=== PATIENT | female | born 1975 | race Caucasian/White ===

== ENCOUNTER 2024-05-31 13:37 | Outpatient (AMB) | payer MEDICAID, SELFPAY ==
--- NOTE | 2024-05-31 13:40 | A.OFFVIS_ITS ---
Vital Signs 3 05/31/24 13:42 Height 4 ft 10 in Weight 291 lb 0.163 oz BMI 60.8 BP 128/70 Blood Pressure Location Rt brachial Position Sitting Pulse 80 Pulse Source Pulse Oximeter Intake Visit Reasons: Adrenal nodule Intake Note: New patient present today for Adrenal nodule. 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 Here to day with mother Stephany CT scan done for evaluation of liver enzyme elevation in January 2024 showed a right-sided enhancing lesion in the adrenal gland measuring 1.4 cm. No other description given. I do not have these images. She thinks she had a dedicated adrenal CT May 19 as well. Symptoms: Reports weight loss on the Victoza , lost close to 20 lbs since September 2023, used to be 300 lbs No , hirsutism,severe acne ,headaches denies any hx of proximal muscle weakness, easy bruisability ,no abdominal striae,no headache,diaphoresis -HTN diagnosed in her 40s -Denies any polyuria or polydipsia,has type 2 DM uncontrolled managed by PCP a1c 10.1 % from notes from PCP from 2023 , they are titrating up Victoza, no abdominal pain ,skin infection or hyperpigmentation. 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 No hx of depression or mood changes - no episodic palpitaions, pallor, abdominal pain, diaphoresis . PMHx HTN Hypothyroidism Obesity Type 2 DM JOHANN on CPAP PShx No surgeries Physical exam General: sitting comfortably in no acute distress HEENT: normocephalic/atraumatic, , facial plethora noted, has rosacea Neck: supple, symmetrical, no thyromegaly , does have dorsocervical and supraclavicular fat pads Cardiac: normal heart sounds Pulm: normal breath sounds B/L, no added breath sounds Abd: not distended, no tenderness, no purple wide striae Extremities: no edema, no signs of myxedema ? PFSH Medical History (Updated 05/31/24 @ 13:47 by Olga Dolan MD) Adrenal incidentaloma Surgical History (Updated 05/31/24 @ 13:45 by ARIELLA Mosley) No pertinent past surgical history Family History (Updated 05/31/24 @ 13:46 by ARIELLA Mosley) Father No problems noted. Mother Thyroid disease Maternal Aunt Thyroid disease Social History (Updated 05/31/24 @ 13:45 by ARIELLA Mosley) Alcohol intake: current Alcohol intake frequency: holidays/special occasions only Patient Tobacco Use Status: Never used Tobacco Physical Exam Vital Signs: BMI result Body Mass Index 60.8 Assessment & Plan Assessment & Plan (1) Adrenal incidentaloma: Code(s): E27.8 - Other specified disorders of adrenal gland Category: Medical Plan: 49-year-old female coming in today for initial evaluation of right 1.4 cm adrenal gland nodule. Our first concern is to be sure that this is not an adrenal cortical carcinoma. ?Fortunately adrenal cortical carcinomas are exceedingly rare. ?However they do carry with them a very poor prognosis.?Given his clinical history with no deterioration in overall health; I have low suspicion for adrenocortical carcinoma to start with. According?Our next to patient she had another CT scan or MRI focusing on the adrenal glands, I do not have the report of this, we will request records. ?? Another concern of adrenal masses is that they might be metastatic disease from another primary malignancy. ?This seems unlikely in his case. ?She is a lifelong non-smoker. ?A renal cancer which can metastasize to the adrenal glands probably would have been identified on his initial imaging study. ?Usually metastatic disease to the adrenal glands goes to both adrenal glands. ?Finally there is no evidence of breast cancer which?may?metastasize to the adrenal glands?as well. ? Most adrenal masses are noncancerous or benign adrenal adenomas. ?However they can occasionally be functional and the hormones that are produced can cause clinical problems.??He has not been screened for any hormonal excess; although low clinical suspicion for pheochromocytoma; given the adrenal adenoma in question is greater than 1 cm and we currently do not have Hounsfield units reading on it; I will err on the side of caution and screen with plasma free metanephrines with his blood work today. ? She does have hypertension we will check for aldosterone and plasma renin activity with BMP. ? We will check a 1 mg overnight dexamethasone suppression test which she will prescribed. She does have facial plethora, dorsocervical and supraclavicular fat pads, worsened control of her diabetes though she has been losing weight recently on the Victoza up, history of hypertension though well-controlled. No recent fractures. ? Plan: -obtain records of the 2nd CT scan/MRI of the adrenal glands -ordered baseline ACTH, cortisol, DHEA-S, aldosterone, renin, BMP, plasma metanephrine and normetanephrine levels -ordered dexamethasone suppression test -follow up in 4 weeks to discuss results Notably patient also has uncontrolled diabetes mellitus with an A1c of 10.1%, I did offer to also manage diabetes mellitus in the near future once we have the adrenal gland nodule sorted out. Today we did not have enough time to address plus the referral was made for the adrenal incidentaloma. Patient and patient's mother did express interest in us taking care of this in the future as well. Plan I spent 45 minutes in reviewing the record, seeing the patient and documenting in the medical record. Orders: Orders 2 Aldosterone 06/04/24 E27.8 - Other specified disorders of adrenal gland Cortisol Random 06/04/24 E27.8 - Other specified disorders of adrenal gland Adrenocorticotropic Hormone 06/08/24 E27.8 - Other specified disorders of adrenal gland DHEA Sulfate 06/08/24 E27.8 - Other specified disorders of adrenal gland Adrenocorticotropic Hormone 06/04/24 E27.8 - Other specified disorders of adrenal gland Renin 06/04/24 E27.8 - Other specified disorders of adrenal gland DHEA Sulfate 06/04/24 E27.8 - Other specified disorders of adrenal gland Metanephrines, Plasma 06/04/24 E27.8 - Other specified disorders of adrenal gland Basic Metabolic Panel 06/04/24 E27.8 - Other specified disorders of adrenal gland Dexamethasone 06/08/24 E27.8 - Other specified disorders of adrenal gland Cortisol Random 06/08/24 E27.8 - Other specified disorders of adrenal gland Medications: New 2 dexamethasone Take at 11 pm at night and do blood work at 8 AM next day 1 mg PO DAILY 1 tab 0RF Patient Instructions: Do a set of baseline blood work at 8 AM on 06/04/24 Do dexamethasone suppression test separately next week Dexamethasone suppression test I would like you to do a dexamethasone suppression test to rule out Cushings syndrome. You will take a 1 mg pill of dexamethasone at 11 PM and then have a blood draw for cortisol at 8AM the next morning. It is important to make sure you take the dexamethasone at 11 PM and have the blood test as close to 8AM as possible. Please make sure when you go to the lab to bring their attention to the dates on the blood work Coding Level of Care Code New Pt Level 4 (03253) Diagnoses Adrenal incidentaloma E27.8 Time Spent (min) 45
[2024-05-31 13:42] VITALS: BP 128/70; PULSE 80; BMI 60.8
== END 2024-05-31 14:19 | disposition home or self-care (01) ==
PROVIDERS: PCP Internal Medicine; Visit Provider Student in an Organized Health Care Education/Training Program
DX: E27.8 Other specified disorders of adrenal gland (principal)
CPT/HCPCS: 99204

== ENCOUNTER → 2024-05-31 13:37 | Outpatient (BNVA) | payer MEDICAID, SELFPAY | PROVIDERS: PCP Internal Medicine; Visit Provider Student in an Organized Health Care Education/Training Program | DX: E27.8 Other specified disorders of adrenal gland (principal) | CPT/HCPCS: 99202 ==

== ENCOUNTER 2024-06-04 07:49 | Outpatient (REF) | payer MEDICAID, SELFPAY ==
[2024-06-04 08:46] LABS: Anion Gap 12 (12-20); Blood Urea Nitrogen 17 mg/dL (9-16); Calcium 9.6 mg/dL (8.4-10.2); Carbon Dioxide 30 mmol/L (22-29); Chloride 101 mmol/L (96-108); Estimated Glomerular Filt Rate 60; Glucose Random 232 mg/dL (60-115); Potassium 4.3 mmol/L (3.3-5.1); Sodium 139 mmol/L (135-145)
[2024-06-04 09:10] LABS: Cortisol Random 11.8 ug/dL
[2024-06-06 04:23] LABS: DHEA Sulfate 49 mcg/dL (5-167)
[2024-06-07 15:13] LABS: Metanephrine, Free <25 pg/mL (<=57); Normetanephrines, Free 56 pg/mL (<=148); Total Metanephrine, Free 56 pg/mL (<=205)
[2024-06-08 21:03] LABS: Adrenocorticotropic Hormone 60 pg/mL (6-50)
[2024-06-10 17:28] LABS: Renin 2.19 ng/mL/h (0.25-5.82)
[2024-06-15 11:49] LABS: Dexamethasone <20 ng/dL
== END 2024-06-04 07:50 | disposition home or self-care (01) ==
LOC: HO.LAB 07:49
PROVIDERS: PCP Internal Medicine; Visit Provider Student in an Organized Health Care Education/Training Program
DX: E27.8 Other specified disorders of adrenal gland (principal)
CPT/HCPCS: 36415; 80048; 80299; 82024; 82088; 82533; 82627; 83835; 84244

== ENCOUNTER 2024-06-08 07:32 | Outpatient (REF) | payer MEDICAID, SELFPAY ==
[2024-06-08 09:36] LABS: Cortisol Random < 1.0 ug/dL
[2024-06-09 06:53] LABS: DHEA Sulfate 43 mcg/dL (5-167)
[2024-06-11 21:03] LABS: Adrenocorticotropic Hormone 11 pg/mL (6-50)
[2024-06-16 14:23] LABS: Dexamethasone 412 ng/dL
== END 2024-06-08 07:33 | disposition home or self-care (01) ==
LOC: HO.LAB 07:32
PROVIDERS: PCP Internal Medicine; Visit Provider Student in an Organized Health Care Education/Training Program
DX: E27.8 Other specified disorders of adrenal gland (principal)
CPT/HCPCS: 36415; 80299; 82024; 82533; 82627

== ENCOUNTER 2024-07-06 10:49 | Outpatient (AMB) | payer MEDICAID, SELFPAY ==
[2024-07-06 10:51] VITALS: BP 186/99; PULSE 63; BMI 59.4
--- NOTE | 2024-07-06 10:51 | A.OFFVIS_ITS ---
Vital Signs 3 07/06/24 10:51 Height 4 ft 10 in Weight 284 lb 6.341 oz BMI 59.4 BP 186/99 H Blood Pressure Location Rt brachial Position Sitting Pulse 63 Pulse Source Pulse Oximeter Intake Visit Reasons: DM, Adrenal nodule Intake Note: Patient presents today for a follow-up on Type 2 Diabetes Mellitus & Adrenal Nodule: Last Diabetic eye exam was on: 05/09/2024, pt has cataracts surgery next month Last Podiatry exam was on: Patient does not see a Textile Cutting Machine Operator Most recent HbA1c: 11.0%, 07/06/2024 Random Glucose- 336 mg/dL, Today Cutter Operator Brick Required: No Accompanied by: Mother Allergies No Known Allergies Allergy (Verified 07/06/24 10:58) Medication List - Last Reconciled 07/06/24 by Olga Dolan MD hydrochlorothiazide 12.5 mg PO DAILY levothyroxine 125 mcg PO QAM meloxicam 7.5 mg PO DAILY pen needle, diabetic (BD Lianna 2nd Gen Pen Needle) As directed HPI Comments Details: 49-year-old female here today for follow up of right adrenal incidentaloma. She is also establishing care for type 2 diabetes mellitus with us today. Here to day with mother Stephany Right adrenal gland nodule CT scan done for evaluation of liver enzyme elevation in January 2024 showed a right-sided enhancing lesion in the adrenal gland measuring 1.4 cm. No other description given. I do not have these images. She thinks she had a dedicated adrenal MRI May 19 as well. Symptoms: Reports weight loss on the Victoza , lost close to 20 lbs since September 2023, used to be 300 lbs No , hirsutism,severe acne ,headaches denies any hx of proximal muscle weakness, easy bruisability ,no abdominal striae,no headache,diaphoresis -HTN diagnosed in her 40s -Denies any polyuria or polydipsia,has type 2 DM uncontrolled managed by PCP a1c 10.1 % from notes from PCP from 2023 , they are titrating up Victoza, no abdominal pain ,skin infection or hyperpigmentation. 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 No hx of depression or mood changes - no episodic palpitaions, pallor, abdominal pain, diaphoresis . Interval history MRI adrenal glands May 19 2024 obtained from [facility] showed right sided 1 cm adrenal nodule without signal drop in out of phase Labs 06/04/24 showed normal manhaz, renin, MN and NMN Dex suppression done 06/08/24 also normal Type 2 DM Diagnosed summer 2023, was prediabetic for several years , was on metformin for a couple of month and then couldnt tolerate it because of diarrhea and then wasnt on anything for a couple of years Past Medications Metformin Prior medications Victoza started summer 2023, then increased it up to 1.8 mg daily, says she has been out of it since May 2024 since 6 weeks Cataract surgery Jul 28 SMBGs hasnt checked in a while A1c 06/16 at 11 % up from 10.1 % based on PCP notes from May 2024 POC today 336 mg/dl , denies any nausea, vomiting, abd pain Weight 284 lbs thinks they lost close to 20 lbs in victoza BMI 59.4 kg /m2 Exercise: no exercise, no fixed program but stays active at home Diet: 3 meals a day Breakfast : between 8 or 9 usually eggs with banana or yogurt Lunch 1 pm : ham and cheese sandwich, Dinner between 5 and 6 30 pm: pasta with chicken or steak, spaghetti and meatballs No snacks Seldom has desserts: sugar free 1 gm snack bar Soda only once a week Hasnt seen a tire layer Last Diabetic eye exam was on: 05/09/2024, pt has cataracts surgery next month Last Podiatry exam was on: Patient does not see a Textile Cutting Machine Operator No history of neuropathy, retinopathy or kidney disease No history of OR or stroke Family history Grand uncle type 2 DM no lipids in system, not on statin on HCTZ for HTN , BP elevated today, monitors at home, 140s to 150s , lower number 80s No urine microalbumi levels PMHx HTN Hypothyroidism Obesity Type 2 DM JOHANN on CPAP PShx No surgeries Physical exam General: sitting comfortably in no acute distress HEENT: normocephalic/atraumatic, , facial plethora noted, has rosacea Neck: supple, symmetrical, no thyromegaly , does have dorsocervical and supraclavicular fat pads Cardiac: normal heart sounds Pulm: normal breath sounds B/L, no added breath sounds Abd: not distended, has a burn that looks inflamed in her right lower quadrant region, no pus noted however it is erythematous and hot, no purple wide striae Extremities: no edema, no signs of myxedema Laboratory Tests 06/04/24 06/08/24 07/06/24 08:09 08:21 11:03 Sodium 139 Potassium 4.3 Creatinine 0.98 Estimated GFR 60 Glucose (Clinic) 336 H Random Glucose 232 H Renin 2.19 Aldosterone 3 DHEA Sulfate 49 43 Random Cortisol 11.8 < 1.0 ACTH 60 H 11 Plasma Free Metaneph <25 Plasma Free Normeta 56 Plas Total Metaneph 56 ? PFSH Medical History (Updated 07/06/24 @ 12:27 by Olga Dolan MD) HTN (hypertension) Obesity Adrenal nodule Diabetes mellitus Hx of hepatic disease History of obstructive sleep apnea Hx of essential hypertension History of hyperthyroidism Hx of hyperlipidemia Hx of aortic valve disorder Hx of type 2 diabetes mellitus Adrenal incidentaloma Surgical History (Updated 05/31/24 @ 13:45 by ARIELLA Mosley) No pertinent past surgical history Family History (Updated 05/31/24 @ 13:46 by ARIELLA Mosley) Father No problems noted. Mother Thyroid disease Maternal Aunt Thyroid disease Social History (Updated 05/31/24 @ 13:45 by ARIELLA Mosley) Alcohol intake: current Alcohol intake frequency: holidays/special occasions only Patient Tobacco Use Status: Never used Tobacco Physical Exam Vital Signs: Last Vital Signs Pulse 63 07/06/24 10:51 BP 186/99 H 07/06/24 10:51 BMI result Body Mass Index 59.4 Results AMB Hemoglobin A1c 2 AMB Hemoglobin A1c 11.0 % Last Edit by ARIELLA Mosley on 07/06/24 11:1 4 Results Reviewed Results Reviewed: Laboratory Last Values Glucose (Clinic) 336 mg/dL (60-115) H 07/06/24 11:03 Hgb A1c (Clinic) 11.0 % (4.0-6.0) H 07/06/24 11:07 Assessment & Plan Assessment & Plan (1) Adrenal incidentaloma: Code(s): E27.8 - Other specified disorders of adrenal gland Category: Medical Plan: 49-year-old female coming in today for follow up of right 1.4 cm adrenal gland nodule. CT scan done for evaluation of liver enzyme elevation in January 2024 showed a right-sided enhancing lesion in the adrenal gland measuring 1.4 cm. No other description given. I do not have these images. MRI adrenal glands May 19 2024 obtained from [facility] showed right sided 1 cm adrenal nodule without signal drop in out of phase Labs 06/04/24 showed normal mahnaz, renin, MN and NMN Dex suppression done 06/08/24 also normal Given it isn't enhancing nodule without a clear signal dropout on MRI on out phase imaging, we will have her do follow up CT with the adrenal protocol in January 2025 which would be 1 year from her last CT scan. ? Plan: -ordered CT scan with the adrenal protocol to be done in January of 2025 (2) Diabetes mellitus: Code(s): E11.9 - Type 2 diabetes mellitus without complications Category: Medical Qualifiers: Diabetes mellitus type: type 2 Diabetes mellitus snf insulin use: with terminologist use Diabetes mellitus complication status: with hyperglycemia Q ualified Code(s): E11.65 - Type 2 diabetes mellitus with hyperglycemia; Z79.4 - rat exterminator (current) use of insulin Plan: 49-year-old female who also established care with us today for her type 2 diabetes mellitus which was diagnosed in summer after which was started on Victoza which was slowly uptitrated to 1.6 mg daily injection, however she has been out of her medication for the past 6 weeks. A1c today at 11%, point of care blood sugar elevated at 336 mg/dL however patient denies any symptoms of nausea, vomiting, abdominal pain, mental status changes to suggest ketoacidosis. She only complains of feeling tired. At this point given uncontrolled hyperglycemia with A1c greater than 11%, we will start her on some basal insulin. I will start her with 12 units daily however plan is for her to slowly titrate it up by 2 units depending on her fasting blood sugars with a maximum dose of 16 units for now. We will also switch her to Mounjaro. She has been on Victoza for the past year son her weight had plateaued over the last few months, most recent weight loss is likely due to a state of catabolism due to uncontrolled hyperglycemia. Plan: -Do fasting blood work and urine test Check blood sugars twice a day Fasting target 90 to 120 mg /dl , at least <140 mg/dl 2 hours post meal target < 140 mg /dl Sometimes also check premeals target <140 mg /dl -Start insulin lantus 12 units daily , if blood sugars remain greater than 140 mg/dl after 4 days consecutively , increase by 2 units up until max 16 units -Start Mounjaro 2.5 mg weekly injection, call pharmacy to ensure you get it, if not figure out what they need -STOP victoza -See educator , referral placed -See tire layer , referral pain -Cancel cataract surgery for now She follows regularly with the eye doctor, she was scheduled to have cataract surgery on July 28, I have asked them to postpone this for now given uncontrolled hyperglycemia with blood sugars in the 300s. She should have an A1c of at least 8% before she can have any kind of surgical procedure to minimize risk of infection. No history of retinopathy. Could not get to foot exam today, we will address next visit, no history of neuropathy -freestyle Juancarlos 3+ prescription sent -hypoglycemia education done Check CMP, lipid panel, platelet, urine microalbumin, labs ordered We also educated her today about importance of getting blood sugars under control, risk of complications of microvascular as well as macrovascular complications including OR or stroke. Follow up in 2 weeks (3) Obesity: Code(s): E66.9 - Obesity, unspecified Category: Medical Qualifiers: Obesity type: due to excess calories Obesity classification: adult class 3 (BMI >= 40) Serious obesity comorbidity presence: with serious comorbidity Body mass index: BMI 50.0-59.9 Qualified Code(s): E66.813 - Obesity, class 3; E66.01 - Morbid (severe) obesity due to excess calories; Z68.43 - Body mass index [BMI] 50.0-59.9, adult Plan: BMI 59.4 kg per m2 with current weight at 284 lb. She lost about 20 lb with Victoza initially but weight had plateaued over the last few months per patient. We will switch her to Mounjaro starting with 2.5 mg weekly since she has been off any GLP 1 agonist medications for the past 6 weeks. Counseled about GI intolerance. No history of pancreatitis. No alcohol use. Plan: -referral for tire layer placed -start Mounjaro 2.5 mg weekly (4) HTN (hypertension): Code(s): I10 - Essential (primary) hypertension Category: Medical Qualifiers: Hypertension type: primary hypertension Qualified Code(s): I10 - Essential (primary) hypertension Plan: Blood pressure elevated today with systolic in the 180s, they have a blood pressure monitor at home I have asked her to monitor. They say blood pressure has been elevated in the 140s to 150 systolic. We will plan to add additional blood pressure medications in the upcoming visit in 2 weeks. For now continue hydrochlorothiazide. Plan I spent 60 minutes in reviewing the record, seeing the patient and documenting in the medical record. Orders: Orders 2 AMB Hemoglobin A1c Today Z86.39 - Personal history of other endocrine, nutritional and metabolic disease Lipid Panel Today E11.9 - Type 2 diabetes mellitus without complications Microalbumin, Random (w Creat) Today E11.9 - Type 2 diabetes mellitus without complications Platelet Count Today E11.9 - Type 2 diabetes mellitus without complications Comprehensive Met. Panel Today E11.9 - Type 2 diabetes mellitus without complications TSH reflex Free T4 Today E11.9 - Type 2 [address] adrenal wo/w IV con 01/31/25 E27.9 - Disorder of adrenal gland, unspecified Referrals 2 Diabetes Education Referral E11.9 - Type 2 diabetes mellitus without complications Nutrition/Dietitian Referral E11.9 - Type 2 diabetes mellitus without complications Medications: New 2 blood-glucose sensor (FreeStyle Juancarlos 3 Plus Sensor device) As directed every 14 days 6 ea 3RF glucagon 3 mg/actuation for emergency use 3 mg intranasal ONCE 2 ea 0RF insulin glargine (Lantus Solostar U-100 Insulin) 15 units (0.15 mL) subcut QAM 15 mL 3RF pen needle, diabetic (Comfort EZ Pen Baring) As directed for injecting insulin once daily 100 ea 4RF tirzepatide (Mounjaro) for 4 weeks 2.5 mg (0.5 mL) subcut QWEEK 2 mL 0RF Patient Instructions: Do fasting blood work and urine test Check blood sugars twice a day Fasting target 90 to 120 mg /dl , at least <140 mg/dl 2 hours post meal target < 140 mg /dl Sometimes also check premeals target <140 mg /dl Start insulin lantus 12 units daily , if blood sugars remain greater than 140 mg/dl after 4 days consecutively , increase by 2 units up until max 16 units Start Mounjaro 2.5 mg weekly injection, call pharmacy to ensure you get it, if not figure out what they need STOP kevin See educator See tire layer Cancel cataract surgery for now Rule of 15 Treatment for Hypoglycemia (Low blood sugar) If your blood glucose is low (70 and below)*, follow the steps below to treat: Eat or drink something from the list below equal to 15 grams of carbohydrate (carb). Rest for 15 minutes Re-check your blood glucose. If it is still low, (below 70), repeat step 1 above. ? If your next meal is more than an hour away, you will need to eat one carbohydrate choice as a snack to keep your blood glucose from going low again. ?If you can't figure out why you have low blood glucose, call your healthcare provider, as your medicine may need to be adjusted. ?Always carry something with you to treat an insulin reaction. Use food from the list below. ? Foods equal to One Carbohydrate Choice (15 grams of carbohydrate): 3 Glucose ?tablets or 4 Dextrose tablets 4 ounces of fruit juice 5-6 ounces (about 1/2 can) of regular soda such as Coke or Pepsi ? 7-8 gummy or regular Life Savers ? 1 Tbsp. of sugar or jelly NOTE: If your blood sugar is less than 50, double the portion above for a total of 30 gm. ?Carbohydrate. ? Follow meal plan of 45-60 g of consistent carbohydrates at 3 meals each day and 15 g of carbohydrate at 1-2 snacks each day. Coding Level of Care Code Est Pt Level 5 (74379) Complex EM visit Add On G2211 Diagnoses Adrenal incidentaloma E27.8 Type 2 diabetes mellitus with hyperglycemia, with long-term current use of insulin E11.65; Z79.4 Diabetes mellitus type: type 2 Diabetes mellitus terminologist insulin use: with snf use Diabetes mellitus complication status: with hyperglycemia Class 3 severe obesity due to excess calories with serious comorbidity and body mass index (BMI) of 50.0 to 59.9 in adult E66.813; E66.01; Z68.43 Obesity type: due to excess calories Obesity classification: adult class 3 (BMI >= 40) Serious obesity comorbidity presence: with serious comorbidity Body mass index: BMI 50.0-59.9 Primary hypertension I10 Hypertension type: primary hypertension Time Spent (min) 60
[2024-07-06 11:09] LABS: Glucose, Whole Blood 336 mg/dL (60-115)
--- OUTSIDE RECORDS SUMMARY | 2024-07-06 11:59 | XMS_ITS | Clinical Summary ---
Author Organization [facility] Address [address] [facility] [address] [place] [address] Care Team Providers Care Family Service Worker Name Role Phone Tristin Garcia DO Primary Care Provider [phone] Allergies No known active allergies Social History Tobacco Use Types Packs/Day Years Used Date Smoking Tobacco: Never Assessed Comments Unknown Sex and Gender Information Value Date Recorded Sex Assigned at Not on file Legal Sex Female 4:35 PM EST Gender Identity Not on file Sexual Orientation Not on file Plan of Treatment Health Maintenance Due Date Last Done Comments Colorectal Cancer: COLONOSCO PY Screening every 10 yrs (or Modifier) 1973 Depression: Screening Annual ly using PHQ-2/9 in Adults 18 yrs or above (or HM Modifier)([facility]) 1991 Hepatitis C Virus Infection in Adolescents and Adults: Screening (or Modifier) ([facility]) 1991 SDOH Screening Reminder: Makenzie hartman for all adults ([facility]) 1991 Tobacco Smoking Cessation: i n Adults excluding Women: Behavioral and Pharmacotherapy Interventions ([facility]) 1991 DTaP/Tdap/Td Vaccines ([facility]) (1 - Tdap) 1992 Cervical Cancer Screenin 1-65 yrs of age (or Modifier) 1994 Cervical Cancer Screening: P ap every 3 yrs pts age 21-65 1994 Cervical Cancer: Pap Screeni ng with Modifier timing ([facility]) 1994 Cervical Cancer: hrHPV alone or with cotesting Pap for Pts 30-65yrs screening every 5yrs ([facility]) 1994 Colorectal Cancer Screening 45 -75 Yrs (or HM Modifier) 2018 Colorectal Cancer: FLEXIBLE SIGMOIDOSCOPY Screening every 5 yrs 2018 Colorectal Cancer: Fecal Immunochemical Test (FIT) Annually [facility] 2018 Colorectal Cancer: High-sens itivity gFOBT Screening Annually [facility] 2018 Colorectal Cancer: Stool Col oguard Screening every 3 yrs 2018 Colorectal Cancer:CT Colonog annabella Screening every 5 yrs 2018 Lipid Screening: Every 5 yrs for Women aged 45+ (or HM Modifier) ([facility]) 2019 Breast Cancer: Screening Makenzie ually age 50-74 yrs (or HM Modifier)([facility]) 2023 Zoster/Shingles Vaccine Seri es Screening: Adults aged 18+ yrs (or HM Modifiers)([facility]) (1 of 2) 2023 Flu Vaccination: Yearly for ages 18mos through 64 years (or Modifier)([facility]) 01/08/2024 COVID-19 Vaccine Screening: Initial Series and Booster Status ([facility]) ( - 2023- season) 2024 Pneumococcal Vaccination Scr eening: Pts 0-19 & 19-64 yrs of age ([facility]) Aged Out No longer eligible based on patient's age to complete this topic Medical Devices Not on file Care Teams Family Service Worker Relationship Specialty Start Date End Date Tristin Garcia DO PCP - Claim Investigator 06/23/15
--- OUTSIDE RECORDS SUMMARY | 2024-07-06 11:59 | XMS_ITS ---
[facility] Address [address] [place] [address] Care Team Providers Care Technology Trainer Name Role Phone Jose HUMPHRIES, Tristin Primary Care Provider Mat Oliveira [phone] REASON FOR VISIT NS 02/27/23 appt Encounters Encounter Location Date Provider Diagnosis [facility] [address] [address] 02/27/2023 Mat Orozco Plan Of Treatment Next Appt Details Provider Name:Mat Orozco , 04/18/2025 01:00:00 PM, [address] [place] [address], , [phone], Progress Notes * Rick ANDERSENedaDOB: 3 (47 yo F)Acc No.[id number]:02/27/2023 Patient:?Gillian Andersen :1975???Age:47 Y???Sex:Female Address:[address] [place] [address] [place], [address] * true * Date:? Generated for Brenti myah/Miguel/eTransmitting on:?07/06/2024 11:59 AM EST
--- OUTSIDE RECORDS SUMMARY | 2024-07-06 11:59 | XMS_ITS | Patient Health Record ---
[facility] Address [address] [place] [address] Care Team Providers Care Marriage Therapist Name Role Phone Jose HUMPHRIES, Tristin Primary Care Provider Mat Oliveira Unavailable [phone] Allergies No Known Allergies Results Component Value Reference Range Notes HEMOGLOBIN A1C (GLYCOHEMOGLO BIN) Reviewed date:04/19/2024 01:05:08 PM Interpretation: Performing Lab: Notes/Report: TOTAL HEMOGLOBIN (HGBA1C) 7.1 Reason For Referral No Information Medications Medication SIG (Take, Route, Frequency, Duration) Notes Start Date End Date Status metFORMIN HCl ER 500 MG TAKE 1 TABLET BY MOUTH EVERY DAY Oral for 30 Not-Taking Extra Depth Orthopedic Shoes (1 Pair) with Customized Heat Molded Multidensity Innersoles (3 Pair) as directed Dx: NIDDM (E11.9), Hammertoe Foot Deformity (M20.41,M20.42), Preulcerative Skin Lesion(s) (L85.1) Active Flovent HFA 110 mcg Active hydroCHLOROthiazide 25 mg Active Levothyroxine Sodium 75 mg Active ProAir HFA 90 mcg Ac tive Victoza 18 MG/3ML INJECT 1.2 MG UNDER THE SKIN ONCE DAILY Subcutaneous for 30 Days Active FreeStyle Lancets - TEST SUGAR DAILY DIRECTED for 30 Not-Taking Lisinopril 5 MG TAKE 1 TABLET BY MOUTH EVERY DAY Oral for 30 Not-Taking Norethindrone 0.35 MG TAKE 1 TABLET BY MOUTH EVERY DAY Oral for 28 Not-Taking Immunizations Vaccine Route Administration Date Status Comme nts Influenza Unknown 04/02/2017 Administered Influenza Unknown 04/02/2018 Administered Social History Tobacco use other than smoking: Question Answer Notes Are you an other tobacco user? Yes Problems Problem Type SNOMED Code ICD Code Onset Dates Problem Status W/U Status Risk Notes Problem Type 2 diabetes mellitus without complication (580090507) Type 2 diabetes mellitus without complication (E11.9) Active confirmed Vital Signs Blood pressure diastolic 60 mm Hg 04/19/2024 Height 3id76mg in 04/19/2024 Blood pressure systolic 138 mm Hg 04/19/2024 Weight 283 lbs 04/19/2024 BMI 59.14 kg/m2 04/19/2024 Procedures Procedure Date Ordered Date Performed Result Body Sit e 13621-ZJZIQUM NAIL, 6 OR MORE 04/19/2024 N/A Encounters Encounter Location Date Provider Diagnosis [facility] [address] [address] 04/19/2024 Matpranay LimPam Type 2 diabetes mellitus without complication E11.9 ; Pain in right toe(s) M79.674 ; Tinea unguium B35.1 and Pain in left toe(s) M79.675 Assessments Encounter Date Diagnosis (ICD Code) Assessment Notes Treatment Notes Treatment Clinical Notes Section Notes 04/19/2024 Type 2 diabetes mellitus without complication (ICD-10 - E11.9) 04/19/2024 Pain in right toe(s) (ICD-10 - M79.674) 04/19/2024 Tinea unguium (ICD-10 - B35.1) 04/19/2024 Pain in left toe(s) (ICD-10 - M79.675) 04/19/2024 Other Plan Of Treatment Pending Test Test Name Order Date Hemoglobin A1c 06/24/2017 53762-[id number] NAIL, 6 OR MORE 10/30/2016 99991-TDGUFRM NAIL, 6 OR MORE 11/04/2018 80223-RTDCSCS NAIL, 6 OR MORE 12/02/2019 25859-VEQBDQG NAIL, 6 OR MORE 12/04/2020 61678-LGXITTA NAIL, 6 OR MORE 02/27/2022 64260-PZVRPFH NAIL, 6 OR MORE 04/21/2023 64155-ODFOYHD NAIL, 6 OR MORE 04/19/2024 68864-DBCVMRX NAIL, 1-5 04/18/2016 67266-THRQ SKIN LESIONS, OVER 4 09/03/19 12 76594-NWFG NAIL(S) 09/03/2011 Next Appt Details Provider Name:Mat Orozco , 04/18/2025 01:00:00 PM, [address] [facility], [address], [place], [address], Medical (General) History Medical History History ICD Code asthma chicken pox Diabetes Hypertension Thyroid disorder Surgical History Surgery Date(Month/Year) cyst removal 1976
--- OUTSIDE RECORDS SUMMARY | 2024-07-06 11:59 | XMS_ITS ---
Author Organization [facility] Address [address] [place] [address] Care Team Providers Care Correctional Therapy Teacher Name Role Phone Jose HUMPHRIES, Tristin Primary Care Provider Mat Oliveira Unavailable [phone] Allergies No Known Allergies REASON FOR VISIT At Risk Footcare, Painful Nail(s) aggrevated by shoes and causing difficulty standing/walking. Medications Medication SIG (Take, Route, Frequency, Duration) Notes Start Date End Date Status metFORMIN HCl ER 500 MG TAKE 1 TABLET BY MOUTH EVERY DAY Oral for 30 Not-Taking Extra Depth Orthopedic Shoes (1 Pair) with Customized Heat Molded Multidensity Innersoles (3 Pair) as directed Dx: NIDDM (E11.9), Hammertoe Foot Deformity (M20.41,M20.42), Preulcerative Skin Lesion(s) (L85.1) Active FreeStyle Lancets - TEST SUGAR DAILY DIRECTED for 30 Not-Taking Lisinopril 5 MG TAKE 1 TABLET BY MOUTH EVERY DAY Oral for 30 Not-Taking Norethindrone 0.35 MG TAKE 1 TABLET BY MOUTH EVERY DAY Oral for 28 Not-Taking Flovent HFA 110 mcg Active hydroCHLOROthiazide 25 mg Active Levothyroxine Sodium 75 mg Active ProAir HFA 90 mcg Ac tive Victoza 18 MG/3ML INJECT 1.2 MG UNDER THE SKIN ONCE DAILY Subcutaneous for 30 Days Active Social History Tobacco use other than smoking: Question Answer Notes Are you an other tobacco user? Yes Vital Signs Height 5xt21br in 04/19/2024 Weight 283 lbs 04/19/2024 BMI 59.14 kg/m2 04/19/2024 Blood pressure systolic 138 mm Hg 04/19/20 24 Blood pressure diastolic 60 mm Hg 024 Procedures Procedure Date Ordered Date Performed Result Body Sit e 56976-ENMWBJR NAIL, 6 OR MORE 04/19/2024 N/A Encounters Encounter Location Date Provider Diagnosis [facility] [address] [address] 04/19/2024 Mat Orozco Type 2 diabetes mellitus without complication E11.9 [...] Treatment Pending Test Test Name Order Date [id number] NAIL, 6 OR MORE 04/19/2024 Next Appt Details Follow Up: 1 Year, Reason: Provider Name:Mat Orozco , 04/18/2025 01:00:00 PM, [address] [facility], [address] [facility], [place], [address], Procedure Notes * Category Sub-Category Detail Notes Debride Nail 6-10 Nail debridement Performance o f this nail treatment by a nonprofessional would put this patients foot and overall health at risk. Therefore, debridement to affected nail(s), as described in exam, was performed extensively to reduce/remove overall nail length, girth, thickness, subungual debris, and necrotic tissue, by manual and/or electrical means through the use of a nail nipper and/or dremel-type thread grinder tool, to a more viable healthy nail plate or bed tissue 6-10. Silver nitrate used for any petechial bleeding as necessary. Definitive antifungal treatment options have been reviewed and discussed with the patient. The patient chooses, no pharmaceutical tx - 66631 - Pt is self-pay ($65) Progress Notes * Vik ANDERSENaDOB: 3 (49 yo F)Acc No.[id number]:04/19/2024 Progress Note Patient:Gillian LIRA Provider:?Mat Orozco DPM :1975???Age:49 Y???Sex:Female D ate:04/19/2024 Address:[address] [place], [place] [phone] Pcp:Tristin Garcia MD Subjective: * Chief Complaints: * ???At Risk FootcarePainful N ail(s) aggrevated by shoes and causing difficulty standing/walking. * HPI: ???At Risk footcare:?Pt States Last PCP Visit:?Date?04/19/2024 * ROS:?General/Constitutional:?Nausea?denies.?Vomiting?denies.?Hunger Thirst?denies.?Loss appetite?denies.?Chills?denies.?Fatigue?denies.?Fever?denies.?Night Sweats?denies.?Unexplained weight loss?denies.?Ophthalmologic:?Blurred vision?denies.?Red eye?denies.?HEENTM:?Dentures?denies.?Dizziness?denies.?Glasses/contacts?admits.?Retinopathy?de nies.?Blurred/double vision?denies.?TMJ?denies.?Discharge/drainage?denies.?Implants?denies.?Hard of hearing denies.?Difficulty chewing/swallowing/speaking?denies.?Nose bleeds?denies.?Sore mouth?denies.?Swollen glands?denies.?Respiratory:?On Oxygen?denies.?Pneumonia/pleurisy?denies.?Bronchitis?denies.?Emphysema?denies.?C oughing?denies.?Cough blood?denies.?Shortness of breath?denies.?Wheezing?denies.?Cardiovascular:?Pacemaker?denies.?MVP?denies.?WPW?denies.?CHF?denies.?Heart attack?denies.?Septal defect?denies.?Rapid beat?denies.?Chest pain ?denies.?Atrial Fib.?denies.?Murmur/Palpitations?denies.?Gastrointestinal:?Hemorrhoids?denies.?Stomach/Abdominal pain?denies.?Dark blood stool?denies.?Irritable bowel ?denies.?Constipation?denies.?Diarrhea?denies.?Vomiting?denies.?Hematology:?Swelling?admits.?Bruising?denies.?Bleeding problem?denies.?Genitourinary:?Blood urine?denies.?Frequent/Painfu/urination/bladder control?denies.?Kidney stones?denies.?Infection (UTI)?denies.?Nephropathy?denies.?Musculoskeletal:?Hammertoes?admits.?Bunions?denies.?Scoliosis/kyphosis?denies.?Muscle cramps / walking?denies.?Generalized aches and pains?denies.?Weakness?denies.?Integ.:?Muller?denies.?Scars?denies.?Corns/calluses?admits.?Ingrown nails?admits.?Painful nails?admits.?Rashes?denies.?Neurologic:?Difficulty sleeping?denies.?Bipolar?denies.?Brain disorder?denies.?Balance trouble?denies.?Confusion?denies.?Fainting/blackouts?denies.?Headache?denies.?Tr emors?denies.? * Medical History:? * Surgical History:?cyst remov al 1976 * Hospitalization/Major Diagno stic Procedure:?Denies Past Hospitalization * Family History:?Mother: connor summers?Father: alive.?Paternal aunt: diagnosed with Diabetic - NIDDM.?Paternal uncle: diagnosed with Diabetic - NIDDM.? * Social History:?Tobacco Use:?Tobacco Use/Smoking?Are you a:: nonsmoker , Additional Findings: Tobacco Non-User: Current non-smoker.?Tobacco use other than smoking?Are you an other tobacco user??Yes * Medications:?TakingExtra Dep th Orthopedic Shoes (1 Pair) with Customized Heat Molded Multidensity Innersoles (3 Pair) as directed Dx: NIDDM (E11.9), Hammertoe Foot Deformity (M20.41,M20.42), Preulcerative Skin Lesion(s) (L85.1) Flovent HFA 110 mcg hydroCHLOROthiazide 25 mg Levothyroxine Sodium 75 mg ProAir HFA 90 mcg Victoza 18 MG/3ML Solution Pen-injector INJECT 1.2 MG UNDER THE SKIN ONCE DAILY Subcutaneous Taking Extra Depth Orthopedic Shoes (1 Pair) with Customized Heat Molded Multidensity Innersoles (3 Pair) as directed Dx: NIDDM (E11.9), Hammertoe Foot Deformity (M20.41,M20.42), Preulcerative Skin Lesion(s) (L85.1) Taking Flovent HFA 110 mcg Taking hydroCHLOROthiazide 25 mg Taking Levothyroxine Sodium 75 mg Taking ProAir HFA 90 mcg Taking Victoza 18 MG/3ML Solution Pen-injector INJECT 1.2 MG UNDER THE SKIN ONCE DAILY Subcutaneous Not-Taking/PRNFreeStyle Lancets - Miscellaneous TEST SUGAR DAILY DIRECTED Lisinopril 5 MG Tablet TAKE 1 TABLET BY MOUTH EVERY DAY Oral Norethindrone 0.35 MG Tablet TAKE 1 TABLET BY MOUTH EVERY DAY Oral metFORMIN HCl ER 500 MG Tablet Extended Release 24 Hour TAKE 1 TABLET BY MOUTH EVERY DAY Oral Medication List reviewed and reconciled with the patientNot-Taking/PRN FreeStyle Lancets - Miscellaneous TEST SUGAR DAILY DIRECTED Not-Taking/PRN Lisinopril 5 MG Tablet TAKE 1 TABLET BY MOUTH EVERY DAY Oral Not-Taking/PRN Norethindrone 0.35 MG Tablet TAKE 1 TABLET BY MOUTH EVERY DAY Oral Not-Taking/PRN metFORMIN HCl ER 500 MG Tablet Extended Release 24 Hour TAKE 1 TABLET BY MOUTH EVERY DAY Oral Medication List reviewed and reconciled with the patient * Allergies:?N.K.D.A.yes[Suzanne wolfe Verified] Objective: * Vitals:?Ht: 2rs52cf, Wt:283, BMI:59.14, Shoe size: 5, BP:138/60mm Hg, BS: not taken, Ht-cm: 147.32 cm, Wt-k.37 kg. * ???Past Orders: ???Lab:HEMOGLOBIN A1C (GLYCO HEMOGLOBIN) (Order Date - 01/08/2024) (Collection Date & Time - 01/08/2024 01:04 PM) ? Value Reference Range ?TOTAL HEMOGLOBIN (HGBA1C) 7.1 * Examination: ???Nails: ?NAILS are:?Elongated, overgrown, dystrophic, lytic, greater than 3mm thick, discolored and friable with crumbly malodorous subungual debris, with pain on palpation, TA, T1, T4, T5, T6, T9, remaining nails are elongated, overgrown, and dystrophic.?Dermatologic: ?SKIN FINDINGS:?Skin exam reveals Keratotic lesion(s) located at, Medial, IPJ, TA, Medial, IPJ, T5, SUB MTH (s), 1, B/L .?Orthopedic: ?MUSCLE STRENGTH:?5/5 all groups in a symmetrical fashion , B/L.?FOOT MORPHOLOGY:?Pes Planus structure, No Charcot collapse/destruction noted at MTJ.?DIGITAL DEFORMITIES:?Digital contracture, PIPJ, 2-5 B/L, incompl-reducable to push-up test, no over, nor underlapping.?Vascular: ?DP PULSES(B):?3/4, B/L.?PT PULSES(B):?3/4, B/L.?CAPILLARY FILL TIME:?immediate, all digits, B/L.?TROPHIC CONDITION-TEXTURE/ELASTICITY/TURGOR/HAIR GROWTH(B):?normal, B/L.?TEMPERTURE GRADIENT(C):?normal, warm to cool, proximal to distal, B/L, B/L.?PIGMENTATION:?normal, B/L.?EDEMA(C):?2/4, non-pitting, without aching pain, B/L, Leg(s), Ankle(s), Feet.?Neurological: ?SENSORY:?Neurological exam reveals intact sensorium, pain sensation normal, vibration sensation intact, pinprick sensation is normal in the lower extremities, 5.07 monofilament test performed at plantar aspects of 5 varied sites per foot shows sensation, normal, B/L, Pt denies, anesthesia, burning, paresthesia, tingling, B/L.?General Examination: ?GENERAL APPEARANCE:?Reveals a pleasant, alert, well nourished, well- developed, well hydrated individual, who demonstrates proper attention to hygiene/body habitus, and is in no acute distress, Pt serves as own historian for office visit today.?ORIENTED:?person, place, and time.?FOOT EXAM:?Footwear Evaluation? Assessment: * Assessment: 1.?Type 2 diabetes mellitus without complication - E11.9???2.?Pain in right toe(s) - M79.674???3.?Tinea unguium - B35.1 (Primary)???4.?Pain in left toe(s) - M79.675??? Plan: * Treatment: * Procedures:?Debride Nail 6-10:?Nail debridement?Performance of this nail treatment by a nonprofessional would put this patients foot and overall health at risk. Therefore, debridement to affected nail(s), as described in exam, was performed extensively to reduce/remove overall nail length, girth, thickness, subungual debris, and necrotic tissue, by manual and/or electrical means through the use of a nail nipper and/or dremel-type thread grinder tool, to a more viable healthy nail plate or bed tissue 6-10. Silver nitrate used for any petechial bleeding as necessary. Definitive antifungal treatment options have been reviewed and discussed with the patient. The patient chooses, no pharmaceutical tx - 69254 - Pt is self-pay ($65).? * Procedure Codes:?13619 DEBRI DE NAIL, 6 OR MORE $65, Modifiers: GY * Follow Up:?1 Year * * Sign off status: Completed true * Provider:?Mat Orozco DPM Date:?2023 Generated for Shereen glasgow/Miguel/Stephen on:?07/06/2024 11:58 AM EST History and Physical Notes * HPI (History of Present Illness) Category Sub-Category Detail Notes Category Not es At Risk footcare Pt States Last PCP Visit: Date: 4 Examination Category Sub-Category Detail Notes Category Not es Neurological SENSORY: Neurological exa m reveals intact sensorium, pain sensation normal, vibration sensation intact, pinprick sensation is normal in the lower extremities, 5.07 monofilament test performed at plantar aspects of 5 varied sites per foot shows sensation, normal, B/L, Pt denies, anesthesia, burning, paresthesia, tingling, B/L Dermatologic SKIN FINDINGS: Skin exam reveal s Keratotic lesion(s) located at, Medial, IPJ, TA, Medial, IPJ, T5, SUB MTH (s), 1, B/L Orthopedic FOOT MORPHOLOGY: Pes Planus stru cture, No Charcot collapse/destruction noted at MTJ DIGITAL DEFORMITIES: Digital contracture , PIPJ, 2-5 B/L, incompl-reducable to push-up test, no over, nor underlapping MUSCLE STRENGTH: 5/5 all groups in a symmetrical fashion , B/L General Examination GENERAL APPEARANCE: Reveals a pleasant, alert, well nourished, well-developed, well hydrated individual, who demonstrates proper attention to hygiene/body habitus, and is in no acute distress, Pt serves as own historian for office visit today FOOT EXAM: Lower Extremity Neurological Exa m performed:: Yes ORIENTED: person, place, and t tiff Footwear Evaluation Footwear Evaluation performe d:: Yes Vascular DP PULSES (B): 3/4, B/L PT PULSES (B): 3/4, B/L CAPILLARY FILL TIME: immediate, all digi ts, B/L TEMPERTURE GRADIENT (C): normal, warm to cool, proximal to distal, B/L, B/L TROPHIC CONDITION-TEXTURE/ELASTICITY/TURGOR/HAIR GROWTH (B): normal, B/L EDEMA (C): 2/4, non-pitting, wi thout aching pain, B/L, Leg(s), Ankle(s), Feet PIGMENTATION: normal, B/L Nails NAILS are: Elongated, overg rown, dystrophic, lytic, greater than 3mm thick, discolored and friable with crumbly malodorous subungual debris, with pain on palpation, TA, T1, T4, T5, T6, T9, remaining nails are elongated, overgrown, and dystrophic
--- OUTSIDE RECORDS SUMMARY | 2024-07-06 11:59 | XMS_ITS ---
[facility] Address [address] [place] [address] Care Team Providers Care Cloth Shearer Name Role Phone Jose HUMPHRIES, Tristin Primary Care Provider Mat Oliveira Unavailable [phone] Allergies No Known Allergies REASON FOR VISIT At Risk Footcare, Painful Nail(s) aggrevated by shoes and causing difficulty standing/walking. Medications Medication SIG (Take, Route, Frequency, Duration) Notes Start Date End Date Status Flovent HFA 110 mcg Active hydroCHLOROthiazide 25 mg Active metFORMIN HCl ER 500 MG TAKE 1 TABLET BY MOUTH EVERY DAY Oral for 30 Not-Taking Extra Depth Orthopedic Shoes (1 Pair) with Customized Heat Molded Multidensity Innersoles (3 Pair) as directed Dx: NIDDM (E11.9), Hammertoe Foot Deformity (M20.41,M20.42), Preulcerative Skin Lesion(s) (L85.1) Active Levothyroxine Sodium 75 mg Active Norethindrone 0.35 MG TAKE 1 TABLET BY MOUTH EVERY DAY Oral for 28 Not-Taking Lisinopril 5 MG TAKE 1 TABLET BY MOUTH EVERY DAY Oral for 30 Not-Taking FreeStyle Lancets - TEST SUGAR DAILY DIRECTED for 30 Not-Taking ProAir HFA 90 mcg Ac tive Social History Tobacco use other than smoking: Question Answer Notes Are you an other tobacco user? Yes Vital Signs Height 4ft 10in in 04/21/2023 Weight 205 lbs 04/21/2023 BMI 42.84 kg/m2 04/21/2023 Procedures Procedure Date Ordered Date Performed Result Body Sit e 50814-BZAOCNG NAIL, 6 OR MORE 04/21/2023 N/A Encounters Encounter Location Date Provider Diagnosis [facility] [place] [address] [place] [id number] 04/21/2023 Mat Orozco Type 2 diabetes mellitus without complication E11.9 ; Pain in right toe(s) M79.674 ; Tinea unguium B35.1 and Pain in left toe(s) M79.675 Assessments Encounter Date Diagnosis (ICD Code) Assessment Notes Treatment Notes Treatment Clinical Notes Section Notes 04/21/2023 Type 2 diabetes mellitus without complication (ICD-10 - E11.9) 04/21/2023 Pain in right toe(s) (ICD-10 - M79.674) 04/21/2023 Tinea unguium (ICD-10 - B35.1) 04/21/2023 Pain in left toe(s) (ICD-10 - M79.675) 04/21/2023 Other Patient Educated with: DIABETIC FOOT CARE INSTRUCTIONS.p df (DIABETIC FOOT CARE INSTRUCTIONS.p df) Plan Of Treatment Medication Medication Name Sig Start Date Stop Date Notes Extra Depth Orthopedic Shoes (1 Pair) with Customized Heat Molded Multidensity Innersoles (3 Pair) as directed Dx: NIDDM (E11.9), Hammertoe Foot Deformity (M20.41,M20.42), Preulcerative Skin Lesion(s) (L85.1) Treatment Notes Assessment Notes Other Patient Educated wit h: DIABETIC FOOT CARE INSTRUCTIONS.pdf (DIABETIC FOOT CARE INSTRUCTIONS.pdf) Pending Test Test Name Order Date [id number] NAIL, 6 OR MORE 04/21/2023 Next Appt Details Follow Up: 1 Year, Reason: Provider Name:Mat Orozco , 04/18/2025 01:00:00 PM, [address] [facility], [place] [address], [place], [phone], Procedure Notes * Category Sub-Category Detail Notes Debride Nail 6-10 Nail debridement Nail debridem ent performed extensively to reduce/remove overall nail length and girth, subungual debris, and necrotic tissue, by manual and electrical means with use of a nail nipper and/or dremel, to more viable healthy nail plate or bed tissue 6-10. Silver nitrate used for any petechial bleeding as necessary. Patient chooses, no pharmaceutical tx (97682) Progress Notes * Vik ANDERSENaDOB: 3 (48 yo F)Acc No.[id number]:04/21/2023 Progress Note Patient:Gillian Osman Provider:?Mat Orozco DPM :1975???Age:48 Y???Sex:Female D ate:04/21/2023 Address:[address] [place] [address], [id number] Pcp:Tristin Garcia MD Subjective: * Chief Complaints: * ???At Risk FootcarePainful N ail(s) aggrevated by shoes and causing difficulty standing/walking. * HPI: ???At Risk footcare:?Pt States Last PCP Visit:?Date?04/18/2023 * ROS:?General/Constitutional:?Nausea?denies.?Vomiting?denies.?Hunger Thirst?denies.?Loss appetite?denies.?Chills?denies.?Fatigue?denies.?Fever?denies.?Night Sweats?denies.?Unexplained weight loss?denies.?Ophthalmologic:?Blurred vision?denies.?Red eye?denies.?HEENTM:?Dentures?denies.?Dizziness?denies.?Glasses/contacts?admits.?Retinopathy?de nies.?Blurred/double vision?denies.?TMJ?denies.?Discharge/drainage?denies.?Implants?denies.?Hard of hearing denies.?Difficulty chewing/swallowing/speaking?denies.?Nose bleeds?denies.?Sore mouth?denies.?Swollen glands?denies.?Respiratory:?On Oxygen?denies.?Pneumonia/pleurisy?denies.?Bronchitis?denies.?Emphysema?denies.?C oughing?denies.?Cough blood?denies.?Shortness of breath?denies.?Wheezing?denies.?Cardiovascular:?Pacemaker?denies.?MVP?denies.?WPW?denies.?CHF?denies.?Heart attack?denies.?Septal defect?denies.?Rapid beat?denies.?Chest pain ?denies.?Atrial Fib.?denies.?Murmur/Palpitations?denies.?Gastrointestinal:?Hemorrhoids?denies.?Stomach/Abdominal pain?denies.?Dark blood stool?denies.?Irritable bowel ?denies.?Constipation?denies.?Diarrhea?denies.?Vomiting?denies.?Hematology:?Swelling?admits.?Bruising?denies.?Bleeding problem?denies.?Genitourinary:?Blood urine?denies.?Frequent/Painfu/urination/bladder control?denies.?Kidney stones?denies.?Infection (UTI)?denies.?Nephropathy?denies.?Musculoskeletal:?Hammertoes?admits.?Bunions?denies.?Scoliosis/kyphosis?denies.?Muscle cramps / walking?denies.?Generalized aches and pains?denies.?Weakness?denies.?Integ.:?Muller?denies.?Scars?denies.?Corns/calluses?admits.?Ingrown nails?admits.?Painful nails?admits.?Rashes?denies.?Neurologic:?Difficulty sleeping?denies.?Bipolar?denies.?Brain disorder?denies.?Balance trouble?denies.?Confusion?denies.?Fainting/blackouts?denies.?Headache?denies.?Tr emors?denies.? * Medical History:? * Surgical History:?tania marvin al 1976 * Hospitalization/Major Diagno stic Procedure:?No Hospitalization History. * Family History:?Mother: connor summers?Father: alive.?Paternal aunt: diagnosed with Diabetic - NIDDM.?Paternal uncle: diagnosed with Diabetic - NIDDM.? * Social History:?Tobacco Use:?Tobacco Use/Smoking?Are you a:: nonsmoker , Additional Findings: Tobacco Non-User: Current non-smoker.?Tobacco use other than smoking?Are you an other tobacco user??Yes ???Drugs/Alcohol:?Drugs?Have you used drugs other than those for medical reasons in the past 12 months??No ?Alcohol Screen?Did you have a drink containing alcohol in the past year?: Yes, Points: 0, Interpretation: Negative.?Miscellaneous:?Caffeine: yes, 1 cups per day. ?no Children, none. ?Exercise: yes, walking. ?Marital status: single. ?Occupation: Kitchen. * Medications:?TakingFlovent H FA 110 mcg hydroCHLOROthiazide 25 mg Levothyroxine Sodium 75 mg ProAir HFA 90 mcg Taking Flovent HFA 110 mcg Taking hydroCHLOROthiazide 25 mg Taking Levothyroxine Sodium 75 mg Taking ProAir HFA 90 mcg Not- Taking/PRNFreeStyle Lancets - Miscellaneous TEST SUGAR DAILY DIRECTED [...] reviewed and reconciled with the patient * Allergies:?N.K.D.A.yes[Aller gies Verified] Objective: * Vitals:?Ht: 4ft 10in, Wt:205 , BMI:42.84, Shoe size: 5, BS: does not test, Ht-cm: 147.32 cm, Wt-k.99 kg. * ???Past Orders: ???Lab:HEMOGLOBIN A1C (GLYCO HEMOGLOBIN) (Order Date - 04/21/2023) (Collection Date - 04/21/2023) ? Value Reference Range ?HEMOGLOBIN A1C % (HH) 6.5 * Examination: ???Nails: ?NAILS are:?Elongated, overgrown, dystrophic, [...] push-up test, no over, nor underlapping.?Vascular: ?DP PULSES:?3/4, B/L.?PT PULSES:?3/4, B/L.?CAPILLARY FILL TIME:?immediate, all digits, B/L.?SKIN TEMPERTURE GRADIENT OF THE LOWER EXTERMITIES:?normal, warm to cool, proximal to distal, B/L, B/L.?HAIR GROWTH/TEXTURE/ELASTICITY/TURGOR:?normal, B/L.?PIGMENTATION:?normal, B/L.?EDEMA:?2/4, non-pitting, without aching pain, B/L, Leg(s), Ankle(s), [...] 1.?Type 2 diabetes mellitus without complication - E11.9?2.?Pain in right toe(s) - M79.674?3.?Tinea unguium - B35.1 (Primary)?4.?Pain in left toe(s) - M79.675? Plan: * Treatment: 2.?Others? Refill Extra Depth Orthopedic Shoes (1 Pair) with Customized Heat Molded Multidensity Innersoles (3 Pair), as directed, Dx: NIDDM (E11.9), Hammertoe Foot Deformity (M20.41,M20.42), Preulcerative Skin Lesion(s) (L85.1), 1, Refills 0.?? Notes: Patient Educated with: DIABETIC FOOT CARE INSTRUCTIONS.pdf (DIABETIC FOOT CARE INSTRUCTIONS.pdf)?? * Procedures:?Debride Nail 6-10:?Nail debridement?Nail debridement performed extensively to reduce/remove overall nail length and girth, subungual debris, and necrotic tissue, by manual and electrical means with use of a nail nipper and/or dremel, to more viable healthy nail plate or bed tissue 6-10. Silver nitrate used for any petechial bleeding as necessary. Patient chooses, no pharmaceutical tx (40420).? * Procedure Codes:?24020 DEBRI DE NAIL, 6 OR MORE $65, Modifiers: GY * Follow Up:?1 Year * Images: * Sign off status: Completed true * Provider:?Mat Orozco DPM Date:?2022 Generated for Shereen glasgow/Miguel/Stephen on:?07/06/2024 11:59 AM EST History and Physical Notes * HPI (History of Present Illness) Category Sub-Category Detail Notes Category Not es At Risk footcare Pt States Last PCP Visit: Date: 3 Examination Category Sub-Category Detail Notes Category Not [...]
--- OUTSIDE RECORDS SUMMARY | 2024-07-06 11:59 | XMS_ITS | Clinical Summary ---
Author Organization [address] Address [address] [place] [phone] Phone Care Team Providers Care Glass Novelty Maker Name Role Phone Tristin Garcia DO Primary Care Provider [phone] Allergies No known active allergies Medications Medication Sig Dispensed Refills Start Date End Date Status albuterol HFA (PROAIR HFA ; PROVENTIL HFA ; VENTOLIN HFA) 90 mcg/actuation inhaler Inhale 2 Puffs into the lungs every 4 hours as needed for Cough or Wheezing. 05/08/2017 Active UNABLE TO FIND Inhale into the lungs. APRIA Active hydroCHLOROthiazide 12.5 mg tablet Take 12.5 mg by mouth daily. Active levothyroxine (SYNTHROID, LEVOTHROID) 100 mcg tablet 1 tablet = 100 mcg, By Mouth, Daily, 0 Refills, Maintenance, 03/27/17 11:03:11 03/27/2017 Active lisinopriL (PRINIVIL,ZESTRIL) 10 mg tablet Take 10 mg by mouth daily. Active liraglutide (VICTOZA) 0.6 mg/0.1 mL (18 mg/3 mL) injection Inject 1.2 mg under the skin 1 (one) time each day. Active Active Problems Problem Noted Date Diagnosed Date Asthma 02/04/2017 Obstructive sleep apnea syndrome 02/04/2017 Hypertension 11/28/2016 Hypothyroidism 11/28/2016 Encounters Date Type Department Care Team Description 05/04/2024 8:40 AM EST Consult Gastroenterology - [place] [address] [place] [address] Kiko Campa PA Fatty liver (Primary Dx); Elevated liver enzymes; Elevated cholesterol with elevated triglycerides; Diabetes 1.5, managed as type 2 (CMS/HCC) 04/26/2024 Telephone Gastroenterology - [place] [address] [place] [address] Edil Hernández MD Appointment from Last 3 Months Immunizations Name Administration Dates Next Due Influenza Quadravalent, MDCK , 0.5ml, preservative free (Flucelvax) 6mo and older 02/21/2023,03/22/2022 Influenza Quadravalent, MDCK , 0.5ml, with preservative (Flucelvax) 6mo and older 05/08/2017 Influenza Quadrivalent, 0.5m l, preservative free (Fluarix; FluLaval; Fluzone) ages 6mo and older (Afluria) 3yo and older 03/28/2018,06/23/2015 Influenza trivalent, MDCK, 0 .5mL, preservative free (Flucelvax) 6mo and older 04/16/2024 Influenza trivalent, with pr eservative (Fluzone; Afluria) 6mo and older 03/17/2021 Social History Tobacco Use Types Packs/Day Years Used Date Smoking Tobacco: Never Smokeless Tobacco: Never Alcohol Use Standard Drinks/Week Comments Yes 0 (1 standard drink = 0.6 oz pur e alcohol) Sex and Gender Information Value Date Recorded Sex Assigned at Not on file Gender Identity Not on file Sexual Orientation Not on file Job Start Date Occupation Industry Not on file Not on file Not on file Obstetrics History Last Filed Vital Signs Vital Sign Reading Time Taken Comments Blood Pressure 136/82 05/04/2024 8:43 AM EST Pulse 68 05/04/2024 8:43 AM EST Temperature - - Respiratory Rate - - Oxygen Saturation - - Inhaled Oxygen Concentration - - Weight 130 kg (287 lb) 05/04/2024 8:43 AM EST Height 147.3 cm (4' 10 ) 05/04/2024 8:43 AM EST Body Mass Index 59.98 05/04/2024 8:43 AM EST Plan of Treatment Upcoming Encounters Date Type Department Care Team ([facility] st Contact Info) Description 09/16/2024 11:30 AM EDT Office Visit Pulmonolgy - [place] 175 [facility] [address] [place] [phone] Geronimo Hamilton MD 175 [facility] 200 [place] [address] Health Maintenance Due Date Last Done Comments Breast Cancer Screening 1973 Pneumococcal Vaccine: Pediatrics (0 to 5 Years) and At-Risk Patients (6 to 64 Years) (1 of 2 - PCV) 1979 Diabetes: Annual Foot Exam 1983 Diabetes: Annual Retina Eye Exam 1983 DTaP,Tdap,and Td Vaccines (1 - Tdap) 1992 Hepatitis B Vaccines (1 of 3 - 19+ 3-dose series) 1992 Cervical Cancer Screening: Pap Smear 1994 Colorectal Cancer Screening: Colonoscopy 05/07/2022 Depression Screening 05/07/2022 HIV Screening 05/07/2022 Social Influencers of Health Screening 05/07/2022 Zoster Vaccines (1 of 2) 2023 Diabetes: Annual Urine Albumin-Creatinine Ratio (uACR) 04/19/2024 Diabetes: Blood Sugar Control Test (HGBA1C) 10/17/2024 04/19/2024 Diabetes: Annual GFR (Glomerular Filtration Rate) 04/27/2025 04/27/2024, 04/19/2024 Hypertension/CHF/CAD Annual BMP Blood Test 04/27/2025 04/27/2024, 04/19/2024 Cholesterol Screening (Lipid Panel) 04/19/2029 04/19/2024 COVID-19 Vaccine Completed 04/16/2024, , 04/07/2021 Influenza Vaccine Completed 04/16/2024, , 03/22/2022, Additional history exists Hepatitis C Screening Completed 04/19/2024 HIB Vaccines Aged Out No longer eligi ble based on patient's age to complete this topic HPV Vaccines Aged Out No longer eligi ble based on patient's age to complete this topic Hepatitis A Vaccines Aged Out No long er eligible based on patient's age to complete this topic IPV Vaccines Aged Out No longer eligi ble based on patient's age to complete this topic MMR Vaccines Aged Out No longer eligi ble based on patient's age to complete this topic Meningococcal ACWY Vaccine Aged Out N o longer eligible based on patient's age to complete this topic RSV Immunization Patients Under 20 months Aged Out No longer eligible based on patient's age to complete this topic Varicella Vaccines Aged Out No longer eligible based on patient's age to complete this topic Procedures Procedure Name Priority Date/Time Associated Diagnosis Comments CORTISOL Routine 04/27/2024 8:53 AM EST Hyponatremia Adrenal nodule (CMS/HCC) BASIC METABOLIC PANEL Routine 04/27/2024 8:53 AM EST Hyponatremia Adrenal nodule (CMS/HCC) HEPATIC FUNCTION PANEL Routine 11:08 AM EST Hypothyroid HTN (hypertension) DM (diabetes mellitus) (CMS/HCC) Elevated LFTs [id number] Routine 04/19/2024 1 1:08 AM EST Hypothyroid HTN (hypertension) DM (diabetes mellitus) (CMS/HCC) Elevated LFTs ANTIMITOCHONDRIAL ANTIBODY Routine 04/19/2024 11:08 AM EST Hypothyroid HTN (hypertension) DM (diabetes mellitus) (CMS/HCC) Elevated LFTs RK IFA WITH TITER AND PATTERN Routine 04/19/2024 11:08 AM EST Hypothyroid HTN (hypertension) DM (diabetes mellitus) (CMS/HCC) Elevated LFTs CORTISOL Routine 04/19/2024 11:08 AM EST Hypothyroid HTN (hypertension) DM (diabetes mellitus) (CMS/HCC) Elevated LFTs SMOOTH MUSCLE ANTIBODY IGG Routine 04/19/2024 11:08 AM EST Hypothyroid HTN (hypertension) DM (diabetes mellitus) (CMS/HCC) Elevated LFTs CERULOPLASMIN Routine 04/19/2024 11:08 AM EST Hypothyroid HTN (hypertension) DM (diabetes mellitus) (CMS/HCC) Elevated LFTs ALPHA FETOPROTEIN TUMOR MARKER Routine 04/19/2024 11:08 AM EST Hypothyroid HTN (hypertension) DM (diabetes mellitus) (CMS/HCC) Elevated LFTs IRON AND TIBC Routine 04/19/2024 11:08 AM EST Hypothyroid HTN (hypertension) DM (diabetes mellitus) (CMS/HCC) Elevated LFTs FERRITIN Routine 04/19/2024 11:08 AM EST Hypothyroid HTN (hypertension) DM (diabetes mellitus) (CMS/HCC) Elevated LFTs GAMMA GLUTAMYL TRANSFERASE Routine 04/19/2024 11:08 AM EST Hypothyroid HTN (hypertension) DM (diabetes mellitus) (CMS/HCC) Elevated LFTs HEPATITIS B E ANTIBODY Routine 11:08 AM EST Hypothyroid HTN (hypertension) DM (diabetes mellitus) (CMS/HCC) Elevated LFTs HEPATITIS C ANTIBODY Routine 04/19/2024 11:08 AM EST Hypothyroid HTN (hypertension) DM (diabetes mellitus) (CMS/HCC) Elevated LFTs HEPATITIS A ANTIBODY IGM Routine 024 11:08 AM EST Hypothyroid HTN (hypertension) DM (diabetes mellitus) (CMS/HCC) Elevated LFTs HEMOGLOBIN A1C Routine 04/19/2024 11:08 AM EST Hypothyroid HTN (hypertension) DM (diabetes mellitus) (CMS/HCC) Elevated LFTs THYROID STIMULATING HORMONE Routine 04/19/2024 11:08 AM EST Hypothyroid HTN (hypertension) DM (diabetes mellitus) (CMS/HCC) Elevated LFTs BASIC METABOLIC PANEL Routine 04/19/2024 11:08 AM EST Hypothyroid HTN (hypertension) DM (diabetes mellitus) (CMS/HCC) Elevated LFTs LIPID PANEL WITH REFLEX TO DIRECT LDL Routine 04/19/2024 11:08 AM EST Hypothyroid HTN (hypertension) DM (diabetes mellitus) (CMS/HCC) Elevated LFTs EXTERNAL CLINICAL LAB 04/19/2024 EXTERNAL CLINICAL LAB 04/19/2024 EXTERNAL CLINICAL LAB 04/19/2024 from Last 3 Months Results * Cortisol (04/27/2024 8:53 AM EST) Only the most recent of2 resultswithin the time period is included. Pathologist [facility] Cortisol 20.2 mcg/dL LAB CHEMISTRY METHOD 04/27/2024 11:50 AM EST [facility] Blood Venous blood specimen / Unknown Venipuncture / Unknown 04/27/2024 8:53 AM EST 04/27/2024 8:53 AM EST Narrative [facility] - 04/27/2024 11:50 AM EST CORTISOL REFERENCE RANGE ?? 8 AM SPEC: ??5.0-23.0 mcg/dL ?? 4 PM SPEC: ??3.0-16.0 mcg/dL ?? 8 PM SPEC: ??<5.0 mcg/dL [facility] LAB BLOOD ORDERABLES [facility] [address] [place] [address], * (ABNORMAL) Basic metabolic panel (04/27/2024 8:53 AM EST) Only the most recent of2 resultswithin the time period is included. [facility] Sodium 137 133 - 145 mmol/L LAB CHEMISTRY METHOD 04/27/2024 11:43 AM EST [facility] Potassium 4.3 3.5 - 5.5 mmol/L LAB CHEMISTRY METHOD 04/27/2024 11:[address] [facility] Chloride 102 96 - 110 mmol/L LAB CHEMISTRY METHOD 04/27/2024 11:43 AM EST [facility] CO2 27 21 - 32 mmol/L LAB CHEMISTRY METHOD 04/27/2024 11:[address] [facility] Anion Gap 8 3 - 11 LAB CHEMISTRY METHOD 04/27/2024 11:[address] [facility] Glucose 226(H) 70 - 100 mg/dL LAB CHEMISTRY METHOD 04/27/2024 11:[address] [facility] BUN 16 5 - 25 mg/dL LAB CHEMISTRY METHOD 04/27/2024 11:[address] [facility] Creatinine 0.97 0.50 - 1.10 mg/dL LAB CHEMISTRY METHOD 04/27/2024 11:[address] [facility] eGFR 71 >=60 mL/min/1. 73m2 LAB CHEMISTRY METHOD 04/27/2024 11:[address] [facility] Comment:Calculation based on the??Chronic Kidney Disease Epidemiology Collaboration (CKD-EPI) equation refit??without adjustment for race. BUN/Creatinine Ratio 16.5 LAB CHEMISTRY METHOD 04/27/2024 11:[address] [facility] Calcium 9.7 8.5 - 10.5 mg/dL LAB CHEMISTRY METHOD 04/27/2024 11:[address] [facility] Blood Venous blood specimen / Unknown Venipuncture / Unknown 04/27/2024 8:53 AM EST 04/27/2024 8:53 AM EST [facility] BLOOD ORDERABLES [facility] [address] [place] [address], * Hepatitis C antibody (04/19/2024 11:08 AM EST) Hepatitis C Antibody Negative Negative LAB CHEMISTRY METHOD 04/19/2024 5:08 PM EST [facility] Blood Venous blood specimen / Unknown Venipuncture / Unknown 04/19/2024 11:08 AM EST 04/19/2024 11:08 AM EST [facility] LAB BLOOD ORDERABLES [facility] [address] [place] [address], * (ABNORMAL) Lipid panel with reflex to direct LDL (04/19/2024 11:08 AM EST) Cholesterol 185 0 - 200 mg/dL LAB CHEMISTRY METHOD 04/19/2024 4:19 PM EST [facility] Triglycerides 317(H) 0 - 150 mg/dL LAB CHEMISTRY METHOD 04/19/2024 4:19 PM EST [facility] HDL 53 >=40 mg/dL LAB CHEMISTRY METHOD 04/19/2024 4:[address] [facility] LDL Calculated 69 0 - 100 mg/dL LAB CHEMISTRY METHOD 04/19/2024 4:[address] [facility] VLDL Cholesterol Patrick 63.4 mg/dL LAB CHEMISTRY METHOD 04/19/2024 4:[address] [facility] Non HDL Chol. (LDL+VLDL) 132 <145 mg/dL LAB CHEMISTRY METHOD 04/19/2024 4:[address] [facility] Chol/HDL Ratio 3.5 0.0 - 4.4 LAB CHEMISTRY METHOD 04/19/2024 4:[address] [facility] Blood Venous blood specimen / Unknown Venipuncture / Unknown 04/19/2024 11:08 AM EST 04/19/2024 11:08 AM EST [facility] LAB BLOOD ORDERABLES [facility] [address] [place] [address], [place] [phone] * (ABNORMAL) RK IFA with titer and pattern (04/19/2024 11:08 AM EST) RK Positive(A) Negative 04/21/2024 3:24 PM EST [facility] RK Pattern Atyptical Speckled(A) (none) 04/21/2024 3:24 PM EST [facility] Comment:May be associated wi th chronic active hepatitis, primary biliary cirrhosis. Follow up testing not required. Titer 1:1280(A) <1:160 04/21/2024 3:24 PM EST [facility] Blood Venous blood specimen / Unknown Venipuncture / Unknown 04/19/2024 11:08 AM EST 04/19/2024 11:[address] [facility] BLOOD ORDERABLES Performing Organization Address [facility] Co de Phone Number [facility] [address] [place] [address], * Iron and TIBC (04/19/2024 11:08 AM EST) Pathologist [facility] Iron 55 40 - 150 mcg/dL LAB CHEMISTRY METHOD 04/19/2024 4:19 PM EST [facility] TIBC 360 250 - 450 mcg/dL LAB CHEMISTRY METHOD 04/19/2024 4:[address] [facility] Iron Saturation 15 15 - 50 % LAB CHEMISTRY METHOD 04/19/2024 4:19 PM EST [facility] Blood Venous blood specimen / Unknown Venipuncture / Unknown 04/19/2024 11:08 AM EST 04/19/2024 11:[address] [facility] BLOOD ORDERABLES Performing Organization Address [facility]/ZIP Co de Phone Number [facility] [address] [place] [address], * (ABNORMAL) Smooth muscle antibody IgG (04/19/2024 11:08 AM EST) Smooth Muscle (F-Actin) IgG Ab 21(H) <20 UNITS 04/22/2024 10:36 AM EST [facility] Comment: Interpretation: Weak Positive Test performed at [facility], [address] , [place], [place] ??[address] ? [phone] Lauren Saab MD, PhD - [employer] Blood Venous blood specimen / Unknown Venipuncture / Unknown 04/19/2024 11:08 AM EST 04/19/2024 11:08 AM EST [facility] BLOOD ORDERABLES [facility] [address] [place] [address] * [id number] (04/19/2024 11:08 AM EST) A-1 Antitrypsin 114 90 - 200 mg/dL LAB CHEMISTRY METHOD 04/19/2024 4:36 PM EST [facility] Blood Venous blood specimen / Unknown Venipuncture / Unknown 04/19/2024 11:08 AM EST 04/19/2024 11:[address] [facility] BLOOD ORDERABLES Performing Organization Address [facility] Co de Phone Number [facility] [address] [place] [address], * Hepatitis A antibody IgM (04/19/2024 11:08 AM EST) Hepatitis A Antibody IgM Negative Negative LAB CHEMISTRY METHOD 04/19/2024 9:49 PM EST [facility] Blood Venous blood specimen / Unknown Venipuncture / Unknown 04/19/2024 11:08 AM EST 04/19/2024 11:08 AM EST Narrative [facility] - 04/19/2024 9:49 PM EST Over the counter supplements containing high doses of biotin may interfere with this assay. ??If interference is suspected, patients shoud be retested after refraining from biotin supplements for 72 hours. [facility] LAB BLOOD ORDERABLES [facility] [address] [place] [address], * Hepatitis B e antibody (04/19/2024 11:08 AM EST) Pathologist [facility] Hepatitis Be Antibody Nonreactive Nonreactive 04/22/2024 5:28 AM EST [facility] Comment: Test performed at [facility], [address] [place], [place] ??[address] ? [phone] Lauren Saab MD, PhD - [employer] Blood Venous blood specimen / Unknown Venipuncture / Unknown 04/19/2024 11:08 AM EST 04/19/2024 11:08 [address] [facility] BLOOD [facility]LES [facility] [address] [place] [address] * Ceruloplasmin (04/19/2024 11:08 AM EST) [facility] Ceruloplasmin 33 20 - 60 mg/dL 04/22/2024 5:40 AM EST [facility] Comment: Test performed at [facility], [address] [place], [place] ??[address] ? [phone] Lauren Saab MD, PhD - [employer] Blood Venous blood specimen / Unknown Venipuncture / Unknown 04/19/2024 11:08 AM EST 04/19/2024 11:08 AM [address] [facility] BLOOD ORDERABLES [facility] [address] [place], [place] [id number] * Alpha fetoprotein tumor marker (04/19/2024 11:08 AM EST) [facility] AFP <2.5 0.0 - 8.0 ng/mL LAB CHEMISTRY METHOD 04/19/2024 4:29 PM EST [facility] Blood Venous blood specimen / Unknown Venipuncture / Unknown 04/19/2024 11:08 AM EST 04/19/2024 11:08 AM EST Narrative [facility] - 04/19/2024 4:29 PM EST The Siemens Advia Centaur Chemiluminescent Immunoassay is used. Results obtained with different assay methods or kits cannot be used interchangeably. Results cannot be interpreted as absolute evidence of the presence or absence of malignant disease. [facility] BLOOD ORDERABLES Performing Organization Address City/[facility]/ZIP Co de Phone Number [facility] [address] [place] [address], * Antimitochondrial antibody (04/19/2024 11:08 AM EST) Mitochondrial Antibody Quantitative 1.9 <=20.0 units LAB CHEMISTRY METHOD 04/21/2024 12:11 PM EST [facility] Mitochondrial Antibody Qualitative Negative Negative LAB CHEMISTRY METHOD 04/21/2024 12:11 PM EST [facility] Blood Venous blood specimen / Unknown Venipuncture / Unknown 04/19/2024 11:08 AM EST 04/19/2024 11:08 AM EST [facility] BLOOD ORDERABLES Performing Organization Address City/[facility]/ZIP Co de Phone Number [facility] [address] [place] [address], [place] [phone] * Thyroid stimulating hormone (04/19/2024 11:08 AM EST) TSH 3.30 0.40 - 4.00 mcIU/mL LAB CHEMISTRY METHOD 04/19/2024 4:29 PM EST [facility] Blood Venous blood specimen / Unknown Venipuncture / Unknown 04/19/2024 11:08 AM EST 04/19/2024 11:08 AM EST [facility] BLOOD ORDERABLES Performing Organization Address [facility]/ZIP Co de Phone Number [facility] [address] [place] [address], [place] [phone] * (ABNORMAL) Hemoglobin A1c (04/19/2024 11:08 AM EST) Hemoglobin A1C 10.1(H) <6.5 % LAB CHEMISTRY METHOD 04/19/2024 8:47 PM EST [facility] Mean Bld Glu Estim. 243 mg/dL LAB CHEMISTRY METHOD 04/19/2024 8:47 PM EST [facility] Blood Venous blood specimen / Unknown Venipuncture / Unknown 04/19/2024 11:08 AM EST 04/19/2024 11:08 AM EST [facility] LAB BLOOD ORDERABLES Performing Organization Address City/[facility]/ZIP Co de Phone Number [facility] [address] [place] [address], [place] [phone] * (ABNORMAL) GGT (04/19/2024 11:08 AM EST) Pathologist [facility] GGT 868(H) 7 - 64 unit/L LAB CHEMISTRY METHOD 04/19/2024 4:20 PM EST [facility] Blood Venous blood specimen / Unknown Venipuncture / Unknown 04/19/2024 11:08 AM EST 04/19/2024 11:08 AM EST [facility] BLOOD ORDERABLES Performing Organization Address City/[facility]/ZIP Co de Phone Number [facility] [address] [place] [address], [place] [phone] * Ferritin (04/19/2024 11:08 AM EST) Ferritin 193 8 - 252 ng/mL LAB CHEMISTRY METHOD 04/19/2024 4:36 PM EST [facility] Blood Venous blood specimen / Unknown Venipuncture / Unknown 04/19/2024 11:08 AM EST 04/19/2024 11:08 AM EST [facility] BLOOD ORDERABLES [facility] [address] [place] [address], * (ABNORMAL) Hepatic function panel (04/19/2024 11:08 AM EST) Total Protein 7.3 6.0 - 8.0 g/dL LAB CHEMISTRY METHOD 04/19/2024 4:[address] [facility] Albumin 3.6 3.2 - 5.0 g/dL LAB CHEMISTRY METHOD 04/19/2024 4:[address] [facility] Total Bilirubin 0.4 0.0 - 1.4 mg/dL LAB CHEMISTRY METHOD 04/19/2024 4:[address] [facility] Bilirubin, Direct 0.2 0.0 - 0.3 mg/dL LAB CHEMISTRY METHOD 04/19/2024 4:[address] [facility] Bilirubin, Indirect 0.2 0.0 - 1.1 mg/dL LAB CHEMISTRY METHOD 04/19/2024 4:[address] [facility] ALT (SGPT) 103(H) 10 - 60 unit/L LAB CHEMISTRY METHOD 04/19/2024 4:[address] [facility] AST (SGOT) 69(H) 10 - 42 unit/L LAB CHEMISTRY METHOD 04/19/2024 4:[address] [facility] Alkaline Phosphatase 143(H) 42 - 121 unit/L LAB CHEMISTRY METHOD 04/19/2024 4:[address] [facility] Blood Venous blood specimen / Unknown Venipuncture / Unknown 04/19/2024 11:08 AM EST 04/19/2024 11:08 AM EST [facility] BLOOD ORDERABLES [facility] [address] [place] [address], * External clinical lab (04/19/2024) Only the most recent of3 resultswithin the time period is included. Provider [facility] BLOOD ORDERA BLES from Last 3 Months Care Teams Glass Novelty Maker Relationship Specialty Start Date End Date Tristin Garcia DO [address] [place] [phone] PCP - General Internal Medicine 05/08/17
== END 2024-07-06 11:58 | disposition home or self-care (01) ==
PROVIDERS: PCP Internal Medicine; Visit Provider Student in an Organized Health Care Education/Training Program
DX: E27.8 Other specified disorders of adrenal gland (principal); E11.65 Type 2 diabetes mellitus with hyperglycemia; Z79.4 Long term (current) use of insulin; E66.813 Obesity, class 3; Z68.43 Body mass index [BMI] 50.0-59.9, adult; I10 Essential (primary) hypertension; Z86.39 Personal history of other endocrine, nutritional and metabolic disease
CPT/HCPCS: 99215

== ENCOUNTER → 2024-07-06 10:49 | Outpatient (BNVA) | payer MEDICAID, SELFPAY | PROVIDERS: PCP Internal Medicine; Visit Provider Student in an Organized Health Care Education/Training Program | DX: E27.8 Other specified disorders of adrenal gland (principal); E11.65 Type 2 diabetes mellitus with hyperglycemia; E66.813 Obesity, class 3; I10 Essential (primary) hypertension; Z79.4 Long term (current) use of insulin; Z68.43 Body mass index [BMI] 50.0-59.9, adult | CPT/HCPCS: 82947; 83036; 99212 ==

== ENCOUNTER 2024-07-08 08:56 | Outpatient (REF) | payer MEDICAID, SELFPAY ==
[2024-07-08 09:49] LABS: Platelet Count 266 X10*3/uL (160-400)
[2024-07-08 10:54] LABS: Alanine Aminotransferase 45 U/L (0-31); Alkaline Phosphatase 94 U/L (39-117); Anion Gap 15 (12-20); Aspartate Amino Transferase 49 U/L (5-31); Bilirubin Total 0.6 mg/dL (0.0-1.0); Blood Urea Nitrogen 16 mg/dL (9-16); Calcium 9.3 mg/dL (8.4-10.2); Carbon Dioxide 25 mmol/L (22-29); Chloride 101 mmol/L (96-108); Cholesterol 161 mg/dL (<200); Estimated Glomerular Filt Rate > 60; Glucose Random 273 mg/dL (60-115); HDL Cholesterol 35 mg/dL (>40); LDL Cholesterol Calculated 84 mg/dL (<100); Potassium 4.6 mmol/L (3.3-5.1); Sodium 136 mmol/L (135-145); Total Protein 8.1 g/dL (6.5-8.0); Triglycerides 211 mg/dL (<150)
[2024-07-08 11:13] LABS: TSH reflex Free T4 1.38 uIU/mL (0.32-4.0)
== END 2024-07-08 08:57 | disposition home or self-care (01) ==
LOC: HO.LAB 08:56
PROVIDERS: PCP Internal Medicine; Visit Provider Student in an Organized Health Care Education/Training Program
DX: E11.9 Type 2 diabetes mellitus without complications (principal)
CPT/HCPCS: 36415; 80053; 80061; 84443; 85049

== ENCOUNTER 2024-07-20 10:28 | Outpatient (AMB) | payer MEDICAID, SELFPAY ==
--- NOTE | 2024-07-20 10:41 | MHC.AMNUTRGE ---
VS Expanded 07/20/24 10:42 07/20/24 10:47 Height 4 ft 10 in 4 ft 10 in Weight 280 lb 6.848 oz 280 lb BMI 58.6 58.5 Intake Visit Reasons: Type 2 diabetes mellitus without complications Allergies No Known Allergies Allergy (Verified 07/06/24 10:58) Nutrition Presentation Details: Pt presents for MNT for T2DM Pt reports doing well, presents with her mother during this appt food frequency fruits: 0-1/d vex/wk starches >25 /d dairy: 3xd protein 7oz/d fluids:w ater, coffee, juice low sugar physical activity: sedentary (have equipment at home) etoh/smoking - denies BS Monitoring Most Recent Diabetes Results: Cholesterol 161 mg/dL (<200) 07/08/24 HDL Cholesterol 35 mg/dL (>40) L 07/08/24 Triglycerides 211 mg/dL (<150) H 07/08/24 Creatinine 0.77 mg/dL (0.5-1.4) 07/08/24 Blood Urea Nitrogen 16 mg/dL (9-16) 07/08/24 Sodium 136 mmol/L (135-145) 07/08/24 Potassium 4.6 mmol/L (3.3-5.1) 07/08/24 Chloride 101 mmol/L (96-108) 07/08/24 Carbon Dioxide 25 mmol/L (22-29) 07/08/24 Calcium 9.3 mg/dL (8.4-10.2) 07/08/24 AST 49 U/L (5-31) H 07/08/24 ALT 45 U/L (0-31) H 07/08/24 Total Protein 8.1 g/dL (6.5-8.0) H 07/08/24 Albumin 4.0 g/dL (3.5-5.0) 07/08/24 GFN-Vmaplsy-Jx.Jeor Equation Height: 4 ft 10 in Weight: 280 lb Resting Metabolic Rate: 1777.62 Calculated Activity Level: Sedentary Calories Needed to Maintain Weight: 2133.14 Diagnosis Nutrition problem #1: food nutri know defi As related to (etiology) #1: diagnosis As evidenced by (sign/symptom) #1: food recall Monitoring/Goals Nutrition problem monitoring: level of knowledge/skill and total CHO intake Nutrition goal/outcome: list 3 CHO foods Outcome progress: verbalized understanding [facility] Medical History (Updated 07/06/24 @ 12:27 by Olga Dolan MD) HTN (hypertension) Obesity Adrenal nodule Diabetes mellitus Hx of hepatic disease History of obstructive sleep apnea Hx of essential hypertension History of hyperthyroidism Hx of hyperlipidemia Hx of aortic valve disorder Hx of type 2 diabetes mellitus Adrenal incidentaloma Surgical History (Updated 05/31/24 @ 13:45 by ARIELLA Mosley) No pertinent past surgical history Family History (Updated 05/31/24 @ 13:46 by ARIELLA Mosley) Father No problems noted. Mother Thyroid disease Maternal Aunt Thyroid disease Social History (Updated 05/31/24 @ 13:45 by ARIELLA Mosley) Alcohol intake: current Alcohol intake frequency: holidays/special occasions only Patient Tobacco Use Status: Never used Tobacco Assessment & Plan Assessment & Plan (1) Diabetes mellitus: Code(s): E11.9 - Type 2 diabetes mellitus without complications Category: Medical Qualifiers: Diabetes mellitus type: type 2 Diabetes mellitus fci insulin use: with roasterman use Diabetes mellitus complication status: with hyperglycemia Qualified Code(s): E11.65 - Type 2 diabetes mellitus with hyperglycemia; Z79.4 - care home (current) use of insulin Plan: Wt: 127 Kg ( 08/03 ) Est kcal needs as per MSJ: 2100 (40% carb, 30% protein/fat) Est fluid needs as per 25-30 ml/d: 3800 Est prot per day as per 1 g/kg bw: 127 Recommend fiber intake : 8-10 g per day and gradually increase to 25-28 g per day for women and 35-38 g for men or as tolerated Recommend sodium intake per day : less than 2300 mg Educated patient on: ( R = reviewed V = verbalizes understanding N/R = needs review N/A = not applicable Food sources of carbohydrate, adequate serving sizes and its role in various health conditions: R Differences between complex carbohydrates a simple carbohydrates, role of fiber in diet: R V N/R Lean protein sources of foods: R Differences between types of fats and role in diet (mono on saturated fat fatty acids, saturated fatty acids, trans fats): R V N/R Food sources of sodium in salt and healthy modifications for heart health in kidney health: R V R/V Vitamins and minerals: R V N/R Healthy plate method concept: R V N/R Physical activity: Benefits a precaution: R V N/R Hypoglycemia protocol (rule of 15): R V N/R Dietary prevention of Hyperglycemia: R Patient Instructions: Reduce sugars/carbs to less than 60 g at meal and 0-15 g as snack read food labels, measure food portion sizes see meal ideas discussed and printed Coding Level of Care Code Nutr Indiv Intake (39724) Diagnoses Type 2 diabetes mellitus with hyperglycemia, with long-term current use of insulin E11.65; Z79.4 Diabetes mellitus type: type 2 Diabetes mellitus roasterman insulin use: with roasterman use Diabetes mellitus complication status: with hyperglycemia Time Spent (min) 30
[2024-07-20 10:42] VITALS: BMI 58.6
[2024-07-20 10:47] VITALS: BMI 58.5
== END 2024-07-20 11:14 | disposition home or self-care (01) ==
PROVIDERS: PCP Internal Medicine; Visit Provider Dietitian, Registered
DX: E11.65 Type 2 diabetes mellitus with hyperglycemia (principal); Z79.4 Long term (current) use of insulin

== ENCOUNTER → 2024-07-20 10:28 | Outpatient (BNVA) | payer MEDICAID, SELFPAY | PROVIDERS: PCP Internal Medicine; Visit Provider Dietitian, Registered | DX: E11.65 Type 2 diabetes mellitus with hyperglycemia (principal); Z71.3 Dietary counseling and surveillance; Z79.4 Long term (current) use of insulin | CPT/HCPCS: 97802 ==

== ENCOUNTER 2024-07-23 10:17 | Outpatient (AMB) | payer MEDICAID, SELFPAY ==
[2024-07-23 10:26] VITALS: BP 140/84; PULSE 60; O2SAT 94; BMI 58.7
--- NOTE | 2024-07-23 10:26 | A.OFFVIS_ITS ---
Vital Signs 3 07/23/24 10:26 Height 4 ft 10 in Weight 280 lb 13.903 oz BMI 58.7 BP 140/84 H Blood Pressure Location Lt brachial Position Sitting Pulse 60 Pulse Source Pulse Oximeter Pulse Oximetry (%) 94 Oxygen Delivery Method Room Air Intake Visit Reasons: DM, Adrenal nodule Intake Note: Patient present today for Type 2 Diabetes Mellitus and Adrenal nodule. Last Diabetic eye exam: 05/2024 Last Podiatry Visit: 04/2024 Random Glucose: 264 mg/dl HgA1C: 11.0% 07/06/24 Software Tools Developer Required: No Accompanied by: Mother Allergies No Known Allergies Allergy (Verified 07/23/24 10:31) Medication List - Last Reconciled 07/23/24 by Olga Dolan MD blood-glucose sensor (FreeStyle Juancarlos 3 Plus Sensor device) As directed every 14 days glucagon 3 mg/actuation 3 mg intranasal ONCE hydrochlorothiazide 12.5 mg PO DAILY insulin glargine (Lantus Solostar U-100 Insulin) 15 units (0.15 mL) subcut QAM levothyroxine 125 mcg PO QAM losartan 50 mg PO DAILY meloxicam 7.5 mg PO DAILY pen needle, diabetic (BD Lianna 2nd Gen Pen Needle) As directed pen needle, diabetic (Comfort EZ Pen [employer]) As directed for injecting insulin once daily semaglutide (Ozempic) 0.5 mg (0.374 mL) subcut QWEEK HPI Comments Details: 49-year-old female here today for follow up of type 2 diabetes mellitus. She also has a right adrenal incidentaloma. Here to day with mother Stephany Type 2 DM Diagnosed summer 2023, was prediabetic for several years , was on metformin for a couple of month and then couldnt tolerate it because of diarrhea and then wasnt on anything for a couple of years Past Medications Metformin Prior medications Victoza started summer 2023, then increased it up to 1.8 mg daily, says she has been out of it since May 2024 We stopped this to switch her to OZempic / Mounjaro, waiting for those to be approved as she failed Victoza since when she was on it for the past 5-6 monhts her weight had plateued and A1c > 10 % Current meds Lantus 14 units in AM Interval history Jul 2023: Insurance has denied Mounjaro despite that this patient has BMI of 58.7 kg/m2 with uncontrolled hyperglycemia hyperlipidemia, hypertension, PA for OZempic submitted Got 2 cortisone shots one each knee last week , gets these every 3-4 months SMBGs Fasting : 179, 174, 274 2 hours post meal: 270s A1c 06/16 at 11 % up from 10.1 % based on PCP notes from May 2024 Random Glucose: 264 mg/dl , 2 eggs yogurt and a banana 4 hours ago Fasting 179 mg/dl Weight 284 lbs thinks they lost close to 20 lbs in [facility] BMI 59.4 kg /m2 Exercise: no exercise, no fixed program but stays active at home Diet: 3 meals a day Breakfast : between 8 or 9 usually eggs with banana or yogurt Lunch 1 pm : ham and cheese sandwich, Dinner between 5 and 6 30 pm: pasta with chicken or steak, spaghetti and meatballs No snacks Seldom has desserts: sugar free 1 gm snack bar Soda only once a week 07/20/2024: Saw peanut shaker, has follow up in August as well 07/28/2024: Has a upcoming appointment with CDE Last Diabetic eye exam was on: 05/09/2024, pt has cataracts , surgery postpone due to uncontrolled hyperglycemia Last Podiatry exam was on: 05/02 No history of neuropathy, retinopathy or kidney disease No history of TX or stroke Family history Grand uncle type 2 DM LDL 86 mg/dl 08/03, less than goal LDL 90 mg/dl on HCTZ and losartan for HTN , losartan increased to 50 mg May 2024 No urine microalbumin levels PMHx HTN Hypothyroidism Obesity Type 2 DM JOHANN on CPAP PShx No surgeries Right adrenal gland nodule: Not addressed today CT scan done for evaluation of liver enzyme elevation in January 2024 showed a right-sided enhancing lesion in the adrenal gland measuring 1.4 cm. No other description given. I do not have these images. She thinks she had a dedicated adrenal MRI May 19 as well. Symptoms: Reports weight loss on the [facility] , lost close to 20 lbs since September 2023, used to be 300 lbs No , hirsutism,severe acne ,headaches denies any hx of proximal muscle weakness, easy bruisability ,no abdominal striae,no headache,diaphoresis -HTN diagnosed in her 40s -Denies any polyuria or polydipsia,has type 2 DM uncontrolled managed by PCP a1c 10.1 % from notes from PCP from 2023 , they are titrating up Victoza, no abdominal pain ,skin infection or hyperpigmentation. 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 No hx of depression or mood changes - no episodic palpitaions, pallor, abdominal pain, diaphoresis . MRI adrenal glands May 19 2024 obtained from [facility] showed right sided 1 cm adrenal nodule without signal drop in out of phase Labs 06/04/24 showed normal mahnaz, renin, MN and NMN Dex suppression done 06/08/24 also normal Physical exam General: sitting comfortably in no acute distress HEENT: normocephalic/atraumatic, , facial plethora noted, has rosacea Neck: supple, symmetrical, no thyromegaly , does have dorsocervical and supraclavicular fat pads Cardiac: normal heart sounds Pulm: normal breath sounds B/L, no added breath sounds Abd: not distended, has a burn that looks inflamed in her right lower quadrant region, no pus noted however it is erythematous and hot, no purple wide striae Extremities: no edema, no signs of myxedema Foot exam: Intact sensation to monofilament, intact pulses, well-perfused, intact vibration, does have very dry skin Laboratory Tests 06/04/24 06/08/24 07/06/24 08:09 08:21 11:03 Sodium 139 Potassium 4.3 Creatinine 0.98 Estimated GFR 60 Glucose (Clinic) 336 H Random Glucose 232 H Renin 2.19 Aldosterone 3 DHEA Sulfate 49 43 Random Cortisol 11.8 < 1.0 ACTH 60 H 11 Plasma Free Metaneph <25 Plasma Free Normeta 56 Plas Total Metaneph 56 Laboratory Tests 07/06/24 07/08/24 11:07 09:16 Plt Count 266 Sodium 136 Potassium 4.6 Creatinine 0.77 Estimated GFR > 60 Random Glucose 273 H Hgb A1c (Clinic) 11.0 H AST 49 H ALT 45 H Albumin 4.0 Triglycerides 211 H Cholesterol 161 LDL Cholesterol, Calc 84 HDL Cholesterol 35 L TSH 1.38 ? [facility] Medical History (Updated 07/23/24 @ 11:20 by Olga Dolan MD) HLD (hyperlipidemia) Metabolic dysfunction-associated fatty liver disease (MAFLD) HTN (hypertension) Obesity Adrenal nodule Diabetes mellitus Hx of hepatic disease History of obstructive sleep apnea Hx of essential hypertension History of hyperthyroidism Hx of hyperlipidemia Hx of aortic valve disorder Hx of type 2 diabetes mellitus Adrenal incidentaloma Surgical History (Updated 05/31/24 @ 13:45 by ARIELLA Mosley) No pertinent past surgical history Family History Father No problems noted. Mother Thyroid disease Maternal Aunt Thyroid disease Social History (Updated 05/31/24 @ 13:45 by ARIELLA Mosley) Alcohol intake: current Alcohol intake frequency: holidays/special occasions only Patient Tobacco Use Status: Never used Tobacco Physical Exam Vital Signs: Last Vital Signs Pulse 60 07/23/24 10:26 BP 140/84 H 07/23/24 10:26 Pulse Ox 94 07/23/24 10:26 Oxygen Delivery Method Room Air 07/23/24 10:26 BMI result Body Mass Index 58.7 Assessment & Plan Assessment & Plan (1) Diabetes mellitus: Code(s): E11.9 - Type 2 diabetes mellitus without complications Category: Medical Qualifiers: Diabetes mellitus complication status: with hyperglycemia Diabetes mellitus superintendent marine oil terminal insulin use: with superintendent marine oil terminal use Diabetes mellitus type: type 2 Qualified Code(s): E11.65 - Type 2 diabetes mellitus with hyperglycemia; Z79.4 - [facility] (current) use of insulin Plan: 49-year-old female who is here for follow up of her type 2 diabetes mellitus which was diagnosed in summer now with basal insulin use, without complications. A1c in June 2024 11%, her fasting blood sugars are anywhere from 170s to early 200s, post meal blood sugars in the 270s. They have come down from 3 0s since we started the insulin. She was previously on Victoza 1.6 mg daily, however her weight had plateaued on it over the last couple of months when she was on the medication before she ran out of it, and she has failed Victoza. Plus given her BMI 58.7 kg per m2, she needs a weight reduction of at least 15-20%, which are not levels achieved good Victoza. I tried prescribing her Mounjaro, but [employer] denied her approval. She would have been an excellent candidate for that medication especially given severely morbid obesity, uncontrolled hyperglycemia, hyperlipidemia and hypertension plus metabolic dysfunction associated liver disease. I have put in a prior authorization for Ozempic. Waiting for approval. Plan: -Do urine test -Check blood sugars twice a day Fasting target 90 to 120 mg /dl , at least <140 mg/dl 2 hours post meal target < 140 mg /dl Sometimes also check premeals target <140 mg /dl -increase Lantus to 16 units from 14 units and then titrate up by 2 units for a maximum of 20 units daily if blood sugars remain greater than 140 mg/dL for fasting blood sugar readings over 4 days on the same dose -waiting for Ozempic 0.5 mg weekly injection to be approved -start Jardiance 10 mg daily, discuss side effects of ketoacidosis and importance of stopping the medication when acutely sick, has a infection, vomiting, gastroenteritis and to maintain good hydration -See educator , has appointment 07/28/2024, asked patient to bring freestyle Juancarlos 3+ to that appointment. -follow up with the peanut shaker - She follows regularly with the eye doctor, she was scheduled to have cataract surgery on July 28, I postponed this for now given uncontrolled hyperglycemia with blood sugars in the 300s. She should have an A1c of at least 8% before she can have any kind of surgical procedure to minimize risk of infection. No history of retinopathy. Could not get to foot exam today, we will address next visit, no history of neuropathy -freestyle Juancarlos 3+ prescription sent -hypoglycemia education done -pending urine microalbumin levels to be tested We also educated her today about importance of getting blood sugars under control, risk of complications of microvascular as well as macrovascular complications including TX or stroke. Follow up in 6 weeks (2) Obesity: Code(s): E66.9 - Obesity, unspecified Category: Medical Qualifiers: Body mass index: BMI 50.0-59.9 Obesity classification: adult class 3 (BMI >= 40) Obesity type: due to excess calories Serious obesity comorbidity presence: with serious comorbidity Qualified Code(s): E66.813 - Obesity, class 3; E66.01 - Morbid (severe) obesity due to excess calories; Z68.43 - Body mass index [BMI] 50.0-59.9, adult Plan: BMI 58.7 kg per m2 with current weight at 280 lb. She lost about 20 lb with Victoza initially when it was started but weight had plateaued over the fall 2023. We had put in a prescription for Mounjaro for her, however her insurance rejected that despite her BMI with complications of uncontrolled hyperglycemia, hypertension, hyperlipidemia, fatty liver disease. We will try to get Ozempic approved. Counseled about GI intolerance. No history of pancreatitis. No alcohol use. Plan: -follow up with peanut shaker -start Ozempic 0.5 mg weekly injection (3) HTN (hypertension): Code(s): I10 - Essential (primary) hypertension Category: Medical Qualifiers: Hypertension type: primary hypertension Qualified Code(s): I10 - Essential (primary) hypertension Plan: Losartan was increased from 25 mg daily to 50 mg daily in May 2024. She is also on hydrochlorothiazide 25 mg daily. Blood pressure in the 140 systolic today in clinic, however they have been monitoring at home and they say less than 120 systolic. Plan: -continue current regimen (4) Adrenal incidentaloma: Code(s): E27.8 - Other specified disorders of adrenal gland Category: Medical Plan: Not addressed today. 49-year-old female coming in today for follow up of right 1.4 cm adrenal gland nodule. CT scan done for evaluation of liver enzyme elevation in January 2024 showed a right-sided enhancing lesion in the adrenal gland measuring 1.4 cm. No other description given. I do not have these images. MRI adrenal glands May 19 2024 obtained from [facility] showed right sided 1 cm adrenal nodule without signal drop in out of phase Labs 06/04/24 showed normal mahnaz, renin, MN and NMN Dex suppression done 06/08/24 also normal Given it isn't enhancing nodule without a clear signal dropout on MRI on out phase imaging, we will have her do follow up CT with the adrenal protocol in January 2025 which would be 1 year from her last CT scan. ? Plan: -has order for CT scan with the adrenal protocol to be done in January of 2025 (5) HLD (hyperlipidemia): Code(s): E78.5 - Hyperlipidemia, unspecified Category: Medical Qualifiers: Hyperlipidemia type: mixed hyperlipidemia Qualified Code(s): E78.2 - Mixed hyperlipidemia Plan: LDL at 84 mg/dL from June 2024, which is at goal at less than 90 mg/dL. Triglycerides elevated. Discussed with her importance of avoiding fatty foods, and hopefully with improvement of her glycemic control we will see an improvement in triglycerides. (6) Metabolic dysfunction-associated fatty liver disease (MAFLD): Code(s): K76.0 - Fatty (change of) liver, not elsewhere classified Category: Medical Plan: Fibrosis 4 index score at 1.4, NAFLD fibrosis score of 1.02, needs further evaluation for consideration of advanced fibrosis/cirrhosis. Patient already has a pharmaceutical process engineer at [facility], patient's mother said that they will be contacting them follow up for further evaluation of fatty liver disease. Start Ozempic 0.5 mg weekly injection Plan I spent 30 minutes in reviewing the record, seeing the patient and documenting in the medical record. Medications: New 2 empagliflozin (Jardiance) 10 mg PO DAILY 30 tabs 5RF Patient Instructions: Increase lantus to 16 units and then titrate up by 2 units every 4 days till fasting blood sugar <140 mg/dl for a maximum of 20 units Start jardiance 10 mg daily Please check on the status of Ozempic in 2-3 weeks , if not approved we will consider restarting Victoza till we appeal your insurance Follow up with nurtritionist See educator , please bring juancarlos and phone with data to appointment for this to be set Please bring meter otherwise also to all your appointment If you have vomiting or infection or any acute sickness please hold jardiance Hygiene instructions discussed Continue to monitor BP at home Walk 30 mins 5 days a week Follow up with gasteroenterologist regarding fatty liver Coding Level of Care Code Est Pt Level 4 (95270) Complex EM visit Add On G2211 Diagnoses Type 2 diabetes mellitus with hyperglycemia, with long-term current use of insulin E11.65; Z79.4 Diabetes mellitus complication status: with hyperglycemia Diabetes mellitus superintendent marine oil terminal insulin use: with detention use Diabetes mellitus type: type 2 Class 3 severe obesity due to excess calories with serious comorbidity and body mass index (BMI) of 50.0 to 59.9 in adult E66.813; E66.01; Z68.43 Body mass index: BMI 50.0-59.9 Obesity classification: adult class 3 (BMI >= 40) Obesity type: due to excess calories Serious obesity comorbidity presence: with serious comorbidity Primary hypertension I10 Hypertension type: primary hypertension Adrenal incidentaloma E27.8 Mixed hyperlipidemia E78.2 Hyperlipidemia type: mixed hyperlipidemia Metabolic dysfunction-associated fatty liver disease (MAFLD) K76.0 Time Spent (min) 30
[2024-07-23 10:36] LABS: Glucose, Whole Blood 264 mg/dL (60-115)
--- OUTSIDE RECORDS SUMMARY | 2024-07-23 11:07 | XMS_ITS | Clinical Summary ---
Author Organization [address] Address [address] [place] [phone] Phone Care Team Providers Care Contact Lens Polisher Name Role Phone DonnieJennifer williamkari VACA Primary Care Provider [phone] Allergies No known active allergies Medications albuterol HFA (PROAIR HFA ; PROVENTIL HFA ; VENTOLIN HFA) 90 mcg/actuation inhaler Inhale 2 Puffs into the lungs every 4 hours as needed for Cough or Wheezing. 05/08/2017 Active UNABLE TO FIND Inhale into the lungs. APRIA Active hydroCHLOROthiaz alessia 12.5 mg tablet Take 12.5 mg by mouth daily. Active levothyroxine (SYNTHROID, LEVOTHROID) 100 mcg tablet 1 tablet = 100 mcg, By Mouth, Daily, 0 Refills, Maintenance , 03/27/17 11:03:11 03/27/2017 Active lisinopriL (PRINIVIL,ZESTRI L) 10 mg tablet Take 10 mg by mouth daily. Active liraglutide (VICTOZA) 0.6 mg/0.1 mL (18 mg/3 mL) injection Inject 1.2 mg under the skin 1 (one) time each day. Active Active Problems Problem Noted Date Diagnosed Date Asthma 02/04/2017 Obstructive sleep apnea syndrome 02/04/2017 Hypertension 11/28/2016 Hypothyroidism 11/28/2016 Encounters Date Type Department Care Team Description 05/04/2024 8:40 AM EST Consult Gastroenterology - [place] [address] [place] [address] Kiko Campa PA Fatty liver (Primary Dx); Elevated liver enzymes; Elevated cholesterol with elevated triglycerides; Diabetes 1.5, managed as type 2 (CMS/HCC) 04/26/2024 Telephone Gastroenterology - [place] 175 [facility] 175 [facility] [address] [place] [address] Edil Hernández MD Appointment from [...] drink = 0.6 oz pur e alcohol) Comments Unknown Sex and Gender Information Value Date Recorded Sex Assigned at Not on file Legal Sex Female 11:53 AM EST Gender Identity Not on file Sexual Orientation Not on file Obstetrics History Last Filed [...] Upcoming Encounters Date Type Department Care Team ([facility] st Contact Info) Description 09/16/2024 11:30 AM EDT Office Visit Pulmonolgy - [place] 175 [facility] 200 [place] [phone] Geronimo Hamilton MD 175 [facility] 200 [place] [address] Health Maintenance Due Date Last Done Comments Breast Cancer Screening 1973 Diabetes: Annual Foot Exam 1983 Diabetes: Annual Retina Eye Exam 1983 DTaP,Tdap,and Td Vaccines (1 - Tdap) 1992 Hepatitis B Vaccines (1 of 3 - 19+ 3-dose series) 1992 Pneumococcal Vaccine: 50+ Years (1 of 2 - PCV) 1992 Pneumococcal Vaccine: Pediatrics (0 to 5 Years) and At-Risk Patients (6 to 64 Years) (1 of 2 - PCV) 1992 Cervical Cancer Screening: Pap Smear 1994 [...] patient's age to complete this topic Meningococcal B Vacine Aged Out No lo nger eligible based on patient's age to complete [...] 8:53 AM EST Hyponatremia Adrenal nodule (CMS/HCC) HEPATITIS C ANTIBODY Routine 04/19/2024 11:08 AM EST Hypothyroid HTN (hypertension) DM (diabetes mellitus) (CMS/HCC) Elevated LFTs HEMOGLOBIN A1C Routine 04/19/2024 11:08 AM EST Hypothyroid HTN (hypertension) DM (diabetes mellitus) (CMS/HCC) Elevated LFTs LIPID PANEL WITH REFLEX TO DIRECT LDL Routine 04/19/2024 11:08 AM EST Hypothyroid HTN (hypertension) DM (diabetes mellitus) (CMS/HCC) Elevated LFTs from Last 3 Months or Most Recently Relevant to Health Maintenance Results * Cortisol (04/27/2024 8:53 AM EST) Cortisol 20.2 mcg/dL LAB CHEMISTRY METHOD 04/27/2024 11:50 AM EST [facility] Blood Venous blood specimen / Unknown Venipuncture / Unknown 04/27/2024 8:53 AM EST 04/27/2024 8:53 AM EST [facility] - 04/27/2024 11:50 AM EST CORTISOL REFERENCE RANGE ?? 8 AM SPEC: ??5.0-23.0 mcg/dL ?? 4 PM SPEC: ??3.0-16.0 mcg/dL ?? 8 PM SPEC: ??<5.0 mcg/dL Abdias Donalmichaelomer LAB BLOOD ORDERABLES Final Resul t [facility] [address] [place] [address], [place] [phone] * (ABNORMAL) Basic metabolic panel (04/27/2024 8:53 AM EST) Sodium 137 133 - 145 mmol/L LAB CHEMISTRY METHOD 04/27/2024 11:43 AM [facility] Potassium 4.3 3.5 - 5.5 mmol/L LAB CHEMISTRY METHOD 04/27/2024 11:43 AM [facility] Chloride 102 96 - 110 mmol/L LAB CHEMISTRY METHOD 04/27/2024 11:43 AM [facility] CO2 27 21 - 32 mmol/L LAB CHEMISTRY METHOD 04/27/2024 11:43 AM [facility] Anion Gap 8 3 - 11 LAB CHEMISTRY METHOD 04/27/2024 11:43 AM [facility] Glucose 226(H) 70 - 100 mg/dL LAB CHEMISTRY METHOD 04/27/2024 11:43 AM [facility] BUN 16 5 - 25 mg/dL LAB CHEMISTRY METHOD 04/27/2024 11:43 AM [facility] Creatinine 0.97 0.50 - 1.10 mg/dL LAB CHEMISTRY METHOD 04/27/2024 11:43 AM [facility] eGFR 71 >=60 mL/min/1. 73m2 LAB CHEMISTRY METHOD 04/27/2024 11:43 AM [facility] Comment:Calculation based on the??Chronic Kidney Disease Epidemiology Collaboration (CKD-EPI) equation refit??without adjustment for race. BUN/Creatinine Ratio 16.5 LAB CHEMISTRY METHOD 04/27/2024 11:43 AM [facility] Calcium 9.7 8.5 - 10.5 mg/dL LAB CHEMISTRY METHOD 04/27/2024 11:43 AM EST [facility] Blood Venous blood specimen / Unknown Venipuncture / Unknown 04/27/2024 8:53 AM EST 04/27/2024 8:53 AM EST Abdias [facility] LAB BLOOD ORDERABLES Final Resul t Performing Organization Address City/[facility]/ZIP Co de Phone Number [facility] [address] [place] [address], [place] [phone] * Hepatitis C antibody (04/19/2024 11:08 AM EST) [facility] Hepatitis C Antibody Negative Negative LAB CHEMISTRY METHOD 04/19/2024 5:08 PM [facility] Blood Venous blood specimen / Unknown Venipuncture / Unknown 04/19/2024 11:08 AM EST 04/19/2024 11:08 AM EST Abdias [facility] LAB BLOOD ORDERABLES Final Resul t Performing Organization Address [facility] de Phone Number [facility] [address] [place] [address], [place] [phone] * (ABNORMAL) Lipid panel with reflex to direct LDL (04/19/2024 11:08 AM EST) [facility] Cholesterol 185 0 - 200 mg/dL LAB CHEMISTRY METHOD 04/19/2024 4:19 PM [facility] Triglycerides 317(H) 0 - 150 mg/dL LAB CHEMISTRY METHOD 04/19/2024 4:19 PM [facility] HDL 53 >=40 mg/dL LAB CHEMISTRY METHOD 04/19/2024 4:19 PM [facility] LDL Calculated 69 0 - 100 mg/dL LAB CHEMISTRY METHOD 04/19/2024 4:19 PM [facility] VLDL Cholesterol Patrick 63.4 mg/dL LAB CHEMISTRY METHOD 04/19/2024 4:19 PM EST [facility] Non HDL Chol. (LDL+VLDL) 132 <145 mg/dL LAB CHEMISTRY METHOD 04/19/2024 4:19 PM EST [facility] Chol/HDL Ratio 3.5 0.0 - 4.4 LAB CHEMISTRY METHOD 04/19/2024 4:19 PM EST [facility] Blood Venous blood specimen / Unknown Venipuncture / Unknown 04/19/2024 11:08 AM EST 04/19/2024 11:08 AM EST [facility] LAB BLOOD ORDERABLES Final Resul t Performing Organization Address City/[facility]/ZIP Co de Phone Number [facility] [address] [place] [address], [place] [phone] * (ABNORMAL) Hemoglobin A1c (04/19/2024 11:08 AM EST) Hemoglobin A1C 10.1(H) <6.5 % LAB CHEMISTRY METHOD 04/19/2024 8:47 PM EST [facility] Mean Bld Glu Estim. 243 mg/dL LAB CHEMISTRY METHOD 04/19/2024 8:47 PM EST [facility] Blood Venous blood specimen / Unknown Venipuncture / Unknown 04/19/2024 11:08 AM EST 04/19/2024 11:08 AM EST [facility] LAB BLOOD ORDERABLES Final Resul t [facility] [address] [place] [address], [place] [phone] from Last 3 Months or Most Recently Relevant to Health Maintenance Insurance MEDICAID - [place] Care Teams Contact Lens Polisher Relationship Specialty Start Date End Date Tristin Garcia DO [address] [place] [phone] PCP - General Internal Medicine 05/08/17
--- OUTSIDE RECORDS SUMMARY | 2024-07-23 11:07 | XMS_ITS | Patient Health Record ---
Author Organization [facility] Address [address] [place] [address] Care Team Providers Care Educational Advisor Name Role Phone Jose HUMPHRIES, Tristin Primary Care Provider Mat Oliveira Unavailable [phone] Allergies No Known Allergies Results Component Value [...] Problem Type 2 diabetes mellitus without complication (300556089) Type 2 diabetes mellitus without complication (E11.9) Active confirmed Vital Signs Blood pressure diastolic 60 mm Hg 04/19/2024 Height [id number] in 04/19/2024 Blood pressure systolic 138 mm Hg 04/19/2024 Weight 283 lbs 04/19/2024 BMI 59.14 kg/m2 04/19/2024 Procedures Procedure Date Ordered Date Performed Result Body Sit e 12272-AIELXSZ NAIL, 6 OR MORE 04/19/2024 N/A Encounters Encounter Location Date Provider Diagnosis [facility] [address] [address] 04/19/2024 Matpranay LimPam Type 2 diabetes mellitus [...] Test Name Order Date Hemoglobin A1c 06/24/2017 76308-QMMBVCK NAIL, 6 OR MORE 10/30/2016 60023-BLIBSDJ NAIL, 6 OR MORE 11/04/2018 60657-BMZUQPP NAIL, 6 OR MORE 12/02/2019 69433-DAWFTPO NAIL, 6 OR MORE 12/04/2020 19314-[id number] NAIL, 6 OR MORE 02/27/2022 62468-ZGCZSMH NAIL, 6 OR MORE 04/21/2023 36877-PFEBFWK NAIL, 6 OR MORE 04/19/2024 51375-NCSYECV NAIL, 1-5 04/18/2016 79661-RPLU SKIN LESIONS, OVER 4 09/03/19 12 81212-SCBD NAIL(S) 09/03/2011 Next Appt Details Provider Name:Mat Orozco , 04/18/2025 01:00:00 PM, [address] [facility], [address], [place], [address], Medical (General) History Medical History History ICD Code asthma chicken pox Diabetes Hypertension Thyroid disorder Surgical History Surgery Date(Month/Year) cyst removal 1976
--- OUTSIDE RECORDS SUMMARY | 2024-07-23 11:07 | XMS_ITS | Clinical Summary ---
Author Organization [facility] [email or web address] [facility] [employer] Address [address] [facility] [employer] [place] [address] Care Team Providers Care Athletic Training Internship Name Role Phone MeraridianajesusTristin william Primary Care Provider [phone] Allergies No known active allergies Social History [...] Adults 18 yrs or above (or HM Modifier)([facility]) 1991 Hepatitis C Virus Infection in Adolescents and Adults: Screening (or Modifier) ([facility]) 1991 SDMT Screening Reminder: Makenzie hartman for all adults ([facility]) 1991 Tobacco Smoking Cessation: i n Adults excluding Women: Behavioral and Pharmacotherapy Interventions ([facility]) 1991 DTaP/Tdap/Td Vaccines ([facility]) (1 - Tdap) 1992 Cervical Cancer Screenin 1-65 yrs of age (or Modifier) 1994 Cervical Cancer Screening: P ap every 3 yrs pts age 21-65 1994 Cervical Cancer: Pap Screeni ng with Modifier timing ([facility]) 1994 Cervical Cancer: hrHPV alone or with cotesting Pap for Pts 30-65yrs screening every 5yrs ([facility]) 1994 Colorectal Cancer Screening 45 -75 Yrs (or HM Modifier) 2018 Colorectal Cancer: FLEXIBLE SIGMOIDOSCOPY Screening every 5 yrs 2018 Colorectal Cancer: Fecal Immunochemical Test (FIT) Annually [facility] 2018 Colorectal Cancer: High-sens itivity gFOBT Screening Annually [facility] 2018 Colorectal Cancer: Stool Col oguard Screening every 3 yrs 2018 Colorectal Cancer:CT Colonog annabella Screening every 5 yrs 2018 Lipid Screening: Every 5 yrs for Women aged 45+ (or HM Modifier) ([facility]) 2019 Breast Cancer: Screening Makenzie ually age 50-74 yrs (or HM Modifier)([facility]) 2023 Zoster/Shingles Vaccine Seri es Screening: Adults aged 18+ yrs (or HM Modifiers)([facility]) (1 of 2) 2023 Flu Vaccination: Yearly for ages 18mos through 64 years (or Modifier)([facility]) 01/08/2024 COVID-19 Vaccine Screening: Initial Series and Booster Status ([facility]) (2023- season) 2024 Pneumococcal Vaccination Scr eening: Pts 0-19 & 19-64 yrs of age ([facility]) Aged Out No longer eligible based on patient's age to complete this topic Medical Devices Not on file Care Teams Athletic Training Internship Relationship Specialty Start Date End Date Tristin Garcia DO PCP - Gaming Surveillance Observer 06/23/15
--- OUTSIDE RECORDS SUMMARY | 2024-07-23 11:08 | XMS_ITS ---
Author Organization [facility] Address [address] [place] [address] Care Team Providers Care Manager Labor Relations Name Role Phone Jose HUMPHRIES, Tristin Primary Care Provider Mat Oliveira [phone] REASON FOR VISIT NS 02/27/23 appt Encounters Encounter Location Date Provider Diagnosis [facility] [address] [address] 02/27/2023 Mat Orozco Plan Of Treatment Next Appt Details Provider Name:Mat Orozco , 04/18/2025 01:00:00 PM, [address] [place] [address], [place], [address], Progress Notes * Rick ANDERSENedaDOB: 3 (47 yo F)Acc No.[id number]:02/27/2023 Patient:?Gillian Andersen :1975???Age:47 Y???Sex:Female Address:[address] [place] [address] [place], [address] * true * Date:? Generated for Shereen glasgow/Miguel/eTransmitting on:?07/23/2024 11:07 AM EST
--- OUTSIDE RECORDS SUMMARY | 2024-07-23 11:08 | XMS_ITS ---
Author Organization [facility] Address [address] [place] [address] Care Team Providers Care Word Processor Operator Name Role Phone Jose HUMPHRIES, Tristin Primary Care Provider Mat Oliveira Unavailable [phone] Allergies No Known Allergies REASON FOR VISIT [...] Ordered Date Performed Result Body Sit e 39484-BSTNSAC NAIL, 6 OR MORE 04/21/2023 N/A Encounters Encounter Location Date Provider Diagnosis [facility] [place] [address] [place] [address] 04/21/2023 Mat Orozco Type 2 diabetes mellitus [...] INSTRUCTIONS.pdf) Pending Test Test Name Order Date [id number] NAIL, 6 OR MORE 04/21/2023 Next Appt Details Follow Up: 1 Year, Reason: Provider Name:Mat Orozco , 04/18/2025 01:00:00 PM, [address] [facility], [place] [address], [place], [address], Procedure Notes * Category Sub-Category Detail Notes [...] as necessary. Patient chooses, no pharmaceutical tx (57178) Progress Notes * Vik ANDERSENaDOB: 3 (48 yo F)Acc No.[id number]:04/21/2023 Progress Note Patient:Gillian Osman Provider:?Mat Orozco DPM :1975???Age:48 Y???Sex:Female D ate:04/21/2023 Address:[address] [place] [address], [facility] Pcp:Tristin Garcia MD Subjective: * Chief Complaints: [...] as necessary. Patient chooses, no pharmaceutical tx (79900).? * Procedure Codes:?37008 DEBRI DE NAIL, 6 OR MORE $65, Modifiers: GY * Follow Up:?1 Year * Images: * Sign off status: Completed true * Provider:?Mat Orozco DPM Date:?2022 Generated for Shereen glasgow/Miguel/Stephen on:?07/23/2024 11:07 AM EST History and Physical Notes * [...]
--- OUTSIDE RECORDS SUMMARY | 2024-07-23 11:08 | XMS_ITS ---
Author Organization [facility] Address [address] [place] [address] Care Team Providers Care Multimedia Engineer Name Role Phone Jose HUMPHRIES, Tristin Primary Care Provider Mat Oliveira Unavailable [phone] Allergies No Known Allergies REASON FOR VISIT [...] other tobacco user? Yes Vital Signs Height 9dv46wc in 04/19/2024 Weight 283 lbs 04/19/2024 BMI 59.14 kg/m2 04/19/2024 Blood pressure systolic 138 mm Hg 04/19/20 24 Blood pressure diastolic 60 mm Hg 024 Procedures Procedure Date Ordered Date Performed Result Body Sit e 29936-YTVENNS NAIL, 6 OR MORE 04/19/2024 N/A Encounters Encounter Location Date Provider Diagnosis [facility] [place] [address] [address] 04/19/2024 Mat Orozco Type 2 diabetes mellitus [...] Treatment Pending Test Test Name Order Date [id number] NAIL, 6 OR MORE 04/19/2024 Next Appt Details Follow Up: 1 Year, Reason: Provider Name:Mat Orozco , 04/18/2025 01:00:00 PM, [address] [facility], [address] [facility], [place], [address], Procedure Notes * Category Sub-Category Detail Notes [...] use of a nail nipper and/or dremel-type microgrinder operator, to a more viable healthy nail plate or bed tissue 6-10. Silver nitrate used for any petechial bleeding as necessary. Definitive antifungal treatment options have been reviewed and discussed with the patient. The patient chooses, no pharmaceutical tx - [address] - Pt is self-pay ($65) Progress Notes * Vik ANDERSENaDOB: 3 (49 yo F)Acc No.[id number]:04/19/2024 Progress Note Patient:Gillian LIRA Provider:?Mat Orozco DPM :1975???Age:49 Y???Sex:Female D ate:04/19/2024 Address:[address] [place], [place] [phone] Pcp:Tristin Garcia MD Subjective: * Chief Complaints: [...] * Allergies:?N.K.D.A.yes[Suzanne wolfe Verified] Objective: * Vitals:?Ht: 4ns20yo, Wt:283, BMI:59.14, Shoe size: 5, BP:138/60mm Hg, [...] use of a nail nipper and/or dremel-type microgrinder operator, to a more viable healthy nail plate or bed tissue 6-10. Silver nitrate used for any petechial bleeding as necessary. Definitive antifungal treatment options have been reviewed and discussed with the patient. The patient chooses, no pharmaceutical tx - 50508 - Pt is self-pay ($65).? * Procedure Codes:?53988 DEBRI DE NAIL, 6 OR MORE $65, Modifiers: GY * Follow Up:?1 Year * * Sign off status: Completed true * Provider:?Mat Orozco DPM Date:?2023 Generated for Shereen glasgow/Miguel/Stephen on:?07/23/2024 11:07 AM [...]
== END 2024-07-23 11:10 | disposition home or self-care (01) ==
PROVIDERS: PCP Internal Medicine; Visit Provider Student in an Organized Health Care Education/Training Program
DX: E11.65 Type 2 diabetes mellitus with hyperglycemia (principal); Z79.4 Long term (current) use of insulin; E66.813 Obesity, class 3; E66.01 Morbid (severe) obesity due to excess calories; Z68.43 Body mass index [BMI] 50.0-59.9, adult; I10 Essential (primary) hypertension; E27.8 Other specified disorders of adrenal gland; E78.2 Mixed hyperlipidemia; K76.0 Fatty (change of) liver, not elsewhere classified
CPT/HCPCS: 99214

== ENCOUNTER 2024-07-23 11:23 | Outpatient (REF) | payer MEDICAID, SELFPAY ==
--- OUTSIDE RECORDS SUMMARY | 2024-07-23 12:14 | XMS_ITS | Clinical Summary ---
Author Organization [address] Address [address] [place] [address] Phone Care Team Providers Care Oil Drilling Engineer Name Role Phone DonnieJennifer williamkari VACA Primary Care Provider [phone] Allergies No known active allergies Medications albuterol [...] 05/04/2024 8:40 AM EST Consult Gastroenterology - [place] [address] [place] [address] Kiko Campa PA Fatty liver (Primary Dx); Elevated liver enzymes; Elevated cholesterol with elevated triglycerides; Diabetes 1.5, managed as type 2 (CMS/HCC) 04/26/2024 Telephone Gastroenterology - [place] 175 [facility] [address] [facility] [address] [place] [address] Edil Hernández MD Appointment from [...] Upcoming Encounters Date Type Department Care Team ([facility] st Contact Info) Description 09/16/2024 11:30 AM EDT Office Visit Pulmonolgy - [place] 175 [facility] 200 [place] [phone] Geronimo Hamilton MD 175 [facility] 200 [place] [address] Health Maintenance Due Date Last Done Comments [...] LAB CHEMISTRY METHOD 04/27/2024 11:50 AM EST [facility] Blood Venous blood specimen / Unknown Venipuncture / Unknown 04/27/2024 8:53 AM EST 04/27/2024 8:[address] [facility] - 04/27/2024 11:50 AM EST CORTISOL REFERENCE RANGE ?? 8 AM SPEC: ??5.0-23.0 mcg/dL ?? 4 PM SPEC: ??3.0-16.0 mcg/dL ?? 8 PM SPEC: ??<5.0 mcg/dL Abdias Donalm[facility]omer LAB BLOOD ORDERABLES Final Resul t [facility] [address] [place] [address], [place] [phone] * (ABNORMAL) Basic metabolic panel (04/27/2024 8:53 AM EST) Sodium 137 133 - 145 mmol/L LAB CHEMISTRY METHOD 04/27/2024 11:43 AM [facility] Potassium 4.3 3.5 - 5.5 mmol/L LAB CHEMISTRY METHOD 04/27/2024 11:43 AM [facility] Chloride 102 96 - 110 mmol/L LAB CHEMISTRY METHOD 04/27/2024 11:43 AM [facility] CO2 27 21 - 32 mmol/L LAB CHEMISTRY METHOD 04/27/2024 11:43 AM [facility] Anion Gap 8 3 - 11 LAB CHEMISTRY METHOD 04/27/2024 11:43 AM [facility] Glucose 226(H) 70 - 100 mg/dL LAB CHEMISTRY METHOD 04/27/2024 11:43 AM [facility] BUN 16 5 - 25 mg/dL LAB CHEMISTRY METHOD 04/27/2024 11:43 AM [facility] Creatinine 0.97 0.50 - 1.10 mg/dL LAB CHEMISTRY METHOD 04/27/2024 11:43 AM [facility] eGFR 71 >=60 mL/min/1. 73m2 LAB CHEMISTRY METHOD 04/27/2024 11:43 AM [facility] Comment:Calculation based on the??Chronic Kidney Disease Epidemiology Collaboration (CKD-EPI) equation refit??without adjustment for race. BUN/Creatinine Ratio 16.5 LAB CHEMISTRY METHOD 04/27/2024 11:43 AM [facility] Calcium 9.7 8.5 - 10.5 mg/dL LAB CHEMISTRY METHOD 04/27/2024 11:43 AM EST [facility] Blood Venous blood specimen / Unknown Venipuncture / Unknown 04/27/2024 8:53 AM EST 04/27/2024 8:53 AM EST [facility]di[facility] LAB BLOOD ORDERABLES Final Resul t Performing Organization Address City/[facility]/ZIP Co de Phone Number [facility] [address] [place] [address], [place] [phone] * Hepatitis C antibody (04/19/2024 11:08 AM EST) [facility] Hepatitis C Antibody Negative Negative LAB CHEMISTRY METHOD 04/19/2024 5:08 PM [facility] Blood Venous blood specimen / Unknown Venipuncture / Unknown 04/19/2024 11:08 AM EST 04/19/2024 11:08 AM EST Ab[facility] LAB BLOOD ORDERABLES Final Resul t Performing Organization Address [facility] de Phone Number [facility] [address] [place] [address], [place] [phone] * (ABNORMAL) Lipid panel with reflex to direct LDL (04/19/2024 11:08 AM EST) [facility] Cholesterol 185 0 - 200 mg/dL LAB CHEMISTRY METHOD 04/19/2024 4:19 PM [facility] Triglycerides 317(H) 0 - 150 mg/dL LAB CHEMISTRY METHOD 04/19/2024 4:19 PM [facility] HDL 53 >=40 mg/dL LAB CHEMISTRY METHOD 04/19/2024 4:19 PM [facility] LDL Calculated 69 0 - 100 mg/dL LAB CHEMISTRY METHOD 04/19/2024 4:19 PM [facility] VLDL Cholesterol Patrick 63.4 mg/dL LAB CHEMISTRY METHOD 04/19/2024 4:19 PM EST [facility] Non HDL Chol. (LDL+VLDL) 132 <145 mg/dL LAB CHEMISTRY METHOD 04/19/2024 4:19 PM EST [facility] Chol/HDL Ratio 3.5 0.0 - 4.4 LAB CHEMISTRY METHOD 04/19/2024 4:19 PM EST [facility] Blood Venous blood specimen / Unknown Venipuncture / Unknown 04/19/2024 11:08 AM EST 04/19/2024 11:08 AM EST [facility] LAB BLOOD ORDERABLES Final Resul t Performing Organization Address City/[facility]/ZIP Co de Phone Number [facility] [address] [place] [address], [place] [phone] * (ABNORMAL) Hemoglobin A1c (04/19/2024 11:08 AM EST) Hemoglobin A1C 10.1(H) <6.5 % LAB CHEMISTRY METHOD 04/19/2024 8:47 PM EST [facility] Mean Bld Glu Estim. 243 mg/dL LAB CHEMISTRY METHOD 04/19/2024 8:47 PM EST [facility] Blood Venous blood specimen / Unknown Venipuncture / Unknown 04/19/2024 11:08 AM EST 04/19/2024 11:08 AM EST [facility] LAB BLOOD ORDERABLES Final Resul t [facility] [address] [place] [address], [place] [phone] from Last 3 Months or Most Recently Relevant to Health Maintenance Insurance MEDICAID - [place] Care Teams Oil Drilling Engineer Relationship Specialty Start Date End Date Tristin Garcia DO [address] [place] [phone] PCP - General Internal Medicine 05/08/17
[2024-07-23 12:34] LABS: Creatinine Urine 31.91 mg/dL; Microalbum/Creatinine Ratio Ur 714.5 ug/mg cr (<30)
== END 2024-07-23 11:24 | disposition home or self-care (01) ==
LOC: HO.LAB 11:23
PROVIDERS: PCP Internal Medicine; Visit Provider Student in an Organized Health Care Education/Training Program
DX: E11.9 Type 2 diabetes mellitus without complications (principal)
CPT/HCPCS: 82043; 82570

== ENCOUNTER 2024-08-12 14:21 | Outpatient (AMB) | payer MEDICAID, SELFPAY ==
--- NOTE | 2024-08-12 14:57 | A.OFFVIS_ITS ---
Intake Intake Visit Reasons: DM Allergies No Known Allergies Allergy (Verified 07/23/24 10:31) HPI Comprehensive Diabetes Asmnt Most Recent Diabetes Results: Microalb/Creat Ratio 714.5 ug/mg cr (<30) H 07/23/24 Cholesterol 161 mg/dL (<200) 07/08/24 HDL Cholesterol 35 mg/dL (>40) L 07/08/24 Triglycerides 211 mg/dL (<150) H 07/08/24 Creatinine 0.77 mg/dL (0.5-1.4) 07/08/24 Blood Urea Nitrogen 16 mg/dL (9-16) 07/08/24 Sodium 136 mmol/L (135-145) 07/08/24 Potassium 4.6 mmol/L (3.3-5.1) 07/08/24 Chloride 101 mmol/L (96-108) 07/08/24 Carbon Dioxide 25 mmol/L (22-29) 07/08/24 Calcium 9.3 mg/dL (8.4-10.2) 07/08/24 AST 49 U/L (5-31) H 07/08/24 ALT 45 U/L (0-31) H 07/08/24 Total Protein 8.1 g/dL (6.5-8.0) H 07/08/24 Albumin 4.0 g/dL (3.5-5.0) 07/08/24 [facility] Medical History (Updated 07/23/24 @ 11:20 by Olga Dolan MD) HLD (hyperlipidemia) Metabolic dysfunction-associated fatty liver disease (MAFLD) HTN (hypertension) Obesity Adrenal nodule Diabetes mellitus Hx of hepatic disease History of obstructive sleep apnea Hx of essential hypertension History of hyperthyroidism Hx of hyperlipidemia Hx of aortic valve disorder Hx of type 2 diabetes mellitus Adrenal incidentaloma Surgical History No pertinent past surgical history Family History Father No problems noted. Mother Thyroid disease Maternal Aunt Thyroid disease Social History Alcohol intake: current Alcohol intake frequency: holidays/special occasions only Patient Tobacco Use Status: Never used Tobacco Assessment & Plan Assessment & Plan (1) Diabetes mellitus: Code(s): E11.9 - Type 2 diabetes mellitus without complications Qualifiers: Diabetes mellitus type: type 2 Diabetes mellitus [facility] insulin use: with journeyman painter use Diabetes mellitus complication status: with hyperglycemia Qualified Code(s): E11.65 - Type 2 diabetes mellitus with hyperglycemia; Z79.4 - chip crusher operator (current) use of insulin Plan: Diabetes self-management education and support participation record Assessment/scale: 1= needs instructed? 2= needs review? 3= comprehend keep point? 4= demonstrates understanding/ competent? NC= Not Covered Topics Learning Objective: Initial visit Initial or post srvc Initial or post srvc Initial or post srvc Initial or post srvc Initial or post srvc Post srvc Comments Pre Edu-assessment/plan Outcome or reassess Outcome or reassess Outcome or reassess Outcome or reassess Outcome or reassess Outcome or reassess Diabetes pathophysiology 1 Healthy eating 2 Being active 1 Taking medication 1 Monitoring glucose 1 B Acute complication Chronic complicated Lifestyle and healthy coping Diabetes distress in support ?Diabetes pathophysiology: ?Defined diabetes med identify own type of diabetes; list 3 options for treating diabetes Healthy eating: ?Described effect of type, amount and ?timing of food on blood glucose; list 3 methods for planning meal Being active: ?State effect of exercise on blood glucose level Taking medication: ?State effect of diabetes medications on diabetes; name diabetes medications taking, action and side effects Monitoring glucose: ?Identify recommended blood glucose targets and personal target Acute complication: ?List symptoms and treatment of hyper and hypoglycemia, DKA, sick day guidelines and guidelines for severe weather or situations of crisis and diabetes supply manage Chronic complication: ?To find the relationship of blood glucose levels to long- term complications of diabetes in screening and preventative measures Lifestyle and healthy coping: ?Described lifestyle and healthy coping strategies to rule out diabetes self-management Diabetes to stress and support: ?Recognize Diabetes to stress and be able to identified support options Learning objectives: The patient was provided with verbal and written education on the following topics as outlined below. The patient met all learning objectives and was able to verbalize understanding and provide teach back of education topics discussed . The patient was provided with the opportunity to ask questions and all questions were answered. Patient Assessment Assess patient education level/literacy/barriers, patient diagnosed in the summer type 2 diabetes had been prediabetic for many years originally was put on metformin but could not tolerate due to GI upset. Patient's last A1c 11% in 06/2024 Patient at visit with her mother, stated that in recent we she has been reducing the amount of carbohydrates at meals. Had appointment with registered dietitian proximally a month ago. Believes her glucoses have improved since that appointment What is Diabetes? Pathophysiology How the body produces and uses insulin Identify type of DM Risk factors Signs of Diabetes Brief overview of Diabetes Management Monitoring blood sugar Following a meal plan Regular exercise Maintaining a healthy weight Taking medication as needed Members of the care team (PCP, RN, MA, RD, CDE, glue maker bone) Blood glucose monitoring When/how often to test Target blood sugar ranges At today's visit set up an inserted Juancarlos 3 sensor with smartphone ni datapine account login is Pt's email Password: Diabetesc1 Instructed patient sensors water proof you can shower, or swim do not submerge sensor in water for over 30 minutes Is sensor falls off cannot put back in you need to replace sensor, customer service number given to patient for sensor replacement Sensor placed on the back of right arm Patient left visit with sensor in warmup Reviewed how to interpret trend arrows Reminded patient that to check finger sticks if symptoms do not match sensor reading. Discussed lag time between finger stick and sensor data.? Instructed patient she should always keep blood glucometer for backup testing if needed Reviewed delay of CGM from fingersticks Reminded pt that if symptoms do not match sensor still needs to check fingersticks. Introduction to Nutrition Importance of healthy diet in managing DM Diet is personalized to individual preference Review patient?s regular diet/food preferences Who prepares meals/does food shopping/ Dining out?/ Barriers? How diet effects glucose Eating 3 balanced meals a day with small, healthy snacks between meals Review food groups Carbohydrates: What is a carbohydrate/Which food/food groups are considered carbohydrates Effect of carbohydrates on blood glucose Portion sizes Reading food labels Basic carb counting (if applicable per nursing assessment) Plate method Meal planning Recommendations: Follow plate method, consistent carbs and read nutritional labels. Smart Goal: Patient reports she will keep meals to 60 g of carbohydrate Educational Materials: The patient was provided with the following written educational materials: Planning Healthy Meals Handout Patient Response to instructions: Comprehension of Instructions: Fair Readiness to make changes: Contemplation How confident they feel about making changes: Positive Portions of this note were created using voice recognition software, please excuse any words or phrases that may have been misinterpreted. Patient Instructions: Patient instruction: CGM provides information on blood glucose control throughout the day, including hyperglycemia and hypoglycemia. ? Continue to monitor blood glucose as instructed. Follow nutrition guidelines provided. Report any discomfort promptly to health care provider. ?Stay well-hydrated. You can bathe ,shower, swim and exercise while wearing the glucose sensor. Do not submerge glucose sensor in water for more than 30 minutes. Include regular daily activity. ADA recommends 30 minutes of exercise 5 days a week. Weight loss talk to PCP or Regulatory Product Manager before starting new plan. Test blood sugar as directed; Fasting and 2hpp largest meal. Watch trends in results. Utilize results and to assess how food, physical activity and medications affect blood sugar results. Bring glucometer or CGM to next visit. Be knowledgeable about diabetes medication, its action, side effects, efficacy, toxicity, prescribed dosage, appropriate timing and frequency of administration, effect of missed and delayed doses and instructions for storage, travel and safety. Problem solving techniques to monitor hypo/hyperglycemia episodes and treatments. Reduce risk reduction behaviors, smoking cessation, regular eye, foot and dental examinations. Follow-up with Diabetes Education nurse in 2 weeks Coding Level of Care Code Est Pt Level 1 (79812) Diagnoses Type 2 diabetes mellitus with hyperglycemia, with long-term current use of insulin E11.65; Z79.4 Diabetes mellitus type: type 2 Diabetes mellitus journeyman painter insulin use: with journeyman painter use Diabetes mellitus complication status: with hyperglycemia
--- OUTSIDE RECORDS SUMMARY | 2024-08-12 17:37 | XMS_ITS | Clinical Summary ---
Author Organization [facility] [employer] [facility] Address [address] [facility] [place] [address] Care Team Providers Care Die Set Up Worker Name Role Phone MeraridianajesusTristin william Primary Care Provider Allergies No known active allergies Social History [...] Adults 18 yrs or above (or HM Modifier)([facility]) 1991 Hepatitis C Virus Infection in Adolescents and Adults: Screening (or Modifier) ([facility]) 1991 SDCT Screening Reminder: Makenzie hartman for all adults ([facility]) 1991 Tobacco Smoking Cessation: i n Adults excluding Women: Behavioral and Pharmacotherapy Interventions ([facility]) 1991 DTaP/Tdap/Td Vaccines ([facility]) (1 - Tdap) 1992 Cervical Cancer Screenin 1-65 yrs of age (or Modifier) 1994 Cervical Cancer Screening: P ap every 3 yrs pts age 21-65 1994 Cervical Cancer: Pap Screeni ng with Modifier timing ([facility]) 1994 Cervical Cancer: hrHPV alone or with cotesting Pap for Pts 30-65yrs screening every 5yrs ([facility]) 1994 Colorectal Cancer Screening 45 -75 Yrs (or HM Modifier) 2018 Colorectal Cancer: FLEXIBLE SIGMOIDOSCOPY Screening every 5 yrs 2018 Colorectal Cancer: Fecal Immunochemical Test (FIT) Annually [facility] 2018 Colorectal Cancer: High-sens itivity gFOBT Screening Annually [facility] 2018 Colorectal Cancer: Stool Col oguard Screening every 3 yrs 2018 Colorectal Cancer:CT Colonog annabella Screening every 5 yrs 2018 Lipid Screening: Every 5 yrs for Women aged 45+ (or HM Modifier) ([facility]) 2019 Breast Cancer: Screening Makenzie ually age 50-74 yrs (or HM Modifier)([facility]) 2023 Zoster/Shingles Vaccine Seri es Screening: Adults aged 18+ yrs (or HM Modifiers)([facility]) (1 of 2) 2023 Flu Vaccination: Yearly for ages 18mos through 64 years (or Modifier)([facility]) 01/08/2024 COVID-19 Vaccine Screening: Initial Series and Booster Status ([facility]) (2023- season) 2024 Pneumococcal Vaccination Scr eening: Pts 0-19 & 19-64 yrs of age ([facility]) Aged Out No longer eligible based on patient's age to complete this topic Medical Devices Not on file Care Teams Die Set Up Worker Relationship Specialty Start Date End Date Tristin Garcia DO PCP - Technology Recruiter 06/23/15
--- OUTSIDE RECORDS SUMMARY | 2024-08-12 17:37 | XMS_ITS ---
Author Organization [facility] Address [address] [place] [address] Care Team Providers Care Engineer Remote Control Diesel Name Role Phone Jose HUMPHRIES, Tristin Primary Care Provider Mat Oliveira [phone] REASON FOR VISIT NS 02/27/23 appt Encounters Encounter Location Date Provider Diagnosis [facility] [address] [address] 02/27/2023 Mat Orozco Plan Of Treatment Next Appt Details Provider Name:Mat Orozco , 04/18/2025 01:00:00 PM, [address] [place] [address], [place], [address], Progress Notes * Rick ANDERSENedaDOB: 3 (47 yo F)Acc No.[id number]:02/27/2023 Patient:?Gillian Andersen :1975???Age:47 Y???Sex:Female Address:[address] [place] [address] [place], [address] * true * Date:? Generated for Shereen glasgow/Miguel/eTransmitting on:?08/12/2024 05:37 PM EST
--- OUTSIDE RECORDS SUMMARY | 2024-08-12 17:37 | XMS_ITS ---
Author Organization [facility] Address [address] [place] [address] Care Team Providers Care Foreign Exchange Position Clerk Name Role Phone Jose HUMPHRIES, Tristin Primary Care Provider Mat Oliveira Unavailable [phone] Allergies No Known Allergies REASON FOR VISIT [...] Ordered Date Performed Result Body Sit e 70507-MAPWHGC NAIL, 6 OR MORE 04/21/2023 N/A Encounters Encounter Location Date Provider Diagnosis [facility] [place] [address] [place] [phone] 04/21/2023 Mat Orozco Type 2 diabetes mellitus [...] INSTRUCTIONS.pdf) Pending Test Test Name Order Date [id number] NAIL, 6 OR MORE 04/21/2023 Next Appt Details Follow Up: 1 Year, Reason: Provider Name:Mat Orozco , 04/18/2025 01:00:00 PM, [address] [facility], [place] [address], [place], [address], Procedure Notes * Category Sub-Category Detail Notes [...] as necessary. Patient chooses, no pharmaceutical tx (31903) Progress Notes * Vik ANDERSENaDOB: 3 (48 yo F)Acc No.[id number]:04/21/2023 Progress Note Patient:Gillian Osman Provider:?Mat Orozco DPM :1975???Age:48 Y???Sex:Female D ate:04/21/2023 Address:[address] [place] [address], [phone] Pcp:Tristin Garcia MD Subjective: * Chief Complaints: [...] for office visit today.?ORIENTED:?person, place, and time.?FOOT EXAM:?Lower Extremity Neurological Exam performed:?Yes ?Footwear Evaluation?Footwear Evaluation performed:?Yes??? Assessment: * Assessment: 1.?Type 2 diabetes mellitus [...] as necessary. Patient chooses, no pharmaceutical tx (49076).? * Procedure Codes:?38338 DEBRI DE NAIL, 6 OR MORE $65, Modifiers: GY * Follow Up:?1 Year * Images: * Sign off status: Completed true * Provider:?Mat Orozco DPM Date:?2022 Generated for Shereen glasgow/Miguel/Stephen on:?08/12/2024 05:37 PM EST History and Physical Notes * HPI [...]
--- OUTSIDE RECORDS SUMMARY | 2024-08-12 17:37 | XMS_ITS | Clinical Summary ---
Author Organization [address] Address [address] [place] [phone] Phone Care Team Providers Care Associate Theatre Professor Name Role Phone DonnieJennifer williamkari VACA Primary Care Provider [phone] Allergies No known active allergies Medications albuterol [...] apnea syndrome 02/04/2017 Hypertension 11/28/2016 Hypothyroidism 11/28/2016 Immunizations Name Administration Dates Next Due Influenza [...] Upcoming Encounters Date Type Department Care Team (Late st Contact Info) Description 09/16/2024 11:30 AM EDT Office Visit Pulmonolgy - [place] [facility] [address] [place] [phone] Geronimo Hamilton MD [facility] [address] [place] [address] Health Maintenance Due Date Last Done Comments [...] Procedure Name Priority Date/Time Associated Diagnosis Comments BASIC METABOLIC PANEL Routine 04/27/2024 8:53 AM [...] Recently Relevant to Health Maintenance Results * (ABNORMAL) Basic metabolic panel (04/27/2024 8:53 AM EST) Sodium 137 133 - 145 mmol/L LAB CHEMISTRY METHOD 04/27/2024 11:43 AM [facility] Potassium 4.3 3.5 - 5.5 mmol/L LAB CHEMISTRY METHOD 04/27/2024 11:43 AM [facility] Chloride 102 96 - 110 mmol/L LAB CHEMISTRY METHOD 04/27/2024 11:43 AM [facility] CO2 27 21 - 32 mmol/L LAB CHEMISTRY METHOD 04/27/2024 11:43 AM [facility] Anion Gap 8 3 - 11 LAB CHEMISTRY METHOD 04/27/2024 11:43 AM [facility] Glucose 226(H) 70 - 100 mg/dL LAB CHEMISTRY METHOD 04/27/2024 11:43 AM [facility] BUN 16 5 - 25 mg/dL LAB CHEMISTRY METHOD 04/27/2024 11:43 AM [facility] Creatinine 0.97 0.50 - 1.10 mg/dL LAB CHEMISTRY METHOD 04/27/2024 11:43 AM [facility] eGFR 71 >=60 mL/min/1. 73m2 LAB CHEMISTRY METHOD 04/27/2024 11:43 AM [facility] Comment:Calculation based on the??Chronic Kidney Disease Epidemiology Collaboration (CKD-EPI) equation refit??without adjustment for race. BUN/Creatinine Ratio 16.5 LAB CHEMISTRY METHOD 04/27/2024 11:43 AM [facility] Calcium 9.7 8.5 - 10.5 mg/dL LAB CHEMISTRY METHOD 04/27/2024 11:43 AM [facility] Blood Venous blood specimen / Unknown Venipuncture / Unknown 04/27/2024 8:53 AM EST 04/27/2024 8:53 AM EST [facility] BLOOD ORDERABLES Final Resul t Performing Organization Address City/[facility]/ZIP Co de Phone Number [facility] [address] [place] [address], [place] [phone] * Hepatitis C antibody (04/19/2024 11:08 AM EST) Pathologist [facility] Hepatitis C Antibody Negative Negative LAB CHEMISTRY METHOD 04/19/2024 5:08 PM [facility] Blood Venous blood specimen / Unknown Venipuncture / Unknown 04/19/2024 11:08 AM EST 04/19/2024 11:08 AM EST [facility] LAB BLOOD ORDERABLES Final Resul t [facility] [address] [place] [address], [place] [phone] * (ABNORMAL) Lipid panel with reflex to direct LDL (04/19/2024 11:08 AM EST) Cholesterol 185 0 - 200 mg/dL LAB CHEMISTRY METHOD 04/19/2024 4:19 PM [facility] Triglycerides 317(H) 0 - 150 mg/dL LAB CHEMISTRY METHOD 04/19/2024 4:19 PM [facility] HDL 53 >=40 mg/dL LAB CHEMISTRY METHOD 04/19/2024 4:19 PM EST [facility] LDL Calculated 69 0 - 100 mg/dL LAB CHEMISTRY METHOD 04/19/2024 4:19 PM [facility] VLDL Cholesterol Patrick 63.4 mg/dL LAB CHEMISTRY METHOD 04/19/2024 4:19 PM [facility] Non HDL Chol. (LDL+VLDL) 132 <145 mg/dL LAB CHEMISTRY METHOD 04/19/2024 4:19 PM [facility] Chol/HDL Ratio 3.5 0.0 - 4.4 LAB CHEMISTRY METHOD 04/19/2024 4:19 PM [facility] Blood Venous blood specimen / Unknown Venipuncture / Unknown 04/19/2024 11:08 AM EST 04/19/2024 11:08 AM EST [employer] [facility] LAB BLOOD ORDERABLES Final Resul t [facility] [address] [place] [address], * (ABNORMAL) Hemoglobin A1c (04/19/2024 11:08 AM EST) Hemoglobin A1C 10.1(H) <6.5 % LAB CHEMISTRY METHOD 04/19/2024 8:47 PM EST [facility] Mean Bld Glu Estim. 243 mg/dL LAB CHEMISTRY METHOD 04/19/2024 8:47 PM [facility] Blood Venous blood specimen / Unknown Venipuncture / Unknown 04/19/2024 11:08 AM EST 04/19/2024 11:08 AM EST [facility] [facility] [facility] LAB BLOOD ORDERABLES Final Resul t [facility] [address] [place] [address], from Last 3 Months or Most Recently Relevant to Health Maintenance Insurance [place] Care Teams Associate Theatre Professor Relationship Specialty Start Date End Date Tristin Garcia DO [address] [place] [phone] PCP - General Internal Medicine 05/08/17
--- OUTSIDE RECORDS SUMMARY | 2024-08-12 17:37 | XMS_ITS ---
Author Organization [facility] Address [address] [place] [address] Care Team Providers Care Broommaker Name Role Phone Jose HUMPHRIES, Tristin Primary Care Provider Mat Oliveira Unavailable [phone] Allergies No Known Allergies REASON FOR VISIT [...] other tobacco user? Yes Vital Signs Height 0sq94rg in 04/19/2024 Weight 283 lbs 04/19/2024 BMI 59.14 kg/m2 04/19/2024 Blood pressure systolic 138 mm Hg 04/19/20 24 Blood pressure diastolic 60 mm Hg 024 Procedures Procedure Date Ordered Date Performed Result Body Sit e 93427-WZDZYOB NAIL, 6 OR MORE 04/19/2024 N/A Encounters Encounter Location Date Provider Diagnosis [facility] [place] [address] [address] 04/19/2024 Mat Orozco Type 2 diabetes mellitus [...] Treatment Pending Test Test Name Order Date [id number] NAIL, 6 OR MORE 04/19/2024 Next Appt Details Follow Up: 1 Year, Reason: Provider Name:Mat Orozco , 04/18/2025 01:00:00 PM, [address] [facility], [address] [facility], [place], [address], Procedure Notes * Category Sub-Category Detail Notes [...] use of a nail nipper and/or dremel-type miter grinder operator, to a more viable healthy nail plate or bed tissue 6-10. Silver nitrate used for any petechial bleeding as necessary. Definitive antifungal treatment options have been reviewed and discussed with the patient. The patient chooses, no pharmaceutical tx - [address]294 - Pt is self-pay ($65) Progress Notes * Vik ANDERSENaDOB: 3 (49 yo F)Acc No.[id number]:04/19/2024 Progress Note Patient:Gillian LIRA Provider:?Mat Orozco DPM :1975???Age:49 Y???Sex:Female D ate:04/19/2024 Address:[address] [place], [place] [phone] Pcp:Tristin Garcia MD Subjective: * Chief Complaints: [...] * Allergies:?N.K.D.A.yes[Suzanne wolfe Verified] Objective: * Vitals:?Ht: 6mt63pb, Wt:283, BMI:59.14, Shoe size: 5, BP:138/60mm Hg, [...] use of a nail nipper and/or dremel-type miter grinder operator, to a more viable healthy nail plate or bed tissue 6-10. Silver nitrate used for any petechial bleeding as necessary. Definitive antifungal treatment options have been reviewed and discussed with the patient. The patient chooses, no pharmaceutical tx - 96512 - Pt is self-pay ($65).? * Procedure Codes:?52448 DEBRI DE NAIL, 6 OR MORE $65, Modifiers: GY * Follow Up:?1 Year * * Sign off status: Completed true * Provider:?Mat Orozco DPM Date:?2023 Generated for Shereen glasgow/Miguel/Stephen on:?08/12/2024 05:37 PM [...]
--- OUTSIDE RECORDS SUMMARY | 2024-08-12 17:37 | XMS_ITS | Patient Health Record ---
Author Organization [facility] Address [address] [place] [address] Care Team Providers Care Metal Furniture Repairer Name Role Phone Jose HUMPHRIES, Tristin Primary Care Provider Mat Oliveira Unavailable [phone] Allergies No Known Allergies Results Component Value [...] Problem Type 2 diabetes mellitus without complication (516703003) Type 2 diabetes mellitus without complication (E11.9) Active confirmed Vital Signs Blood pressure diastolic 60 mm Hg 04/19/2024 Height 9yx02ia in 04/19/2024 Blood pressure systolic 138 mm Hg 04/19/2024 Weight 283 lbs 04/19/2024 BMI 59.14 kg/m2 04/19/2024 Procedures Procedure Date Ordered Date Performed Result Body Sit e 29749-GCRFNNF NAIL, 6 OR MORE 04/19/2024 N/A Encounters Encounter Location Date Provider Diagnosis [facility] [address] [address] 04/19/2024 Matpranay LimPam Type 2 diabetes mellitus [...] Test Name Order Date Hemoglobin A1c 06/24/2017 [id number] NAIL, 6 OR MORE 10/30/2016 64745-[id number] NAIL, 6 OR MORE 11/04/2018 48002-[id number] NAIL, 6 OR MORE 12/02/2019 [id number] NAIL, 6 OR MORE 12/04/2020 [id number] NAIL, 6 OR MORE 02/27/2022 [id number] NAIL, 6 OR MORE 04/21/2023 [id number] NAIL, 6 OR MORE 04/19/2024 64890-[id number] NAIL, 1-5 04/18/2016 59021-[id number] SKIN LESIONS, OVER 4 09/03/19 12 75149-FABH NAIL(S) 09/03/2011 Next Appt Details Provider Name:Mat Orozco , 04/18/2025 01:00:00 PM, [address] [facility], [address], [place], [address], Medical (General) History Medical History History ICD Code asthma chicken pox Diabetes Hypertension Thyroid disorder Surgical History Surgery Date(Month/Year) cyst removal 1976
== END 2024-08-12 15:07 | disposition home or self-care (01) ==
PROVIDERS: PCP Internal Medicine; Visit Provider Registered Nurse Diabetes Educator
DX: E11.65 Type 2 diabetes mellitus with hyperglycemia (principal); Z79.4 Long term (current) use of insulin

== ENCOUNTER → 2024-08-12 14:21 | Outpatient (BNVA) | payer MEDICAID, SELFPAY | PROVIDERS: PCP Internal Medicine; Visit Provider Registered Nurse Diabetes Educator | DX: E11.65 Type 2 diabetes mellitus with hyperglycemia (principal); Z79.4 Long term (current) use of insulin | CPT/HCPCS: 99211 ==

== ENCOUNTER 2024-08-26 15:20 | Outpatient (AMB) | payer MEDICAID, SELFPAY ==
--- NOTE | 2024-08-26 15:52 | A.OFFVIS_ITS ---
Intake Intake Visit Reasons: 60 min Substance Abuse Technician Required: No Accompanied by: Self / Same As Patient Allergies No Known Allergies Allergy (Verified 07/23/24 10:31) HPI Comprehensive Diabetes Asmnt Most Recent Diabetes Results: Microalb/Creat Ratio 714.5 ug/mg cr (<30) H 07/23/24 Cholesterol 161 mg/dL (<200) 07/08/24 HDL Cholesterol 35 mg/dL (>40) L 07/08/24 Triglycerides 211 mg/dL (<150) H 07/08/24 Creatinine 0.77 mg/dL (0.5-1.4) 07/08/24 Blood Urea Nitrogen 16 mg/dL (9-16) 07/08/24 Sodium 136 mmol/L (135-145) 07/08/24 Potassium 4.6 mmol/L (3.3-5.1) 07/08/24 Chloride 101 mmol/L (96-108) 07/08/24 Carbon Dioxide 25 mmol/L (22-29) 07/08/24 Calcium 9.3 mg/dL (8.4-10.2) 07/08/24 AST 49 U/L (5-31) H 07/08/24 ALT 45 U/L (0-31) H 07/08/24 Total Protein 8.1 g/dL (6.5-8.0) H 07/08/24 Albumin 4.0 g/dL (3.5-5.0) 07/08/24 [facility] Medical History (Updated 07/23/24 @ 11:20 by Olga Dolan MD) HLD (hyperlipidemia) Metabolic dysfunction-associated fatty liver disease (MAFLD) HTN (hypertension) Obesity Adrenal nodule Diabetes mellitus Hx of hepatic disease History of obstructive sleep apnea Hx of essential hypertension History of hyperthyroidism Hx of hyperlipidemia Hx of aortic valve disorder Hx of type 2 diabetes mellitus Adrenal incidentaloma Surgical History No pertinent past surgical history Family History Father No problems noted. Mother Thyroid disease Maternal Aunt Thyroid disease Social History Alcohol intake: current Alcohol intake frequency: holidays/special occasions only Patient Tobacco Use Status: Never used Tobacco Assessment & Plan Assessment & Plan (1) Diabetes mellitus: Code(s): E11.9 - Type 2 diabetes mellitus without complications Qualifiers: Diabetes mellitus type: type 2 Diabetes mellitus longwall headgate operator insulin use: with chcf use Diabetes mellitus complication status: with hyperglycemia Qualified Code(s): E11.65 - Type 2 diabetes mellitus with hyperglycemia; Z79.4 - long term care phlebotomist (current) use of insulin Plan: Diabetes self-management education and support participation record Assessment/scale: 1= needs instructed? 2= needs review? 3= comprehend keep point? 4= demonstrates understanding/ competent? NC= Not Covered Topics Learning Objective: Initial visit Initial or post srvc Initial or post srvc Initial or post srvc Initial or post srvc Initial or post srvc Post srvc Comments Pre Edu-assessment/plan Outcome or reassess Outcome or reassess Outcome or reassess Outcome or reassess Outcome or reassess Outcome or reassess Diabetes pathophysiology 1 2 Healthy eating 2 3 Being active 1 3 Taking medication 1 3 Monitoring glucose 1 3 Acute complication 1 Chronic complicated 1 Lifestyle and healthy coping 1 Diabetes distress in support 2 ?Diabetes pathophysiology: ?Defined diabetes med identify own type of diabetes; list 3 options for treating diabetes Healthy eating: ?Described effect of type, amount and ?timing of food on blood glucose; list 3 methods for planning meal Being active: ?State effect of exercise on blood glucose level Taking medication: ?State effect of diabetes medications on diabetes; name diabetes medications taking, action and side effects Monitoring glucose: ?Identify recommended blood glucose targets and personal target Acute complication: ?List symptoms and treatment of hyper and hypoglycemia, DKA, sick day guidelines and guidelines for severe weather or situations of crisis and diabetes supply manage Chronic complication: ?To find the relationship of blood glucose levels to long- term complications of diabetes in screening and preventative measures Lifestyle and healthy coping: ?Described lifestyle and healthy coping strategies to rule out diabetes self-management Diabetes to stress and support: ?Recognize Diabetes to stress and be able to identified support options Learning objectives: The patient was provided with verbal and written education on the following topics as outlined below. Assess patient education level/literacy/barriers, patient at visit with her mother to demonstrate how to change Juancarlos 3 sensor With the past 2 weeks patient's average glucose has been 178 mg/dL 40% above target 60% at target 0% below target Patient questions/concerns, patient had questions about settings of alerts. Out of range setting is greater than 20 ft from psychopaedic nurse or cell phone High glucose setting at 250 mg/dL Will glucose setting at 70 mg/dL At today's visit patient was able to demonstrate how to insert sensor, start sensor with smart phone The patient met all learning objectives and was able to verbalize understanding and provide teach back of education topics discussed . The patient was provided with the opportunity to ask questions and all questions were answered. Topics covered in today?s session included: Medications (If applicable) * Name of medication? * Dosing/administration instructions? * Mechanism of action? * Potential side effects? * Potential adverse reaction and appropriate treatment? * Review onset, peak, duration Assess for concerns re: insurance coverage, cost, barriers to compliance Insulin/Injectables (If applicable) * Storage/care of insulin?? * Injection sites? * Site rotation? * Onset, peak, duration * Drawing up insulin? * Injecting insulin/other injectables? * Sharps disposal Continuous blood glucose monitoring (if applicable) Hypoglycemia and Hyperglycemia * Signs and symptoms? * Causes?? * Treatment? * Preventing hypoglycemia? * When to seek medical attention Target Goals: * Blood glucose targets and how you feel when your blood glucose is in and out of your target ranges. * Monitoring and knowing your A1C. * What can make blood glucose go up and down and preventing high and low blood glucose. * Review of blood sugar targets in expected goal range and outside of expected goal range. * Problem solving and preventing hyper/hypoglycemia. * Sick day management of diabetes. * Using blood sugar results in decision making process in managing diabetes. ?Patient was receptive to information provided and participated in the discussion. Asked?appropriate questions and demonstrated good understanding of the topics discussed.? ? Educational Materials: The patient was provided with the following written educational materials: Target Goal handout Smart Goal Assessment:? Patient reports she will keep meals to 60 g of carbohydrate Pt met goal 75% New Smart Goal:Pt will treat low glucose with rule of 15s Patient Response to instructions: Comprehension of Instructions: Good Readiness to make changes:? Action How confident they feel about making changes: Positive Patient Response to instructions: Comprehension of Instructions: Fair Readiness to make changes: Contemplation How confident they feel about making changes: Positive Portions of this note were created using voice recognition software, please excuse any words or phrases that may have been misinterpreted. Patient Instructions: Follow-up with senior health educator in 2 months Coding Level of Care Code Est Pt Level 1 (85501) Diagnoses Type 2 diabetes mellitus with hyperglycemia, with long-term current use of insulin E11.65; Z79.4 Diabetes mellitus type: type 2 Diabetes mellitus longwall headgate operator insulin use: with longwall headgate operator use Diabetes mellitus complication status: with hyperglycemia
--- OUTSIDE RECORDS SUMMARY | 2024-08-26 17:45 | XMS_ITS ---
[facility] Organization [facility] Address [address] [place] [address] Care Team Providers Care Fill Technician Name Role Phone Jose HUMPHRIES, Tristin Primary Care Provider Mat Oliveira Unavailable [phone] Allergies No Known Allergies REASON FOR VISIT [...] Ordered Date Performed Result Body Sit e [id number] NAIL, 6 OR MORE 04/21/2023 N/A Encounters Encounter Location Date Provider Diagnosis [facility] [address] [place] [id number] 04/21/2023 Mat Orozco Type 2 diabetes mellitus [...] INSTRUCTIONS.pdf) Pending Test Test Name Order Date [id number] NAIL, 6 OR MORE 04/21/2023 Next Appt Details Follow Up: 1 Year, Reason: Provider Name:Mat Orozco , 04/18/2025 01:00:00 PM, [address] [facility], [place] [address], [place], [address], Procedure Notes * Category Sub-Category Detail Notes [...] as necessary. Patient chooses, no pharmaceutical tx ([id number]) Progress Notes * Vik ANDERSENaDOB: 3 (48 yo F)Acc No.[id number]:04/21/2023 Progress Note Patient:Gillian Osman Provider:?Mat Orozco DPM :1975???Age:48 Y???Sex:Female D ate:04/21/2023 Address:[address] [place] [address], [id number] Pcp:Tristin Garcia MD Subjective: * Chief Complaints: [...] as necessary. Patient chooses, no pharmaceutical tx (48339).? * Procedure Codes:?20434 DEBRI DE NAIL, 6 OR MORE $65, Modifiers: GY * Follow Up:?1 Year * Images: * Sign off status: Completed true * Provider:?Mat Orozco DPM Date:?2022 Generated for Shereen glasgow/Miguel/Stephen on:?08/26/2024 05:45 PM EDT History and Physical Notes * HPI (History [...]
--- OUTSIDE RECORDS SUMMARY | 2024-08-26 17:45 | XMS_ITS | Clinical Summary ---
Author Organization [address] [facility] Address [address] [place] [address] Phone Care Team Providers Care Rocket [employer]ellant Plant Supervisor Name Role Phone MerariTristin connolly Primary Care Provider [phone] Allergies No known active allergies Medications albuterol [...] 11:30 AM EDT Office Visit Pulmonolgy - [place] [address] [facility] [address] [place] [id number] Geronimo Hamilton MD [address] [facility] [address] [place] [address] Health Maintenance Due Date Last Done Comments [...] Zoster Vaccines (1 of 2) 2023 Diabetes: Blood Sugar Control Test (HGBA1C) 02/25/2025 08/25/2024, 04/19/2024 Diabetes: Annual Urine Albumin-Creatinine Ratio (uACR) 08/25/2025 08/25/2024 Diabetes: Annual GFR (Glomerular Filtration Rate) 08/25/2025 08/25/2024, 04/27/2024, 04/19/2024 Hypertension/CHF/CAD Annual BMP Blood Test 08/25/2025 08/25/2024, 04/27/2024, 04/19/2024 Cholesterol Screening (Lipid Panel) 08/25/2029 08/25/2024, 04/19/2024 COVID-19 Vaccine Completed 04/16/2024, , 04/07/2021, Additional history exists Influenza Vaccine Completed 04/16/2024, , 03/22/2022, Additional [...] Procedure Name Priority Date/Time Associated Diagnosis Comments CBC WITH AUTO DIFFERENTIAL Routine 08/25/2024 11:31 AM EDT Laboratory tests ordered as part of a complete physical exam (CPE) DM (diabetes mellitus) ([facility]) BMI 45.0-49.9, adult ([facility]) HTN (hypertension) HLD (hyperlipidemia) JOHANN (obstructive sleep apnea) HEMOGLOBIN A1C Routine 08/25/2024 11:31 AM EDT Laboratory tests ordered as part of a complete physical exam (CPE) DM (diabetes mellitus) ([facility]) BMI 45.0-49.9, adult ([facility]) HTN (hypertension) HLD (hyperlipidemia) JOHANN (obstructive sleep apnea) MICROALBUMIN CREATININE URINE RATIO Routine 08/25/2024 11:31 AM EDT Laboratory tests ordered as part of a complete physical exam (CPE) DM (diabetes mellitus) ([facility]) BMI 45.0-49.9, adult ([facility]) HTN (hypertension) HLD (hyperlipidemia) JOHANN (obstructive sleep apnea) COMPREHENSIVE METABOLIC PANEL Routine 08/25/2024 11:31 AM EDT Laboratory tests ordered as part of a complete physical exam (CPE) DM (diabetes mellitus) ([facility]) BMI 45.0-49.9, adult ([facility]) HTN (hypertension) HLD (hyperlipidemia) JOHANN (obstructive sleep apnea) CBC AND DIFFERENTIAL Routine 08/25/2024 11:31 AM EDT Laboratory tests ordered as part of a complete physical exam (CPE) DM (diabetes mellitus) ([facility]) BMI 45.0-49.9, adult ([facility]) HTN (hypertension) HLD (hyperlipidemia) JOHANN (obstructive sleep apnea) THYROID STIMULATING HORMONE Routine 08/25/2024 11:31 AM EDT Laboratory tests ordered as part of a complete physical exam (CPE) DM (diabetes mellitus) ([facility]) BMI 45.0-49.9, adult ([facility]) HTN (hypertension) HLD (hyperlipidemia) JOHANN (obstructive sleep apnea) LIPID PANEL WITH REFLEX TO DIRECT LDL Routine 08/25/2024 11:31 AM EDT Laboratory tests ordered as part of a complete physical exam (CPE) DM (diabetes mellitus) ([facility]) BMI 45.0-49.9, adult ([facility]) HTN (hypertension) HLD (hyperlipidemia) JOHANN (obstructive sleep apnea) HEPATITIS C ANTIBODY Routine 04/19/2024 11:08 AM EST Hypothyroid HTN (hypertension) DM (diabetes mellitus) ([facility]) Elevated LFTs from Last 3 Months or Most Recently Relevant to Health Maintenance Results * (ABNORMAL) Lipid panel with reflex to direct LDL (08/25/2024 11:31 AM EDT) Cholesterol 181 0 - 200 mg/dL LAB CHEMISTRY METHOD 08/25/2024 3:10 PM EDT [facility] Triglycerides 187(H) 0 - 150 mg/dL LAB CHEMISTRY METHOD 08/25/2024 3:10 PM EDT [facility] HDL 44 >=40 mg/dL LAB CHEMISTRY METHOD 08/25/2024 3:10 PM EDT [facility] LDL Calculated 100 0 - 100 mg/dL LAB CHEMISTRY METHOD 08/25/2024 3:10 PM [facility] VLDL Cholesterol Patrick 37.4 mg/dL LAB CHEMISTRY METHOD 08/25/2024 3:10 PM T [facility] Non HDL Chol. (LDL+VLDL) 137 <145 mg/dL LAB CHEMISTRY METHOD 08/25/2024 3:10 PM T [facility] Chol/HDL Ratio 4.1 0.0 - 4.4 LAB CHEMISTRY METHOD 08/25/2024 3:10 PM [facility] Blood Venous blood specimen / Unknown Venipuncture / Unknown 08/25/2024 11:31 AM EDT 08/25/2024 11:31 AM EDT Abdias Avelar LAB BLOOD ORDERABLES Final Resul t [facility] [address] [place] [address], * (ABNORMAL) CBC auto differential (08/25/2024 11:31 AM EDT) WBC 10.2 4.8 - 10.8 K/mcL LAB HEMETOLOGY METHOD 08/25/2024 2:57 PM EDT [facility] RBC 4.60 3.80 - 4.80 M/mcL LAB HEMETOLOGY METHOD 08/25/2024 2:57 PM EDT [facility] Hemoglobin 14.2 11.5 - 16.0 g/dL LAB HEMETOLOGY METHOD 08/25/2024 2:57 PM EDT [facility] Hematocrit 44.4 35.0 - 47.0 % LAB HEMETOLOGY METHOD 08/25/2024 2:57 PM EDT [facility] MCV 96.1 79.0 - 98.0 FL LAB HEMETOLOGY METHOD 08/25/2024 2:57 PM EDT [facility] MCH 30.7 27.0 - 32.0 pcg LAB HEMETOLOGY METHOD 08/25/2024 2:57 PM EDT [facility] MCHC 32.0 32.0 - 37.0 g/dL LAB HEMETOLOGY METHOD 08/25/2024 2:57 PM EDT [facility] RDW 13.4 11.0 - 15.0 % LAB HEMETOLOGY METHOD 08/25/2024 2:57 PM EDT [facility] Platelets 268 130 - 400 K/mcL LAB HEMETOLOGY METHOD 08/25/2024 2:57 PM EDT [facility] MPV 10.8 7.0 - 11.0 FL LAB HEMETOLOGY METHOD 08/25/2024 2:57 PM [facility] NRBC 0.0 <1.0 % LAB HEMETOLOGY METHOD 08/25/2024 2:57 PM [facility] NRBC Absolute 0.00 <0.10 K/mcL LAB HEMETOLOGY METHOD 08/25/2024 2:57 PM [facility] Neutrophils Relative 74.9 % LAB HEMETOLOGY METHOD 08/25/2024 2:57 PM [facility] Lymphocytes Relative 16.8 % LAB HEMETOLOGY METHOD 08/25/2024 2:57 PM [facility] Monocytes Relative 7.3 % LAB HEMETOLOGY METHOD 08/25/2024 2:57 PM [facility] Eosinophils Relative 0.1 % LAB HEMETOLOGY METHOD 08/25/2024 2:57 PM [facility] Basophils Relative 0.5 % LAB HEMETOLOGY METHOD 08/25/2024 2:57 PM [facility] Immature Granulocytes Relative 0.4 % LAB HEMETOLOGY METHOD 08/25/2024 2:57 PM [facility] Neutrophils Absolute 7.63(H) 1.50 - 7.00 K/mcL LAB HEMETOLOGY METHOD 08/25/2024 2:57 PM [facility] Lymphocytes Absolute 1.71 1.00 - 5.00 K/mcL LAB HEMETOLOGY METHOD 08/25/2024 2:57 PM [facility] Monocytes Absolute 0.74 0.20 - 1.00 K/mcL LAB HEMETOLOGY METHOD 08/25/2024 2:57 PM [facility] Eosinophils Absolute 0.01 0.00 - 0.50 K/mcL LAB HEMETOLOGY METHOD 08/25/2024 2:57 PM [facility] Basophils Absolute 0.05 0.00 - 0.20 K/mcL LAB HEMETOLOGY METHOD 08/25/2024 2:57 PM EDT [facility] Immature Granulocytes Absolute 0.04(H) 0.00 - 0.03 K/mcL LAB HEMETOLOGY METHOD 08/25/2024 2:57 PM EDT [facility] Blood Venous blood specimen / Unknown Venipuncture / Unknown 08/25/2024 11:31 AM EDT 08/25/2024 11:31 AM EDT Abdias Donal LAB BLOOD ORDERABLES Final Resul t Performing Organization Address City/[facility]/ZIP Co de Phone Number [facility] [address] [place] [address], [place] [phone] * (ABNORMAL) Microalbumin creatinine urine ratio (08/25/2024 11:31 AM EDT) Creatinine, Urine 85.0 mg/dL LAB CHEMISTRY METHOD 08/25/2024 7:23 PM EDT [facility] Microalb, Ur 37.0(H) 0.0 - 29.0 mg/L LAB CHEMISTRY METHOD 08/25/2024 7:23 PM EDT [facility] Microalb/Crea t Ratio 44(H) <30 mg/g creat LAB CHEMISTRY METHOD 08/25/2024 7:23 PM EDT [facility] Urine Urine specimen obtained by clean catch procedure / Unknown Non-blood Collection / Unknown 08/25/2024 11:31 AM EDT 08/25/2024 11:31 AM EDT Abdias PicAppmichael LAB URINE ORDERABLES Final Resul t Performing Organization Address City/[facility]/ZIP Co de Phone Number [facility] [address] [place] [address], [place] [phone] * Thyroid stimulating hormone (08/25/2024 11:31 AM EDT) TSH 1.03 0.40 - 4.00 mcIU/mL LAB CHEMISTRY METHOD 08/25/2024 3:14 PM EDT [facility] Blood Venous blood specimen / Unknown Venipuncture / Unknown 08/25/2024 11:31 AM EDT 08/25/2024 11:31 AM EDT [facility] LAB BLOOD ORDERABLES Final Resul t Performing Organization Address [facility] de Phone Number [facility] [address] [place] [address], [place] [phone] * (ABNORMAL) Hemoglobin A1c (08/25/2024 11:31 AM EDT) [facility] Hemoglobin A1C 10.2(H) <6.5 % LAB CHEMISTRY METHOD 08/25/2024 9:51 PM EDT [facility] Mean Bld Glu Estim. 246 mg/dL LAB CHEMISTRY METHOD 08/25/2024 9:51 PM EDT [facility] Blood Venous blood specimen / Unknown Venipuncture / Unknown 08/25/2024 11:31 AM EDT 08/25/2024 11:31 AM EDT [facility] LAB BLOOD ORDERABLES Final Resul t Performing Organization Address [facility] de Phone Number [facility] [address] [place] [address], [place] [phone] * (ABNORMAL) Comprehensive metabolic panel (08/25/2024 11:31 AM EDT) [facility] Sodium 138 133 - 145 mmol/L LAB CHEMISTRY METHOD 08/25/2024 4:04 PM EDT [facility] Potassium 5.0 3.5 - 5.5 mmol/L LAB CHEMISTRY METHOD 08/25/2024 4:04 PM EDT [facility] Chloride 104 96 - 110 mmol/L LAB CHEMISTRY METHOD 08/25/2024 4:04 PM [facility] CO2 27 21 - 32 mmol/L LAB CHEMISTRY METHOD 08/25/2024 4:04 PM [facility] Anion Gap 7 3 - 11 LAB CHEMISTRY METHOD 08/25/2024 4:04 PM [facility] Glucose 176(H) 70 - 100 mg/dL LAB CHEMISTRY METHOD 08/25/2024 4:04 PM [facility] BUN 43(H) 5 - 25 mg/dL LAB CHEMISTRY METHOD 08/25/2024 4:04 PM [facility] Comment:Results verified by repeat testing Creatinine 1.51(H) 0.50 - 1.10 mg/dL LAB CHEMISTRY METHOD 08/25/2024 4:04 PM [facility] eGFR 42(L) >=60 mL/min/1. 73m2 LAB CHEMISTRY METHOD 08/25/2024 4:04 PM [facility] Comment:Calculation based on the??Chronic Kidney Disease Epidemiology Collaboration (CKD-EPI) equation refit??without adjustment for race. BUN/Creatinine Ratio 28.5 LAB CHEMISTRY METHOD 08/25/2024 4:04 PM [facility] Calcium 9.4 8.5 - 10.5 mg/dL LAB CHEMISTRY METHOD 08/25/2024 4:04 PM [facility] AST (SGOT) 22 10 - 42 unit/L LAB CHEMISTRY METHOD 08/25/2024 4:04 PM [facility] ALT (SGPT) 35 10 - 60 unit/L LAB CHEMISTRY METHOD 08/25/2024 4:04 PM [facility] Alkaline Phosphatase 96 42 - 121 unit/L LAB CHEMISTRY METHOD 08/25/2024 4:04 PM [facility] Total Protein 7.1 6.0 - 8.0 g/dL LAB CHEMISTRY METHOD 08/25/2024 4:04 PM EDT [facility] Albumin 3.6 3.2 - 5.0 g/dL LAB CHEMISTRY METHOD 08/25/2024 4:04 PM EDT [facility] Total Bilirubin 0.4 0.0 - 1.4 mg/dL LAB CHEMISTRY METHOD 08/25/2024 4:04 PM EDT [facility] Blood Venous blood specimen / Unknown Venipuncture / Unknown 08/25/2024 11:31 AM EDT 08/25/2024 11:31 AM EDT [facility] LAB BLOOD ORDERABLES Final Resul t [facility] [address] [place] [address], [place] [phone] * Hepatitis C antibody (04/19/2024 11:08 AM EST) Hepatitis C Antibody Negative Negative LAB CHEMISTRY METHOD 04/19/2024 5:08 PM EST [facility] Blood Venous blood specimen / Unknown Venipuncture / Unknown 04/19/2024 11:08 AM EST 04/19/2024 11:08 AM EST [facility] LAB BLOOD ORDERABLES Final Resul t [facility] [address] [place] [address], [place] [phone] from Last 3 Months or Most Recently Relevant to Health Maintenance Insurance MEDICAID - [place] Care Teams [employer] Supervisor Relationship Specialty Start Date End Date Tristin Garcia DO [address] [place] [phone] PCP - General Internal Medicine 05/08/17
--- OUTSIDE RECORDS SUMMARY | 2024-08-26 17:45 | XMS_ITS ---
Author Organization [facility] Address [address] [place] [address] Care Team Providers Care Apron Man Name Role Phone Jose HUMPHRIES, Tristin Primary Care Provider Mat Oliveira [phone] REASON FOR VISIT NS 02/27/23 appt Encounters Encounter Location Date Provider Diagnosis [facility] [address] [address] 02/27/2023 Mat Orozco Plan Of Treatment Next Appt Details Provider Name:Mat Orozco , 04/18/2025 01:00:00 PM, [address] [place] [address], [place] [address], [place], [phone], Progress Notes * Rick ANDERSENedaDOB: 3 (47 yo F)Acc No.[id number]:02/27/2023 Patient:?Gillian Andersen :1975???Age:47 Y???Sex:Female Address:[address] [place] [address] [place], [address] * true * Date:? Generated for Brenti myah/Miguel/eTransmitting on:?08/26/2024 05:45 PM EDT
--- OUTSIDE RECORDS SUMMARY | 2024-08-26 17:45 | XMS_ITS | Patient Health Record ---
[facility] Organization [facility] Address [address] [place] [address] Care Team Providers Care Vp Project Name Role Phone Jose HUMPHRIES, Tristin Primary Care Provider Mat Oliveira Unavailable [phone] Allergies No Known Allergies Results Component Value [...] Problem Type 2 diabetes mellitus without complication (064848455) Type 2 diabetes mellitus without complication (E11.9) Active confirmed Vital Signs Blood pressure diastolic 60 mm Hg 04/19/2024 Height 6yv21ic in 04/19/2024 Blood pressure systolic 138 mm Hg 04/19/2024 Weight 283 lbs 04/19/2024 BMI 59.14 kg/m2 04/19/2024 Procedures Procedure Date Ordered Date Performed Result Body Sit e [id number]-[id number] NAIL, 6 OR MORE 04/19/2024 N/A Encounters Encounter Location Date Provider Diagnosis [facility] [address] [address] 04/19/2024 Matpranay LimPam Type 2 diabetes mellitus [...] Test Name Order Date Hemoglobin A1c 06/24/2017 [id number] NAIL, 6 OR MORE 10/30/2016 [id number] NAIL, 6 OR MORE 11/04/2018 [id number] NAIL, 6 OR MORE 12/02/2019 [id number] NAIL, 6 OR MORE 12/04/2020 [id number] NAIL, 6 OR MORE 02/27/2022 [id number] NAIL, 6 OR MORE 04/21/2023 [id number] NAIL, 6 OR MORE 04/19/2024 [id number] NAIL, 1-5 04/18/2016 [id number] SKIN LESIONS, OVER 4 09/03/19 12 [id number] NAIL(S) 09/03/2011 Next Appt Details Provider Name:Mat Orozco , 04/18/2025 01:00:00 PM, [address] [facility] [place], [address], [place], [address], Medical (General) History Medical History History ICD Code asthma chicken pox Diabetes Hypertension Thyroid disorder Surgical History Surgery Date(Month/Year) cyst removal 1976
--- OUTSIDE RECORDS SUMMARY | 2024-08-26 17:45 | XMS_ITS ---
Author Organization [facility] Address [address] [place] [address] Care Team Providers Care Physical Therapist Center Manager Name Role Phone Joes HUMPHRIES, Tristin Primary Care Provider Mat Oliveira Unavailable [phone] Allergies No Known Allergies REASON FOR VISIT [...] other tobacco user? Yes Vital Signs Height 4kt20vy in 04/19/2024 Weight 283 lbs 04/19/2024 BMI 59.14 kg/m2 04/19/2024 Blood pressure systolic 138 mm Hg 04/19/20 24 Blood pressure diastolic 60 mm Hg 024 Procedures Procedure Date Ordered Date Performed Result Body Sit e [id number] NAIL, 6 OR MORE 04/19/2024 N/A Encounters Encounter Location Date Provider Diagnosis [facility] [place] [address] [address] 04/19/2024 Mat Orozco Type 2 diabetes mellitus [...] Treatment Pending Test Test Name Order Date [id number] NAIL, 6 OR MORE 04/19/2024 Next Appt Details Follow Up: 1 Year, Reason: Provider Name:Mat Orozco , 04/18/2025 01:00:00 PM, [address] [facility], [address] [facility], [place], [address], Procedure Notes * Category Sub-Category Detail Notes [...] use of a nail nipper and/or dremel-type floor grinder, to a more viable healthy nail plate or bed tissue 6-10. Silver nitrate used for any petechial bleeding as necessary. Definitive antifungal treatment options have been reviewed and discussed with the patient. The patient chooses, no pharmaceutical tx - 50078 - Pt is self-pay ($65) Progress Notes * Vik ANDERSENaDOB: 3 (49 yo F)Acc No.[id number]:04/19/2024 Progress Note Patient:Gillian LIRA Provider:?Mat Orozco DPM :1975???Age:49 Y???Sex:Female D ate:04/19/2024 Address:[address] [place], [place] [id number] Pcp:Tristin Garcia MD Subjective: * Chief Complaints: [...] * Allergies:?N.K.D.A.yes[Suzanne wolfe Verified] Objective: * Vitals:?Ht: 1hr08av, Wt:283, BMI:59.14, Shoe size: 5, BP:138/60mm Hg, [...] use of a nail nipper and/or dremel-type floor grinder, to a more viable healthy nail plate or bed tissue 6-10. Silver nitrate used for any petechial bleeding as necessary. Definitive antifungal treatment options have been reviewed and discussed with the patient. The patient chooses, no pharmaceutical tx - 30641 - Pt is self-pay ($65).? * Procedure Codes:?95408 DEBRI DE NAIL, 6 OR MORE $65, Modifiers: GY * Follow Up:?1 Year * * Sign off status: Completed true * Provider:?Mat Orozco DPM Date:?2023 Generated for Shereen glasgow/Miguel/Stephen on:?08/26/2024 05:45 PM [...]
--- OUTSIDE RECORDS SUMMARY | 2024-08-26 17:45 | XMS_ITS | Clinical Summary ---
Author Organization [facility] Address [address] [facility] get[place]! [place] [address] Care Team Providers Care Mortgage Lender Name Role Phone MeraridianajesusTristin william Primary Care Provider [phone] Allergies No known active allergies Social History [...] or above (or HM Modifier)([facility]) 1991 Hepatitis C Virus Infection in Adolescents and Adults: Screening (or Modifier) ([facility]) 1991 SDPR Screening Reminder: Makenzie hartman for all adults ([facility]) 1991 Tobacco Smoking Cessation: i n Adults excluding Women: Behavioral and Pharmacotherapy Interventions ([facility]) 1991 DTaP/Tdap/Td Vaccines ([facility]) (1 - Tdap) 1992 Cervical Cancer Screenin 1-65 yrs of age (or Modifier) 1994 Cervical Cancer Screening: P ap every 3 yrs pts age 21-65 1994 Cervical Cancer: Pap Screeni ng with Modifier timing ([facility]) 1994 Cervical Cancer: hrHPV alone or with cotesting Pap for Pts 30-65yrs screening every 5yrs ([facility]) 1994 Colorectal Cancer Screening 45 -75 Yrs (or HM Modifier) 2018 Colorectal Cancer: FLEXIBLE SIGMOIDOSCOPY Screening every 5 yrs 2018 Colorectal Cancer: Fecal Immunochemical Test (FIT) Annually [facility] 2018 Colorectal Cancer: High-sens itivity gFOBT Screening Annually [facility] 2018 Colorectal Cancer: Stool Col oguard Screening every 3 yrs 2018 Colorectal Cancer:CT Colonog annabella Screening every 5 yrs 2018 Lipid Screening: Every 5 yrs for Women aged 45+ (or HM Modifier) ([facility]) 2019 Breast Cancer: Screening Makenzie ually age 50-74 yrs (or HM Modifier)([facility]) 2023 Zoster/Shingles Vaccine Seri es Screening: Adults aged 18+ yrs (or HM Modifiers)([facility]) (1 of 2) 2023 Flu Vaccination: Yearly for ages 18mos through 64 years (or Modifier)([facility]) 01/08/2024 COVID-19 Vaccine Screening: Initial Series and Booster Status ([facility]) (2023- season) 2024 Pneumococcal Vaccination Scr eening: Pts 0-19 & 19-64 yrs of age ([facility]) Aged Out No longer eligible based on patient's age to complete this topic Medical Devices Not on file Care Teams Mortgage Lender Relationship Specialty Start Date End Date Tristin Garcia DO PCP - Casting Operator 06/23/15
== END 2024-08-26 15:56 | disposition home or self-care (01) ==
LOC: HO.ENCR 15:21
PROVIDERS: PCP Internal Medicine; Visit Provider Registered Nurse Diabetes Educator
DX: E11.65 Type 2 diabetes mellitus with hyperglycemia (principal); Z79.4 Long term (current) use of insulin

== ENCOUNTER → 2024-08-26 15:20 | Outpatient (BNVA) | payer MEDICAID, SELFPAY | PROVIDERS: PCP Internal Medicine; Visit Provider Registered Nurse Diabetes Educator | DX: E11.65 Type 2 diabetes mellitus with hyperglycemia (principal); Z79.4 Long term (current) use of insulin | CPT/HCPCS: 99211 ==

== ENCOUNTER 2024-08-31 11:18 | Outpatient (AMB) | payer MEDICAID, SELFPAY ==
[2024-08-31 11:39] VITALS: BMI 58.1
--- NOTE | 2024-08-31 11:39 | MHC.AMNUTRGE ---
VS Expanded 08/31/24 11:39 Height 4 ft 10 in Weight 278 lb 0.046 oz BMI 58.1 Intake Visit Reasons: T2DM Allergies No Known Allergies Allergy (Verified 09/03/24 11:03) Nutrition Presentation Details: Pt presents for MNT f/ u for T2DM Pt reports working on reducing total carb to less than 60 and snack 0-15 g and choosing lean protein foods, REports some days better than others but managing well. BS Monitoring Most Recent Diabetes Results: Microalb/Creat Ratio 714.5 ug/mg cr (<30) H 07/23/24 PFSH Medical History (Updated 07/23/24 @ 11:20 by Olga Dolan MD) HLD (hyperlipidemia) Metabolic dysfunction-associated fatty liver disease (MAFLD) HTN (hypertension) Obesity Adrenal nodule Diabetes mellitus Hx of hepatic disease History of obstructive sleep apnea Hx of essential hypertension History of hyperthyroidism Hx of hyperlipidemia Hx of aortic valve disorder Hx of type 2 diabetes mellitus Adrenal incidentaloma Surgical History No pertinent past surgical history Family History Father No problems noted. Mother Thyroid disease Maternal Aunt Thyroid disease Social History Alcohol intake: current Alcohol intake frequency: holidays/special occasions only Patient Tobacco Use Status: Never used Tobacco Assessment & Plan Assessment & Plan (1) Diabetes mellitus: Code(s): E11.9 - Type 2 diabetes mellitus without complications Category: Medical Qualifiers: Diabetes mellitus type: type 2 Diabetes mellitus prison insulin use: with prison use Diabetes mellitus complication status: with hyperglycemia Qualified Code(s): E11.65 - Type 2 diabetes mellitus with hyperglycemia; Z79.4 - intermodal owner operator truck driver (current) use of insulin Plan: Wt: 127 Kg ( 08/03 ), 126 kg(08/31) Est kcal needs as per MSJ: 2100 (40% carb, 30% protein/fat) Est fluid needs as per 25-30 ml/d: 3800 Est prot per day as per 1 g/kg bw: 127 Recommend fiber intake : 8-10 g per day and gradually increase to 25-28 g per day for women and 35-38 g for men or as tolerated Recommend sodium intake per day : less than 2300 mg Educated patient on: ( R = reviewed V = verbalizes understanding N/R = needs review N/A = not applicable Food sources of carbohydrate, adequate serving sizes and its role in various health conditions: R Differences between complex carbohydrates a simple carbohydrates, role of fiber in diet: R V N/R Lean protein sources of foods: R Differences between types of fats and role in diet (mono on saturated fat fatty acids, saturated fatty acids, trans fats): R V N/R Food sources of sodium in salt and healthy modifications for heart health in kidney health: R V R/V Vitamins and minerals: R V N/R Healthy plate method concept: R V N/R Physical activity: Benefits a precaution: R V N/R Hypoglycemia protocol (rule of 15): R V N/R Dietary prevention of Hyperglycemia: R Patient Instructions: Continue working on reducing on total carb to 60 g following healthy plate method Increase water by 24 oz Continue working on reducing on sweets , choose a fruit instead (working n reducing total carbs and choosing healthier foods) Coding Level of Care Code Nutr Indiv Subseq (56676) Diagnoses Type 2 diabetes mellitus with hyperglycemia, with long-term current use of insulin E11.65; Z79.4 Diabetes mellitus type: type 2 Diabetes mellitus prison insulin use: with prison use Diabetes mellitus complication status: with hyperglycemia Time Spent (min) 30
== END 2024-08-31 12:07 | disposition home or self-care (01) ==
LOC: HO.ENCR 11:19
PROVIDERS: PCP Internal Medicine; Visit Provider Dietitian, Registered
DX: E11.65 Type 2 diabetes mellitus with hyperglycemia (principal); Z79.4 Long term (current) use of insulin

== ENCOUNTER → 2024-08-31 11:18 | Outpatient (BNVA) | payer MEDICAID, SELFPAY | PROVIDERS: PCP Internal Medicine; Visit Provider Dietitian, Registered | DX: E11.65 Type 2 diabetes mellitus with hyperglycemia (principal); Z71.3 Dietary counseling and surveillance; Z79.4 Long term (current) use of insulin | CPT/HCPCS: 97803 ==

== ENCOUNTER 2024-09-03 10:54 | Outpatient (AMB) | payer MEDICAID, SELFPAY ==
--- NOTE | 2024-09-03 10:57 | MHC.OFFVIS ---
Vital Signs 09/03/24 11:01 Height 4 ft 10 in Weight 277 lb 12.519 oz BMI 58.1 BP 130/68 Blood Pressure Location Lt brachial Position Sitting Pulse 61 Pulse Source Pulse Oximeter Pulse Oximetry (%) 100 Oxygen Delivery Method Room Air Intake Visit Reasons: DM, Adrenal nod Intake Note: Patient present today for Type 2 Diabetes Mellitus and Adrenal nodule. Last Diabetic eye exam:05/23/2024 Last Podiatry Visit: 04/2024 Random Glucose: 156 mg/dl HgA1C: 11.0% 07/06/24 Allergies No Known Allergies Allergy (Verified 09/03/24 11:03) HPI Comments Details: 49-year-old female here today for follow up of type 2 diabetes mellitus. She also has a right adrenal incidentaloma. Here to day with mother Stephany Type 2 DM Diagnosed summer 2023, was prediabetic for several years , was on metformin for a couple of month and then couldnt tolerate it because of diarrhea and then wasnt on anything for a couple of years Past Medications Metformin Prior medications Victoza started summer 2023, then increased it up to 1.8 mg daily, says she has been out of it since May 2024 We stopped this to switch her to OZempic / Mounjaro, as she failed Victoza since when she was on it for the past 5-6 monhts her weight had plateued and A1c > 10 % , however insurance denied this and then we put her on Trulicity 0.75 mg weekly in July 2024 Current meds Lantus 20 units in AM Jardiance 10 mg daily Trulicity 0.75 mg weekly Friday Interval history Started Jardiance and Trulcity (6 injections so far ) Got 2 cortisone shots one each knee last week , gets these every 3-4 months , next one would be November 2024 [employer] Juancarlos 3 data downloaded from August 21, 2024 to August 26, 2024 Time CGM active 96% Average glucose 175 mg/dL G NE 7.5% Glucose variability 18.3% Within target range 63% High 35% Very high 2% Low 0% Interpretation: Overall blood sugars much improved than previous, she is still continues to have postprandial spikes mostly after her late lunch around 14:00 and dinner when blood sugars go into the 200s. Fastings also slightly high in the 160s. A1c 1/8 /25 at 11 % up from 10.1 % based on PCP notes from May 2024 Random Glucose: 156 mg/dl , had eggs this morning Weight 277 lbs , lost 3 lb after 6 injections of Trulicity 0.75 mg weekly BMI 59.4 kg /m2 Exercise: no exercise, no fixed program but stays active at home Diet: 3 meals a day Breakfast : between 8 or 9 usually eggs with banana or yogurt Lunch 1 pm : ham and cheese sandwich, Dinner between 5 and 6 30 pm: pasta with chicken or steak, spaghetti and meatballs No snacks Seldom has desserts: sugar free 1 gm snack bar Soda only once a week Saw irish moss operator and CDE in August 2024 Last Diabetic eye exam was on: 05/09/2024, pt has cataracts , surgery postpone due to uncontrolled hyperglycemia, once we see her back in 3 months and blood sugars are stable, can reschedule Last Podiatry exam was on: 05/02 No history of neuropathy, retinopathy or kidney disease No history of NE or stroke Family history Grand uncle type 2 DM LDL 86 mg/dl 08/03, less than goal LDL 90 mg/dl on HCTZ and losartan for HTN , losartan increased to 50 mg May 2024 No urine microalbumin levels PMHx HTN Hypothyroidism Obesity Type 2 DM JOHANN on CPAP PShx No surgeries Right adrenal gland nodule: Not addressed today CT scan done for evaluation of liver enzyme elevation in January 2024 showed a right-sided enhancing lesion in the adrenal gland measuring 1.4 cm. No other description given. I do not have these images. She thinks she had a dedicated adrenal MRI May 19 as well. Symptoms: Reports weight loss on the Victoza , lost close to 20 lbs since September 2023, used to be 300 lbs No , hirsutism,severe acne ,headaches denies any hx of proximal muscle weakness, easy bruisability ,no abdominal striae,no headache,diaphoresis -HTN diagnosed in her 40s -Denies any polyuria or polydipsia,has type 2 DM uncontrolled managed by PCP a1c 10.1 % from notes from PCP from 2023 , they are titrating up Victoza, no abdominal pain ,skin infection or hyperpigmentation. 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 No hx of depression or mood changes - no episodic palpitaions, pallor, abdominal pain, diaphoresis . MRI adrenal glands May 19 2024 obtained from [facility] showed right sided 1 cm adrenal nodule without signal drop in out of phase Labs 06/04/24 showed normal mahnaz, renin, MN and NMN Dex suppression done 06/08/24 also normal Physical exam General: sitting comfortably in no acute distress HEENT: normocephalic/atraumatic, , facial plethora noted, has rosacea Neck: supple, symmetrical, no thyromegaly , does have dorsocervical and supraclavicular fat pads Cardiac: normal heart sounds Pulm: normal breath sounds B/L, no added breath sounds Abd: not distended, has a burn that looks inflamed in her right lower quadrant region, no pus noted however it is erythematous and hot, no purple wide striae Extremities: no edema, no signs of myxedema Foot exam: Intact sensation to monofilament, intact pulses, well-perfused, intact vibration, does have very dry skin Laboratory Tests 06/04/24 06/08/24 07/06/24 08:09 08:21 11:03 Sodium 139 Potassium 4.3 Creatinine 0.98 Estimated GFR 60 Glucose (Clinic) 336 H Random Glucose 232 H Renin 2.19 Aldosterone 3 DHEA Sulfate 49 43 Random Cortisol 11.8 < 1.0 ACTH 60 H 11 Plasma Free Metaneph <25 Plasma Free Normeta 56 Plas Total Metaneph 56 Laboratory Tests 07/06/24 07/08/24 11:07 09:16 Plt Count 266 Sodium 136 Potassium 4.6 Creatinine 0.77 Estimated GFR > 60 Random Glucose 273 H Hgb A1c (Clinic) 11.0 H AST 49 H ALT 45 H Albumin 4.0 Triglycerides 211 H Cholesterol 161 LDL Cholesterol, Calc 84 HDL Cholesterol 35 L TSH 1.38 ? [facility] Medical History (Updated 07/23/24 @ 11:20 by Olga Dolan MD) HLD (hyperlipidemia) Metabolic dysfunction-associated fatty liver disease (MAFLD) HTN (hypertension) Obesity Adrenal nodule Diabetes mellitus Hx of hepatic disease History of obstructive sleep apnea Hx of essential hypertension History of hyperthyroidism Hx of hyperlipidemia Hx of aortic valve disorder Hx of type 2 diabetes mellitus Adrenal incidentaloma Surgical History No pertinent past surgical history Family History Father No problems noted. Mother Thyroid disease Maternal Aunt Thyroid disease Social History Alcohol intake: current Alcohol intake frequency: holidays/special occasions only Patient Tobacco Use Status: Never used Tobacco Physical Exam Vital Signs: Last Vital Signs Pulse 61 09/03/24 11:01 BP 130/68 09/03/24 11:01 Pulse Ox 100 09/03/24 11:01 Oxygen Delivery Method Room Air 09/03/24 11:01 BMI result Body Mass Index 58.1 Office Procedures Glucose Monitoring Details Details: see [facility] [address] - Glucose monitoring, continuous-physician I&R Procedure code (CPT) selection complete Results Reviewed Results Reviewed: Laboratory Last Values Glucose (Clinic) 156 mg/dL (60-115) H 09/03/24 11:07 Glucose (Clinic) 156 mg/dL (60-115) H 09/03/24 11:07 Assessment & Plan Assessment & Plan (1) Diabetes mellitus: Code(s): E11.9 - Type 2 diabetes mellitus without complications Category: Medical Qualifiers: Diabetes mellitus type: type 2 Diabetes mellitus supervisor reinforced steel placing insulin use: with snf use Diabetes mellitus complication status: with hyperglycemia Qualified Code(s): E11.65 - Type 2 diabetes mellitus with hyperglycemia; Z79.4 - penitentiary (current) use of insulin Plan: 49-year-old female who is here for follow up of her type 2 diabetes mellitus which was diagnosed in summer now with basal insulin use, without complications. A1c in June 2024 11%, CGM data downloaded today, blood sugars August improved after starting basal insulin. Now also on Trulicity and Jardiance. Plan: -continue CGM monitoring -continue Lantus 20 units daily -continue Jardiance 10 mg daily -increase Trulicity to 1.5 mg weekly -follow up with irish moss operator and educator She follows regularly with the eye doctor, she was scheduled to have cataract surgery on July 28, I postponed this for now given uncontrolled hyperglycemia with blood sugars in the 300s. She should have an A1c of at least 8% before she can have any kind of surgical procedure to minimize risk of infection. No history of retinopathy. When we see her back in 3 months, we will re-evaluate. Could not get to foot exam today, we will address next visit, no history of neuropathy -hypoglycemia education done -urine microalbumin noted to be elevated, she is already on Jardiance 10 mg daily as well as losartan. We also educated her today about importance of getting blood sugars under control, risk of complications of microvascular as well as macrovascular complications including NE or stroke. Follow up in 12 weeks (2) Obesity: Code(s): E66.9 - Obesity, unspecified Category: Medical Qualifiers: Obesity type: due to excess calories Obesity classification: adult class 3 (BMI >= 40) Serious obesity comorbidity presence: with serious comorbidity Body mass index: BMI 50.0-59.9 Qualified Code(s): E66.813 - Obesity, class 3; E66.01 - Morbid (severe) obesity due to excess calories; Z68.43 - Body mass index [BMI] 50.0-59.9, adult Plan: BMI 58.7 kg per m2 with current weight at 280 lb. She lost about 20 lb with Victoza initially when it was started but weight had plateaued over the fall 2023. We had put in a prescription for Mounjaro for her, however her insurance rejected that despite her BMI with complications of uncontrolled hyperglycemia, hypertension, hyperlipidemia, fatty liver disease. John was also denied Counseled about GI intolerance. No history of pancreatitis. No alcohol use. Now on Trulicity 0.75 mg weekly, has taken 6 injection and has lost 3 lb since July 2024. Plan: -follow up with irish moss operator -increase Trulicity to 1.5 mg weekly (3) HTN (hypertension): Code(s): I10 - Essential (primary) hypertension Category: Medical Qualifiers: Hypertension type: primary hypertension Qualified Code(s): I10 - Essential (primary) hypertension Plan: Losartan was increased from 25 mg daily to 50 mg daily in May 2024. She is also on hydrochlorothiazide 25 mg daily. Blood pressure better controlled today. Plan: -continue current regimen (4) Adrenal incidentaloma: Code(s): E27.8 - Other specified disorders of adrenal gland Category: Medical Plan: Not addressed today. 49-year-old female coming in today for follow up of right 1.4 cm adrenal gland nodule. CT scan done for evaluation of liver enzyme elevation in January 2024 showed a right-sided enhancing lesion in the adrenal gland measuring 1.4 cm. No other description given. I do not have these images. MRI adrenal glands May 19 2024 obtained from [facility] showed right sided 1 cm adrenal nodule without signal drop in out of phase Labs 06/04/24 showed normal mahnaz, renin, MN and NMN Dex suppression done 06/08/24 also normal Given it isn't enhancing nodule without a clear signal dropout on MRI on out phase imaging, we will have her do follow up CT with the adrenal protocol in January 2025 which would be 1 year from her last CT scan. ? Plan: -has order for CT scan with the adrenal protocol to be done in January of 2025 (5) HLD (hyperlipidemia): Code(s): E78.5 - Hyperlipidemia, unspecified Category: Medical Qualifiers: Hyperlipidemia type: mixed hyperlipidemia Qualified Code(s): E78.2 - Mixed hyperlipidemia Plan: LDL at 84 mg/dL from June 2024, which is at goal at less than 90 mg/dL. Triglycerides elevated. Discussed with her importance of avoiding fatty foods, and hopefully with improvement of her glycemic control we will see an improvement in triglycerides. Repeat lipid panel prior to next appointment in 3 months (6) Metabolic dysfunction-associated fatty liver disease (MAFLD): Code(s): K76.0 - Fatty (change of) liver, not elsewhere classified Category: Medical Plan: Fibrosis 4 index score at 1.4, NAFLD fibrosis score of 1.02, needs further evaluation for consideration of advanced fibrosis/cirrhosis. Patient already has a web applications programmer at [facility], patient's mother said that they will be contacting them follow up for further evaluation of fatty liver disease. Increase Trulicity to 1.5 mg weekly injection Plan I spent 30 minutes in reviewing the record, seeing the patient and documenting in the medical record. Orders: Orders Microalbumin, Random (w Creat) 3 Months E11.65 - Type 2 diabetes mellitus with hyperglycemia, E78.2 - Mixed hyperlipidemia, I10 - Essential (primary) hypertension, K76.0 - Fatty (change of) liver, not elsewhere classified, Z79.4 - lease operator (current) use of insulin Hemoglobin A1c 3 Months E11.65 - Type 2 diabetes mellitus with hyperglycemia, E78.2 - Mixed hyperlipidemia, I10 - Essential (primary) hypertension, K76.0 - Fatty (change of) liver, not elsewhere classified, Z79.4 - penitentiary (current) use of insulin AMB Glucose Monitoring Today E11.65 - Type 2 diabetes mellitus with hyperglycemia, Z79.4 - penitentiary (current) use of insulin Lipid Panel 3 Months E11.65 - Type 2 diabetes mellitus with hyperglycemia, E78.2 - Mixed hyperlipidemia, I10 - Essential (primary) hypertension, K76.0 - Fatty (change of) liver, not elsewhere classified, Z79.4 - penitentiary (current) use of insulin Comprehensive Met. Panel 3 Months E11.65 - Type 2 diabetes mellitus with hyperglycemia, E78.2 - Mixed hyperlipidemia, I10 - Essential (primary) hypertension, K76.0 - Fatty (change of) liver, not elsewhere classified, Z79.4 - penitentiary (current) use of insulin Medications: New dulaglutide (Trulicity) 1.5 mg (0.5 mL) subcut QWEEK 2 mL 7RF Discontinued dulaglutide (Trulicity) Discontinued Reason: Duplicate 0.75 mg (0.5 mL) subcut QWEEK 2 mL 5RF Patient Instructions: Continue Lantus 20 units daily Increase Trulicity to 1.5 mg weekly Continue Jardiance 10 mg daily Do fasting blood work and a urine test a week prior to appointment Follow up in 3 months Coding Level of Care Code Est Pt Level 4 (75147) Diagnoses Type 2 diabetes mellitus with hyperglycemia, with long-term current use of insulin E11.65; Z79.4 Diabetes mellitus type: type 2 Diabetes mellitus supervisor reinforced steel placing insulin use: with supervisor reinforced steel placing use Diabetes mellitus complication status: with hyperglycemia Class 3 severe obesity due to excess calories with serious comorbidity and body mass index (BMI) of 50.0 to 59.9 in adult E66.813; E66.01; Z68.43 Obesity type: due to excess calories Obesity classification: adult class 3 (BMI >= 40) Serious obesity comorbidity presence: with serious comorbidity Body mass index: BMI 50.0-59.9 Primary hypertension I10 Hypertension type: primary hypertension Adrenal incidentaloma E27.8 Mixed hyperlipidemia E78.2 Hyperlipidemia type: mixed hyperlipidemia Metabolic dysfunction-associated fatty liver disease (MAFLD) K76.0 CPT Codes Details - CPT: 09371 - Glucose monitoring, continuous-physician I&R ([id number]) Time Spent (min) 30
[2024-09-03 11:01] VITALS: BP 130/68; PULSE 61; O2SAT 100; BMI 58.1
[2024-09-03 11:26] LABS: Glucose, Whole Blood 156 mg/dL (60-115)
== END 2024-09-03 11:41 | disposition home or self-care (01) ==
LOC: HO.ENCR 10:54
PROVIDERS: PCP Internal Medicine; Visit Provider Student in an Organized Health Care Education/Training Program
DX: E11.65 Type 2 diabetes mellitus with hyperglycemia (principal); Z79.4 Long term (current) use of insulin; E66.813 Obesity, class 3; E66.01 Morbid (severe) obesity due to excess calories; Z68.43 Body mass index [BMI] 50.0-59.9, adult; I10 Essential (primary) hypertension; E27.8 Other specified disorders of adrenal gland; E78.2 Mixed hyperlipidemia; K76.0 Fatty (change of) liver, not elsewhere classified
CPT/HCPCS: 95251; 99214

== ENCOUNTER → 2024-09-03 10:54 | Outpatient (BNVA) | payer MEDICAID, SELFPAY | PROVIDERS: PCP Internal Medicine; Visit Provider Student in an Organized Health Care Education/Training Program | DX: E11.65 Type 2 diabetes mellitus with hyperglycemia (principal); E66.813 Obesity, class 3; E66.01 Morbid (severe) obesity due to excess calories; I10 Essential (primary) hypertension; E27.8 Other specified disorders of adrenal gland; E78.2 Mixed hyperlipidemia; K76.0 Fatty (change of) liver, not elsewhere classified; Z68.43 Body mass index [BMI] 50.0-59.9, adult; Z79.4 Long term (current) use of insulin; Z79.85 Long-term (current) use of injectable non-insulin antidiabetic drugs; Z79.84 Long term (current) use of oral hypoglycemic drugs | CPT/HCPCS: 82947; 99212 ==

== ENCOUNTER 2024-10-12 11:23 | Outpatient (AMB) | payer MEDICAID, SELFPAY ==
[2024-10-12 11:34] VITALS: BMI 58.6
--- NOTE | 2024-10-12 11:34 | MHC.AMNUTRGE ---
VS Expanded 10/12/24 11:34 Height 4 ft 10 in Weight 280 lb 10.375 oz BMI 58.6 Intake Visit Reasons: T2DM Allergies No Known Allergies Allergy (Verified 09/03/24 11:03) Nutrition Presentation Details: Pt presents for MNT f/u for T2DM Pt reports taking MVI and calcium Reports working on reducing total carbs to 45-60 g at meal Typical meal B:8-9 am hard boiled egg and banana yogurt L:ham/bologna lunch or meat grinder ,water D: meat grinder ham/cheese /lettuce/tomatoes Choosing low sugar beverages physical activity: ADL etoh/smoking denies BS Monitoring Most Recent Diabetes Results: Microalb/Creat Ratio 714.5 ug/mg cr (<30) H 07/23/24 PFSH Medical History (Updated 07/23/24 @ 11:20 by Olga Dolan MD) HLD (hyperlipidemia) Metabolic dysfunction-associated fatty liver disease (MAFLD) HTN (hypertension) Obesity Adrenal nodule Diabetes mellitus Hx of hepatic disease History of obstructive sleep apnea Hx of essential hypertension History of hyperthyroidism Hx of hyperlipidemia Hx of aortic valve disorder Hx of type 2 diabetes mellitus Adrenal incidentaloma Surgical History No pertinent past surgical history Family History Father No problems noted. Mother Thyroid disease Maternal Aunt Thyroid disease Social History Alcohol intake: current Alcohol intake frequency: holidays/special occasions only Patient Tobacco Use Status: Never used Tobacco Assessment & Plan Assessment & Plan (1) Diabetes mellitus: Code(s): E11.9 - Type 2 diabetes mellitus without complications Category: Medical Qualifiers: Diabetes mellitus type: type 2 Diabetes mellitus internal grinder set up operator insulin use: with half-way use Diabetes mellitus complication status: with hyperglycemia Qualified Code(s): E11.65 - Type 2 diabetes mellitus with hyperglycemia; Z79.4 - [facility] (current) use of insulin Plan: Wt: 127 Kg ( 08/03 ), 126 kg(08/31), 127 kg (10/31) Est kcal needs as per MSJ: 2100 (40% carb, 30% protein/fat) Est fluid needs as per 25-30 ml/d: 3800 Est prot per day as per 1 g/kg bw: 127 Recommend fiber intake : 8-10 g per day and gradually increase to 25-28 g per day for women and 35-38 g for men or as tolerated Recommend sodium intake per day : less than 2300 mg Educated patient on: ( R = reviewed V = verbalizes understanding N/R = needs review N/A = not applicable Food sources of carbohydrate, adequate serving sizes and its role in various health conditions: R Differences between complex carbohydrates a simple carbohydrates, role of fiber in diet: R Lean protein sources of foods: R Differences between types of fats and role in diet (mono on saturated fat fatty acids, saturated fatty acids, trans fats): R V N/R Food sources of sodium in salt and healthy modifications for heart health in kidney health: R V R/V Vitamins and minerals: R V N/R Healthy plate method concept: R V N/R Physical activity: Benefits a precaution: R Hypoglycemia protocol (rule of 15): R V N/R Dietary prevention of Hyperglycemia: R Patient Instructions: Reduce on fats (removing skins, choosing poultry instead of bologna /salami Have a fruit instead of pastries , 1 fruit daily Coding Level of Care Code Nutr Indiv Subseq (78591) Diagnoses Type 2 diabetes mellitus with hyperglycemia, with long-term current use of insulin E11.65; Z79.4 Diabetes mellitus type: type 2 Diabetes mellitus half-way insulin use: with internal grinder set up operator use Diabetes mellitus complication status: with hyperglycemia Time Spent (min) 20
--- OUTSIDE RECORDS SUMMARY | 2024-10-12 13:11 | XMS_ITS | Patient Health Record ---
Author [facility] Address [address] [place] [address] Care Team Providers Care Manager System Name Role Phone Jose HUMPHRIES, Tristin Primary Care Provider Mat Oliveira Unavailable [phone] Allergies No Known Allergies Results Component Value [...] Problem Type 2 diabetes mellitus without complication ([id number]) Type 2 diabetes mellitus without complication (E11.9) Active confirmed Vital Signs Blood pressure diastolic 60 mm Hg 04/19/2024 Height 1za03rg in 04/19/2024 Blood pressure systolic 138 mm Hg 04/19/2024 Weight 283 lbs 04/19/2024 BMI 59.14 kg/m2 04/19/2024 Procedures Procedure Date Ordered Date Performed Result Body Sit e [id number] NAIL, 6 OR MORE 04/19/2024 N/A Encounters Encounter Location Date Provider Diagnosis [facility] [address] [address] 04/19/2024 Matpranay LimPam Type 2 diabetes mellitus [...] Test Name Order Date Hemoglobin A1c 06/24/2017 [id number] NAIL, 6 OR MORE 10/30/2016 [id number] NAIL, 6 OR MORE 11/04/2018 [id number] NAIL, 6 OR MORE 12/02/2019 [id number] NAIL, 6 OR MORE 12/04/2020 [id number] NAIL, 6 OR MORE 02/27/2022 [id number] NAIL, 6 OR MORE 04/21/2023 [id number] NAIL, 6 OR MORE 04/19/2024 [id number] NAIL, 1-5 04/18/2016 [id number] SKIN LESIONS, OVER 4 09/03/19 12 [id number] NAIL(S) 09/03/2011 Next Appt Details Provider Name:Mat Orozco , 04/18/2025 01:00:00 PM, [address] [facility], [address], [place], [address], Medical (General) History Medical History History ICD Code asthma chicken pox Diabetes Hypertension Thyroid disorder Surgical History Surgery Date(Month/Year) cyst removal 1976
--- OUTSIDE RECORDS SUMMARY | 2024-10-12 13:11 | XMS_ITS ---
Author Organization [facility] Address [address] [place] [address] Care Team Providers Care It Instructor Name Role Phone Jose HUMPHRIES, Tristin Primary Care Provider Mat Oliveira Unavailable [phone] Allergies No Known Allergies REASON FOR VISIT [...] other tobacco user? Yes Vital Signs Height 5pk47zx in 04/19/2024 Weight 283 lbs 04/19/2024 BMI 59.14 kg/m2 04/19/2024 Blood pressure systolic 138 mm Hg 04/19/20 24 Blood pressure diastolic 60 mm Hg 024 Procedures Procedure Date Ordered Date Performed Result Body Sit e [id number] NAIL, 6 OR MORE 04/19/2024 N/A Encounters Encounter Location Date Provider Diagnosis [facility] [place] [address] [address] 04/19/2024 Mat Orozco Type 2 diabetes mellitus [...] Treatment Pending Test Test Name Order Date [id number] NAIL, 6 OR MORE 04/19/2024 Next Appt Details Follow Up: 1 Year, Reason: Provider Name:Mat Orozco , 04/18/2025 01:00:00 PM, [address] [facility], [address] [facility], [place], [address], Procedure Notes * Category Sub-Category Detail Notes [...] use of a nail nipper and/or dremel-type grinder set up operator thread, to a more viable healthy nail plate or bed tissue 6-10. Silver nitrate used for any petechial bleeding as necessary. Definitive antifungal treatment options have been reviewed and discussed with the patient. The patient chooses, no pharmaceutical tx - 04525 - Pt is self-pay ($65) Progress Notes * Vik ADNERSENaDOB: 3 (49 yo F)Acc No.[id number]:04/19/2024 Progress Note Patient:Gillian LIRA Provider:?Mat Orozco DPM :[id number]???Age:49 Y???Sex:Female D ate:04/19/2024 Address:[address] [place], [place] [id number] Pcp:Tristin Garcia MD Subjective: * Chief Complaints: [...] * Allergies:?N.K.D.A.yes[Suzanne wolfe Verified] Objective: * Vitals:?Ht: 1gr84ix, Wt:283, BMI:59.14, Shoe size: 5, BP:138/60mm Hg, [...] use of a nail nipper and/or dremel-type grinder set up operator thread, to a more viable healthy nail plate or bed tissue 6-10. Silver nitrate used for any petechial bleeding as necessary. Definitive antifungal treatment options have been reviewed and discussed with the patient. The patient chooses, no pharmaceutical tx - 92510 - Pt is self-pay ($65).? * Procedure Codes:?49143 DEBRI DE NAIL, 6 OR MORE $65, Modifiers: GY * Follow Up:?1 Year * * Sign off status: Completed true * Provider:?Mat Orozco DPM Date:?2023 Generated for Shereen glasgow/Miguel/Stephen on:?10/12/2024 01:11 PM EDT History and Physical Notes * [...]
--- OUTSIDE RECORDS SUMMARY | 2024-10-12 13:11 | XMS_ITS | Clinical Summary ---
Author Organization [address] Address [address] [place] [phone] Phone Care Team Providers Care Publication Manager Name Role Phone Tristin Garcia Primary Care Provider Allergies No known active allergies Medications albuterol [...] Encounters Date Type Department Care Team Description 09/28/2024 Telephone Pulmonol - [address] [place] [address] Geronimo Hamilton MD dme request 09/16/2024 11:30 AM EDT Office Visit Pulmonolgy - [place] 175 [facility] [address] [place] [address] Geronimo Hamilton MD Moderate persistent asthma, unspecified whether complicated (Primary Dx); Obstructive sleep apnea syndrome from Last 3 Months Immunizations Name Administration [...] Sign Reading Time Taken Comments Blood Pressure 130/84 09/16/2024 11:33 AM EDT Pulse 56 09/16/2024 11:33 AM EDT Temperature 36.1 ??C (97 ??F) 09/16/2024 11:33 AM EDT Respiratory Rate 16 09/16/2024 11:33 AM EDT Oxygen Saturation 100% 09/16/2024 11:33 AM EDT Inhaled Oxygen Concentration - - Weight 128 kg (283 lb) 09/16/2024 11:33 AM EDT Height 147.3 cm (4' 10 ) 09/16/2024 11:33 AM EDT Body Mass Index 59.15 09/16/2024 11:33 AM EDT Plan of Treatment Upcoming Encounters Date Type Department Care Team (Late st Contact Info) Description 11/03/2024 10:40 AM EDT Office Visit Gastroenterology - [place] [address] [place] [phone] Kerri Willson NP [address] [address] 09/16/2025 9:30 AM EDT Office Visit Pulmonolgy - [place] 175 [facility] 200 [place] [phone] Geronimo Hamilton MD [address] [address] Health Maintenance Due Date Last Done Comments [...] age to complete this topic Meningococcal B Vaccine Aged Out No l onger eligible based on patient's age to complete [...] complete physical exam (CPE) DM (diabetes mellitus) ([facility] V24, [facility] V28) BMI 45.0-49.9, adult ([facility] V24, [facility] V28) HTN (hypertension) HLD (hyperlipidemia) JOHANN (obstructive sleep apnea) HEMOGLOBIN A1C Routine 08/25/2024 11:31 AM EDT Laboratory tests ordered as part of a complete physical exam (CPE) DM (diabetes mellitus) ([facility] V24, [facility] V28) BMI 45.0-49.9, adult ([facility] V24, [facility] V28) HTN (hypertension) HLD (hyperlipidemia) JOHANN (obstructive sleep apnea) MICROALBUMIN CREATININE URINE RATIO Routine 08/25/2024 11:31 AM EDT Laboratory tests ordered as part of a complete physical exam (CPE) DM (diabetes mellitus) ([facility] V24, [facility] V28) BMI 45.0-49.9, adult ([facility] V24, [facility] V28) HTN (hypertension) HLD (hyperlipidemia) JOHANN (obstructive sleep apnea) COMPREHENSIVE METABOLIC PANEL Routine 08/25/2024 11:31 AM EDT Laboratory tests ordered as part of a complete physical exam (CPE) DM (diabetes mellitus) ([facility] V24, [facility] V28) BMI 45.0-49.9, adult ([facility] V24, [facility] V28) HTN (hypertension) HLD (hyperlipidemia) JOHANN (obstructive sleep apnea) CBC AND DIFFERENTIAL Routine 08/25/2024 11:31 AM EDT Laboratory tests ordered as part of a complete physical exam (CPE) DM (diabetes mellitus) ([facility] V24, [facility] V28) BMI 45.0-49.9, adult ([facility] V24, [facility] V28) HTN (hypertension) HLD (hyperlipidemia) JOHANN (obstructive sleep apnea) THYROID STIMULATING HORMONE Routine 08/25/2024 11:31 AM EDT Laboratory tests ordered as part of a complete physical exam (CPE) DM (diabetes mellitus) ([facility] V24, [facility] V28) BMI 45.0-49.9, adult ([facility] V24, [facility] V28) HTN (hypertension) HLD (hyperlipidemia) JOHANN (obstructive sleep apnea) LIPID PANEL WITH REFLEX TO DIRECT LDL Routine 08/25/2024 11:31 AM EDT Laboratory tests ordered as part of a complete physical exam (CPE) DM (diabetes mellitus) ([facility] V24, [facility] V28) BMI 45.0-49.9, adult ([facility] V24, [facility] V28) HTN (hypertension) HLD (hyperlipidemia) JOHANN (obstructive sleep apnea) HEPATITIS C ANTIBODY Routine 04/19/2024 11:08 AM EST Hypothyroid HTN (hypertension) DM (diabetes mellitus) ([facility] V24, [facility] V28) Elevated LFTs from Last 3 Months or Most Recently Relevant to Health Maintenance Results * (ABNORMAL) Lipid panel with reflex to direct LDL (08/25/2024 11:31 AM EDT) [facility] Cholesterol 181 0 - 200 mg/dL LAB CHEMISTRY METHOD 08/25/2024 3:10 PM EDT [facility] Triglycerides 187(H) 0 - 150 mg/dL LAB CHEMISTRY METHOD 08/25/2024 3:10 PM EDT [facility] HDL 44 >=40 mg/dL LAB CHEMISTRY METHOD 08/25/2024 3:10 PM EDT [facility] LDL Calculated 100 0 - 100 mg/dL LAB CHEMISTRY METHOD 08/25/2024 3:10 PM EDT [facility] VLDL Cholesterol Patrick 37.4 mg/dL LAB CHEMISTRY METHOD 08/25/2024 3:10 PM EDT [facility] Non HDL Chol. (LDL+VLDL) 137 <145 mg/dL LAB CHEMISTRY METHOD 08/25/2024 3:10 PM EDT [facility] Chol/HDL Ratio 4.1 0.0 - 4.4 LAB CHEMISTRY METHOD 08/25/2024 3:10 PM EDT [facility] Blood Venous blood specimen / Unknown Venipuncture / Unknown 08/25/2024 11:31 AM EDT 08/25/2024 11:31 AM EDT us Abdias [employer] LAB BLOOD ORDERABLES Final Resul t [facility] [address] [place] [address], * (ABNORMAL) CBC auto differential (08/25/2024 11:31 AM EDT) [facility] WBC 10.2 4.8 - 10.8 K/mcL LAB HEMETOLOGY METHOD 08/25/2024 2:57 PM EDT [facility] RBC 4.60 3.80 - 4.80 M/mcL LAB HEMETOLOGY METHOD 08/25/2024 2:57 PM EDT [facility] Hemoglobin 14.2 11.5 - 16.0 g/dL LAB HEMETOLOGY METHOD 08/25/2024 2:57 PM EDT [facility] Hematocrit 44.4 35.0 - 47.0 % LAB HEMETOLOGY METHOD 08/25/2024 2:57 PM EDT [facility] MCV 96.1 79.0 - 98.0 FL LAB HEMETOLOGY METHOD 08/25/2024 2:57 PM EDT [facility] MCH 30.7 27.0 - 32.0 pcg LAB HEMETOLOGY METHOD 08/25/2024 2:57 PM EDT [facility] MCHC 32.0 32.0 - 37.0 g/dL LAB HEMETOLOGY METHOD 08/25/2024 2:57 PM EDT [facility] RDW 13.4 11.0 - 15.0 % LAB HEMETOLOGY METHOD 08/25/2024 2:57 PM EDT [facility] Platelets 268 130 - 400 K/mcL LAB HEMETOLOGY METHOD 08/25/2024 2:57 PM EDT [facility] MPV 10.8 7.0 - 11.0 FL LAB HEMETOLOGY METHOD 08/25/2024 2:57 PM EDT [facility] NRBC 0.0 <1.0 % LAB HEMETOLOGY METHOD 08/25/2024 2:57 PM EDT [facility] NRBC Absolute 0.00 <0.10 K/mcL LAB HEMETOLOGY METHOD 08/25/2024 2:57 PM EDT [facility] Neutrophils Relative 74.9 % LAB HEMETOLOGY METHOD 08/25/2024 2:57 PM EDT [facility] Lymphocytes Relative 16.8 % LAB HEMETOLOGY METHOD 08/25/2024 2:57 PM EDT [facility] Monocytes Relative 7.3 % LAB HEMETOLOGY METHOD 08/25/2024 2:57 PM EDT [facility] Eosinophils Relative 0.1 % LAB HEMETOLOGY METHOD 08/25/2024 2:57 PM EDT [facility] Basophils Relative 0.5 % LAB HEMETOLOGY METHOD 08/25/2024 2:57 PM EDT [facility] Immature Granulocytes Relative 0.4 % LAB HEMETOLOGY METHOD 08/25/2024 2:57 PM EDT [facility] Neutrophils Absolute 7.63(H) 1.50 - 7.00 K/mcL LAB HEMETOLOGY METHOD 08/25/2024 2:57 PM EDT [facility] Lymphocytes Absolute 1.71 1.00 - 5.00 K/mcL LAB HEMETOLOGY METHOD 08/25/2024 2:57 PM EDT [facility] Monocytes Absolute 0.74 0.20 - 1.00 K/mcL LAB HEMETOLOGY METHOD 08/25/2024 2:57 PM EDT [facility] Eosinophils Absolute 0.01 0.00 - 0.50 K/mcL LAB HEMETOLOGY METHOD 08/25/2024 2:57 PM EDT [facility] Basophils Absolute 0.05 0.00 - 0.20 K/mcL LAB HEMETOLOGY METHOD 08/25/2024 2:57 PM EDT [facility] Immature Granulocytes Absolute 0.04(H) 0.00 - 0.03 K/mcL LAB HEMETOLOGY METHOD 08/25/2024 2:57 PM [facility] Blood Venous blood specimen / Unknown Venipuncture / Unknown 08/25/2024 11:31 AM EDT 08/25/2024 11:31 AM EDT [employer]dias [employer] LAB BLOOD ORDERABLES Final Resul t Performing Organization Address [facility]/ZIP Co de Phone Number [facility] [address] [place] [address], [place] [phone] * (ABNORMAL) Microalbumin creatinine urine ratio (08/25/2024 11:31 AM EDT) Creatinine, Urine 85.0 mg/dL LAB CHEMISTRY METHOD 08/25/2024 7:23 PM EDT [facility] Microalb, Ur 37.0(H) 0.0 - 29.0 mg/L LAB CHEMISTRY METHOD 08/25/2024 7:23 PM EDT [facility] Microalb/Crea t Ratio 44(H) <30 mg/g creat LAB CHEMISTRY METHOD 08/25/2024 7:23 PM EDT [facility] Urine Urine specimen obtained by clean catch procedure / Unknown Non-blood Collection / Unknown 08/25/2024 11:31 AM EDT 08/25/2024 11:31 AM EDT Abdias [employer] LAB URINE ORDERABLES Final Resul t Performing Organization Address [facility] Co de Phone Number [facility] [address] [place] [address], [place] [phone] * Thyroid stimulating hormone (08/25/2024 11:31 AM EDT) TSH 1.03 0.40 - 4.00 mcIU/mL LAB CHEMISTRY METHOD 08/25/2024 3:14 PM EDT [facility] Blood Venous blood specimen / Unknown Venipuncture / Unknown 08/25/2024 11:31 AM EDT 08/25/2024 11:31 AM EDT [employer] LAB BLOOD ORDERABLES Final Resul t Performing Organization Address City/[facility]/ZIP Co de Phone Number [facility] [address] [place] [address], [place] [phone] * (ABNORMAL) Hemoglobin A1c (08/25/2024 11:31 AM EDT) [facility] Hemoglobin A1C 10.2(H) <6.5 % LAB CHEMISTRY METHOD 08/25/2024 9:51 PM EDT [facility] Mean Bld Glu Estim. 246 mg/dL LAB CHEMISTRY METHOD 08/25/2024 9:51 PM EDT [facility] Blood Venous blood specimen / Unknown Venipuncture / Unknown 08/25/2024 11:31 AM EDT 08/25/2024 11:31 AM EDT Abdias [employer] LAB BLOOD ORDERABLES Final Resul t [facility] [address] [place] [address], [place] [phone] * (ABNORMAL) Comprehensive metabolic panel (08/25/2024 11:31 AM EDT) [facility] Sodium 138 133 - 145 mmol/L LAB CHEMISTRY METHOD 08/25/2024 4:04 PM EDT [facility] Potassium 5.0 3.5 - 5.5 mmol/L LAB CHEMISTRY METHOD 08/25/2024 4:04 PM EDT [facility] Chloride 104 96 - 110 mmol/L LAB CHEMISTRY METHOD 08/25/2024 4:04 PM EDT [facility] CO2 27 21 - 32 mmol/L LAB CHEMISTRY METHOD 08/25/2024 4:04 PM EDT [facility] Anion Gap 7 3 - 11 LAB CHEMISTRY METHOD 08/25/2024 4:04 PM EDT [facility] Glucose 176(H) 70 - 100 mg/dL LAB CHEMISTRY METHOD 08/25/2024 4:[facility] BUN 43(H) 5 - 25 mg/dL LAB CHEMISTRY METHOD 08/25/2024 4:04 PM [facility] Comment:Results verified by repeat testing Creatinine 1.51(H) 0.50 - 1.10 mg/dL LAB CHEMISTRY METHOD 08/25/2024 4:04 PM [facility] eGFR 42(L) >=60 mL/min/1. 73m2 LAB CHEMISTRY METHOD 08/25/2024 4:04 PM [facility] Comment:Calculation based on the??Chronic Kidney Disease Epidemiology Collaboration (CKD-EPI) equation refit??without adjustment for race. BUN/Creatinine Ratio 28.5 LAB CHEMISTRY METHOD 08/25/2024 4:04 PM [facility] Calcium 9.4 8.5 - 10.5 mg/dL LAB CHEMISTRY METHOD 08/25/2024 4:04 PM [facility] AST (SGOT) 22 10 - 42 unit/L LAB CHEMISTRY METHOD 08/25/2024 4:04 PM [facility] ALT (SGPT) 35 10 - 60 unit/L LAB CHEMISTRY METHOD 08/25/2024 4:04 PM [facility] Alkaline Phosphatase 96 42 - 121 unit/L LAB CHEMISTRY METHOD 08/25/2024 4:04 PM [facility] Total Protein 7.1 6.0 - 8.0 g/dL LAB CHEMISTRY METHOD 08/25/2024 4:04 PM [facility] Albumin 3.6 3.2 - 5.0 g/dL LAB CHEMISTRY METHOD 08/25/2024 4:04 PM [facility] Total Bilirubin 0.4 0.0 - 1.4 mg/dL LAB CHEMISTRY METHOD 08/25/2024 4:04 PM [facility] Blood Venous blood specimen / Unknown Venipuncture / Unknown 08/25/2024 11:31 AM EDT 08/25/2024 11:31 AM EDT Abdias [facility] LAB BLOOD ORDERABLES Final Resul t [facility] [address] [place] [address], [place] [phone] * Hepatitis C antibody (04/19/2024 11:08 AM EST) Hepatitis C Antibody Negative Negative LAB CHEMISTRY METHOD 04/19/2024 5:08 PM EST [facility] Blood Venous blood specimen / Unknown Venipuncture / Unknown 04/19/2024 11:08 AM EST 04/19/2024 11:08 AM EST Abdias [facility] LAB BLOOD ORDERABLES Final Resul t Performing Organization Address City/[facility]/ZIP Co de Phone Number [facility] [address] [place] [address], [place] [phone] from Last 3 Months or Most Recently Relevant to Health Maintenance Insurance MEDICAID - [place] Care Teams Publication Manager Relationship Specialty Start Date End Date Tristin Garcia DO [address] [place] [phone] PCP - General Internal Medicine 05/08/17
--- OUTSIDE RECORDS SUMMARY | 2024-10-12 13:11 | XMS_ITS ---
Author Organization [facility] Address [address] [place] [address] Care Team Providers Care Behavioral Health Therapist Name Role Phone Jose HUMPHRIES, Tristni Primary Care Provider Mat Oliveira Unavailable [phone] Allergies No Known Allergies REASON FOR VISIT [...] Ordered Date Performed Result Body Sit e [id number] NAIL, 6 OR MORE 04/21/2023 N/A Encounters Encounter Location Date Provider Diagnosis [facility] [address] [place] [phone] 04/21/2023 Mat Orozco Type 2 diabetes mellitus [...] INSTRUCTIONS.pdf) Pending Test Test Name Order Date [id number] NAIL, 6 OR MORE 04/21/2023 Next Appt Details Follow Up: 1 Year, Reason: Provider Name:Mat Orozco , 04/18/2025 01:00:00 PM, [address] [facility], [place] [address], [place], [address], Procedure Notes * Category Sub-Category Detail Notes [...] as necessary. Patient chooses, no pharmaceutical tx ([id number]) Progress Notes * Vik ANDERSENaDOB: 3 (48 yo F)Acc No.[id number]:04/21/2023 Progress Note Patient:Gillian Osman Provider:?Mat Orozco DPM :1975???Age:48 Y???Sex:Female D ate:04/21/2023 Address:[address] [place] [address], [id number] Pcp:Tristin Garcia MD Subjective: * Chief Complaints: [...] as necessary. Patient chooses, no pharmaceutical tx ([id number]).? * Procedure Codes:?87274 DEBRI DE NAIL, 6 OR MORE $65, Modifiers: GY * Follow Up:?1 Year * Images: * Sign off status: Completed true * Provider:?Mat Orozco DPM Date:?2022 Generated for Shereen glasgow/Miguel/Stephen on:?10/12/2024 01:11 PM [...]
--- OUTSIDE RECORDS SUMMARY | 2024-10-12 13:11 | XMS_ITS | Clinical Summary ---
Author Organization [facility] Address [address] [facility] [place] [place] [address] Care Team Providers Care Infrastructure Consultant Name Role Phone MeraridianajesusTristin william Primary Care Provider [phone] Allergies No known active allergies Social History [...] Adults 18 yrs or above (or HM Modifier)([facility]) 1973 Hepatitis C Virus Infection in Adolescents and Adults: Screening (or Modifier) ([facility]) 1991 [facility] Screening Reminder: Makenzie hartman for all adults ([facility]) 1991 Tobacco Smoking Cessation: i n Adults excluding Women: Behavioral and Pharmacotherapy Interventions ([facility]) 1991 DTaP/Tdap/Td Vaccines ([facility]) (1 - Tdap) 1992 Cervical Cancer Screenin 1-65 yrs of age (or Modifier) 1994 Cervical Cancer Screening: P ap every 3 yrs pts age 21-65 1994 Cervical Cancer: Pap Screeni ng with Modifier timing ([facility]) 1994 Cervical Cancer: hrHPV alone or with cotesting Pap for Pts 30-65yrs screening every 5yrs ([facility]) 1994 Colorectal Cancer Screening 45 -75 Yrs (or HM Modifier ) 2018 Colorectal Cancer: FLEXIBLE SIGMOIDOSCOPY Screening every 5 yrs 2018 Colorectal Cancer: Fecal Imm unochemical Test (FIT) Annually [facility] 2018 Colorectal Cancer: High-sens itivity gFOBT Screening Annually [facility] 2018 Colorectal Cancer: Stool Col oguard Screening every 3 yrs 2018 Colorectal Cancer:CT Colonography Screening every 5 yr s 2018 Lipid Screening: Every 5 yrs for Women aged 45+ (or HM Modifier) ([facility]) 2019 Breast Cancer: Screening Makenzie ually age 50-74 yrs (or HM Modifier)([facility]) 2023 Pneumococcal Vaccination Scr eening: Patients 50+ yrs of age ([facility]) (1 of 1 - PCV) 2023 Zoster/Shingles Vaccine Seri es Screening: Adults aged 18+ yrs (or HM Modifiers)([facility]) (1 of 2) 2023 COVID-19 Vaccine Screening: Initial Series and Booster Status ([facility]) (2023- season) 2024 Flu Vaccination: Yearly for ages 18mos through 64 years (or Modifier)([facility]) 01/07/2025 Medical Devices Not on file Care Teams Infrastructure Consultant Relationship Specialty Start Date End Date Tristin Garcia DO PCP - Ground Instructor Basic 06/23/15
== END 2024-10-12 12:01 | disposition home or self-care (01) ==
LOC: HO.ENCR 11:23
PROVIDERS: PCP Internal Medicine; Visit Provider Dietitian, Registered
DX: E11.65 Type 2 diabetes mellitus with hyperglycemia (principal); Z79.4 Long term (current) use of insulin

== ENCOUNTER → 2024-10-12 11:23 | Outpatient (BNVA) | payer MEDICAID, SELFPAY | PROVIDERS: PCP Internal Medicine; Visit Provider Dietitian, Registered | DX: E11.65 Type 2 diabetes mellitus with hyperglycemia (principal); Z79.4 Long term (current) use of insulin | CPT/HCPCS: 97803 ==

== ENCOUNTER 2024-10-26 13:51 | Outpatient (AMB) | payer MEDICAID, SELFPAY ==
--- NOTE | 2024-10-26 14:12 | MHC.AMDMED ---
Intake Intake Visit Reasons: 60 min Bottom Cager Required: No Accompanied by: Self / Same As Patient Allergies No Known Allergies Allergy (Verified 09/03/24 11:03) HPI Comprehensive Diabetes Asmnt Most Recent Diabetes Results: Microalb/Creat Ratio 714.5 ug/mg cr (<30) H 07/23/24 Cholesterol 161 mg/dL (<200) 07/08/24 HDL Cholesterol 35 mg/dL (>40) L 07/08/24 Triglycerides 211 mg/dL (<150) H 07/08/24 Creatinine 0.77 mg/dL (0.5-1.4) 07/08/24 Blood Urea Nitrogen 16 mg/dL (9-16) 07/08/24 Sodium 136 mmol/L (135-145) 07/08/24 Potassium 4.6 mmol/L (3.3-5.1) 07/08/24 Chloride 101 mmol/L (96-108) 07/08/24 Carbon Dioxide 25 mmol/L (22-29) 07/08/24 Calcium 9.3 mg/dL (8.4-10.2) 07/08/24 AST 49 U/L (5-31) H 07/08/24 ALT 45 U/L (0-31) H 07/08/24 Total Protein 8.1 g/dL (6.5-8.0) H 07/08/24 Albumin 4.0 g/dL (3.5-5.0) 07/08/24 [facility], [facility] Medical History (Updated 07/23/24 @ 11:20 by Olga Dolan MD) HLD (hyperlipidemia) Metabolic dysfunction-associated fatty liver disease (MAFLD) HTN (hypertension) Obesity Adrenal nodule Diabetes mellitus Hx of hepatic disease History of obstructive sleep apnea Hx of essential hypertension History of hyperthyroidism Hx of hyperlipidemia Hx of aortic valve disorder Hx of type 2 diabetes mellitus Adrenal incidentaloma Surgical History No pertinent past surgical history Family History Father No problems noted. Mother Thyroid disease Maternal Aunt Thyroid disease Social History Alcohol intake: current Alcohol intake frequency: holidays/special occasions only Patient Tobacco Use Status: Never used Tobacco Assessment & Plan Assessment & Plan (1) Diabetes mellitus: Code(s): E11.9 - Type 2 diabetes mellitus without complications Qualifiers: Diabetes mellitus type: type 2 Diabetes mellitus termite control representative insulin use: with detention use Diabetes mellitus complication status: with hyperglycemia Qualified Code(s): E11.65 - Type 2 diabetes mellitus with hyperglycemia; Z79.4 - terminal clerk (current) use of insulin Plan: Diabetes self-management education and support participation record Assessment/scale: 1= needs instructed? 2= needs review? 3= comprehend keep point? 4= demonstrates understanding/ competent? NC= Not Covered Topics Learning Objective: Initial visit Initial or post srvc Initial or post srvc Initial or post srvc Initial or post srvc Initial or post srvc Post srvc Comments Pre Edu-assessment/plan Outcome or reassess Outcome or reassess Outcome or reassess Outcome or reassess Outcome or reassess Outcome or reassess Diabetes pathophysiology 1 2 Healthy eating 2 3 Being active 1 3 Taking medication 1 3 Monitoring glucose 1 3 Acute complication 1 3 Chronic complicated 1 3 Lifestyle and healthy coping 1 3 Diabetes distress in support 2 3 ?Diabetes pathophysiology: ?Defined diabetes med identify own type of diabetes; list 3 options for treating diabetes Healthy eating: ?Described effect of type, amount and ?timing of food on blood glucose; list 3 methods for planning meal Being active: ?State effect of exercise on blood glucose level Taking medication: ?State effect of diabetes medications on diabetes; name diabetes medications taking, action and side effects Monitoring glucose: ?Identify recommended blood glucose targets and personal target Acute complication: ?List symptoms and treatment of hyper and hypoglycemia, DKA, sick day guidelines and guidelines for severe weather or situations of crisis and diabetes supply manage Chronic complication: ?To find the relationship of blood glucose levels to long-term complications of diabetes in screening and preventative measures Lifestyle and healthy coping: ?Described lifestyle and healthy coping strategies to rule out diabetes self-management Diabetes to stress and support: ?Recognize Diabetes to stress and be able to identified support options Learning objectives: Learning objectives: The patient was provided with verbal and written education on the following topics as outlined below. The patient met all learning objectives and was able to verbalize understanding and provide teach back of education topics discussed . The patient was provided with the opportunity to ask questions and all questions were answered. Patient Assessment Assess patient education level/literacy/barriers, patient reports her mother main support person for diabetes stressors. Patient questions/concerns: Patient reports she has cortisone injections every 3-4 months which cause her glucose to increase for up to 7 days. Suggested to patient that she discuss with provider at next visit medication plan that she can use during times of elevated glucose Diabetes Complications: ?Nephropathy :Kidney Disease ?diabetes can damage the kidneys, which is not only can cause them to fail but can make them lose their ability to filter waste from the blood? ?Retinopathy: Eye complications ?Retinopathy? is the commonest long-term complication of diabetes. It is leading cause of blindness Besides, Retinopathy-People with diabetes? are also prone to cataract and Glaucoma. ?Neuropathy: Nerve damage -It involves temporary or permanent damage to nerve tissue. Nerve tissue gets injured mainly due to decreased blood flow and rise in blood glucose levels. This damage can lead to pain , or loss of sensation it can also include sexual dysfunction in both men and women ? Infections poor healing: People with diabetes? have increased susceptibility to various infections, such as? pneumonias, pyelonephritis, carbuncles and diabetic ulcers. This may be due to poor blood supply, reduced cellular immunity or hyperglycemia. ?Heart Disease And Stroke: People with diabetes are four times more prone to develop Heart disease than those who do not have diabetes ?Depression: Feeling down once in awhile is normal, but some people feel sadness that just won't go away. Life for them seems hopeless. Feeling this way most of the day for two weeks or more is a sign of serious depression ?Gum Disease: People get gum disease when plaque destroys the gums and bone around the teeth. People with diabetes can get gum disease from having high blood glucose levels for a long time Lifestyle Work Travel Stress management Problem solving Know your goals A1C Blood sugar targets Blood pressure Cholesterol/LDL Urine microalbumin Smart Goal Assessment: Patient will use rule of 15s to treat hypoglycemia Pt met goal 100% Patient is carrying glucose tabs with her in her purse Educational Materials: The patient was provided with the following written educational materials: ADCES 7 Healthy Behaviors Reducing Risks handout Patient Response to instructions: Comprehension of Instructions: good Readiness to make changes: action How confident they feel about making changes: positive Letter of completion of diabetes Education program will be sent to referring provider Portions of this note were created using voice recognition software, please excuse any words or phrases that may have been misinterpreted. Patient Instructions: Include regular daily activity. ADA recommends 30 minutes of exercise 5 days a week. Weight loss talk to PCP or Gradall Operator before starting new plan. Test blood sugar as directed; Fasting and 2hpp largest meal. Watch trends in results. Utilize results and to assess how food, physical activity and medications affect blood sugar results. Bring glucometer or CGM to next visit. Be knowledgeable about diabetes medication, its action, side effects, efficacy, toxicity, prescribed dosage, appropriate timing and frequency of administration, effect of missed and delayed doses and instructions for storage, travel and safety. Problem solving techniques to monitor hypo/hyperglycemia episodes and treatments. Reduce risk reduction behaviors, smoking cessation, regular eye, foot and dental examinations. Coding Level of Care Code Est Pt Level 1 (56266) Diagnoses Type 2 diabetes mellitus with hyperglycemia, with long-term current use of insulin E11.65; Z79.4 Diabetes mellitus type: type 2 Diabetes mellitus detention insulin use: with termite control representative use Diabetes mellitus complication status: with hyperglycemia
--- OUTSIDE RECORDS SUMMARY | 2024-10-26 15:11 | XMS_ITS | Patient Health Record ---
Author [facility] Address [address] [place] [address] Care Team Providers Care Die Operator Name Role Phone Jose HUMPHRIES, Tristin Primary Care Provider Mat Oliveira Unavailable [phone] Allergies No Known Allergies Results Component Value [...] Problem Type 2 diabetes mellitus without complication (747704477) Type 2 diabetes mellitus without complication (E11.9) Active confirmed Vital Signs Blood pressure diastolic 60 mm Hg 04/19/2024 Height 6mo21be in 04/19/2024 Blood pressure systolic 138 mm Hg 04/19/2024 Weight 283 lbs 04/19/2024 BMI 59.14 kg/m2 04/19/2024 Procedures Procedure Date Ordered Date Performed Result Body Sit e 94320-DCZFFAT NAIL, 6 OR MORE 04/19/2024 N/A Encounters Encounter Location Date Provider Diagnosis [facility] [address] [address] 04/19/2024 Matpranay LimPam Type 2 diabetes mellitus [...] Test Name Order Date Hemoglobin A1c 06/24/2017 [id number]-[id number] NAIL, 6 OR MORE 10/30/2016 [id number] NAIL, 6 OR MORE 11/04/2018 [id number] NAIL, 6 OR MORE 12/02/2019 [id number] NAIL, 6 OR MORE 12/04/2020 [id number] NAIL, 6 OR MORE 02/27/2022 [id number] NAIL, 6 OR MORE 04/21/2023 [id number] NAIL, 6 OR MORE 04/19/2024 [id number] NAIL, 1-5 04/18/2016 41518-RNTC SKIN LESIONS, OVER 4 09/03/19 12 [id number] NAIL(S) 09/03/2011 Next Appt Details Provider Name:Mat Orozco , 04/18/2025 01:00:00 PM, [address] [facility], [address], [place], [address], Medical (General) History Medical History History ICD Code asthma chicken pox Diabetes Hypertension Thyroid disorder Surgical History Surgery Date(Month/Year) cyst removal 1976
--- OUTSIDE RECORDS SUMMARY | 2024-10-26 15:11 | XMS_ITS ---
Author Organization [facility] Address [address] [place] [address] Care Team Providers Care Telegraph Equipment Maintainer Name Role Phone Jose HUMPHRIES, Tristin Primary Care Provider Mat Oliveira Unavailable [phone] Allergies No Known Allergies REASON FOR VISIT [...] other tobacco user? Yes Vital Signs Height 5kv86wy in 04/19/2024 Weight 283 lbs 04/19/2024 BMI 59.14 kg/m2 04/19/2024 Blood pressure systolic 138 mm Hg 04/19/20 24 Blood pressure diastolic 60 mm Hg 024 Procedures Procedure Date Ordered Date Performed Result Body Sit e 05781-DPSOOIY NAIL, 6 OR MORE 04/19/2024 N/A Encounters Encounter Location Date Provider Diagnosis [facility] [place] [address] [address] 04/19/2024 Mat Orozco Type 2 diabetes mellitus [...] Treatment Pending Test Test Name Order Date [id number] NAIL, 6 OR MORE 04/19/2024 Next Appt Details Follow Up: 1 Year, Reason: Provider Name:Mat Orozco , 04/18/2025 01:00:00 PM, [address] [facility], [address] [facility], [place], [address], Procedure Notes * Category Sub-Category Detail Notes [...] use of a nail nipper and/or dremel-type card grinder, to a more viable healthy nail plate or bed tissue 6-10. Silver nitrate used for any petechial bleeding as necessary. Definitive antifungal treatment options have been reviewed and discussed with the patient. The patient chooses, no pharmaceutical tx - 01270 - Pt is self-pay ($65) Progress Notes * Vik ANDERSENaDOB: 3 (49 yo F)Acc No.[id number]:04/19/2024 Progress Note Patient:Gillian LIRA Provider:?Mat Orozco DPM :1975???Age:49 Y???Sex:Female D ate:04/19/2024 Address:[address] [place], [place] [id number] Pcp:Tristin Garcia MD Subjective: * Chief Complaints: [...] * Allergies:?N.K.D.A.yes[Suzanne wolfe Verified] Objective: * Vitals:?Ht: 7uw83oj, Wt:283, BMI:59.14, Shoe size: 5, BP:138/60mm Hg, [...] use of a nail nipper and/or dremel-type card grinder, to a more viable healthy nail plate or bed tissue 6-10. Silver nitrate used for any petechial bleeding as necessary. Definitive antifungal treatment options have been reviewed and discussed with the patient. The patient chooses, no pharmaceutical tx - 15865 - Pt is self-pay ($65).? * Procedure Codes:?10389 DEBRI DE NAIL, 6 OR MORE $65, Modifiers: GY * Follow Up:?1 Year * * Sign off status: Completed true * Provider:?Mat Orozco DPM Date:?2023 Generated for Shereen glasgow/Miguel/Stephen on:?10/26/2024 03:11 PM EDT History and Physical Notes * [...]
--- OUTSIDE RECORDS SUMMARY | 2024-10-26 15:11 | XMS_ITS | Clinical Summary ---
Author Organization [facility] Address [address] [facility] [place] [address] Care Team Providers Care Director Digital Name Role Phone MeraridianajesusTristin william Primary Care Provider [phone] Allergies No known active allergies Social History [...] Adults 18 yrs or above (or HM Modifier)([facility]) 1991 Hepatitis C Virus Infection in Adolescents and Adults: Screening (or Modifier) ([facility]) 1991 SDTX Screening Reminder: Makenzie hartman for all adults ([facility]) 1991 Tobacco Smoking Cessation: i n Adults excluding Women: Behavioral and Pharmacotherapy Interventions ([facility]) 1991 DTaP/Tdap/Td Vaccines ([facility]) (1 - Tdap) 1992 Cervical Cancer Screenin 1-65 yrs of age (or Modifier) 1994 Cervical Cancer Screening: P ap every 3 yrs pts age 21-65 1994 Cervical Cancer: Pap Screeni ng with Modifier timing ([facility]) 1994 Cervical Cancer: hrHPV alone or with cotesting Pap for Pts 30-65yrs screening every 5yrs ([facility]) 1994 Colorectal Cancer Screening 45 -75 Yrs (or HM Modifier ) 2018 Colorectal Cancer: FLEXIBLE SIGMOIDOSCOPY Screening every 5 yrs 2018 Colorectal Cancer: Fecal Imm unochemical Test (FIT) Annually [facility] 2018 Colorectal Cancer: High-sens itivity gFOBT Screening Annually [facility] 2018 Colorectal Cancer: Stool Col oguard Screening every 3 yrs 2018 Colorectal Cancer:CT Colonography Screening every 5 yr s 2018 Lipid Screening: Every 5 yrs for Women aged 45+ (or HM Modifier) ([facility]) 2019 Breast Cancer: Screening Makenzie ually age 50-74 yrs (or HM Modifier)([facility]) 2023 Pneumococcal Vaccination Scr eening: Patients 50+ yrs of age ([facility]) (1 of 1 - PCV) 2023 Zoster/Shingles Vaccine Seri es Screening: Adults aged 18+ yrs (or HM Modifiers)([facility]) (1 of 2) 2023 COVID-19 Vaccine Screening: Initial Series and Booster Status ([facility]) (2023- season) 2024 Flu Vaccination: Yearly for ages 18mos through 64 years (or Modifier)([facility]) 01/07/2025 Medical Devices Not on file Care Teams Director Digital Relationship Specialty Start Date End Date Tristin Garcia DO PCP - Culled Fruit Packer 06/23/15
--- OUTSIDE RECORDS SUMMARY | 2024-10-26 15:11 | XMS_ITS | Clinical Summary ---
Author Organization [address] l[address] Address [address] [place] [phone] Phone Care Team Providers Care Shake Out Worker Name Role Phone Tristin Garcia Primary Care Provider [phone] Allergies No known active allergies Medications albuterol [...] Care Team Description 09/28/2024 Telephone Pulmonol - [address] [place] [address] Geronimo Hamilton MD dme request 09/16/2024 11:30 AM EDT Office Visit Pul[place]olgy - [place] 175 [facility] [address] [place] [address] Geronimo Hamilton MD Moderate persistent [...] 10:40 AM EDT Office Visit Gastroenterology - [place] [address] [place] [phone] Kerri Willson NP [address] [address] 09/16/2025 9:30 AM EDT Office Visit Pulmonolgy - [place] 175 [facility] 200 [place] [phone] Geronimo Hamilton MD [address] [address] Health Maintenance Due Date Last Done Comments [...] complete physical exam (CPE) DM (diabetes mellitus) ([facility] V24, [facility] V28) BMI 45.0-49.9, adult ([facility] V24, [facility] V28) HTN (hypertension) HLD (hyperlipidemia) JOHANN (obstructive sleep apnea) HEMOGLOBIN A1C Routine 08/25/2024 11:31 AM EDT Laboratory tests ordered as part of a complete physical exam (CPE) DM (diabetes mellitus) ([facility] V24, [facility] V28) BMI 45.0-49.9, adult ([facility] V24, [facility] V28) HTN (hypertension) HLD (hyperlipidemia) JOHANN (obstructive sleep apnea) MICROALBUMIN CREATININE URINE RATIO Routine 08/25/2024 11:31 AM EDT Laboratory tests ordered as part of a complete physical exam (CPE) DM (diabetes mellitus) ([facility] V24, [facility] V28) BMI 45.0-49.9, adult ([facility] V24, [facility] V28) HTN (hypertension) HLD (hyperlipidemia) JOHANN (obstructive sleep apnea) COMPREHENSIVE METABOLIC PANEL Routine 08/25/2024 11:31 AM EDT Laboratory tests ordered as part of a complete physical exam (CPE) DM (diabetes mellitus) ([facility] V24, [facility] V28) BMI 45.0-49.9, adult ([facility] V24, [facility] V28) HTN (hypertension) HLD (hyperlipidemia) JOHANN (obstructive sleep apnea) CBC AND DIFFERENTIAL Routine 08/25/2024 11:31 AM EDT Laboratory tests ordered as part of a complete physical exam (CPE) DM (diabetes mellitus) ([facility] V24, [facility] V28) BMI 45.0-49.9, adult ([facility] V24, [facility] V28) HTN (hypertension) HLD (hyperlipidemia) JOHANN (obstructive sleep apnea) THYROID STIMULATING HORMONE Routine 08/25/2024 11:31 AM EDT Laboratory tests ordered as part of a complete physical exam (CPE) DM (diabetes mellitus) ([facility] V24, [facility] V28) BMI 45.0-49.9, adult ([facility] V24, [facility] V28) HTN (hypertension) HLD (hyperlipidemia) JOHANN (obstructive sleep apnea) LIPID PANEL WITH REFLEX TO DIRECT LDL Routine 08/25/2024 11:31 AM EDT Laboratory tests ordered as part of a complete physical exam (CPE) DM (diabetes mellitus) ([facility] V24, [facility] V28) BMI 45.0-49.9, adult ([facility] V24, [facility] V28) HTN (hypertension) HLD (hyperlipidemia) JOHANN (obstructive sleep apnea) HEPATITIS C ANTIBODY Routine 04/19/2024 11:08 AM EST Hypothyroid HTN (hypertension) DM (diabetes mellitus) ([facility] V24, [facility] V28) Elevated LFTs from Last 3 Months or Most Recently Relevant to Health Maintenance Results * (ABNORMAL) Lipid panel with reflex to direct LDL (08/25/2024 11:31 AM EDT) [facility] Cholesterol 181 0 - 200 mg/dL LAB CHEMISTRY METHOD 08/25/2024 3:10 PM EDT [facility] Triglycerides 187(H) 0 - 150 mg/dL LAB CHEMISTRY METHOD 08/25/2024 3:10 PM EDT [facility] HDL 44 >=40 mg/dL LAB CHEMISTRY METHOD 08/25/2024 3:10 PM EDT [facility] LDL Calculated 100 0 - 100 mg/dL LAB CHEMISTRY METHOD 08/25/2024 3:10 PM EDT [facility] VLDL Cholesterol Patrick 37.4 mg/dL LAB CHEMISTRY METHOD 08/25/2024 3:10 PM EDT [facility] Non HDL Chol. (LDL+VLDL) 137 <145 mg/dL LAB CHEMISTRY METHOD 08/25/2024 3:10 PM EDT [facility] Chol/HDL Ratio 4.1 0.0 - 4.4 LAB CHEMISTRY METHOD 08/25/2024 3:10 PM EDT [facility] Blood Venous blood specimen / Unknown Venipuncture / Unknown 08/25/2024 11:31 AM EDT 08/25/2024 11:31 AM EDT us [facility] LAB BLOOD ORDERABLES Final Resul t [facility] [address] [place] [address], * (ABNORMAL) CBC auto differential (08/25/2024 11:31 AM EDT) [facility] WBC 10.2 4.8 - 10.8 K/mcL LAB HEMETOLOGY METHOD 08/25/2024 2:57 PM EDT [facility] RBC 4.60 3.80 - 4.80 M/mcL LAB HEMETOLOGY METHOD 08/25/2024 2:57 PM EDT [facility] Hemoglobin 14.2 11.5 - 16.0 g/dL LAB HEMETOLOGY METHOD 08/25/2024 2:57 PM EDT [facility] Hematocrit 44.4 35.0 - 47.0 % LAB HEMETOLOGY METHOD 08/25/2024 2:57 PM EDT [facility] MCV 96.1 79.0 - 98.0 FL LAB HEMETOLOGY METHOD 08/25/2024 2:57 PM EDT [facility] MCH 30.7 27.0 - 32.0 pcg LAB HEMETOLOGY METHOD 08/25/2024 2:57 PM EDT [facility] MCHC 32.0 32.0 - 37.0 g/dL LAB HEMETOLOGY METHOD 08/25/2024 2:57 PM EDT [facility] RDW 13.4 11.0 - 15.0 % LAB HEMETOLOGY METHOD 08/25/2024 2:57 PM EDT [facility] Platelets 268 130 - 400 K/mcL LAB HEMETOLOGY METHOD 08/25/2024 2:57 PM EDT [facility] MPV 10.8 7.0 - 11.0 FL LAB HEMETOLOGY METHOD 08/25/2024 2:57 PM EDT [facility] NRBC 0.0 <1.0 % LAB HEMETOLOGY METHOD 08/25/2024 2:57 PM EDT [facility] NRBC Absolute 0.00 <0.10 K/mcL LAB HEMETOLOGY METHOD 08/25/2024 2:57 PM EDT [facility] Neutrophils Relative 74.9 % LAB HEMETOLOGY METHOD 08/25/2024 2:57 PM EDT [facility] Lymphocytes Relative 16.8 % LAB HEMETOLOGY METHOD 08/25/2024 2:57 PM EDT [facility] Monocytes Relative 7.3 % LAB HEMETOLOGY METHOD 08/25/2024 2:57 PM EDT [facility] Eosinophils Relative 0.1 % LAB HEMETOLOGY METHOD 08/25/2024 2:57 PM EDT [facility] Basophils Relative 0.5 % LAB HEMETOLOGY METHOD 08/25/2024 2:57 PM EDT [facility] Immature Granulocytes Relative 0.4 % LAB HEMETOLOGY METHOD 08/25/2024 2:57 PM EDT [facility] Neutrophils Absolute 7.63(H) 1.50 - 7.00 K/mcL LAB HEMETOLOGY METHOD 08/25/2024 2:57 PM EDT [facility] Lymphocytes Absolute 1.71 1.00 - 5.00 K/mcL LAB HEMETOLOGY METHOD 08/25/2024 2:57 PM EDT [facility] Monocytes Absolute 0.74 0.20 - 1.00 K/mcL LAB HEMETOLOGY METHOD 08/25/2024 2:57 PM EDT [facility] Eosinophils Absolute 0.01 0.00 - 0.50 K/mcL LAB HEMETOLOGY METHOD 08/25/2024 2:57 PM EDT [facility] Basophils Absolute 0.05 0.00 - 0.20 K/mcL LAB HEMETOLOGY METHOD 08/25/2024 2:57 PM EDT [facility] Immature Granulocytes Absolute 0.04(H) 0.00 - 0.03 K/mcL LAB HEMETOLOGY METHOD 08/25/2024 2:57 PM [facility] Blood Venous blood specimen / Unknown Venipuncture / Unknown 08/25/2024 11:31 AM EDT 08/25/2024 11:31 AM EDT [employer] [employer] LAB BLOOD ORDERABLES Final Resul t Performing Organization Address [facility]/ZIP Co de Phone Number [facility] [address] [place] [address], [place] [phone] * (ABNORMAL) Microalbumin creatinine urine ratio (08/25/2024 11:31 AM EDT) Creatinine, Urine 85.0 mg/dL LAB CHEMISTRY METHOD 08/25/2024 7:23 PM EDT [facility] Microalb, Ur 37.0(H) 0.0 - 29.0 mg/L LAB CHEMISTRY METHOD 08/25/2024 7:23 PM EDT [facility] Microalb/Crea t Ratio 44(H) <30 mg/g creat LAB CHEMISTRY METHOD 08/25/2024 7:23 PM EDT [facility] Urine Urine specimen obtained by clean catch procedure / Unknown Non-blood Collection / Unknown 08/25/2024 11:31 AM EDT 08/25/2024 11:31 AM EDT [employer] LAB URINE ORDERABLES Final Resul t Performing Organization Address [facility] Co de Phone Number [facility] [address] [place] [address], [place] [phone] * Thyroid stimulating hormone (08/25/2024 11:31 AM EDT) TSH 1.03 0.40 - 4.00 mcIU/mL LAB CHEMISTRY METHOD 08/25/2024 3:14 PM EDT [facility] Blood Venous blood specimen / Unknown Venipuncture / Unknown 08/25/2024 11:31 AM EDT 08/25/2024 11:31 AM EDT [employer] LAB BLOOD ORDERABLES Final Resul t Performing Organization Address City/[facility]/ZIP Co de Phone Number [facility] [address] [place] [address], [place] [phone] * (ABNORMAL) Hemoglobin A1c (08/25/2024 11:31 AM EDT) [facility] Hemoglobin A1C 10.2(H) <6.5 % LAB CHEMISTRY METHOD 08/25/2024 9:51 PM EDT [facility] Mean Bld Glu Estim. 246 mg/dL LAB CHEMISTRY METHOD 08/25/2024 9:51 PM EDT [facility] Blood Venous blood specimen / Unknown Venipuncture / Unknown 08/25/2024 11:31 AM EDT 08/25/2024 11:31 AM EDT [facility]dias [employer] LAB BLOOD ORDERABLES Final Resul t [facility] [address] [place] [address], [place] [phone] * (ABNORMAL) Comprehensive metabolic panel (08/25/2024 11:31 AM EDT) [facility] Sodium 138 133 - 145 mmol/L LAB CHEMISTRY METHOD 08/25/2024 4:04 PM EDT [facility] Potassium 5.0 3.5 - 5.5 mmol/L LAB CHEMISTRY METHOD 08/25/2024 4:04 PM EDT [facility] Chloride 104 96 - 110 mmol/L LAB CHEMISTRY METHOD 08/25/2024 4:04 PM EDT [facility] CO2 27 21 - 32 mmol/L LAB CHEMISTRY METHOD 08/25/2024 4:04 PM EDT [facility] Anion Gap 7 3 - 11 LAB CHEMISTRY METHOD 08/25/2024 4:04 PM EDT [facility] Glucose 176(H) 70 - 100 mg/dL LAB CHEMISTRY METHOD [facility]24 [facility] BUN 43(H) 5 - 25 mg/dL LAB CHEMISTRY METHOD 08/25/2024 4:04 PM [facility] Comment:Results verified by repeat testing Creatinine 1.51(H) 0.50 - 1.10 mg/dL LAB CHEMISTRY METHOD 08/25/2024 4:04 PM [facility] eGFR 42(L) >=60 mL/min/1. 73m2 LAB CHEMISTRY METHOD 08/25/2024 4:04 PM [facility] Comment:Calculation based on the??Chronic Kidney Disease Epidemiology Collaboration (CKD-EPI) equation refit??without adjustment for race. BUN/Creatinine Ratio 28.5 LAB CHEMISTRY METHOD 08/25/2024 4:04 PM [facility] Calcium 9.4 8.5 - 10.5 mg/dL LAB CHEMISTRY METHOD 08/25/2024 4:04 PM [facility] AST (SGOT) 22 10 - 42 unit/L LAB CHEMISTRY METHOD 08/25/2024 4:04 PM [facility] ALT (SGPT) 35 10 - 60 unit/L LAB CHEMISTRY METHOD 08/25/2024 4:04 PM [facility] Alkaline Phosphatase 96 42 - 121 unit/L LAB CHEMISTRY METHOD 08/25/2024 4:04 PM [facility] Total Protein 7.1 6.0 - 8.0 g/dL LAB CHEMISTRY METHOD 08/25/2024 4:04 PM [facility] Albumin 3.6 3.2 - 5.0 g/dL LAB CHEMISTRY METHOD 08/25/2024 4:04 PM [facility] Total Bilirubin 0.4 0.0 - 1.4 mg/dL LAB CHEMISTRY METHOD 08/25/2024 4:04 PM [facility] Blood Venous blood specimen / Unknown Venipuncture / Unknown 08/25/2024 11:31 AM EDT 08/25/2024 11:31 AM EDT [facility] LAB BLOOD ORDERABLES Final Resul t [facility] [address] [place] [address], [place] [phone] * Hepatitis C antibody (04/19/2024 11:08 AM EST) Hepatitis C Antibody Negative Negative LAB CHEMISTRY METHOD 04/19/2024 5:08 PM EST [facility] Blood Venous blood specimen / Unknown Venipuncture / Unknown 04/19/2024 11:08 AM EST 04/19/2024 11:08 AM EST [facility] LAB BLOOD ORDERABLES Final Resul t Performing Organization Address City/[facility]/ZIP Co de Phone Number [facility] [address] [place] [address], [place] [phone] from Last 3 Months or Most Recently Relevant to Health Maintenance Insurance MEDICAID - [place] Care Teams Shake Out Worker Relationship Specialty Start Date End Date Tristin Garcia DO [address] [place] [phone] PCP - General Internal Medicine 05/08/17
--- OUTSIDE RECORDS SUMMARY | 2024-10-26 15:11 | XMS_ITS | Encounter Summary ---
Author Organization [facility] Address [address] [place] [address] Care Team Providers Care Hammer Heater Name Role Phone Tristin Garcia Primary Care Provider [phone] Reason for Visit * Reason Onset Date Comments dme request 09/28/2024 Encounter Details Date Type Department Care Team ([facility] st Contact Info) Description 09/28/2024 [facility] [place] [address] [facility] [address] [place] [phone] Geronimo Hamilton MD [address] [facility] [address] [place] [address] dme request Social History Tobacco Use Types Packs/Day Years Used Date Smoking Tobacco: Never Smokeless Tobacco: Never Alcohol Use Standard Drinks/Week Comments Yes 0 (1 standard drink = 0.6 oz pur e alcohol) Comments Unknown Sex and Gender Information Value Date Recorded Sex Assigned at Not on file Legal Sex Female 11:53 AM EST Gender Identity Not on file Sexual Orientation Not on file documented as of this encounter Progress Notes * Brandi Gonzalez MA - 10/22/2024 9:10 AM EDT Notes faxed * Stephie Gaxiola - 10/22/2024 8:52 AM EDT Avis from [facility] is calling because they have been waiting for office notes and letter of medical necessity . I did state tuyet faxed notes and order on 09/29 and she stated she never received. She is asking if office notes and order can be re faxed to [phone] with patient demographics because theylook up patient with the zip code . Please advice * Tre Zaidi MA - 09/29/2024 1:35 PM EDT Order and notes faxed to annamarie * Geronimo Hamilton MD - 09/28/2024 4:34 PM EDT I adden the note * Tre Zaidi MA - 09/28/2024 2:58 PM EDT On your desk. * Stephie Gaxiola - 09/28/2024 11:41 AM EDT [employer] fax received for physicians letter pad or letterhead rx . Sent to onbase Nov 09/16/25 documented in this encounter Plan of Treatment Upcoming Encounters Date Type Department Care Team (Late st Contact Info) Description 11/03/2024 10:40 AM EDT Office Visit Gastroenterology - [place] [address] [facility] [address] [phone] Kerri Willson NP [address] [address] 09/16/2025 9:30 AM EDT Office Visit Pulmonolgy - [place] [address] [phone] Geronimo Hamilton MD [address] [address] documented as of this encounter Visit Diagnoses Not on filedocumented in this encounter Care Teams Hammer Heater Relationship Specialty Start Date End Date Tristin Garcia DO [address] [place] [phone] PCP - General Internal Medicine 05/08/17 documented as of this encounter
== END 2024-10-26 14:26 | disposition home or self-care (01) ==
LOC: HO.ENCR 13:52
PROVIDERS: PCP Internal Medicine; Visit Provider Registered Nurse Diabetes Educator
DX: E11.65 Type 2 diabetes mellitus with hyperglycemia (principal); Z79.4 Long term (current) use of insulin

== ENCOUNTER → 2024-10-26 13:51 | Outpatient (BNVA) | payer MEDICAID, SELFPAY | PROVIDERS: PCP Internal Medicine; Visit Provider Registered Nurse Diabetes Educator | DX: E11.65 Type 2 diabetes mellitus with hyperglycemia (principal); Z79.4 Long term (current) use of insulin | CPT/HCPCS: 99211 ==

== ENCOUNTER 2024-11-23 10:51 | Outpatient (AMB) | payer MEDICAID, SELFPAY ==
[2024-11-23 11:13] VITALS: BMI 58.4
--- NOTE | 2024-11-23 11:13 | MHC.AMNUTRGE ---
VS Expanded 11/23/24 11:13 Height 4 ft 10 in Weight 279 lb 5.211 oz BMI 58.4 Intake Visit Reasons: T2DM Allergies No Known Allergies Allergy (Verified 09/03/24 11:03) Nutrition Presentation Details: Pt presents for MNT for T2DM Pt reports working on having fruits (banana, oranges and strawberries) in place of pastries B/L: 2 pancakes and sugar free syrup with 1 egg snack: cheese sticks and fruit dinner: largest meal: chicken mashed potato or rice and chicken vegetables, dessert fudsicles , physical activity: ADL eoth/smoking:denies GI:denies constipation/diarrhea BS Monitoring Most Recent Diabetes Results: Microalb/Creat Ratio, (<30) 42.4 ug/mg cr H 11/24/24 Cholesterol, (<200) 176 mg/dL 11/24/24 HDL Cholesterol, (>40) 43 mg/dL 11/24/24 Triglycerides, (<150) 243 mg/dL H 11/24/24 Creatinine, (0.5-1.4) 0.90 mg/dL 11/24/24 BUN, (9-16) 25 mg/dL H 11/24/24 Sodium, (135-145) 140 mmol/L 11/24/24 Potassium, (3.3-5.1) 3.9 mmol/L 11/24/24 Chloride, (96-108) 102 mmol/L 11/24/24 Carbon Dioxide, (22-29) 29 mmol/L 11/24/24 Calcium, (8.4-10.2) 9.8 mg/dL 11/24/24 AST, (5-31) 27 U/L 11/24/24 ALT, (0-31) 30 U/L 11/24/24 Total Protein, (6.5-8.0) 7.2 g/dL 11/24/24 Albumin, (3.5-5.0) 4.1 g/dL 11/24/24 [facility] Medical History (Updated 07/23/24 @ 11:20 by Olga Dolan MD) HLD (hyperlipidemia) Metabolic dysfunction-associated fatty liver disease (MAFLD) HTN (hypertension) Obesity Adrenal nodule Diabetes mellitus Hx of hepatic disease History of obstructive sleep apnea Hx of essential hypertension History of hyperthyroidism Hx of hyperlipidemia Hx of aortic valve disorder Hx of type 2 diabetes mellitus Adrenal incidentaloma Surgical History No pertinent past surgical history Family History Father No problems noted. Mother Thyroid disease Maternal Aunt Thyroid disease Social History Alcohol intake: current Alcohol intake frequency: holidays/special occasions only Patient Tobacco Use Status: Never used Tobacco Assessment & Plan Assessment & Plan (1) Diabetes mellitus: Code(s): E11.9 - Type 2 diabetes mellitus without complications Category: Medical Qualifiers: Diabetes mellitus complication status: with hyperglycemia Diabetes mellitus shelter insulin use: with shelter use Diabetes mellitus type: type 2 Qualified Code(s): E11.65 - Type 2 diabetes mellitus with hyperglycemia; Z79.4 - brownfield program coordinator (current) use of insulin Plan: Wt: 127 Kg ( 08/03 ), 126 kg(08/31), 127 kg (10/31), 126 kg (12/01) Est kcal needs as per MSJ: 2100 (40% carb, 30% protein/fat) Est fluid needs as per 25-30 ml/d: 3800 Est prot per day as per 1 g/kg bw: 127 Recommend fiber intake : 8-10 g per day and gradually increase to 25-28 g per day for women and 35-38 g for men or as tolerated Recommend sodium intake per day : less than 2300 mg Educated patient on: ( R = reviewed V = verbalizes understanding N/R = needs review N/A = not applicable Food sources of carbohydrate, adequate serving sizes and its role in various health conditions: R , V Differences between complex carbohydrates a simple carbohydrates, role of fiber in diet: R Lean protein sources of foods: R, V Differences between types of fats and role in diet (mono on saturated fat fatty acids, saturated fatty acids, trans fats): R Food sources of sodium in salt and healthy modifications for heart health in kidney health: R V R/V Vitamins and minerals: R V N/R Healthy plate method concept: R V Physical activity: Benefits a precaution: R Hypoglycemia protocol (rule of 15): R V N/R Dietary prevention of Hyperglycemia: R Patient Instructions: Incorporate fish/seafood (5 oz) at least twice a week at dinner time Drink water 6-8 oz before and after dinner Coding Level of Care Code Nutr Indiv Subseq ([id number]) Diagnoses Type 2 diabetes mellitus with hyperglycemia, with long-term current use of insulin E11.65; Z79.4 Diabetes mellitus complication status: with hyperglycemia Diabetes mellitus shelter insulin use: with boarding machine operator use Diabetes mellitus type: type 2 Time Spent (min) 30
== END 2024-11-23 11:30 | disposition home or self-care (01) ==
LOC: HO.ENCR 10:51
PROVIDERS: PCP Internal Medicine; Visit Provider Dietitian, Registered
DX: E11.65 Type 2 diabetes mellitus with hyperglycemia (principal); Z79.4 Long term (current) use of insulin

== ENCOUNTER → 2024-11-23 10:51 | Outpatient (BNVA) | payer MEDICAID, SELFPAY | PROVIDERS: PCP Internal Medicine; Visit Provider Dietitian, Registered | DX: E11.65 Type 2 diabetes mellitus with hyperglycemia (principal) | CPT/HCPCS: 97803 ==

== ENCOUNTER 2024-11-24 09:05 | Outpatient (REF) | payer MEDICAID, SELFPAY ==
[2024-11-24 09:56] LABS: Estimated Average Glucose 169 mg/dL; Hemoglobin A1c % 7.5 % (<6.0)
[2024-11-24 10:17] LABS: Alanine Aminotransferase 30 U/L (0-31); Albumin Level 4.1 g/dL (3.5-5.0); Alkaline Phosphatase 76 U/L (39-117); Anion Gap 13 (12-20); Aspartate Amino Transferase 27 U/L (5-31); Bilirubin Total 0.6 mg/dL (0.0-1.0); Blood Urea Nitrogen 25 mg/dL (9-16); Calcium 9.8 mg/dL (8.4-10.2); Carbon Dioxide 29 mmol/L (22-29); Chloride 102 mmol/L (96-108); Cholesterol 176 mg/dL (<200); Estimated Glomerular Filt Rate > 60; Glucose Random 134 mg/dL (60-115); HDL Cholesterol 43 mg/dL (>40); LDL Cholesterol Calculated 85 mg/dL (<100); Potassium 3.9 mmol/L (3.3-5.1); Sodium 140 mmol/L (135-145); Total Protein 7.2 g/dL (6.5-8.0); Triglycerides 243 mg/dL (<150)
[2024-11-24 10:28] LABS: Creatinine Urine 58.89 mg/dL; Microalbum/Creatinine Ratio Ur 42.4 ug/mg cr (<30)
== END 2024-11-24 09:06 | disposition home or self-care (01) ==
LOC: HO.LAB 09:05
PROVIDERS: PCP Internal Medicine; Visit Provider Student in an Organized Health Care Education/Training Program
DX: E11.65 Type 2 diabetes mellitus with hyperglycemia (principal); I10 Essential (primary) hypertension; K76.0 Fatty (change of) liver, not elsewhere classified; E78.2 Mixed hyperlipidemia; Z79.4 Long term (current) use of insulin
CPT/HCPCS: 36415; 80053; 80061; 82043; 82570; 83036

== ENCOUNTER 2024-12-09 11:19 | Outpatient (AMB) | payer MEDICAID, SELFPAY ==
[2024-12-09 11:21] VITALS: BP 110/82; PULSE 56; O2SAT 98; BMI 58.8
--- NOTE | 2024-12-09 11:21 | A.OFFVIS_ITS ---
Vital Signs 3 12/09/24 11:21 Height 4 ft 10 in Weight 281 lb 4.957 oz BMI 58.8 BP 110/82 Blood Pressure Location Lt brachial Position Sitting Pulse 56 Pulse Source Pulse Oximeter Pulse Oximetry (%) 98 Oxygen Delivery Method Room Air Intake Visit Reasons: DM, Adrenal nod Intake Note: Patient present today for Type 2 Diabetes Mellitus and Adrenal nodule. Last Diabetic eye exam: 05/2024 Last Podiatry Visit: 12/2023 Random Glucose: 139 mg/dl HgA1C: 7.5% 11/24/24 Photographic Equipment Mechanic Required: No Accompanied by: Mother Allergies No Known Allergies Allergy (Verified 12/09/24 11:26) Medication List - Last Reconciled 12/09/24 by Olga Dolan MD blood-glucose sensor (FreeStyle Juancarlos 3 Plus Sensor device) As directed every 14 days dulaglutide (Trulicity) 1.5 mg (0.5 mL) subcut QWEEK empagliflozin (Jardiance) 10 mg PO DAILY glucagon 3 mg/actuation 3 mg intranasal ONCE glucose (Dex4 Glucose) 16 grams (4 x 4 gram) PO Q15M PRN hydrochlorothiazide 12.5 mg PO DAILY insulin glargine (Lantus Solostar U-100 Insulin) 15 units (0.15 mL) subcut QAM levothyroxine 125 mcg PO QAM losartan 50 mg PO DAILY meloxicam 7.5 mg PO DAILY pen needle, diabetic (BD Lianna 2nd Gen Pen Needle) As directed pen needle, diabetic (Comfort EZ Pen [place]) As directed for injecting insulin once daily HPI Comments Details: 49-year-old female here today for follow up of type 2 diabetes mellitus. She also has a right adrenal incidentaloma. Here to day with mother Stephany Type 2 DM Diagnosed summer 2023, was prediabetic for several years , was on metformin for a couple of month and then couldnt tolerate it because of diarrhea and then wasnt on anything for a couple of years Past Medications Metformin Prior medications Victoza started summer 2023, then increased it up to 1.8 mg daily, says she has been out of it since May 2024 We stopped this to switch her to OZempic / Mounjaro, as she failed Victoza since when she was on it for the past 5-6 monhts her weight had plateued and A1c > 10 % , however insurance denied this and then we put her on Trulicity 0.75 mg weekly in July 2024 Current meds Lantus 20 units in AM Jardiance 10 mg daily Trulicity 1.5 mg weekly Friday Got cortisone shots gets these every 3-4 months , thinks they got it sometime November 2024 Freestyle Juancarlos 3 report downloaded from November 26 to 12/09/2024 Time CGM active 97% Average glucose 141 mg/dL G MD 6.7% Glucose variability 30.8% Within target range 79% High 17% Very high 1% Low 3% Interpretation: For the past 3 to 4 days patient has been having fasting low blood sugar readings in the 50s and 60s. A1c 06/16 at 11 % up from 10.1 % based on PCP notes from May 2024 HgA1C: 7.5% 11/24/24 Random Glucose: 139 mg/dl Weight 277 lbs , lost 3 lb after 6 injections of Trulicity 0.75 mg weekly BMI 59.4 kg /m2 Exercise: no exercise, no fixed program but stays active at home Diet: 3 meals a day Breakfast : between 8 or 9 usually eggs with banana or yogurt Lunch 1 pm : ham and cheese sandwich, Dinner between 5 and 6 30 pm: pasta with chicken or steak, spaghetti and meatballs No snacks Seldom has desserts: sugar free 1 gm snack bar Soda only once a week Saw senior ecologist August 2024 Last CDE 10/31 Last Diabetic eye exam was on: 05/09/2024, pt has cataracts , surgery postpone due to uncontrolled hyperglycemia, once we see her back in 3 months and blood sugars are stable, can reschedule Last Podiatry exam was on: 05/02 No history of neuropathy, retinopathy or kidney disease No history of MD or stroke Family history Grand uncle type 2 DM LDL 86 mg/dl 08/03, less than goal LDL 90 mg/dl , LDL again 84 10/31 on HCTZ and losartan for HTN , losartan increased to 50 mg May 2024 urine microalbumin/ cr 42 10/31 PMHx HTN Hypothyroidism Obesity Type 2 DM JOHANN on CPAP PShx No surgeries Right adrenal gland nodule CT scan done for evaluation of liver enzyme elevation in January 2024 showed a right-sided enhancing lesion in the adrenal gland measuring 1.4 cm. No other description given. I do not have these images. She thinks she had a dedicated adrenal MRI May 19 as well. Symptoms: Reports weight loss on the Victoza , lost close to 20 lbs since September 2023, used to be 300 lbs No , hirsutism,severe acne ,headaches denies any hx of proximal muscle weakness, easy bruisability ,no abdominal striae,no headache,diaphoresis -HTN diagnosed in her 40s -Denies any polyuria or polydipsia,has type 2 DM uncontrolled managed by PCP a1c 10.1 % from notes from PCP from 2023 , they are titrating up Victoza, no abdominal pain ,skin infection or hyperpigmentation. 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 No hx of depression or mood changes - no episodic palpitaions, pallor, abdominal pain, diaphoresis . MRI adrenal glands May 19 2024 obtained from [facility] showed right sided 1 cm adrenal nodule without signal drop in out of phase Labs 06/04/24 showed normal mahnaz, renin, MN and NMN Dex suppression done 06/08/24 also normal Physical exam General: sitting comfortably in no acute distress HEENT: normocephalic/atraumatic, , facial plethora noted, has rosacea Neck: supple, symmetrical, no thyromegaly , does have dorsocervical and supraclavicular fat pads Cardiac: normal heart sounds Pulm: normal breath sounds B/L, no added breath sounds Abd: not distended, no purple wide striae Foot exam: Intact sensation to monofilament, intact pulses, well-perfused, intact vibration, does have very dry skin, plus pedal edema Laboratory Tests 06/04/24 06/08/24 07/06/24 08:09 08:21 11:03 Sodium 139 Potassium 4.3 Creatinine 0.98 Estimated GFR 60 Glucose (Clinic) 336 H Random Glucose 232 H Renin 2.19 Aldosterone 3 DHEA Sulfate 49 43 Random Cortisol 11.8 < 1.0 ACTH 60 H 11 Plasma Free Metaneph <25 Plasma Free Normeta 56 Plas Total Metaneph 56 Laboratory Tests 07/06/24 07/08/24 11:07 09:16 Plt Count 266 Sodium 136 Potassium 4.6 Creatinine 0.77 Estimated GFR > 60 Random Glucose 273 H Hgb A1c (Clinic) 11.0 H AST 49 H ALT 45 H Albumin 4.0 Triglycerides 211 H Cholesterol 161 LDL Cholesterol, Calc 84 HDL Cholesterol 35 L TSH 1.38 ? [facility] Medical History (Updated 07/23/24 @ 11:20 by Olga Dolan MD) HLD (hyperlipidemia) Metabolic dysfunction-associated fatty liver disease (MAFLD) HTN (hypertension) Obesity Adrenal nodule Diabetes mellitus Hx of hepatic disease History of obstructive sleep apnea Hx of essential hypertension History of hyperthyroidism Hx of hyperlipidemia Hx of aortic valve disorder Hx of type 2 diabetes mellitus Adrenal incidentaloma Surgical History No pertinent past surgical history Family History Father No problems noted. Mother Thyroid disease Maternal Aunt Thyroid disease Social History Alcohol intake: current Alcohol intake frequency: holidays/special occasions only Patient Tobacco Use Status: Never used Tobacco Office Procedures Glucose Monitoring Details Details: See [facility] [address] - Glucose monitoring, continuous-physician I&R Procedure code (CPT) selection complete Assessment & Plan Assessment & Plan (1) Diabetes mellitus: Code(s): E11.9 - Type 2 diabetes mellitus without complications Category: Medical Qualifiers: Diabetes mellitus complication status: with hyperglycemia Diabetes mellitus correction insulin use: with correction use Diabetes mellitus type: type 2 Qualified Code(s): E11.65 - Type 2 diabetes mellitus with hyperglycemia; Z79.4 - [facility] (current) use of insulin Plan: 49-year-old female who is here for follow up of her type 2 diabetes mellitus which was diagnosed in summer now with basal insulin use, without complications. A1c down to 7.5% 11/24/2024 from in June 2024 11%, CGM data downloaded today, which shows she is in target range 76% of the time but she is having 3% lows recently. When I look at the individual days she has only been having lows for about the last 3-4 days. When verifying with a fingerstick, it shows blood sugars were in the 100s. I told them to call the company and have them send a replacement sensor since this 1 is mouse functioning. She denies any hypoglycemic symptoms during these episodes. She knows how to treat hypoglycemia. Her weight is still not bulging, I will go up on the Trulicity. And she is still is having some postprandial hyperglycemia so we will go up on the Trulicity. I will decrease her Lantus since we are going up on the Trulicity and her fasting blood sugars have been normal. To avoid hypoglycemia. Plan: -continue CGM monitoring -decrease Lantus to 18 units daily -continue Jardiance 10 mg daily -increase Trulicity to 3 mg weekly -follow up with senior ecologist and educator She follows regularly with the eye doctor, she was scheduled to have cataract surgery on July 28, I postponed this given uncontrolled hyperglycemia with blood sugars in the 300s at that time. Now with much better control, I told them she would be okay to have the cataract surgery. No history of retinopathy. Foot exam done 12/09/2024, asked her to follow with her human factors specialist -hypoglycemia education done -urine microalbumin noted to be elevated, she is already on Jardiance 10 mg daily as well as losartan. Follow up in 8-10 weeks (2) Obesity: Code(s): E66.9 - Obesity, unspecified Category: Medical Qualifiers: Body mass index: BMI 50.0-59.9 Obesity classification: adult class 3 (BMI >= 40) Obesity type: due to excess calories Serious obesity comorbidity presence: with serious comorbidity Qualified Code(s): E66.813 - Obesity, class 3; E66.01 - Morbid (severe) obesity due to excess calories; Z68.43 - Body mass index [BMI] 50.0-59.9, adult Plan: BMI 58.7 kg per m2 with current weight at 280 lb. She lost about 20 lb with Victoza initially when it was started but weight had plateaued over the fall 2023. We had put in a prescription for Mounjaro for her, however her insurance rejected that despite her BMI with complications of uncontrolled hyperglycemia, hypertension, hyperlipidemia, fatty liver disease. John was also denied Counseled about GI intolerance. No history of pancreatitis. No alcohol use. Now on Trulicity 1.5 mg weekly, she has not lost much weight. Plan: -follow up with senior ecologist -increase Trulicity to 3 mg weekly (3) HTN (hypertension): Code(s): I10 - Essential (primary) hypertension Category: Medical Qualifiers: Hypertension type: primary hypertension Qualified Code(s): I10 - Essential (primary) hypertension Plan: Losartan was increased from 25 mg daily to 50 mg daily in May 2024. She is also on hydrochlorothiazide 25 mg daily. Blood pressure better controlled today. Plan: -continue current regimen (4) Adrenal incidentaloma: Code(s): E27.8 - Other specified disorders of adrenal gland Category: Medical Plan: 49-year-old female coming in today for follow up of right 1.4 cm adrenal gland nodule. CT scan done for evaluation of liver enzyme elevation in January 2024 showed a right-sided enhancing lesion in the adrenal gland measuring 1.4 cm. No other description given. I do not have these images. MRI adrenal glands May 19 2024 obtained from [facility] showed right sided 1 cm adrenal nodule without signal drop in out of phase Labs 06/04/24 showed normal mahnaz, renin, MN and NMN Dex suppression done 06/08/24 also normal Given it isn't enhancing nodule without a clear signal dropout on MRI on out phase imaging, we will have her do follow up CT with the adrenal protocol in January 2025 which would be 1 year from her last CT scan. ? Plan: -has order for CT scan with the adrenal protocol to be done 12/21/24 (5) HLD (hyperlipidemia): Code(s): E78.5 - Hyperlipidemia, unspecified Category: Medical Qualifiers: Hyperlipidemia type: mixed hyperlipidemia Qualified Code(s): E78.2 - Mixed hyperlipidemia Plan: LDL at 86 mg/dL from November 2024, I would try to target her LDL to less than 70 mg/dL given age greater than 40 years, history of hypertension, Triglycerides also elevated. Discussed with her importance of avoiding fatty foods, Plan: -start atorvastatin 20 mg daily -plan to repeat lipid panel sometime in fall/winter 2024 -check liver panel in 3-4 weeks after starting atorvastatin -discuss side effects of muscle aches/pains, rare side effects of muscle breakdown/liver toxicity (6) Metabolic dysfunction-associated fatty liver disease (MAFLD): Code(s): K76.0 - Fatty (change of) liver, not elsewhere classified Category: Medical Plan: Fibrosis 4 index score at 1.4, NAFLD fibrosis score of 1.02, needs further evaluation for consideration of advanced fibrosis/cirrhosis. Patient already has a crabber at [facility], patient's mother said that they will be contacting them follow up for further evaluation of fatty liver disease. Increase Trulicity to 3 mg weekly injection Plan I spent 30 minutes in reviewing the record, seeing the patient and documenting in the medical record. Orders: Orders 2 Liver Panel 7 Weeks E11.65 - Type 2 diabetes mellitus with hyperglycemia, Z79.4 - [facility] (current) use of insulin AMB Glucose Monitoring Today E11.65 - Type 2 diabetes mellitus with hyperglycemia, Z79.4 - [facility] (current) use of insulin Medications: New 2 atorvastatin (Lipitor) 20 mg PO BEDTIME 30 tabs 5RF dulaglutide (Trulicity) 3 mg (0.5 mL) subcut QWEEK 2 mL 4RF Changed 2 From insulin glargine (Lantus Solostar U-100 Insulin) 15 units (0.15 mL) subcut QAM 15 mL 3RF To insulin glargine (Lantus Solostar U-100 Insulin) 18 units (0.18 mL) subcut QAM 15 mL 3RF Patient Instructions: Increase Trulicity to 3 mg weekly injection Decrease lantus to 18 units when Tulicity goes up Start atorvastatin 20 mg daily at bedtime Continue JArdiance Do blood work prior to your next follow up Rule of 15 Treatment for Hypoglycemia (Low blood sugar) If your blood glucose is low (70 and below)*, follow the steps below to treat: Eat or drink something from the list below equal to 15 grams of carbohydrate (carb). Rest for 15 minutes Re-check your blood glucose. If it is still low, (below 70), repeat step 1 above. ? If your next meal is more than an hour away, you will need to eat one carbohydrate choice as a snack to keep your blood glucose from going low again. ?If you can't figure out why you have low blood glucose, call your healthcare provider, as your medicine may need to be adjusted. ?Always carry something with you to treat an insulin reaction. Use food from the list below. ? Foods equal to One Carbohydrate Choice (15 grams of carbohydrate): 3 Glucose ?tablets or 4 Dextrose tablets 4 ounces of fruit juice 5-6 ounces (about 1/2 can) of regular soda such as Coke or Pepsi ? 7-8 gummy or regular Life Savers ? 1 Tbsp. of sugar or jelly NOTE: If your blood sugar is less than 50, double the portion above for a total of 30 gm. ?Carbohydrate. ? Follow meal plan of 45-60 g of consistent carbohydrates at 3 meals each day and 15 g of carbohydrate at 1-2 snacks each day. Coding Level of Care Code Est Pt Level 4 (47480) Diagnoses Type 2 diabetes mellitus with hyperglycemia, with long-term current use of insulin E11.65; Z79.4 Diabetes mellitus complication status: with hyperglycemia Diabetes mellitus correction insulin use: with intermediate frame tender use Diabetes mellitus type: type 2 Class 3 severe obesity due to excess calories with serious comorbidity and body mass index (BMI) of 50.0 to 59.9 in adult E66.813; E66.01; Z68.43 Body mass index: BMI 50.0-59.9 Obesity classification: adult class 3 (BMI >= 40) Obesity type: due to excess calories Serious obesity comorbidity presence: with serious comorbidity Primary hypertension I10 Hypertension type: primary hypertension Adrenal incidentaloma E27.8 Mixed hyperlipidemia E78.2 Hyperlipidemia type: mixed hyperlipidemia Metabolic dysfunction-associated fatty liver disease (MAFLD) K76.0 CPT Codes Details - CPT: 59433 - Glucose monitoring, continuous-physician I&R ([id number]) Time Spent (min) 30
[2024-12-09 11:31] LABS: Glucose, Whole Blood 139 mg/dL (60-115)
--- OUTSIDE RECORDS SUMMARY | 2024-12-09 12:08 | XMS_ITS | Patient Health Record ---
Author Organization [facility] Address [address] [place] [address] Care Team Providers Care City Comptroller Name Role Phone Jose HUMPHRIES, Tristin Primary Care Provider Mat Oliveira Unavailable [phone] Allergies No Known Allergies Results Component Value Reference Range Notes HEMOGLOBIN A1C (GLYCOHEMOGLO BIN) Reviewed date:04/19/2024 01:05:08 PM Interpretation: Performing Lab: Notes/Report: TOTAL HEMOGLOBIN (HGBA1C) 7.1 Reason For Referral No Information Medications Medication SIG (Take, Route, Frequency, Duration) Notes Start Date End Date Status metFORMIN HCl ER 500 MG TAKE 1 TABLET BY MOUTH EVERY DAY Oral; Duration: 30 Not-Taking Extra Depth Orthopedic Shoes (1 Pair) with Customized Heat Molded Multidensity Innersoles (3 Pair) as directed Dx: NIDDM (E11.9), Hammertoe Foot Deformity (M20.41,M20.42), Preulcerative Skin Lesion(s) (L85.1) Active Flovent HFA 110 mcg Active hydroCHLOROthiazide 25 mg Active Levothyroxine Sodium 75 mg Active ProAir HFA 90 mcg Ac tive Victoza 18 MG/3ML INJECT 1.2 MG UNDER THE SKIN ONCE DAILY Subcutaneous; Duration: 30 Days Active FreeStyle Lancets - TEST SUGAR DAILY DIRECTED; Duration: 30 Not-Taking Lisinopril 5 MG TAKE 1 TABLET BY MOUTH EVERY DAY Oral; Duration: 30 Not-Taking Norethindrone 0.35 MG TAKE 1 TABLET BY MOUTH EVERY DAY Oral; Duration: 28 Not-Taking Immunizations Vaccine Route Administration Date Status Comme nts Influenza Unknown 04/02/2017 Administered Influenza Unknown 04/02/2018 Administered Social History Tobacco use other than smoking: Question Answer Notes Are you an other tobacco user? Yes Problems Problem Type SNOMED Code ICD Code Onset Dates Problem Status W/U Status Risk Notes Problem Type 2 diabetes mellitus without complication (E11.9) Active confirmed Vital Signs Blood pressure diastolic 60 mm Hg 04/19/2024 Height 5pu77nm in 04/19/2024 Blood pressure systolic 138 mm Hg 04/19/2024 Weight 283 lbs 04/19/2024 BMI 59.14 kg/m2 04/19/2024 Procedures Procedure Date Ordered Date Performed Result Body Sit e 74216-[id number] NAIL, 6 OR MORE 04/19/2024 N/A Encounters Encounter Location Date Provider Diagnosis [facility] [address] [address] 04/19/2024 Mat Pam Type 2 diabetes mellitus without complication E11.9 [...] Test Name Order Date Hemoglobin A1c 06/24/2017 [id number] NAIL, 6 OR MORE 10/30/2016 [id number] NAIL, 6 OR MORE 11/04/2018 [id number] NAIL, 6 OR MORE 12/02/2019 [id number] NAIL, 6 OR MORE 12/04/2020 [id number] NAIL, 6 OR MORE 02/27/2022 [id number] NAIL, 6 OR MORE 04/21/2023 [id number] NAIL, 6 OR MORE 04/19/2024 [id number] NAIL, 1-5 04/18/2016 87992-JGAT SKIN LESIONS, OVER 4 09/03/19 12 [id number] NAIL(S) 09/03/2011 Next Appt Details Provider Name:Mat Cifuentes Pam , 04/18/2025 01:00:00 PM, [address], [address], [place], [address], Medical (General) History Medical History History ICD Code asthma chicken pox Diabetes Hypertension Thyroid disorder Surgical History Surgery Date(Month/Year) cyst removal 1976
--- OUTSIDE RECORDS SUMMARY | 2024-12-09 12:08 | XMS_ITS | Clinical Summary ---
Author Organization [facility] [employer] [facility] Address [address] [facility] [place] [address] Care Team Providers Care Fish Machine Feeder Name Role Phone MeraridianajesusTristin william Primary Care Provider [phone] Allergies No known active allergies Social History [...] Adults 18 yrs or above (or HM Modifier)([facility]) 1991 Hepatitis C Virus Infection in Adolescents and Adults: Screening (or Modifier) ([facility]) 1991 SDND Screening Reminder: Makenzie hartman for all adults ([facility]) 1991 Tobacco Smoking Cessation: i n Adults excluding Women: Behavioral and Pharmacotherapy Interventions ([facility]) 1991 DTaP/Tdap/Td Vaccines ([facility]) (1 - Tdap) 1992 Cervical Cancer Screenin 1-65 yrs of age (or Modifier) 1994 Cervical Cancer Screening: P ap every 3 yrs pts age 21-65 1994 Cervical Cancer: Pap Screeni ng with Modifier timing ([facility]) 1994 Cervical Cancer: hrHPV alone or with cotesting Pap for Pts 30-65yrs screening every 5yrs ([facility]) 1994 Colorectal Cancer Screening 45 -75 Yrs (or HM Modifier ) 2018 Colorectal Cancer: FLEXIBLE SIGMOIDOSCOPY Screening every 5 yrs 2018 Colorectal Cancer: Fecal Imm unochemical Test (FIT) Annually [facility] 2018 Colorectal Cancer: High-sens itivity gFOBT Screening Annually [facility] 2018 Colorectal Cancer: Stool Col oguard Screening every 3 yrs 2018 Colorectal Cancer:CT Colonography Screening every 5 yr s 2018 Breast Cancer: Screening Makenzie ualltarik age 50-74 yrs (or HM Modifier)([facility]) 2023 Pneumococcal Vaccination Scr eening: Patients 50+ yrs of age ([facility]) (1 of 1 - PCV) 2023 Zoster/Shingles Vaccine Seri es Screening: Adults aged 18+ yrs (or HM Modifiers)([facility]) (1 of 2) 2023 COVID-19 Vaccine Screening: Initial Series and Booster Status ([facility]) ( - 2023- season) 2024 Flu Vaccination: Yearly for ages 18mos through 64 years (or Modifier)([facility]) 01/07/2025 Medical Devices Not on file Care Teams Fish Machine Feeder Relationship Specialty Start Date End Date Tristin Garcia DO PCP - Dough Scaler And Mixer 06/23/15
== END 2024-12-09 11:47 | disposition home or self-care (01) ==
LOC: HO.ENCR 11:20
PROVIDERS: PCP Internal Medicine; Visit Provider Student in an Organized Health Care Education/Training Program
DX: E11.65 Type 2 diabetes mellitus with hyperglycemia (principal); Z79.4 Long term (current) use of insulin; E66.813 Obesity, class 3; E66.01 Morbid (severe) obesity due to excess calories; Z68.43 Body mass index [BMI] 50.0-59.9, adult; I10 Essential (primary) hypertension; E27.8 Other specified disorders of adrenal gland; E78.2 Mixed hyperlipidemia; K76.0 Fatty (change of) liver, not elsewhere classified
CPT/HCPCS: 95251; 99214

== ENCOUNTER → 2024-12-09 11:19 | Outpatient (BNVA) | payer MEDICAID, SELFPAY | PROVIDERS: PCP Internal Medicine; Visit Provider Student in an Organized Health Care Education/Training Program | DX: E11.65 Type 2 diabetes mellitus with hyperglycemia (principal); Z79.4 Long term (current) use of insulin; E66.01 Morbid (severe) obesity due to excess calories; E66.813 Obesity, class 3; Z68.43 Body mass index [BMI] 50.0-59.9, adult | CPT/HCPCS: 82947; 99212 ==

== ENCOUNTER 2024-12-21 15:16 | Outpatient (REF) | payer MEDICAID, SELFPAY ==
--- NOTE | ~2024-12-21 | CT_ITS ---
EXAM: CT abdomen without and with IV contrast TECHNIQUE: Axial imaging was performed from just above the dome of the liver to the inferior margin of the ischial tuberosities before and after IV contrast injection including 10 minute delayed imaging. Coronal and sagittal reformatted images were generated from the original axial data set. ALARA: The examination used one or more of the following radiation dose reduction techniques: Automated exposure control, iterative reconstruction, and/or adjustment of mA and/or KV. CONTRAST: 85 mL Omnipaque 350 INDICATION: Right adrenal nodule PRIOR: 01/23/2022 and 10/11/2021 FINDINGS: HEPATOBILIARY: Diffuse fatty changes are present in the liver. Gallbladder is unremarkable. PANCREAS: There is fatty infiltration of the head and neck. SPLEEN: The spleen is homogeneous and without enlargement. ADRENALS: Right adrenal gland nodule measures 1.5 cm diameter. It demonstrates heterogeneous enhancement. Unenhanced: 37 Hounsfield units. Early enhanced: 71 Hounsfield units. Delayed enhanced: 44 Hounsfield units. Absolute percentage washout = (71-44)/(71-37) x 100 = 79% Relative percent washout = (71-44)/71 x 100 = 38% Left adrenal gland is unremarkable. GENITOURINARY: There is no hydronephrosis. There is no nephrolithiasis. BOWEL: The GE junction is not displaced. The visualized GI tract is unremarkable. LYMPHOVASCULAR: There is no adenopathy. There is no aneurysm or atherosclerotic calcifications. ABDOMINAL CAVITY: No ascites, mesenteric engorgement or fat stranding, or free air. SOFT TISSUES: Umbilical hernia contains adipose tissue, likely greater omentum, measuring 3.5 x 5 cm. Skeletal structures: Moderate facet osteoarthritis is present in the lower lumbar spine. CT/CT adrenal wo/w IV con IMPRESSION: Absolute percentage washout of the right adrenal nodule is 79% and there is heterogeneous enhancement which favors a nonmalignant etiology. However, the relative percent washout of 38% is borderline. Pheochromocytoma cannot be ruled out. 3.5 x 5 cm umbilical hernia. Fatty liver Spondylosis. Electronically signed by: Yoav Weir MD 12/21/2024 06:08 PM EDT
--- OUTSIDE RECORDS SUMMARY | 2024-12-21 16:25 | XMS_ITS | Patient Health Record ---
Author Organization [facility] Address [address] [place] [address] Care Team Providers Care Breast Buffer Name Role Phone Jose HUMPHRIES, Tristin Primary Care Provider Mat Oliveira Unavailable [phone] Allergies No Known Allergies Results Component Value [...] pressure diastolic 60 mm Hg 04/19/2024 Height [id number] in 04/19/2024 Blood pressure systolic 138 mm Hg 04/19/2024 Weight 283 lbs 04/19/2024 BMI 59.14 kg/m2 04/19/2024 Procedures Procedure Date Ordered Date Performed Result Body Sit e 28310-[id number] NAIL, 6 OR MORE 04/19/2024 N/A Encounters Encounter Location Date Provider Diagnosis [facility] [address] [address] 04/19/2024 Mat Pam Type 2 diabetes mellitus [...] Test Name Order Date Hemoglobin A1c 06/24/2017 [id number] NAIL, 6 OR MORE 10/30/2016 [id number] NAIL, 6 OR MORE 11/04/2018 [id number] NAIL, 6 OR MORE 12/02/2019 [id number] NAIL, 6 OR MORE 12/04/2020 [id number] NAIL, 6 OR MORE 02/27/2022 [id number] NAIL, 6 OR MORE 04/21/2023 [id number] NAIL, 6 OR MORE 04/19/2024 [id number] NAIL, 1-5 04/18/2016 [id number] SKIN LESIONS, OVER 4 09/03/19 12 [id number] NAIL(S) 09/03/2011 Next Appt Details Provider Name:Mat Cifuentes Pam , 04/18/2025 01:00:00 PM, [address] [facility], [address], [place], [address], Medical (General) History Medical History History ICD Code asthma chicken pox Diabetes Hypertension Thyroid disorder Surgical History Surgery Date(Month/Year) cyst removal 1976
--- OUTSIDE RECORDS SUMMARY | 2024-12-21 16:25 | XMS_ITS | Clinical Summary ---
Author Organization [facility] [employer] [facility] lin[facility] Address [address] [facility] [place] [address] Care Team Providers Care Therapy Manager Name Role Phone MeraridianajesusTristin william Primary Care Provider [phone] Allergies No known active allergies Social History [...] 18 yrs or above (or HM Modifier)([facility]) 1991 Hepatitis C Virus Infection in Adolescents and Adults: Screening (or Modifier) ([facility]) 1991 SDIL Screening Reminder: Makenzie hartman for all adults ([facility]) 1991 Tobacco Smoking Cessation: i n Adults excluding Women: Behavioral and Pharmacotherapy Interventions ([facility]) 1991 DTaP/Tdap/Td Vaccines ([facility]) (1 - Tdap) 1992 Cervical Cancer Screenin 1-65 yrs of age (or Modifier) 1994 Cervical Cancer Screening: P ap every 3 yrs pts age 21-65 1994 Cervical Cancer: Pap Screeni ng with Modifier timing ([facility]) 1994 Cervical Cancer: hrHPV alone or with cotesting Pap for Pts 30-65yrs screening every 5yrs ([facility]) 1994 Colorectal Cancer Screening 45 -75 Yrs (or HM Modifier ) 2018 Colorectal Cancer: FLEXIBLE SIGMOIDOSCOPY Screening every 5 yrs 2018 Colorectal Cancer: Fecal Imm unochemical Test (FIT) Annually [facility] 2018 Colorectal Cancer: High-sens itivity gFOBT Screening Annually [facility] 2018 Colorectal Cancer: Stool Col oguard Screening every 3 yrs 2018 Colorectal Cancer:CT Colonography Screening every 5 yr s 2018 Breast Cancer: Screening Makenzie ualltarik age 50-74 yrs (or HM Modifier)([facility]) 2023 Pneumococcal Vaccination Scr eening: Patients 50+ yrs of age ([facility]) (1 of 1 - PCV) 2023 Zoster/Shingles Vaccine Seri es Screening: Adults aged 18+ yrs (or HM Modifiers)([facility]) (1 of 2) 2023 COVID-19 Vaccine Screening: Initial Series and Booster Status ([facility]) ( - 2023- season) 2024 Flu Vaccination: Yearly for ages 18mos through 64 years (or Modifier)([facility]) 01/07/2025 Medical Devices Not on file Care Teams Therapy Manager Relationship Specialty Start Date End Date Tristin Garcia DO PCP - Industrial Services Worker 06/23/15
--- OUTSIDE RECORDS SUMMARY | 2024-12-21 16:25 | XMS_ITS | Clinical Summary ---
Author Organization [address] Address [address] [phone] Phone Care Team Providers Care Code Official Name Role Phone Tristin Garcia Primary Care Provider [phone] Allergies No known active allergies Medications albuterol [...] Refills, Maintenance , 03/27/17 11:03:11 03/27/2017 Active liraglutide (VICTOZA) 0.6 mg/0.1 mL (18 mg/3 mL) injection Inject 1.2 mg under the skin 1 (one) time each day. Active Active Problems Problem Noted Date Diagnosed Date Asthma 02/04/2017 Obstructive sleep apnea syndrome 02/04/2017 Hypertension 11/28/2016 Hypothyroidism 11/28/2016 Encounters Date Type Department Care Team Description 12/20/2024 Telephone Pulmonolgy [facility] [address] [phone] Geronimo Hamilton MD dme request 12/[facility] [address] [phone] Geronimo Hamilton MD DME request ([facility]) 11/12/2024 1:15 PM EDT Clinical Support Pulmonolgy - [place] [address] [phone] Obstructive sleep apnea syndrome 11/08/2024 Telephone Pulmongy [facility] [address] [phone] Geronimo Hamilton MD dme request 11/03/2024 10:40 AM EDT Office Visit Gastroenterology - [place] [address] [phone] Kerri Willson, ANAHI Fatty liver (Primary Dx); Morbid obesity with BMI of 50.0-59.9, adult (CMS/HCC V24, CMS/HCC V28) 09/[facility] [address] [phone] Geronimo Hamilton MD dme request from Last 3 Months Immunizations Name Administration [...] Sign Reading Time Taken Comments Blood Pressure 115/76 11/03/2024 10:29 AM EDT Pulse 82 11/03/2024 10:29 AM EDT Temperature 36.1 C (97 F) 09/16/2024 11:33 AM EDT Respiratory Rate 16 09/16/2024 11:33 AM EDT Oxygen Saturation 98% 11/03/2024 10:29 AM EDT Inhaled Oxygen Concentration - - Weight 123 kg (272 lb) 11/03/2024 10:29 AM EDT Height 147.3 cm (4' 10 ) 11/03/2024 10:29 AM EDT Body Mass Index 56.85 11/03/2024 10:29 AM EDT Plan of Treatment Upcoming Encounters Date Type Department Care Team (Late st Contact Info) Description 04/25/2025 10:40 AM EST Office Visit Gastroenterology [address] [phone] Kerri Willson, NAAHI [address] [address] 09/16/2025 9:30 AM EDT Office Visit Pulmonolgy [facility] [address] [phone] Geronimo Hamilton MD [address] [phone] Health Maintenance Due Date Last Done Comments Breast Cancer Screening 1973 DTaP,Tdap,and Td Vaccines (1 - Tdap) 1992 Hepatitis B Vaccines (1 of 3 - 19+ 3-dose series) 1992 Pneumococcal Vaccine: 50+ Years (1 of 2 - PCV) 1992 Cervical Cancer Screening: Pap Smear 1994 Colorectal Cancer Screening: Colonoscopy 05/07/2022 Depression Screening 05/07/2022 HIV Screening 05/07/2022 Social Influencers of Health Screening 05/07/2022 Zoster Vaccines (1 of 2) 2023 Influenza Vaccine (#1) 2025 , 02/21/2023, 03/22/2022, Additional history exists Hypertension/CHF/CAD Annual BMP Blood Test 08/25/2025 08/25/2024, 04/27/2024, 04/19/2024 Cholesterol Screening (Lipid Panel) 08/25/2029 08/25/2024, 04/19/2024 COVID-19 Vaccine Completed 04/16/2024, , 04/07/2021, Additional history exists Hepatitis C Screening Completed [...] Procedure Name Priority Date/Time Associated Diagnosis Comments SIX MINUTE WALK TEST Routine 11/12/2024 2:18 PM EDT Obstructive sleep apnea syndrome COMPREHENSIVE METABOLIC PANEL Routine 08/25/2024 11:31 AM EDT Laboratory tests ordered as part of a complete physical exam (CPE) DM (diabetes mellitus) (CMS/HCC V24, CMS/HCC V28) BMI 45.0-49.9, adult (CMS/HCC V24, CMS/HCC V28) HTN (hypertension) HLD (hyperlipidemia) JOHANN (obstructive sleep apnea) LIPID PANEL WITH REFLEX TO DIRECT LDL Routine 08/25/2024 11:31 AM EDT Laboratory tests ordered as part of a complete physical exam (CPE) DM (diabetes mellitus) (CMS/HCC V24, CMS/HCC V28) BMI 45.0-49.9, adult ([facility] V24, [facility] V28) HTN (hypertension) HLD (hyperlipidemia) JOHANN (obstructive sleep apnea) HEPATITIS C ANTIBODY Routine 04/19/2024 11:08 AM EST Hypothyroid HTN (hypertension) DM (diabetes mellitus) ([facility] V24, [facility] V28) Elevated LFTs from Last 3 Months or Most Recently Relevant to Health Maintenance Results * 6 minute walk test (11/12/2024 2:18 PM EDT) Impressions Geronimo Hamilton MD - 11/12/2024 2:18 PM EDT Walked six minutes covering (152m/500ft) without Leg Fatigue, Mild SOB Lowest oxygen saturation was 76%. Returned to PFT lab for Rest & Recovery. After 1 min RaSpO2 = 95% HR = 80; After 2 min RaSpO2 = 96% HR = 76. Pt has indication for supplemental Oxygen for activity 2lpm. us Geronimo Hamilton MD IN CLINIC/BEDSIDE ORDERABLES Fin al Result * (ABNORMAL) Lipid panel with reflex to direct LDL (08/25/2024 11:31 AM EDT) Cholesterol 181 0 - 200 mg/dL LAB CHEMISTRY METHOD 08/25/2024 3:10 PM EDT [facility] Triglycerides 187(H) 0 - 150 mg/dL LAB CHEMISTRY METHOD 08/25/2024 3:10 PM EDT [facility] HDL 44 >=40 mg/dL LAB CHEMISTRY METHOD [facility] LDL Calculated 100 0 - 100 mg/dL LAB CHEMISTRY METHOD 08/25/2024 3:10 PM EDT [facility] VLDL Cholesterol Patrick 37.4 mg/dL LAB CHEMISTRY METHOD 08/25/2024 3:10 PM [facility] Non HDL Chol. (LDL+VLDL) 137 <145 mg/dL LAB CHEMISTRY METHOD 08/25/2024 3:10 PM EDT [facility] Chol/HDL Ratio 4.1 0.0 - 4.4 LAB CHEMISTRY METHOD 08/25/2024 3:10 PM [facility] Blood Venous blood specimen / Unknown Venipuncture / Unknown 08/25/2024 11:31 AM EDT 08/25/2024 11:31 AM EDT Abdias Avelar LAB BLOOD ORDERABLES Final Resul t [facility] [address] [place] [address], [place] [phone] * (ABNORMAL) Comprehensive metabolic panel (08/25/2024 11:31 AM EDT) Sodium 138 133 - 145 mmol/L LAB CHEMISTRY METHOD 08/25/2024 4:04 PM [facility] Potassium 5.0 3.5 - 5.5 mmol/L LAB CHEMISTRY METHOD 08/25/2024 4:04 PM [facility] Chloride 104 96 - 110 mmol/L LAB CHEMISTRY METHOD 08/25/2024 4:04 PM [facility] CO2 27 21 - 32 mmol/L LAB CHEMISTRY METHOD 08/25/2024 4:04 PM [facility] Anion Gap 7 3 - 11 LAB CHEMISTRY METHOD 08/25/2024 4:04 PM [facility] Glucose 176(H) 70 - 100 mg/dL LAB CHEMISTRY METHOD 08/25/2024 4:04 PM [facility] BUN 43(H) 5 - 25 mg/dL LAB CHEMISTRY METHOD 08/25/2024 4:04 PM [facility] Comment:Results verified by repeat testing Creatinine 1.51(H) 0.50 - 1.10 mg/dL LAB CHEMISTRY METHOD 08/25/2024 4:04 PM [facility] eGFR 42(L) >=60 mL/min/1. 73m2 LAB CHEMISTRY METHOD 08/25/2024 4:04 PM [facility] Comment:Calculation based on the Chronic Kidney Disease Epidemiology Collaboration (CKD-EPI) equation refit without adjustment for race. BUN/Creatinine Ratio 28.5 LAB CHEMISTRY METHOD 08/25/2024 4:04 PM [facility] Calcium 9.4 8.5 - 10.5 mg/dL LAB CHEMISTRY METHOD 08/25/2024 4:04 PM [facility] AST (SGOT) 22 10 - 42 unit/L LAB CHEMISTRY METHOD 08/25/2024 4:04 PM [facility] ALT (SGPT) 35 10 - 60 unit/L LAB CHEMISTRY METHOD 08/25/2024 4:04 PM [facility] Alkaline Phosphatase 96 42 - 121 unit/L LAB CHEMISTRY METHOD 08/25/2024 4:04 PM [facility] Total Protein 7.1 6.0 - 8.0 g/dL LAB CHEMISTRY METHOD 08/25/2024 4:04 PM [facility] Albumin 3.6 3.2 - 5.0 g/dL LAB CHEMISTRY METHOD 08/25/2024 4:04 PM [facility] Total Bilirubin 0.4 0.0 - 1.4 mg/dL LAB CHEMISTRY METHOD 08/25/2024 4:04 PM [facility] Blood Venous blood specimen / Unknown Venipuncture / Unknown 08/25/2024 11:31 AM EDT 08/25/2024 11:31 AM EDT us Abdias Avelar LAB BLOOD ORDERABLES Final Resul t [facility] [address] [place] [address], * Hepatitis C antibody (04/19/2024 11:08 AM EST) Hepatitis C Antibody Negative Negative LAB CHEMISTRY METHOD 04/19/2024 5:08 PM EST [facility] Blood Venous blood specimen / Unknown Venipuncture / Unknown 04/19/2024 11:08 AM EST 04/19/2024 11:08 AM EST us Abdias Avelar LAB BLOOD ORDERABLES Final Resul t [facility] [address] [place] [address], from Last 3 Months or Most Recently Relevant to Health Maintenance Insurance MEDICAID - [place] Care Teams Code Official Relationship Specialty Start Date End Date Tristin Garcia DO [address] [phone] PCP - General Internal Medicine 05/08/17
[2024-12-21] MEDS: iohexoL 350 MG/ML 100 ML INFUS..BTL IV (16:59)
== END 2024-12-21 15:17 | disposition home or self-care (01) ==
LOC: HO.CT 15:16
PROVIDERS: PCP Internal Medicine; Visit Provider Student in an Organized Health Care Education/Training Program
DX: E27.9 Disorder of adrenal gland, unspecified (principal)
CPT/HCPCS: 74170; Q9967

== ENCOUNTER → 2024-12-21 15:17 | Outpatient (BNV) | payer MEDICAID, SELFPAY | PROVIDERS: PCP Internal Medicine; Visit Provider Radiology Diagnostic Radiology | DX: E27.9 Disorder of adrenal gland, unspecified (principal) | CPT/HCPCS: 74170 ==

== ENCOUNTER 2025-01-25 13:46 | Outpatient (AMB) | payer MEDICAID, SELFPAY ==
--- NOTE | 2025-01-25 14:13 | MHC.AMDMED ---
Intake Intake Visit Reasons: 30 min Inflatable Buildings Laminator Required: No Accompanied by: Self / Same As Patient Allergies No Known Allergies Allergy (Verified 12/09/24 11:26) HPI Comprehensive Diabetes Asmnt Most Recent Diabetes Results: Microalb/Creat Ratio, (<30) 42.4 ug/mg cr H 11/24/24 Cholesterol, (<200) 176 mg/dL 11/24/24 HDL Cholesterol, (>40) 43 mg/dL 11/24/24 Triglycerides, (<150) 243 mg/dL H 11/24/24 Creatinine, (0.5-1.4) 0.90 mg/dL 11/24/24 BUN, (9-16) 25 mg/dL H 11/24/24 Sodium, (135-145) 140 mmol/L 11/24/24 Potassium, (3.3-5.1) 3.9 mmol/L 11/24/24 Chloride, (96-108) 102 mmol/L 11/24/24 Carbon Dioxide, (22-29) 29 mmol/L 11/24/24 Calcium, (8.4-10.2) 9.8 mg/dL 11/24/24 AST, (5-31) 27 U/L 11/24/24 ALT, (0-31) 30 U/L 11/24/24 Total Protein, (6.5-8.0) 7.2 g/dL 11/24/24 Albumin, (3.5-5.0) 4.1 g/dL 11/24/24 [facility] Medical History (Updated 07/23/24 @ 11:20 by Olga Dolan MD) HLD (hyperlipidemia) Metabolic dysfunction-associated fatty liver disease (MAFLD) HTN (hypertension) Obesity Adrenal nodule Diabetes mellitus Hx of hepatic disease History of obstructive sleep apnea Hx of essential hypertension History of hyperthyroidism Hx of hyperlipidemia Hx of aortic valve disorder Hx of type 2 diabetes mellitus Adrenal incidentaloma Surgical History No pertinent past surgical history Family History Father No problems noted. 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 At last visit with Dr. Magdaleno Stephensaglar was reduced from 20 units to 18 units due to hypoglycemia, Hypos have resolved, patient is having postprandial spike in glucose after breakfast. Reports eating yogurt a whole banana and hard boiled egg for breakfast. Suggested to Pt she eat half a banana to reduce carbs at breakfast. Pt agreed to the plan Patient able to insert sensor independently at home without issue.? Portions of this note were created using voice recognition software, please excuse any words or phrases that may have been misinterpreted. 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
--- OUTSIDE RECORDS SUMMARY | 2025-01-25 15:03 | XMS_ITS | Clinical Summary ---
Author Organization [address] Address [address] [place] [phone] Phone Care Team Providers Care Machine Tracer Name Role Phone Tristin Garcia Primary Care Provider [phone] Allergies No known active allergies Medications albuterol [...] Encounters Date Type Department Care Team Description 12/23/2024 Telephone Pulmonolgy [facility] [address] [phone] Geronimo Hamilton MD dme request 12/[facility] [address] [phone] Geronimo Hamilton MD dme request [facility] [address] [place] [phone] Geronimo Hamilton MD DME request ([facility]) 11/12/2024 1:15 PM EDT Clinical Support Pulmonolgy - [place] [address] [phone] Obstructive sleep apnea syndrome 11/08/2024 Telephone Pulmonolgy [facility] [address] [phone] Geronimo Hamilton MD dme request 11/03/2024 10:40 AM EDT Office Visit Gastroenterology - [place] [address] [phone] Kerri Willson, ANAHI Fatty liver (Primary Dx); Morbid obesity with BMI of 50.0-59.9, adult ([facility] V24, [facility] V28) from Last 3 Months Immunizations Name Administration [...] 04/25/2025 10:40 AM EST Office Visit Gastroenterology [address] [phone] Kerri Willson, ANAHI [address] [address] 09/16/2025 9:30 AM EDT Office Visit Pulmonolgy [facility] [address] [phone] Geronimo Hamilton MD [address] [address] Health Maintenance Due Date Last Done Comments Breast Cancer Screening 1973 DTaP,Tdap,and Td Vaccines (1 - Tdap) 1992 Hepatitis B Vaccines (1 of 3 - 19+ 3-dose series) 1992 Pneumococcal Vaccine: 50+ Years (1 of 2 - PCV) 1992 Cervical Cancer Screening: Pap Smear 1994 Colorectal Cancer Screening: Colonoscopy 05/07/2022 HIV Screening 05/07/2022 Social Influencers of Health Screening 05/07/2022 Zoster Vaccines (1 of 2) 2023 Depression Screening 06/09/2024 Influenza Vaccine (#1) 2025 , 02/21/2023, 03/22/2022, [...] (CMS/HCC V24, CMS/HCC V28) BMI 45.0-49.9, adult ([facility] [place]24, [facility] V28) HTN (hypertension) HLD (hyperlipidemia) JOHANN (obstructive sleep apnea) HEPATITIS C ANTIBODY Routine 04/19/2024 11:08 AM EST Hypothyroid HTN (hypertension) DM (diabetes mellitus) ([facility] V24, [facility] V28) Elevated LFTs from Last 3 Months [...] LAB CHEMISTRY METHOD 08/25/2024 3:10 PM EDT [facility] Triglycerides 187(H) 0 - 150 mg/dL LAB CHEMISTRY METHOD 08/25/2024 3:10 PM EDT [facility] HDL 44 >=40 mg/dL LAB CHEMISTRY METHOD [facility] LDL Calculated 100 0 - 100 mg/dL LAB CHEMISTRY METHOD 08/25/2024 3:10 PM EDT [facility] VLDL Cholesterol Patrick 37.4 mg/dL LAB CHEMISTRY METHOD 08/25/2024 3:10 PM [facility] Non HDL Chol. (LDL+VLDL) 137 <145 mg/dL LAB CHEMISTRY METHOD 08/25/2024 3:10 PM EDT [facility] Chol/HDL Ratio 4.1 0.0 - 4.4 LAB CHEMISTRY METHOD 08/25/2024 3:10 PM [facility] Blood Venous blood specimen / Unknown Venipuncture / Unknown 08/25/2024 11:31 AM EDT 08/25/2024 11:31 AM EDT Abdias Avelar LAB BLOOD ORDERABLES Final Resul t [facility] [address] [place] [address], [place] [phone] * (ABNORMAL) Comprehensive metabolic panel (08/25/2024 11:31 AM EDT) Sodium 138 133 - 145 mmol/L LAB CHEMISTRY METHOD 08/25/2024 4:04 PM [facility] Potassium 5.0 3.5 - 5.5 mmol/L LAB CHEMISTRY METHOD 08/25/2024 4:04 PM [facility] Chloride 104 96 - 110 mmol/L LAB CHEMISTRY METHOD 08/25/2024 4:04 PM [facility] CO2 27 21 - 32 mmol/L LAB CHEMISTRY METHOD 08/25/2024 4:04 PM [facility] Anion Gap 7 3 - 11 LAB CHEMISTRY METHOD 08/25/2024 4:04 PM [facility] Glucose 176(H) 70 - 100 mg/dL LAB CHEMISTRY METHOD 08/25/2024 4:04 PM [facility] BUN 43(H) 5 - 25 mg/dL LAB CHEMISTRY METHOD 08/25/2024 4:04 PM [facility] Comment:Results verified by repeat testing Creatinine 1.51(H) 0.50 - 1.10 mg/dL LAB CHEMISTRY METHOD 08/25/2024 4:04 PM [facility] eGFR 42(L) >=60 mL/min/1. 73m2 LAB CHEMISTRY METHOD 08/25/2024 4:04 PM [facility] Comment:Calculation based on the Chronic Kidney Disease Epidemiology Collaboration (CKD-EPI) equation refit without adjustment for race. BUN/Creatinine Ratio 28.5 LAB CHEMISTRY METHOD 08/25/2024 4:04 PM [facility] Calcium 9.4 8.5 - 10.5 mg/dL LAB CHEMISTRY METHOD 08/25/2024 4:04 PM [facility] AST (SGOT) 22 10 - 42 unit/L LAB CHEMISTRY METHOD 08/25/2024 4:04 PM [facility] ALT (SGPT) 35 10 - 60 unit/L LAB CHEMISTRY METHOD 08/25/2024 4:04 PM [facility] Alkaline Phosphatase 96 42 - 121 unit/L LAB CHEMISTRY METHOD 08/25/2024 4:04 PM [facility] Total Protein 7.1 6.0 - 8.0 g/dL LAB CHEMISTRY METHOD 08/25/2024 4:04 PM [facility] Albumin 3.6 3.2 - 5.0 g/dL LAB CHEMISTRY METHOD 08/25/2024 4:04 PM [facility] Total Bilirubin 0.4 0.0 - 1.4 mg/dL LAB CHEMISTRY METHOD 08/25/2024 4:04 PM [facility] Blood Venous blood specimen / Unknown Venipuncture / Unknown 08/25/2024 11:31 AM EDT 08/25/2024 11:31 AM EDT us Abdias Avelar LAB BLOOD ORDERABLES Final Resul t [facility] [address] [place] [address], * Hepatitis C antibody (04/19/2024 11:08 AM EST) Hepatitis C Antibody Negative Negative LAB CHEMISTRY METHOD 04/19/2024 5:08 PM EST [facility] Blood Venous blood specimen / Unknown Venipuncture / Unknown 04/19/2024 11:08 AM EST 04/19/2024 11:08 AM EST us Abdias Avelar LAB BLOOD ORDERABLES Final Resul t [facility] [address] [place] [address], from Last 3 Months or Most Recently Relevant to Health Maintenance Insurance MEDICAID - [place] Care Teams Machine Tracer Relationship Specialty Start Date End Date Tristin Garcia DO [address] [place] [phone] PCP - General Internal Medicine 05/08/17
--- OUTSIDE RECORDS SUMMARY | 2025-01-25 15:03 | XMS_ITS | Patient Health Record ---
Author Organization [facility] Address [address] [place] [address] Care Team Providers Care Facetor Name Role Phone Tristin Garcia MD Primary Care Provider Mat Oliveira Unavailable [phone] Allergies No Known Allergies Reason For Referral No Information Medications Medication [...] pressure diastolic 60 mm Hg 04/19/2024 Height [id number] in 04/19/2024 Blood pressure systolic 138 mm Hg 04/19/2024 Weight 283 lbs 04/19/2024 BMI 59.14 kg/m2 04/19/2024 Procedures Procedure Date Ordered Date Performed Result Body Sit e 01677-LEWGFJA NAIL, 6 OR MORE 04/19/2024 N/A Encounters Encounter Location Date Provider Diagnosis [facility] [address] [place] [phone] 04/19/2024 Mat Orozco Type 2 diabetes mellitus [...] Test Name Order Date Hemoglobin A1c 06/24/2017 [id number] NAIL, 6 OR MORE 10/30/2016 [id number] NAIL, 6 OR MORE 11/04/2018 [id number] NAIL, 6 OR MORE 12/02/2019 [id number] NAIL, 6 OR MORE 12/04/2020 [id number] NAIL, 6 OR MORE 02/27/2022 [id number] NAIL, 6 OR MORE 04/21/2023 [id number] NAIL, 6 OR MORE 04/19/2024 [id number] NAIL, 1-5 04/18/2016 47948-[id number] SKIN LESIONS, OVER 4 09/03/19 12 [id number] NAIL(S) 09/03/2011 Next Appt Details Provider Name:Mat Orozco , 04/18/2025 01:00:00 PM, [address], [address], [place], [address], Medical (General) History Medical History History ICD Code asthma chicken pox Diabetes Hypertension Thyroid disorder Surgical History Surgery Date(Month/Year) cyst removal 1976
--- OUTSIDE RECORDS SUMMARY | 2025-01-25 15:03 | XMS_ITS | Clinical Summary ---
Author Organization [facility] Address [address] [facility] [employer] [place] [address] Care Team Providers Care Regulatory Agency Director Name Role Phone MeraridianajesusTristin william Primary Care Provider [phone] Allergies No known active allergies Social History [...] Adults 18 yrs or above (or HM Modifier)([facility]) 1991 Hepatitis C Virus Infection in Adolescents and Adults: Screening (or Modifier) ([facility]) 1991 SDMA Screening Reminder: Makenzie hartman for all adults ([facility]) 1991 Tobacco Smoking Cessation: i n Adults excluding Women: Behavioral and Pharmacotherapy Interventions ([facility]) 1991 DTaP/Tdap/Td Vaccines ([facility]) (1 - Tdap) 1992 Cervical Cancer Screenin 1-65 yrs of age (or Modifier) 1994 Cervical Cancer Screening: P ap every 3 yrs pts age 21-65 1994 Cervical Cancer: Pap Screeni ng with Modifier timing ([facility]) 1994 Cervical Cancer: hrHPV alone or with cotesting Pap for Pts 30-65yrs screening every 5yrs ([facility]) 1994 Colorectal Cancer Screening 45 -75 Yrs (or HM Modifier ) 2018 Colorectal Cancer: FLEXIBLE SIGMOIDOSCOPY Screening every 5 yrs 2018 Colorectal Cancer: Fecal Imm unochemical Test (FIT) Annually [facility] 2018 Colorectal Cancer: High-sens itivity gFOBT Screening Annually [facility] 2018 Colorectal Cancer: Stool Col oguard Screening every 3 yrs 2018 Colorectal Cancer:CT Colonography Screening every 5 yr s 2018 Breast Cancer: Screening Makenzie ualltarik age 50-74 yrs (or HM Modifier)([facility]) 2023 Pneumococcal Vaccination Scr eening: Patients 50+ yrs of age ([facility]) (1 of 1 - PCV) 2023 Zoster/Shingles Vaccine Seri es Screening: Adults aged 18+ yrs (or HM Modifiers)([facility]) (1 of 2) 2023 COVID-19 Vaccine Screening: Initial Series and Booster Status ([facility]) ( - 2023- season) 2024 Flu Vaccination: Yearly for ages 18mos through 64 years (or Modifier)([facility]) 01/07/2025 Medical Devices Not on file Care Teams Regulatory Agency Director Relationship Specialty Start Date End Date Tristin Garcia DO PCP - Psychometric Examiner 06/23/15
== END 2025-01-25 14:15 | disposition home or self-care (01) ==
LOC: HO.ENCR 13:47
PROVIDERS: PCP Internal Medicine; Visit Provider Registered Nurse Diabetes Educator
DX: E11.65 Type 2 diabetes mellitus with hyperglycemia (principal); Z79.4 Long term (current) use of insulin

== ENCOUNTER → 2025-01-25 13:46 | Outpatient (BNVA) | payer MEDICAID, SELFPAY | PROVIDERS: PCP Internal Medicine; Visit Provider Registered Nurse Diabetes Educator | DX: E11.65 Type 2 diabetes mellitus with hyperglycemia (principal); Z79.4 Long term (current) use of insulin | CPT/HCPCS: 99211 ==

== ENCOUNTER 2025-02-01 09:33 | Outpatient (REF) | payer MEDICAID, SELFPAY ==
--- OUTSIDE RECORDS SUMMARY | 2025-02-01 10:10 | XMS_ITS | Patient Health Record ---
Author Organization [facility] Address [address] [place] [address] Care Team Providers Care Chemistry Intern Name Role Phone Tristin Garcia MD Primary Care Provider Mat Oliveira Unavailable [phone] Allergies No Known Allergies Reason For Referral [...] pressure diastolic 60 mm Hg 04/19/2024 Height [id number] in 04/19/2024 Blood pressure systolic 138 mm Hg 04/19/2024 Weight 283 lbs 04/19/2024 BMI 59.14 kg/m2 04/19/2024 Procedures Procedure Date Ordered Date Performed Result Body Sit e 07554-[id number] NAIL, 6 OR MORE 04/19/2024 N/A Encounters Encounter Location Date Provider Diagnosis [facility] [address] [place] [phone] 04/19/2024 Mat Orozco Type 2 diabetes mellitus [...] Test Name Order Date Hemoglobin A1c 06/24/2017 [id number] NAIL, 6 OR MORE 10/30/2016 [id number] NAIL, 6 OR MORE 11/04/2018 [id number] NAIL, 6 OR MORE 12/02/2019 [id number] NAIL, 6 OR MORE 12/04/2020 [id number] NAIL, 6 OR MORE 02/27/2022 [id number] NAIL, 6 OR MORE 04/21/2023 [id number] NAIL, 6 OR MORE 04/19/2024 [id number] NAIL, 1-5 04/18/2016 [id number] SKIN LESIONS, OVER 4 09/03/19 12 [id number] NAIL(S) 09/03/2011 Next Appt Details Provider Name:Mat Orozco , 04/18/2025 01:00:00 PM, [address] [facility], [address], [place], [address], Medical (General) History Medical History History ICD Code asthma chicken pox Diabetes Hypertension Thyroid disorder Surgical History Surgery Date(Month/Year) cyst removal 1976
--- OUTSIDE RECORDS SUMMARY | 2025-02-01 10:10 | XMS_ITS | Clinical Summary ---
Author Organization [facility] [employer] [facility] Address [address] [facility] [employer] [place] [address] Care Team Providers Care Electrodynamicist Name Role Phone MeraridianajesusrTistin william Primary Care Provider [phone] Allergies No known active allergies Social History [...] Adults 18 yrs or above (or HM Modifier)([facility]) 1991 Hepatitis C Virus Infection in Adolescents and Adults: Screening (or Modifier) ([facility]) 1991 SDMS Screening Reminder: Makenzie hartman for all adults ([facility]) 1991 Tobacco Smoking Cessation: i n Adults excluding Women: Behavioral and Pharmacotherapy Interventions ([facility]) 1991 DTaP/Tdap/Td Vaccines ([facility]) (1 - Tdap) 1992 Cervical Cancer Screenin 1-65 yrs of age (or Modifier) 1994 Cervical Cancer Screening: P ap every 3 yrs pts age 21-65 1994 Cervical Cancer: Pap Screeni ng with Modifier timing ([facility]) 1994 Cervical Cancer: hrHPV alone or with cotesting Pap for Pts 30-65yrs screening every 5yrs ([facility]) 1994 Colorectal Cancer Screening 45 -75 Yrs (or HM Modifier ) 2018 Colorectal Cancer: FLEXIBLE SIGMOIDOSCOPY Screening every 5 yrs 2018 Colorectal Cancer: Fecal Imm unochemical Test (FIT) Annually [facility] 2018 Colorectal Cancer: High-sens itivity gFOBT Screening Annually [facility] 2018 Colorectal Cancer: Stool Col oguard Screening every 3 yrs 2018 Colorectal Cancer:CT Colonography Screening every 5 yr s 2018 Breast Cancer: Screening Makenzie ualltarik age 50-74 yrs (or HM Modifier)([facility]) 2023 Pneumococcal Vaccination Scr eening: Patients 50+ yrs of age ([facility]) (1 of 1 - PCV) 2023 Zoster/Shingles Vaccine Seri es Screening: Adults aged 18+ yrs (or HM Modifiers)([facility]) (1 of 2) 2023 COVID-19 Vaccine Screening: Initial Series and Booster Status ([facility]) ( - 2023- season) 2024 Flu Vaccination: Yearly for ages 18mos through 64 years (or Modifier)([facility]) 01/07/2025 Medical Devices Not on file Care Teams Electrodynamicist Relationship Specialty Start Date End Date Tristin Garcia DO PCP - Community Resource Consultant 06/23/15
--- OUTSIDE RECORDS SUMMARY | 2025-02-01 10:10 | XMS_ITS | Clinical Summary ---
Author Organization [address] [facility] Address [address] [place] [phone] Phone Care Team Providers Care Shape Hand Name Role Phone Tristin Garcia Primary Care [...] Department Care Team Description 12/23/2024 Telephone [facility] [address] [phone] Geronimo Hamilton MD [facility] [address] [phone] Geronimo Hamilton MD 12/02/2024 [facility] [address] [phone] Geronimo Hamilton MD 11/12/2024 1:15 PM EDT Clinical Support [facility] [address] [phone] Obstructive sleep apnea syndrome 11/08[facility] [address] [phone] Geronimo Hamilton MD 11/03/2024 10:40 AM EDT Office Visit [facility] [place] [address] [phone] Kerri Willson, ANAHI Fatty liver (Primary Dx); Morbid obesity with BMI of 50.0-59.9, adult ([facility] V24, [facility] V28) from Last 3 Months Immunizations Name [...] 04/25/2025 10:40 AM EST Office Visit Gastroenterology - [place] 175 [facility] [address] [facility] [address] [place] [phone] Kerri Willson NP [address] [place] [address] 09/16/2025 9:30 AM EDT Office Visit Pulmonolgy - [place] [address] [facility] [address] [place] [phone] Geronimo Hamilton MD [address] [place] [address] Health Maintenance Due Date Last Done Comments [...] complete physical exam (CPE) DM (diabetes mellitus) ([facility]/HCC V24, [facility] V28) BMI 45.0-49.9, adult ([facility] V24, CMS/[facility] V28) HTN (hypertension) HLD (hyperlipidemia) JOHANN (obstructive sleep apnea) LIPID PANEL WITH REFLEX TO DIRECT LDL Routine 08/25/2024 11:31 AM EDT Laboratory tests ordered as part of a complete physical exam (CPE) DM (diabetes mellitus) ([facility]/HCC V24, [facility] V28) BMI 45.0-49.9, adult (CMS/HCC V24, CMS/[facility] V28) HTN (hypertension) HLD (hyperlipidemia) JOHANN (obstructive sleep apnea) HEPATITIS C ANTIBODY Routine 04/19/2024 11:08 AM EST Hypothyroid HTN (hypertension) DM (diabetes mellitus) (CMS/HCC V24, CMS/HCC V28) Elevated LFTs from Last 3 Months [...] 3:10 PM [facility] Triglycerides 187(H) 0 - 150 mg/dL LAB CHEMISTRY METHOD 08/25/2024 3:10 PM [facility] HDL 44 >=40 mg/dL LAB CHEMISTRY METHOD 08/25/2024 3:10 PM [facility] LDL Calculated 100 0 - 100 mg/dL LAB CHEMISTRY METHOD 08/25/2024 3:10 PM [facility] VLDL Cholesterol Patrick 37.4 mg/dL LAB CHEMISTRY METHOD 08/25/2024 3:10 PM [facility] Non HDL Chol. (LDL+VLDL) 137 <145 mg/dL LAB CHEMISTRY METHOD 08/25/2024 3:10 PM T [facility] Chol/HDL Ratio 4.1 0.0 - 4.4 LAB CHEMISTRY METHOD 08/25/2024 3:10 PM [facility] Blood Venous blood specimen / Unknown Venipuncture / Unknown 08/25/2024 11:31 AM EDT 08/25/2024 11:31 AM EDT us Abdias Ballesterosomer LAB BLOOD ORDERABLES Final Resul t [facility] [address] [place] [address], [place] [phone] * (ABNORMAL) Comprehensive metabolic panel (08/25/2024 11:31 AM EDT) Pathologist [facility] Sodium 138 133 - 145 mmol/L LAB CHEMISTRY METHOD 08/25/2024 4:04 PM [facility] Potassium 5.0 3.5 - 5.5 mmol/L LAB CHEMISTRY METHOD 08/25/2024 4:04 PM [facility] Chloride 104 96 - 110 [...] [facility] Comment:Calculation based on the Chronic Kidney Disease Epidemiology Collaboration (CKD-EPI) equation refit without adjustment for race. BUN/Creatinine Ratio 28.5 LAB CHEMISTRY METHOD 08/25/2024 4:04 PM EDT [facility] Calcium 9.4 8.5 - 10.5 mg/dL LAB CHEMISTRY METHOD 08/25/2024 4:04 PM EDT [facility] AST (SGOT) 22 10 - 42 unit/L LAB CHEMISTRY METHOD 08/25/2024 4:04 PM EDT [facility] ALT (SGPT) 35 10 - 60 unit/L LAB CHEMISTRY METHOD 08/25/2024 4:04 PM T [facility] Alkaline Phosphatase 96 42 - 121 unit/L LAB CHEMISTRY METHOD 08/25/2024 4:04 PM [facility] Total Protein 7.1 6.0 - 8.0 g/dL LAB CHEMISTRY METHOD 08/25/2024 4:04 PM [facility] Albumin 3.6 3.2 - 5.0 g/dL LAB CHEMISTRY METHOD 08/25/2024 4:04 PM EDT [facility] Total Bilirubin 0.4 0.0 - 1.4 mg/dL LAB CHEMISTRY METHOD 08/25/2024 4:04 PM [facility] Blood Venous blood specimen / Unknown Venipuncture / Unknown 08/25/2024 11:31 AM EDT 08/25/2024 11:31 AM EDT Abdias Avelar LAB BLOOD ORDERABLES Final Resul t [facility] [address] [place] [address], * Hepatitis C antibody (04/19/2024 11:08 AM EST) Hepatitis C Antibody Negative Negative LAB CHEMISTRY METHOD 04/19/2024 5:08 PM EST [facility] Blood Venous blood specimen / Unknown Venipuncture / Unknown 04/19/2024 11:08 AM EST 04/19/2024 11:08 AM EST us Abdias Valentino LAB BLOOD ORDERABLES Final Resul t [facility] [address] [place] [address], from Last 3 Months or Most Recently Relevant to Health Maintenance Insurance MEDICAID - [place] Care Teams Shape Hand Relationship Specialty Start Date End Date Tristin Garcia DO [address] [place] [phone] PCP - General Internal Medicine 05/08/17
[2025-02-01 11:32] LABS: Alanine Aminotransferase 31 U/L (0-31); Albumin Level 4.3 g/dL (3.5-5.0); Alkaline Phosphatase 77 U/L (39-117); Aspartate Amino Transferase 27 U/L (5-31); Total Protein 7.6 g/dL (6.5-8.0)
== END 2025-02-01 09:34 | disposition home or self-care (01) ==
LOC: HO.LAB 09:33
PROVIDERS: PCP Internal Medicine; Visit Provider Student in an Organized Health Care Education/Training Program
DX: E11.65 Type 2 diabetes mellitus with hyperglycemia (principal); Z79.4 Long term (current) use of insulin
CPT/HCPCS: 36415; 80076

== ENCOUNTER 2025-02-10 13:53 | Outpatient (AMB) | payer MEDICAID, SELFPAY ==
[2025-02-10 13:55] VITALS: BP 118/76; PULSE 64; O2SAT 98; BMI 56.3
--- NOTE | 2025-02-10 13:55 | MHC.OFFVIS ---
Vital Signs 02/10/25 13:55 Height 4 ft 10 in Weight 269 lb 10.005 oz BMI 56.3 BP 118/76 Blood Pressure Location Lt brachial Position Sitting Pulse 64 Pulse Source Pulse Oximeter Pulse Oximetry (%) 98 Oxygen Delivery Method Room Air Intake Visit Reasons: DM, Adrenal nod Intake Note: Patient present today for Type 2 Diabetes Mellitus and adrenal nodule office visit. Last Diabetic eye exam: 05/23/24 and will be having cataract surgery 03/02/25 Last Podiatry Visit: 04/2024 Random Glucose: 148 mg/dl HgA1C: 7.5% 11/24/24 Teletypewriter Installer Required: No Accompanied by: Mother Allergies No Known Allergies Allergy (Verified 02/10/25 14:00) Medication List - Last Reconciled 02/10/25 by Olga Dolan MD atorvastatin (Lipitor) 20 mg PO BEDTIME blood-glucose sensor (FreeStyle Juancarlos 3 Plus Sensor device) As directed every 14 days dulaglutide (Trulicity) 1.5 mg (0.5 mL) subcut QWEEK dulaglutide (Trulicity) 3 mg (0.5 mL) subcut QWEEK empagliflozin (Jardiance) 10 mg PO DAILY glucagon 3 mg/actuation 3 mg intranasal ONCE glucose (Dex4 Glucose) 16 grams (4 x 4 gram) PO Q15M PRN hydrochlorothiazide 12.5 mg PO DAILY insulin glargine (Basaglar KwikPen U-100 Insulin) 18 units (0.18 mL) subcut DAILY levothyroxine 125 mcg PO QAM losartan 50 mg PO DAILY meloxicam 7.5 mg PO DAILY pen needle, diabetic (BD Lianna 2nd Gen Pen Needle) As directed pen needle, diabetic (Comfort EZ [place]) As directed for injecting insulin once daily HPI Comments Details: 49-year-old female here today for follow up of type 2 diabetes mellitus. She also has a right adrenal incidentaloma. Here to day with mother Stephany Type 2 DM Diagnosed summer 2023, was prediabetic for several years , was on metformin for a couple of month and then couldnt tolerate it because of diarrhea and then wasnt on anything for a couple of years Past Medications Metformin Prior medications Victoza started summer 2023, then increased it up to 1.8 mg daily, says she has been out of it since May 2024 We stopped this to switch her to OZempic / Mounjaro, as she failed Victoza since when she was on it for the past 5-6 monhts her weight had plateued and A1c > 10 % , however insurance denied this and then we put her on Trulicity 0.75 mg weekly in July 2024 Current meds Lantus 18 units in AM Jardiance 10 mg daily Trulicity 3 mg weekly Friday Got cortisone shots gets these every 3-4 months , thinks they got it sometime January 2025 Freestyle Juancarlos 3 downloaded from January 28 to 02/10/2025 Time CGM active 96% G WI 7.9% Average glucose 191 mg/dL Variability 29% Target range 53% High 32% Very high 15% Low 0% Interpretation: Having a lot of postprandial hyperglycemia. A1c 06/16 at 11 % up from 10.1 % based on PCP notes from May 2024 HgA1C: 7.5% 11/24/24 Random Glucose: 148 mg/dl Weight 269 lbs down from 277 lbs December 2024, lost another 8 lbs after increased in trulicty to 3 mg BMI 59.4 kg /m2 Exercise: no exercise, no fixed program but stays active at home Diet: 3 meals a day Breakfast : between 8 or 9 usually eggs with banana or yogurt Lunch 1 pm : ham and cheese sandwich, Dinner between 5 and 6 30 pm: pasta with chicken or steak, spaghetti and meatballs No snacks Seldom has desserts: sugar free 1 gm snack bar Soda only once a week Saw fly winder August 2024 Last CDE 01/31 Last Diabetic eye exam was on: 05/09/2024, pt has cataracts , surgery postpone due to uncontrolled hyperglycemia, once we see her back in 3 months and blood sugars are stable, can reschedule Last Podiatry exam was on: 05/02 No history of neuropathy, retinopathy or kidney disease No history of WI or stroke Family history Grand uncle type 2 DM LDL 86 mg/dl 08/03, less than goal LDL 90 mg/dl , LDL again 84 10/31 on HCTZ and losartan for HTN , losartan increased to 50 mg May 2024 urine microalbumin/ cr 42 10/31 PMHx HTN Hypothyroidism Obesity Type 2 DM JOHANN on CPAP PShx No surgeries Right adrenal gland nodule CT scan done for evaluation of liver enzyme elevation in January 2024 showed a right-sided enhancing lesion in the adrenal gland measuring 1.4 cm. No other description given. I do not have these images. She thinks she had a dedicated adrenal MRI May 19 as well. Symptoms: Reports weight loss on the Victoza , lost close to 20 lbs since September 2023, used to be 300 lbs No , hirsutism,severe acne ,headaches denies any hx of proximal muscle weakness, easy bruisability ,no abdominal striae,no headache,diaphoresis -HTN diagnosed in her 40s -Denies any polyuria or polydipsia,has type 2 DM uncontrolled managed by PCP a1c 10.1 % from notes from PCP from 2023 , they are titrating up Victoza, no abdominal pain ,skin infection or hyperpigmentation. 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 No hx of depression or mood changes - no episodic palpitaions, pallor, abdominal pain, diaphoresis . MRI adrenal glands May 19 2024 obtained from [facility] showed right sided 1 cm adrenal nodule without signal drop in out of phase Labs 06/04/24 showed normal mahnaz, renin, [place] and NMN Dex suppression done 06/08/24 also normal Interval history 02/10/2025 CT adrenal December 2024 showed right adrenal gland nodule measuring 1.6 X1.2 cm with absolute washout of 56%. This is indeterminate, adenomas usually have washout greater than 60%. However nodule more less stable compared to previous size of 1.4 cm. Physical exam General: sitting comfortably in no acute distress HEENT: normocephalic/atraumatic, , facial plethora noted, has rosacea Neck: supple, symmetrical, no thyromegaly , does have dorsocervical and supraclavicular fat pads Cardiac: normal heart sounds Pulm: normal breath sounds B/L, no added breath sounds Abd: not distended, no purple wide striae Foot exam: checked December 2024 Intact sensation to monofilament, intact pulses, well-perfused, intact vibration, does have very dry skin, plus pedal edema Laboratory Tests 06/04/24 06/08/24 07/06/24 08:09 08:21 11:03 Sodium 139 Potassium 4.3 Creatinine 0.98 Estimated GFR 60 Glucose (Clinic) 336 H Random Glucose 232 H Renin 2.19 Aldosterone 3 DHEA Sulfate 49 43 Random Cortisol 11.8 < 1.0 ACTH 60 H 11 Plasma Free Metaneph <25 Plasma Free Normeta 56 Plas Total Metaneph 56 Laboratory Tests 07/06/24 07/08/24 11:07 09:16 Plt Count 266 Sodium 136 Potassium 4.6 Creatinine 0.77 Estimated GFR > 60 Random Glucose 273 H Hgb A1c (Clinic) 11.0 H AST 49 H ALT 45 H Albumin 4.0 Triglycerides 211 H Cholesterol 161 LDL Cholesterol, Calc 84 HDL Cholesterol 35 L TSH 1.38 ? [facility] Medical History (Updated 07/23/24 @ 11:20 by Olga Dolan MD) HLD (hyperlipidemia) Metabolic dysfunction-associated fatty liver disease (MAFLD) HTN (hypertension) Obesity Adrenal nodule Diabetes mellitus Hx of hepatic disease History of obstructive sleep apnea Hx of essential hypertension History of hyperthyroidism Hx of hyperlipidemia Hx of aortic valve disorder Hx of type 2 diabetes mellitus Adrenal incidentaloma Surgical History No pertinent past surgical history Family History Father No problems noted. Mother Thyroid disease Maternal Aunt Thyroid disease Social History Alcohol intake: current Alcohol intake frequency: holidays/special occasions only Patient Tobacco Use Status: Never used Tobacco Physical Exam Vital Signs: Last Vital Signs Pulse 64 02/10/25 13:55 BP 118/76 02/10/25 13:55 Pulse Ox 98 02/10/25 13:55 Oxygen Delivery Method Room Air 02/10/25 13:55 BMI result Body Mass Index 56.3 Results Reviewed Results Reviewed: Laboratory Last Values Glucose (Clinic) 148 mg/dL (60-115) H 02/10/25 14:02 Assessment & Plan Assessment & Plan (1) Diabetes mellitus: Code(s): E11.9 - Type 2 diabetes mellitus without complications Category: Medical Qualifiers: Diabetes mellitus type: type 2 Diabetes mellitus care home insulin use: with terminal manager use Diabetes mellitus complication status: with hyperglycemia Qualified Code(s): E11.65 - Type 2 diabetes mellitus with hyperglycemia; Z79.4 - intermodal truck driver (current) use of insulin Plan: 49-year-old female who is here for follow up of her type 2 diabetes mellitus which was diagnosed in summer now with basal insulin use, without complications. A1c down to 7.5% 11/24/2024 from in June 2024 11%, CGM data downloaded today, which shows that she is having a lot of postprandial hyperglycemia over the past 2 weeks that has been better over the last 3-4 days. Per patient she received her cortisone shot in January which resulted in the hyperglycemia. She gets these cortisone shots every 3-4 months, at this time we will make a regular plan for when she is getting the steroid shots to avoid the hyperglycemia. Plan: -continue CGM monitoring -continue Lantus 18 units daily, on the day she gets the cortisone shot, go up by 4 units for 5 days and then switch back to regular dose -continue Jardiance 10 mg daily -continue Trulicity to 3 mg weekly -follow up with fly winder and educator She follows regularly with the eye doctor, she was scheduled to have cataract surgery on July 28, I postponed this given uncontrolled hyperglycemia with blood sugars in the 300s at that time. Now with much better control, I told them she would be okay to have the cataract surgery. No history of retinopathy. Foot exam done 12/09/2024, asked her to follow with her policy change clerks supervisor -hypoglycemia education done -urine microalbumin noted to be improved from November 2024, she is already on Jardiance 10 mg daily as well as losartan. Follow up in 8-10 weeks (2) Obesity: Code(s): E66.9 - Obesity, unspecified Category: Medical Qualifiers: Obesity type: due to excess calories Obesity classification: adult class 3 (BMI >= 40) Serious obesity comorbidity presence: with serious comorbidity Body mass index: BMI 50.0-59.9 Qualified Code(s): E66.813 - Obesity, class 3; E66.01 - Morbid (severe) obesity due to excess calories; Z68.43 - Body mass index [BMI] 50.0-59.9, adult Plan: BMI 56.4 kg per m2 269 lb down from 58.7 kg per m2 280 lb in December 2024. She lost about 20 lb with Victoza initially when it was started but weight had plateaued over the fall 2023. We had put in a prescription for Mounjaro for her, however her insurance rejected that despite her BMI with complications of uncontrolled hyperglycemia, hypertension, hyperlipidemia, fatty liver disease. John was also denied Counseled about GI intolerance. No history of pancreatitis. No alcohol use. Now on Trulicity 3 mg weekly, Plan: -follow up with fly winder -continue Trulicity to 3 mg weekly (3) HTN (hypertension): Code(s): I10 - Essential (primary) hypertension Category: Medical Qualifiers: Hypertension type: primary hypertension Qualified Code(s): I10 - Essential (primary) hypertension Plan: Losartan was increased from 25 mg daily to 50 mg daily in May 2024. She is also on hydrochlorothiazide 25 mg daily. Blood pressure better controlled today. Plan: -continue current regimen (4) Adrenal incidentaloma: Code(s): E27.8 - Other specified disorders of adrenal gland Category: Medical Plan: 49-year-old female coming in today for follow up of right 1.4 cm adrenal gland nodule. CT scan done for evaluation of liver enzyme elevation in January 2024 showed a right-sided enhancing lesion in the adrenal gland measuring 1.4 cm. No other description given. I do not have these images. MRI adrenal glands May 19 2024 obtained from [facility] showed right sided 1 cm adrenal nodule without signal drop in out of phase Labs 06/04/24 showed normal mahnaz, renin, [place] and NMN Dex suppression done 06/08/24 also normal Given it isn't enhancing nodule without a clear signal dropout on MRI on out phase imaging, we repeated a CT scan. CT adrenal December 2024 showed right adrenal gland nodule measuring 1.6 X1.2 cm with absolute washout of 56%. This is indeterminate, adenomas usually have washout greater than 60%. However nodule more less stable compared to previous size of 1.4 cm. There are no clear guidelines for indeterminate nodules which remained stable to 12 months, I think it is very reassuring that the nodule remained stable after 1 year. There is generally no need for further repeat imaging unless there is new clinical symptoms. We will continue to monitor her clinically for any signs of hormonal excess. ? (5) HLD (hyperlipidemia): Code(s): E78.5 - Hyperlipidemia, unspecified Category: Medical Qualifiers: Hyperlipidemia type: mixed hyperlipidemia Qualified Code(s): E78.2 - Mixed hyperlipidemia Plan: LDL at 86 mg/dL from November 2024, I would try to target her LDL to less than 70 mg/dL given age greater than 40 years, history of hypertension, Triglycerides also elevated. Discussed with her importance of avoiding fatty foods, on atorvastatin 20 mg daily started December 2024 Plan: -continue atorvastatin 20 mg daily -plan to repeat lipid panel prior to next follow up in April 2025 (6) Metabolic dysfunction-associated fatty liver disease (MAFLD): Code(s): K76.0 - Fatty (change of) liver, not elsewhere classified Category: Medical Plan: Fibrosis 4 index score at 1.4, NAFLD fibrosis score of 1.02, needs further evaluation for consideration of advanced fibrosis/cirrhosis. Patient already has a principal android developer at [facility], patient's mother said that they will be contacting them follow up for further evaluation of fatty liver disease. Continue Trulicity to 3 mg weekly injection Plan I spent 30 minutes in reviewing the record, seeing the patient and documenting in the medical record. Orders: Orders Lipid Panel 6 Weeks E11.65 - Type 2 diabetes mellitus with hyperglycemia, E78.2 - Mixed hyperlipidemia, Z79.4 - correction (current) use of insulin Patient Instructions: On cortisone shot day , increase lantus by 4 units of usual dose for 5 days Otherwise continue current doses Do fasting blood work a week prior to next visit Coding Level of Care Code Est Pt Level 4 (10891) Diagnoses Type 2 diabetes mellitus with hyperglycemia, with long-term current use of insulin E11.65; Z79.4 Diabetes mellitus type: type 2 Diabetes mellitus care home insulin use: with terminal manager use Diabetes mellitus complication status: with hyperglycemia Class 3 severe obesity due to excess calories with serious comorbidity and body mass index (BMI) of 50.0 to 59.9 in adult E66.813; E66.01; Z68.43 Obesity type: due to excess calories Obesity classification: adult class 3 (BMI >= 40) Serious obesity comorbidity presence: with serious comorbidity Body mass index: BMI 50.0-59.9 Primary hypertension I10 Hypertension type: primary hypertension Adrenal incidentaloma E27.8 Mixed hyperlipidemia E78.2 Hyperlipidemia type: mixed hyperlipidemia Metabolic dysfunction-associated fatty liver disease (MAFLD) K76.0 Time Spent (min) 30
[2025-02-10 14:05] LABS: Glucose, Whole Blood 148 mg/dL (60-115)
--- OUTSIDE RECORDS SUMMARY | 2025-02-10 15:08 | XMS_ITS | Clinical Summary ---
Author Organization [facility] [employer] Address [address] [facility] [place] [address] Care Team Providers Care Wood Router Name Role Phone MeraridianajesusTristin william Primary Care Provider [phone] Allergies No known active allergies Social History [...] 18 yrs or above (or HM Modifier)([facility]) 1991 Hepatitis C Virus Infection in Adolescents and Adults: Screening (or Modifier) ([facility]) 1991 SDSC Screening Reminder: Makenzie hartman for all adults ([facility]) 1991 Tobacco Smoking Cessation: i n Adults excluding Women: Behavioral and Pharmacotherapy Interventions ([facility]) 1991 DTaP/Tdap/Td Vaccines ([facility]) (1 - Tdap) 1992 Cervical Cancer Screenin 1-65 yrs of age (or Modifier) 1994 Cervical Cancer Screening: P ap every 3 yrs pts age 21-65 1994 Cervical Cancer: Pap Screeni ng with Modifier timing ([facility]) 1994 Cervical Cancer: hrHPV alone or with cotesting Pap for Pts 30-65yrs screening every 5yrs ([facility]) 1994 Colorectal Cancer Screening 45 -75 Yrs (or HM Modifier ) 2018 Colorectal Cancer: FLEXIBLE SIGMOIDOSCOPY Screening every 5 yrs 2018 Colorectal Cancer: Fecal Imm unochemical Test (FIT) Annually [facility] 2018 Colorectal Cancer: High-sens itivity gFOBT Screening Annually [facility] 2018 Colorectal Cancer: Stool Col oguard Screening every 3 yrs 2018 Colorectal Cancer:CT Colonography Screening every 5 yr s 2018 Breast Cancer: Screening Makenzie ualltarik age 50-74 yrs (or HM Modifier)([facility]) 2023 Pneumococcal Vaccination Scr eening: Patients 50+ yrs of age ([facility]) (1 of 1 - PCV) 2023 Zoster/Shingles Vaccine Seri es Screening: Adults aged 18+ yrs (or HM Modifiers)([facility]) (1 of 2) 2023 COVID-19 Vaccine Screening: Initial Series and Booster Status ([facility]) ( - 2023- season) 2024 Flu Vaccination: Yearly for ages 18mos through 64 years (or Modifier)([facility]) 01/07/2025 Medical Devices Not on file Care Teams Wood Router Relationship Specialty Start Date End Date Tristin Garcia DO PCP - Congressional Aide 06/23/15
--- OUTSIDE RECORDS SUMMARY | 2025-02-10 15:08 | XMS_ITS | Patient Health Record ---
Author Organization [facility] Address [address] [place] [address] Care Team Providers Care Vacuum Closing Machine Operator Name Role Phone Tristin Garcia MD Primary Care Provider Mat Oliveira Unavailable [phone] Allergies No Known Allergies Reason For Referral [...] Status W/U Status Risk Notes Problem Type II diabetes mellitus without complication ([id number]) Type 2 diabetes mellitus without complication (E11.9) Active confirmed Vital Signs Blood pressure diastolic 60 mm Hg 04/19/2024 Height 0mq59he in 04/19/2024 Blood pressure systolic 138 mm Hg 04/19/2024 Weight 283 lbs 04/19/2024 BMI 59.14 kg/m2 04/19/2024 Procedures Procedure Date Ordered Date Performed Result Body Sit e [id number] NAIL, 6 OR MORE 04/19/2024 N/A Encounters Encounter Location Date Provider Diagnosis [facility] [place] [address] [address] 04/19/2024 Mat Orozco Type 2 diabetes mellitus [...] Test Name Order Date Hemoglobin A1c 06/24/2017 [id number] NAIL, 6 OR MORE 10/30/2016 [id number] NAIL, 6 OR MORE 11/04/2018 [id number] NAIL, 6 OR MORE 12/02/2019 [id number] NAIL, 6 OR MORE 12/04/2020 [id number] NAIL, 6 OR MORE 02/27/2022 [id number] NAIL, 6 OR MORE 04/21/2023 [id number] NAIL, 6 OR MORE 04/19/2024 [id number] NAIL, 1-5 04/18/2016 [id number] SKIN LESIONS, OVER 4 09/03/19 12 [id number] NAIL(S) 09/03/2011 Next Appt Details Provider Name:Mat Orozco 04/18/2025 01:00:00 PM, [address] [facility], [address], [place], [address], Medical (General) History Medical History History ICD Code asthma chicken pox Diabetes Hypertension Thyroid disorder Surgical History Surgery Date(Month/Year) cyst removal 1976
--- OUTSIDE RECORDS SUMMARY | 2025-02-10 15:08 | XMS_ITS | Clinical Summary ---
Author Organization [address] [facility] Address [address] [place] [phone] Phone Care Team Providers Care Telephone Worker Name Role Phone Tristin Garcia Primary Care Provider [phone] Allergies No known active allergies Medications albuterol [...] Telephone Pulmonolgy [facility] [address] [address] Geronimo Hamilton MD [facility] [address] [address] Geronimo Hamilton MD 12/02[facility] [address] [place] [address] Geronimo Hamilton MD 11/12/2024 1:15 PM EDT Clinical Support [facility] [address] [facility] [address] [place] [address] Obstructive sleep apnea syndrome from Last 3 [...] 10:40 AM EST Office Visit Gastroenterology - [place] [address] [facility] [address] [place] [phone] Kerri Willson, ANAHI [address] [place] [phone] 09/16/2025 9:30 AM EDT Office Visit Pulmonolgy - [place] [address] [facility] [address] [place] [phone] Geronimo Hamilton MD 175 [facility] [address] [place] [address] Health Maintenance Due Date Last Done Comments [...] indication for supplemental Oxygen for activity 2lpm. Geronimo Hamilton MD IN CLINIC/BEDSIDE ORDERABLES Fin [...] PM EDT [facility] VLDL Cholesterol Patrick 37.4 mg/dL LAB CHEMISTRY METHOD 08/25/2024 3:10 PM EDT [facility] Non HDL Chol. (LDL+VLDL) 137 <145 mg/dL LAB CHEMISTRY METHOD 08/25/2024 3:10 PM EDT [facility] Chol/HDL Ratio 4.1 0.0 - 4.4 LAB CHEMISTRY METHOD 08/25/2024 3:10 PM EDT [facility] Blood Venous blood specimen / Unknown Venipuncture / Unknown 08/25/2024 11:31 AM EDT 08/25/2024 11:31 AM EDT [facility] LAB BLOOD ORDERABLES Final Resul t [facility] [address] [place] [address], [place] [phone] * (ABNORMAL) Comprehensive metabolic panel (08/25/2024 11:31 AM EDT) Sodium 138 133 - 145 mmol/L LAB CHEMISTRY METHOD 08/25/2024 4:04 PM [facility] Potassium 5.0 3.5 - 5.5 mmol/L LAB CHEMISTRY METHOD 08/25/2024 4:04 PM [facility] Chloride 104 96 - 110 mmol/L LAB CHEMISTRY METHOD 08/25/2024 4:04 PM [facility] CO2 27 21 - 32 mmol/L LAB CHEMISTRY METHOD 08/25/2024 4:04 PM [facility] Anion Gap 7 3 - 11 LAB CHEMISTRY METHOD 08/25/2024 4:04 PM [facility] Glucose 176(H) 70 - 100 mg/dL LAB CHEMISTRY METHOD 08/25/2024 4:04 PM [facility] BUN 43(H) 5 - 25 mg/dL LAB CHEMISTRY METHOD 08/25/2024 4:04 PM [facility] Comment:Results verified by repeat testing Creatinine 1.51(H) 0.50 - 1.10 mg/dL LAB CHEMISTRY METHOD 08/25/2024 4:04 PM [facility] eGFR 42(L) >=60 mL/min/1. 73m2 LAB CHEMISTRY METHOD 08/25/2024 4:04 PM [facility] Comment:Calculation based on the Chronic Kidney Disease Epidemiology Collaboration (CKD-EPI) equation refit without adjustment for race. BUN/Creatinine Ratio 28.5 LAB CHEMISTRY METHOD 08/25/2024 4:04 PM [facility] Calcium 9.4 8.5 - 10.5 mg/dL LAB CHEMISTRY METHOD 08/25/2024 4:04 PM [facility] AST (SGOT) 22 10 - 42 unit/L LAB CHEMISTRY METHOD 08/25/2024 4:04 PM [facility] ALT (SGPT) 35 10 - 60 unit/L LAB CHEMISTRY METHOD 08/25/2024 4:04 PM EDT [facility] Alkaline Phosphatase 96 42 - 121 unit/L LAB CHEMISTRY METHOD 08/25/2024 4:04 PM EDT [facility] Total Protein 7.1 6.0 [...] AM EDT 08/25/2024 11:31 AM EDT [facility] LAB BLOOD ORDERABLES Final Resul t Performing Organization Address City/[facility]/ZIP Co de Phone Number [facility] [address] [place] [address], [place] [phone] * Hepatitis C antibody (04/19/2024 11:08 AM EST) Hepatitis C Antibody Negative Negative LAB CHEMISTRY METHOD 04/19/2024 5:08 PM EST [facility] Blood Venous blood specimen / Unknown Venipuncture / Unknown 04/19/2024 11:08 AM EST 04/19/2024 11:08 AM EST [facility] LAB BLOOD ORDERABLES Final Resul t [facility] [address] [place] [address], [place] [phone] from Last 3 Months or Most Recently Relevant to Health Maintenance Insurance MEDICAID - [place] Care Teams Telephone Worker Relationship Specialty Start Date End Date Tristin Garcia DO [address] [place] [phone] PCP - General Internal Medicine 05/08/17
== END 2025-02-10 14:41 | disposition home or self-care (01) ==
LOC: HO.ENCR 13:54
PROVIDERS: PCP Internal Medicine; Visit Provider Student in an Organized Health Care Education/Training Program
DX: E11.65 Type 2 diabetes mellitus with hyperglycemia (principal); Z79.4 Long term (current) use of insulin; E66.813 Obesity, class 3; E66.01 Morbid (severe) obesity due to excess calories; Z68.43 Body mass index [BMI] 50.0-59.9, adult; I10 Essential (primary) hypertension; E27.8 Other specified disorders of adrenal gland; E78.2 Mixed hyperlipidemia; K76.0 Fatty (change of) liver, not elsewhere classified
CPT/HCPCS: 99214

== ENCOUNTER → 2025-02-10 13:53 | Outpatient (BNVA) | payer MEDICAID, SELFPAY | PROVIDERS: PCP Internal Medicine; Visit Provider Student in an Organized Health Care Education/Training Program | DX: E11.65 Type 2 diabetes mellitus with hyperglycemia (principal); Z79.4 Long term (current) use of insulin; E66.813 Obesity, class 3; E66.01 Morbid (severe) obesity due to excess calories; Z68.43 Body mass index [BMI] 50.0-59.9, adult; I10 Essential (primary) hypertension; E27.8 Other specified disorders of adrenal gland; E78.2 Mixed hyperlipidemia; K76.0 Fatty (change of) liver, not elsewhere classified | CPT/HCPCS: 82947; 99212 ==

== ENCOUNTER 2025-02-23 11:25 | Outpatient (AMB) | payer MEDICAID, SELFPAY ==
[2025-02-23 12:36] VITALS: BMI 56.4
--- NOTE | 2025-02-23 12:36 | A.OFFVIS_ITS ---
VS Expanded 02/23/25 12:36 02/23/25 12:54 Height 4 ft 10 in 4 ft 10 in Weight 269 lb 13.533 oz 270 lb BMI 56.4 56.4 Intake Visit Reasons: T2DM Allergies No Known Allergies Allergy (Verified 02/10/25 14:00) Nutrition Presentation Details: Pt presents for MNT f/u for T2DM Pt reports doing well, working on incorporating physical activity , reports using a treadmill at home and walks 20 minutes 4 times a week Verbalizes relationship of carbs/fats to BG and reports working on reducing carbs to 45 g at meals food frequency fruits: 0-1/d ve-2 servings/d dairy 2-3/day protein: fish (1x/wk) poultry/beef 3-4 oz at meal time fluids:water 8 oz 4-5 x/d, sometimes juice or soda alcohol/smoking-denies BS Monitoring Most Recent Diabetes Results: Microalb/Creat Ratio, (<30) 42.4 ug/mg cr H 11/24/24 Cholesterol, (<200) 176 mg/dL 11/24/24 HDL Cholesterol, (>40) 43 mg/dL 11/24/24 Triglycerides, (<150) 243 mg/dL H 11/24/24 Creatinine, (0.5-1.4) 0.90 mg/dL 11/24/24 BUN, (9-16) 25 mg/dL H 11/24/24 Sodium, (135-145) 140 mmol/L 11/24/24 Potassium, (3.3-5.1) 3.9 mmol/L 11/24/24 Chloride, (96-108) 102 mmol/L 11/24/24 Carbon Dioxide, (22-29) 29 mmol/L 11/24/24 Calcium, (8.4-10.2) 9.8 mg/dL 11/24/24 AST, (5-31) 27 U/L 02/01/25 ALT, (0-31) 31 U/L 02/01/25 Total Protein, (6.5-8.0) 7.6 g/dL 02/01/25 Albumin, (3.5-5.0) 4.3 g/dL 02/01/25 IND-Umfbywf-Me.Jeor Equation Height: 4 ft 10 in Weight: 270 lb Resting Metabolic Rate: 1732.30 Calculated Activity Level: Sedentary Calories Needed to Maintain Weight: 2078.76 [facility] Medical History (Updated 07/23/24 @ 11:20 by Olga Dolan MD) HLD (hyperlipidemia) Metabolic dysfunction-associated fatty liver disease (MAFLD) HTN (hypertension) Obesity Adrenal nodule Diabetes mellitus Hx of hepatic disease History of obstructive sleep apnea Hx of essential hypertension History of hyperthyroidism Hx of hyperlipidemia Hx of aortic valve disorder Hx of type 2 diabetes mellitus Adrenal incidentaloma Surgical History No pertinent past surgical history Family History Father No problems noted. Mother Thyroid disease Maternal Aunt Thyroid disease Social History Alcohol intake: current Alcohol intake frequency: holidays/special occasions only Patient Tobacco Use Status: Never used Tobacco Assessment & Plan Assessment & Plan (1) Diabetes mellitus: Code(s): E11.9 - Type 2 diabetes mellitus without complications Category: Medical Qualifiers: Diabetes mellitus type: type 2 Diabetes mellitus senior care insulin use: with watermaster use Diabetes mellitus complication status: with hyperglycemia Qualified Code(s): E11.65 - Type 2 diabetes mellitus with hyperglycemia; Z79.4 - custodial (current) use of insulin Plan: Wt: 127 Kg ( 08/03 ), 126 kg(08/31), 127 kg (10/31), 126 kg (12/01), 122 (03/03) Est kcal needs as per MSJ: 2100 -500= 1600 (40% carb, 30% protein/fat) Est fluid needs as per 25-30 ml/d: 3700 Est prot per day as per 1 g/kg bw: 120 Recommend fiber intake : 8-10 g per day and gradually increase to 25-28 g per day for women and 35-38 g for men or as tolerated Recommend sodium intake per day : less than 2300 mg Educated patient on: ( R = reviewed V = verbalizes understanding N/R = needs review N/A = not applicable * Food sources of carbohydrate, adequate serving sizes and its role in various health conditions: R , V * Differences between complex carbohydrates a simple carbohydrates, role of fiber in diet: R * Lean protein sources of foods: R, V * Differences between types of fats and role in diet (mono on saturated fat fatty acids, saturated fatty acids, trans fats): R * Food sources of sodium in salt and healthy modifications for heart health in kidney health: R V R/V * Vitamins and minerals: R V N/R * Healthy plate method concept: R V * Physical activity: Benefits a precaution: R * Hypoglycemia protocol (rule of 15): R V N/R * Dietary prevention of Hyperglycemia: R Patient Instructions: Include foods with fiber gradually increasing to 15-18 g per day - legumes, broccoli, spinach,salads, fruits) and reducing on total carbs to less than 45 g Continue working on reducing on sugars (pastries/candies/ice cream and similar foods include fish at least twice a week Coding Level of Care Code Nutr Indiv Subseq (97789) Diagnoses Type 2 diabetes mellitus with hyperglycemia, with long-term current use of insulin E11.65; Z79.4 Diabetes mellitus type: type 2 Diabetes mellitus watermaster insulin use: with watermaster use Diabetes mellitus complication status: with hyperglycemia Time Spent (min) 30
[2025-02-23 12:54] VITALS: BMI 56.4
--- OUTSIDE RECORDS SUMMARY | 2025-02-23 14:49 | XMS_ITS | Clinical Summary ---
Author Organization [facility] [facility] [employer] Address [address] [facility] [address] [place] [address] Care Team Providers Care Manager Highway Name Role Phone MeraridianajesusTristin william Primary Care Provider [phone] Allergies No known active allergies Social History [...] (or Modifier) ([facility]) 1991 SDTX Screening Reminder: Makenzie hartman for all adults ([facility]) 1991 Tobacco Smoking Cessation: i n Adults excluding Women: Behavioral and Pharmacotherapy Interventions ([facility]) 1991 DTaP/Tdap/Td Vaccines ([facility]) (1 - Tdap) 1992 Cervical Cancer Screenin [...] Cancer: Fecal Imm unochemical Test (FIT) Annually [facility] 2018 Colorectal Cancer: High-sens itivity gFOBT Screening Annually [facility] 2018 Colorectal Cancer: Stool Col oguard Screening every 3 yrs 2018 Colorectal Cancer:CT Colonography Screening every 5 yr s 2018 Breast Cancer: Screening Makenzie ualltarik age 50-74 yrs (or HM Modifier)([facility]) 2023 Pneumococcal Vaccination Scr eening: Patients 50+ yrs of age ([facility]) (1 of 1 - PCV) 2023 Zoster/Shingles Vaccine Seri es Screening: Adults aged 18+ yrs (or HM Modifiers)([facility]) (1 of 2) 2023 Flu Vaccination: Yearly for ages 18mos through 64 years (or Modifier)([facility]) 01/07/2025 COVID-19 Vaccine Screening: Initial Series and Booster Status ([facility]) () 02/07/2025 Medical Devices Not on file Care Teams Manager Highway Relationship Specialty Start Date End Date Tristin Garcia DO PCP - Senior Director Of [employer] 06/23/15
--- OUTSIDE RECORDS SUMMARY | 2025-02-23 14:49 | XMS_ITS | Patient Health Record ---
Author Organization [facility] Address [address] [place] [address] Care Team Providers Care Commissary Helper Name Role Phone Tristni Garcia MD Primary Care Provider Mat Oliveira Unavailable [phone] Allergies No Known Allergies Reason For Referral [...] Problem Type II diabetes mellitus without complication (367551894) Type 2 diabetes mellitus without complication (E11.9) Active confirmed Vital Signs Blood pressure diastolic 60 mm Hg 04/19/2024 Height [id number] in 04/19/2024 Blood pressure systolic 138 mm Hg 04/19/2024 Weight 283 lbs 04/19/2024 BMI 59.14 kg/m2 04/19/2024 Procedures Procedure Date Ordered Date Performed Result Body Sit e 52189-IBNSOFD NAIL, 6 OR MORE 04/19/2024 N/A Encounters Encounter Location Date Provider Diagnosis [facility] [place] [address] [address] 04/19/2024 Mat Orozco Type 2 diabetes mellitus [...] Test Name Order Date Hemoglobin A1c 06/24/2017 [id number] NAIL, 6 OR MORE 10/30/2016 [id number] NAIL, 6 OR MORE 11/04/2018 [id number] NAIL, 6 OR MORE 12/02/2019 [id number] NAIL, 6 OR MORE 12/04/2020 [id number] NAIL, 6 OR MORE 02/27/2022 [id number] NAIL, 6 OR MORE 04/21/2023 [id number] NAIL, 6 OR MORE 04/19/2024 [id number] NAIL, 1-5 04/18/2016 08140-[id number] SKIN LESIONS, OVER 4 09/03/19 12 [id number] NAIL(S) 09/03/2011 Next Appt Details Provider Name:Mat Orozco 04/18/2025 01:00:00 PM, [address] [facility], [address], [place], [address], Medical (General) History Medical History History ICD Code asthma chicken pox Diabetes Hypertension Thyroid disorder Surgical History Surgery Date(Month/Year) cyst removal 1976
--- OUTSIDE RECORDS SUMMARY | 2025-02-23 14:49 | XMS_ITS | Encounter Summary ---
Author Organization [facility] Address [address] [place] [address] Care Team Providers Care Warehouse Examiner Name Role Phone Jose Tristinkari VACA Primary Care Provider [phone] Reason for Visit * Reason Onset Date Comments dme request 02/22/2025 Encounter Details Date Type Department Care Team ([facility] st Contact Info) Description 02/22/[address] [facility] [place] [address] [facility] [address] [place] [address] Geronimo Hamilton MD [address] [facility] [address] [place] [address] Social History Tobacco Use Types Packs/Day Years [...] as of this encounter Progress Notes * Stephie Gaxiola - 02/22/2025 1:16 PM EDT Patient is calling because they spoke to [employer] . They need provider to call them and to gie them a verbal prior auth do to medical necessity and they should be able to get everything straighten out. I did inform patient that usually dme company handles insurance but she stated annamarie said it has to be provider. Please advise [facility] [phone] provider number * Tre Zaidi [place] - 02/22/2025 12:51 PM EDT Unfortunately this can't be done spoke to pt. Pt needs to ask for a form to be filled out for Dr. Hamilton and we will fill out. * Stephie Gaxiola - 02/22/2025 11:10 AM EDT Patient is calling because she called [employer] about cpap supplies and they told her that [facility] needs information from provider in order to cover supplies. She is asking if provider can send the information to [facility] so she can get supplies . Please advise documented in this encounter Plan of Treatment Upcoming Encounters Date Type Department Care Team (Late st Contact Info) Description 04/25/2025 10:40 AM EST Office Visit Gastroenterology - [place] [address] [phone] Kerri Willson NP [address] [place] [id number] 09/16/2025 9:30 AM EDT Office Visit Pulmonolgy - [place] [address] [phone] Geronimo Hamilton MD [address] [address] documented as of this encounter Visit Diagnoses Not on filedocumented in this encounter Care Teams Warehouse Examiner Relationship Specialty Start Date End Date Tristin Garcia DO [address] [place] [phone] PCP - General Internal Medicine 05/08/17 documented as of this encounter
== END 2025-02-23 11:52 | disposition home or self-care (01) ==
LOC: HO.ENCR 11:26
PROVIDERS: PCP Internal Medicine; Visit Provider Dietitian, Registered
DX: E11.65 Type 2 diabetes mellitus with hyperglycemia (principal); Z79.4 Long term (current) use of insulin

== ENCOUNTER → 2025-02-23 11:25 | Outpatient (BNVA) | payer MEDICAID, SELFPAY | PROVIDERS: PCP Internal Medicine; Visit Provider Dietitian, Registered | DX: E11.65 Type 2 diabetes mellitus with hyperglycemia (principal); Z79.4 Long term (current) use of insulin | CPT/HCPCS: 97803 ==

== ENCOUNTER 2025-04-04 09:44 | Outpatient (REF) | payer MEDICAID, SELFPAY ==
--- OUTSIDE RECORDS SUMMARY | 2025-04-04 11:05 | XMS_ITS | Clinical Summary ---
Author Organization [facility] [employer] [facility] [employer] Address [address] [facility] [place] [address] Care Team Providers Care Parliamentary Archivist Name Role Phone MeraridianajesusTristin william Primary Care Provider [phone] Allergies No known active allergies Social History [...] Screening (or Modifier) ([facility]) 1991 SDHI Screening Reminder: aMkenzie hartman for all adults ([facility]) 1991 Tobacco Smoking Cessation: i n Adults excluding Women: Behavioral and Pharmacotherapy Interventions ([facility]) 1991 DTaP/Tdap/Td Vaccines ([facility]) (1 - Tdap) 1992 Cervical Cancer [...] Cancer: Fecal Imm unochemical Test (FIT) Annually [facility] 2018 Colorectal Cancer: High-sens itivity [...] Modifiers)([facility]) (1 of 2) 2023 Flu Vaccination: Yearly for ages 18mos through 64 years (or Modifier)([facility]) 01/07/2025 COVID-19 Vaccine Screening: Initial Series and Booster Status ([facility]) () 02/07/2025 Medical Devices Not on file Care Teams Parliamentary Archivist Relationship Specialty Start Date End Date Tristin Garcia DO PCP - Director Smb Sales 06/23/15
--- OUTSIDE RECORDS SUMMARY | 2025-04-04 11:05 | XMS_ITS | Patient Health Record ---
Author Organization [facility] Address [address] [place] [address] Care Team Providers Care Extruder Tender Name Role Phone Tristin Garcia MD Primary Care Provider Mat Oliveira Unavailable [phone] Allergies No Known Allergies Reason For Referral [...] Problem Type II diabetes mellitus without complication ([id number]) Type 2 diabetes mellitus without complication (E11.9) Active confirmed Vital Signs Blood pressure diastolic 60 mm Hg 04/19/2024 Height [id number] in 04/19/2024 Blood pressure systolic 138 mm Hg 04/19/2024 Weight 283 lbs 04/19/2024 BMI 59.14 kg/m2 04/19/2024 Procedures Procedure Date Ordered Date Performed Result Body Sit e 16665-DUWGHCH NAIL, 6 OR MORE 04/19/2024 N/A Encounters Encounter Location Date Provider Diagnosis [facility] [place] [address] [address] 04/19/2024 Mat Orozco Type 2 diabetes mellitus [...] Test Name Order Date Hemoglobin A1c 06/24/2017 [id number] NAIL, 6 OR MORE 10/30/2016 [id number] NAIL, 6 OR MORE 11/04/2018 [id number] NAIL, 6 OR MORE 12/02/2019 [id number] NAIL, 6 OR MORE 12/04/2020 [id number] NAIL, 6 OR MORE 02/27/2022 [id number] NAIL, 6 OR MORE 04/21/2023 [id number] NAIL, 6 OR MORE 04/19/2024 [id number] NAIL, 1-5 04/18/2016 [id number] SKIN LESIONS, OVER 4 09/03/19 12 [id number] NAIL(S) 09/03/2011 Next Appt Details Provider Name:Mat Orozco 04/18/2025 01:00:00 PM, [address] [facility], [address], [place], [address], Medical (General) History Medical History History ICD Code asthma chicken pox Diabetes Hypertension Thyroid disorder Surgical History Surgery Date(Month/Year) cyst removal 1976
[2025-04-04 11:19] LABS: Cholesterol 104 mg/dL (<200); HDL Cholesterol 38 mg/dL (>40); Triglycerides 162 mg/dL (<150)
== END 2025-04-04 09:45 | disposition home or self-care (01) ==
LOC: HO.LAB 09:44
PROVIDERS: PCP Internal Medicine; Visit Provider Student in an Organized Health Care Education/Training Program
DX: E11.65 Type 2 diabetes mellitus with hyperglycemia (principal); E78.2 Mixed hyperlipidemia; Z79.4 Long term (current) use of insulin
CPT/HCPCS: 36415; 80061

== ENCOUNTER 2025-04-14 12:50 | Outpatient (AMB) | payer MEDICAID, SELFPAY ==
--- NOTE | 2025-04-14 12:53 | MHC.OFFVIS ---
Vital Signs 04/14/25 12:55 Height 4 ft 10 in Weight 279 lb 15.793 oz BMI 58.5 BP 106/60 Blood Pressure Location Rt brachial Position Sitting Pulse 64 Pulse Source Pulse Oximeter Pulse Oximetry (%) 97 Oxygen Delivery Method Room Air Intake Visit Reasons: T2DM Intake Note: Patient presents today for a follow-up on Type 2 Diabetes Mellitus Adrenal Nodule: Last Diabetic [facility]: [facility] Patient had Cataract [facility] Last Podiatry Visit: 04/2024 Most Recent HgA1C: 7.5%, 04/14/2025 Random Glucose: 125 mg/dL Snow Groomer Required: No Accompanied by: Self / Same As Patient Allergies No Known Allergies Allergy (Verified 04/14/25 12:54) HPI Comments Details: 50-year-old female here today for follow up of type 2 diabetes mellitus. She also has a right adrenal incidentaloma. Medical history: HTN, Hypothyroidism Obesity, JOHANN on CPAP Here to day with mother Stephany Diagnosed summer 2023 Current meds Lantus 18 units in AM -this increases to 22 units for 5 days post steroid joint injections Jardiance 10 mg daily Trulicity 3 mg weekly Friday -we will increase this to 4.5 today Prior medications metformin-GI intolerance Victoza started summer 2023, then increased it up to 1.8 mg daily, says she has been out of it since May 2024 We stopped this to switch her to OZempic / Mounjaro, as she failed Victoza since when she was on it for the past 5-6 monhts her weight had plateued and A1c > 10 % , however insurance denied this and then we put her on Trulicity 0.75 mg weekly in July 2024 Got cortisone shots gets these every 3-4 months next due in June instructed to increase insulin by 4 units for 5 days after injection Freestyle Juancarlos 3 downloaded Time CGM active 96% GMI 6.9% Average glucose 152mg/dL Target range 78% High 18% Very high 4% Low 0% Interpretation: Today POC A1c 7.5% from 7.5% from 11% up from 10.1% based on PCP notes from May 2024 Weight - fluctuates. Currently up 10 pounds Exercise: no exercise, no fixed program but stays active at home Diet: 3 meals a day Breakfast : between 8 or 9 usually eggs with banana or yogurt Lunch 1 pm : ham and cheese sandwich, Dinner between 5 and 6 30 pm: pasta with chicken or steak, spaghetti and meatballs No snacks Seldom has desserts: sugar free 1 gm snack bar Soda only once a week Saw commercial coordinator August 2024 Last CDE 01/31 Last Diabetic eye exam-just completed bilateral cataract surgeries. Last Podiatry exam was on: 05/02 No history of neuropathy, retinopathy or kidney disease No history of AR or stroke Family history Grand uncle type 2 DM LDL 86 mg/dl 08/03, less than goal LDL 90 mg/dl , LDL again 84 10/31 on HCTZ and losartan for HTN , losartan increased to 50 mg May 2024 urine microalbumin/ cr 42 10/31 Right adrenal gland nodule-not addressed 04/14 CT scan done for evaluation of liver enzyme elevation in January 2024 showed a right-sided enhancing lesion in the adrenal gland measuring 1.4 cm. No other description given. I do not have these images. She thinks she had a dedicated adrenal MRI May 19 as well. Symptoms: Reports weight loss on the Victoza , lost close to 20 lbs since September 2023, used to be 300 lbs No , hirsutism,severe acne ,headaches denies any hx of proximal muscle weakness, easy bruisability ,no abdominal striae,no headache,diaphoresis -HTN diagnosed in her 40s -Denies any polyuria or polydipsia,has type 2 DM uncontrolled managed by PCP a1c 10.1 % from notes from PCP from 2023 , they are titrating up Victoza, no abdominal pain ,skin infection or hyperpigmentation. 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 No hx of depression or mood changes - no episodic palpitaions, pallor, abdominal pain, diaphoresis . MRI adrenal glands May 19 2024 obtained from [facility] showed right sided 1 cm adrenal nodule without signal drop in out of phase Labs 06/04/24 showed normal mahnaz, renin, MN and NMN Dex suppression done 06/08/24 also normal Interval history 02/10/2025 CT adrenal December 2024 showed right adrenal gland nodule measuring 1.6 X1.2 cm with absolute washout of 56%. This is indeterminate, adenomas usually have washout greater than 60%. However nodule more less stable compared to previous size of 1.4 cm. ROS CONSTITUTIONAL: Denies weight loss, fever and chills. HEENT: Denies changes in vision and hearing. RESPIRATORY: Denies SOB and cough. CV: Denies palpitations and CP GI: Denies abdominal pain, nausea, vomiting and diarrhea. : Denies dysuria and urinary frequency. MSK: Denies new myalgia and joint pain. SKIN: Denies rash and pruritus. NEUROLOGICAL: Denies headache PSYCHIATRIC: Denies recent changes in mood. PHYSICAL EXAM: GENERAL: Alert and oriented x 3. NAD EYES: EOMI. Anicteric. HENT: Moist mucous membranes. No scleral icterus. No cervical lymphadenopathy. LUNGS: Clear to auscultation bilaterally. CARDIOVASCULAR: Regular rate and rhythm. No murmur. No JVD. ABDOMEN: Soft, non-tender +bs EXTREMITIES: No edema. Non-tender. SKIN: No rashes or lesions. Warm. NEUROLOGIC: No focal neurological deficits. CN II-XII grossly intact PSYCHIATRIC: Cooperative. Appropriate mood and affect Laboratory Tests 07/06/24 07/08/24 11:07 09:16 Plt Count 266 Sodium 136 Potassium 4.6 Creatinine 0.77 Estimated GFR > 60 Random Glucose 273 H Hgb A1c (Clinic) 11.0 H AST 49 H ALT 45 H Albumin 4.0 Triglycerides 211 H Cholesterol 161 LDL Cholesterol, Calc 84 HDL Cholesterol 35 L TSH 1.38 PFSH Medical History HLD (hyperlipidemia) Metabolic dysfunction-associated fatty liver disease (MAFLD) HTN (hypertension) Obesity Adrenal nodule Diabetes mellitus Hx of hepatic disease History of obstructive sleep apnea Hx of essential hypertension History of hyperthyroidism Hx of hyperlipidemia Hx of aortic valve disorder Hx of type 2 diabetes mellitus Adrenal incidentaloma Surgical History (Updated 04/14/25 @ 13:07 by ARIELLA Mosley) History of cataract surgery Family History Father No problems noted. Mother Thyroid disease Maternal Aunt Thyroid disease Social History Alcohol intake: current Alcohol intake frequency: holidays/special occasions only Patient Tobacco Use Status: Never used Tobacco Physical Exam Vital Signs: Last Vital Signs Pulse 64 04/14/25 12:55 BP 106/60 04/14/25 12:55 Pulse Ox 97 04/14/25 12:55 Oxygen Delivery Method Room Air 04/14/25 12:55 BMI result Body Mass Index 58.5 Results AMB Hemoglobin A1c AMB Hemoglobin A1c 7.5 % Last Edit by ARIELLA Mosley on 04/14/25 13:08 Results Reviewed Results Reviewed: Laboratory Last Values Glucose (Clinic) 125 mg/dL (60-115) H 04/14/25 12:59 Assessment & Plan Assessment & Plan (1) Diabetes mellitus: Code(s): E11.9 - Type 2 diabetes mellitus without complications Category: Medical Qualifiers: Diabetes mellitus type: type 2 Diabetes mellitus retirement insulin use: with salvage determiner use Diabetes mellitus complication status: with hyperglycemia Qualified Code(s): E11.65 - Type 2 diabetes mellitus with hyperglycemia; Z79.4 - petroleum terminal plant operator (current) use of insulin Plan Diabetes Still slight suboptimally controlled. Weight fluctuates, difficulty losing and sustaining Increase trulicity to 3mg Continue current insulin dose except 5 days post steroid injections Treat hypoglycemia by rules of 15s Return in 3 months or sooner as needed Orders: Orders AMB Hemoglobin A1c Today E11.65 - Type 2 diabetes mellitus with hyperglycemia, Z79.4 - petroleum terminal plant operator (current) use of insulin Medications: New dulaglutide (Trulicity) 4.5 mg (0.5 mL) subcut QWEEK 6 mL 3RF Discontinued dulaglutide (Trulicity) Discontinued Reason: Doctor's Order 3 mg (0.5 mL) subcut QWEEK 2 mL 4RF Coding Level of Care Code Est Pt Level 4 (09783) Diagnoses Type 2 diabetes mellitus with hyperglycemia, with long-term current use of insulin E11.65; Z79.4 Diabetes mellitus type: type 2 Diabetes mellitus salvage determiner insulin use: with salvage determiner use Diabetes mellitus complication status: with hyperglycemia
[2025-04-14 12:55] VITALS: BP 106/60; PULSE 64; O2SAT 97; BMI 58.5
[2025-04-14 13:02] LABS: Glucose, Whole Blood 125 mg/dL (60-115)
--- OUTSIDE RECORDS SUMMARY | 2025-04-14 15:50 | XMS_ITS | Patient Health Record ---
Author Organization [facility] Address [address] [place] [address] Care Team Providers Care Senior Game Designer Name Role Phone Tristin Garcia MD Primary Care Provider Mat Oliveira Unavailable [phone] Allergies No Known Allergies Reason For Referral [...] Problem Type II diabetes mellitus without complication ([id number]) Type 2 diabetes mellitus without complication (E11.9) Active confirmed Vital Signs Blood pressure diastolic 60 mm Hg 04/19/2024 Height 9vd29it in 04/19/2024 Blood pressure systolic 138 mm Hg 04/19/2024 Weight 283 lbs 04/19/2024 BMI 59.14 kg/m2 04/19/2024 Procedures Procedure Date Ordered Date Performed Result Body Sit e 09211-VSXJFIE NAIL, 6 OR MORE 04/19/2024 N/A Encounters Encounter Location Date Provider Diagnosis [facility] [place] [address] [address] 04/19/2024 Mat Orozco Type 2 diabetes mellitus [...] Test Name Order Date Hemoglobin A1c 06/24/2017 [id number] NAIL, 6 OR MORE 10/30/2016 [id number] NAIL, 6 OR MORE 11/04/2018 [id number] NAIL, 6 OR MORE 12/02/2019 [id number] NAIL, 6 OR MORE 12/04/2020 [id number] NAIL, 6 OR MORE 02/27/2022 [id number] NAIL, 6 OR MORE 04/21/2023 [id number] NAIL, 6 OR MORE 04/19/2024 [id number] NAIL, 1-5 04/18/2016 [id number] SKIN LESIONS, OVER 4 09/03/19 12 [id number] NAIL(S) 09/03/2011 Next Appt Details Provider Name:Mat Orozco 04/18/2025 01:00:00 PM, [address] [facility], [address], [place], [address], Medical (General) History Medical History History ICD Code asthma chicken pox Diabetes Hypertension Thyroid disorder Surgical History Surgery Date(Month/Year) cyst removal 1976
--- OUTSIDE RECORDS SUMMARY | 2025-04-14 15:50 | XMS_ITS | Clinical Summary ---
Author Organization [address] Address [address] [place] [phone] Phone Care Team Providers Care Shovel Operator Name Role Phone MerariTristin connolly Primary Care Provider [phone] Allergies No known active allergies Medications albuterol [...] Encounters Date Type Department Care Team Description 02/22/2025 Telephone Pulmonology - [address] [place] [address] Geronimo Hamilton MD from Last 3 Months Immunizations Immunization Administration Dates Next Due Influenza Quadravalent, MDCK [...] 10:40 AM EST Office Visit Gastroenterology - [address] [facility] [address] [place] [phone] Kerri Willson NP [address] [facility] [address] [place] [address] 09/16/2025 9:30 AM EDT Office Visit Pulmonology - [address] [place] [address] Geronimo Hamilton MD [address] [place] [phone] Health Maintenance Due Date Last Done Comments Breast Cancer Screening 1973 Colorectal Cancer Screening: Colonoscopy 1973 Diabetes: Annual Foot Exam 1983 Diabetes: Annual Retina Eye Exam 1983 DTaP,Tdap,and Td Vaccines (1 - Tdap) 1992 Hepatitis B Vaccines (1 of 3 - 19+ 3-dose series) 1992 Pneumococcal Vaccine: 50+ Years (1 of 2 - PCV) 1992 Cervical Cancer Screening: Pap Smear 1994 HIV Screening 05/07/2022 Social Influencers of Health Screening 05/07/2022 RSV Immunization Adult Patients (1 - Risk 50-74 years 1-dose series) 2023 Zoster Vaccines (1 of 2) 2023 Depression Screening 06/09/2024 Diabetes: Blood Sugar Control Test (HGBA1C) 03/08/2025 08/25/2024, 04/19/2024 Diabetes: Annual Urine Albumin-Creatinine Ratio (uACR) 08/25/2025 08/25/2024 Diabetes: Annual GFR (Glomerular Filtration Rate) 08/25/2025 08/25/2024, 04/27/2024, 04/19/2024 Hypertension/CHF/CAD Annual BMP Blood Test 08/25/2025 08/25/2024, 04/27/2024, 04/19/2024 Cholesterol Screening (Lipid Panel) 03/08/2030 03/08/2025, 08/25/2024, 04/19/2024 COVID-19 Vaccine Completed 04/16/2024, , 04/07/2021, Additional history exists Hepatitis C Screening Completed 04/19/2024 Influenza Vaccine Completed 02/18/2025, , 02/21/2023, Additional history exists HIB Vaccines Aged Out No longer eligi [...] Procedure Name Priority Date/Time Associated Diagnosis Comments RUBELLA ANTIBODY IGG Routine 03/08/2025 11:22 AM EDT Hypothyroid HTN (hypertension) DM (diabetes mellitus) ([facility] V24, [facility] V28) Obesity MUMPS ANTIBODY IGG Routine 03/08/2025 11 :22 AM EDT Hypothyroid HTN (hypertension) DM (diabetes mellitus) ([facility] V24, [facility] V28) Obesity RUBEOLA ANTIBODY IGG Routine 03/08/2025 11:22 AM EDT Hypothyroid HTN (hypertension) DM (diabetes mellitus) ([facility] V24, [facility] V28) Obesity THYROID STIMULATING HORMONE Routine 03/08/2025 11:22 AM EDT Hypothyroid HTN (hypertension) DM (diabetes mellitus) ([facility] V24, [facility] V28) Obesity LIPID PANEL WITH REFLEX TO DIRECT LDL Routine 03/08/2025 11:22 AM EDT Hypothyroid HTN (hypertension) DM (diabetes mellitus) ([facility] V24, [facility] V28) Obesity MICROALBUMIN CREATININE URINE RATIO Routine 08/25/2024 11:31 AM EDT Laboratory tests ordered as part of a complete physical exam (CPE) DM (diabetes mellitus) ([facility] V24, [facility] V28) BMI 45.0-49.9, adult ([facility] V24, [facility] V28) HTN (hypertension) HLD (hyperlipidemia) JOHANN (obstructive sleep apnea) COMPREHENSIVE METABOLIC PANEL Routine 08/25/2024 11:31 AM EDT Laboratory tests ordered as part of a complete physical exam (CPE) DM (diabetes mellitus) ([facility] V24, [facility] V28) BMI 45.0-49.9, adult ([facility] V24, [facility] V28) HTN (hypertension) HLD (hyperlipidemia) JOHANN (obstructive sleep apnea) HEMOGLOBIN A1C Routine 08/25/2024 11:31 AM EDT Laboratory tests ordered as part of a complete physical exam (CPE) DM (diabetes mellitus) ([facility] V24, [facility] V28) BMI 45.0-49.9, adult ([facility] V24, [facility] V28) HTN (hypertension) HLD (hyperlipidemia) JOHANN (obstructive sleep apnea) HEPATITIS C ANTIBODY Routine 04/19/2024 11:08 AM EST Hypothyroid HTN (hypertension) DM (diabetes mellitus) ([facility] V24, [facility] V28) Elevated LFTs from Last 3 Months or Most Recently Relevant to Health Maintenance Results * (ABNORMAL) Lipid panel with reflex to direct LDL (03/08/2025 11:22 AM EDT) Cholesterol 97 0 - 200 mg/dL LAB CHEMISTRY METHOD 03/08/2025 3:38 PM EDT [facility] Triglycerides 158(H) 0 - 150 mg/dL LAB CHEMISTRY METHOD 03/08/2025 3:38 PM EDT [facility] HDL 46 >=40 mg/dL LAB CHEMISTRY METHOD 03/08/2025 3:38 PM EDT [facility] LDL Calculated 19 0 - 100 mg/dL LAB CHEMISTRY METHOD 03/08/2025 3:38 PM EDT [facility] Comment:Estimated LDL Calcul ated using equation: Total cholesterol - HDL cholesterol - (Triglycerides/5) VLDL Cholesterol Patrick 31.6 mg/dL LAB CHEMISTRY METHOD 03/08/2025 3:38 PM EDT [facility] Non HDL Chol. (LDL+VLDL) 51 <145 mg/dL LAB CHEMISTRY METHOD 03/08/2025 3:38 PM EDT [facility] Chol/HDL Ratio 2.1 0.0 - 4.4 LAB CHEMISTRY METHOD 03/08/2025 3:38 PM EDT [facility] Blood Venous blood specimen / Unknown Venipuncture / Unknown 03/08/2025 11:22 AM EDT 03/08/2025 11:22 AM EDT [facility] BLOOD ORDERABLES Final Resul t Performing Organization Address [facility] de Phone Number [facility] [address] [place] [address], * Rubeola antibody IgG (03/08/2025 11:22 AM EDT) Rubeola IgG Positive Positive LAB CHEMISTRY METHOD 03/08/2025 3:36 PM EDT [facility] Rubeola IgG Antibody, measured 24.50 >=16.50 AU/mL LAB CHEMISTRY METHOD 03/08/2025 3:36 PM EDT [facility] Blood Venous blood specimen / Unknown Venipuncture / Unknown 03/08/2025 11:22 AM EDT 03/08/2025 11:22 AM EDT Narrative [facility] - 03/08/2025 3:36 PM EDT Interpretation >=16.5 AU/ml is considered to be consistent with Immunity Abdi[facility] LAB BLOOD ORDERABLES Final Resul t Performing Organization Address [facility]/ZIP Co de Phone Number [facility] [address] [place] [address], * (ABNORMAL) Rubella antibody IgG (03/08/2025 11:22 AM EDT) Pathologist [facility] Rubella IgG Quant 1.8(L) >=10.0 I Unit/mL LAB CHEMISTRY METHOD 03/08/2025 4:57 PM EDT [facility] Rubella IgG Antibody Interp Negative( A) Positive LAB CHEMISTRY METHOD 03/08/2025 4:57 PM EDT [facility] Blood Venous blood specimen / Unknown Venipuncture / Unknown 03/08/2025 11:22 AM EDT 03/08/2025 11:22 AM EDT [facility] LAB BLOOD ORDERABLES Final Resul t Performing Organization Address [facility] de Phone Number [facility] [address] [place] [address], * (ABNORMAL) Mumps antibody IgG (03/08/2025 11:22 AM EDT) Pathologist [facility] Mumps IgG Negative( A) Positive LAB CHEMISTRY METHOD 03/08/2025 3:36 PM EDT [facility] Mumps IgG Antibody, measured <5.0(L) >=11.0 AU/mL LAB CHEMISTRY METHOD 03/08/2025 3:36 PM EDT [facility] Blood Venous blood specimen / Unknown Venipuncture / Unknown 03/08/2025 11:22 AM EDT 03/08/2025 11:22 AM EDT Narrative [facility] - 03/08/2025 3:36 PM EDT >=11 AU/mL is considered to be consistent with Immunity. [facility] LAB BLOOD ORDERABLES Final Resul t Performing Organization Address [facility]/ZIP Co de Phone Number [facility] [address] [place] [address], * Thyroid stimulating hormone (03/08/2025 11:22 AM EDT) TSH 0.86 0.40 - 4.00 mcIU/mL LAB CHEMISTRY METHOD 03/08/2025 5:57 PM EDT [facility] Blood Venous blood specimen / Unknown Venipuncture / Unknown 03/08/2025 11:22 AM EDT 03/08/2025 11:22 AM EDT [facility] LAB BLOOD ORDERABLES Final Resul t Performing Organization Address [facility]/ZIP Co de Phone Number [facility] [address] [place] [address], [place] [phone] * (ABNORMAL) Microalbumin creatinine urine ratio (08/25/2024 [...] 11:31 AM EDT 08/25/2024 11:31 AM EDT [facility] LAB URINE ORDERABLES Final Resul t Performing Organization Address [facility]/ZIP Co de Phone Number [facility] [address] [place] [address], [place] [phone] * (ABNORMAL) Hemoglobin A1c (08/25/2024 11:31 AM EDT) Hemoglobin A1C 10.2(H) <6.5 % LAB CHEMISTRY METHOD 08/25/2024 9:51 PM T [facility] Mean Bld Glu Estim. 246 mg/dL LAB CHEMISTRY METHOD 08/25/2024 9:51 PM [facility] Blood Venous blood specimen / Unknown Venipuncture / Unknown 08/25/2024 11:31 AM EDT 08/25/2024 11:31 AM EDT us Abdias [facility] LAB BLOOD ORDERABLES Final Resul t [facility] [address] [place] [address], * (ABNORMAL) Comprehensive metabolic panel (08/25/2024 11:31 AM EDT) Sodium 138 133 - 145 mmol/L LAB CHEMISTRY METHOD 08/25/2024 4:04 PM [facility] Potassium 5.0 3.5 - 5.5 mmol/L LAB CHEMISTRY METHOD 08/25/2024 4:04 PM [facility] Chloride 104 96 - 110 mmol/L LAB CHEMISTRY METHOD 08/25/2024 4:04 PM [facility] CO2 27 21 - 32 mmol/L LAB CHEMISTRY METHOD 08/25/2024 4:04 PM [facility] Anion Gap 7 3 - 11 LAB CHEMISTRY METHOD 08/25/2024 4:04 PM [facility] Glucose 176(H) 70 - 100 mg/dL LAB CHEMISTRY METHOD 08/25/2024 4:04 PM [facility] BUN 43(H) 5 - 25 mg/dL LAB CHEMISTRY METHOD 08/25/2024 4:04 PM [facility] Comment:Results verified by repeat testing Creatinine 1.51(H) 0.50 - 1.10 mg/dL LAB CHEMISTRY METHOD 08/25/2024 4:04 PM [facility] eGFR 42(L) >=60 mL/min/1. 73m2 LAB CHEMISTRY METHOD 08/25/2024 4:04 PM [facility] Comment:Calculation based on the Chronic Kidney Disease Epidemiology Collaboration (CKD-EPI) equation refit without adjustment for race. BUN/Creatinine Ratio 28.5 LAB CHEMISTRY METHOD 08/25/2024 4:04 PM [facility] Calcium 9.4 8.5 - 10.5 mg/dL LAB CHEMISTRY METHOD 08/25/2024 4:04 PM [facility] AST (SGOT) 22 10 - 42 unit/L LAB CHEMISTRY METHOD 08/25/2024 4:04 PM [facility] ALT (SGPT) 35 10 - 60 unit/L LAB CHEMISTRY METHOD 08/25/2024 4:04 PM [facility] Alkaline Phosphatase 96 42 - 121 unit/L LAB CHEMISTRY METHOD 08/25/2024 4:04 PM [facility] Total Protein 7.1 6.0 - 8.0 g/dL LAB CHEMISTRY METHOD 08/25/2024 4:04 PM [facility] Albumin 3.6 3.2 - 5.0 g/dL LAB CHEMISTRY METHOD 08/25/2024 4:04 PM [facility] Total Bilirubin 0.4 0.0 - 1.4 mg/dL LAB CHEMISTRY METHOD 08/25/2024 4:04 PM [facility] Blood Venous blood specimen / Unknown Venipuncture / Unknown 08/25/2024 11:31 AM EDT 08/25/2024 11:31 AM EDT us Abdias [facility] LAB BLOOD ORDERABLES Final Resul t [facility] [address] [place] [address], [place] [phone] * Hepatitis C antibody (04/19/2024 11:08 AM EST) Hepatitis C Antibody Negative Negative LAB CHEMISTRY METHOD 04/19/2024 5:08 PM EST [facility] Blood Venous blood specimen / Unknown Venipuncture / Unknown 04/19/2024 11:08 AM EST 04/19/2024 11:08 AM EST us Abdias [facility] LAB BLOOD ORDERABLES Final Resul t [facility] [address] [place] [address], from Last 3 Months or Most Recently Relevant to Health Maintenance Insurance MEDICAID - [place] Care Teams Shovel Operator Relationship Specialty Start Date End Date Tristin Garcia DO [address] [place] [phone] PCP - General Internal Medicine 05/08/17
== END 2025-04-14 13:22 | disposition home or self-care (01) ==
LOC: HO.ENCR 12:51
PROVIDERS: PCP Internal Medicine; Visit Provider Internal Medicine
DX: E11.65 Type 2 diabetes mellitus with hyperglycemia (principal); Z79.4 Long term (current) use of insulin

== ENCOUNTER → 2025-04-14 12:50 | Outpatient (BNVA) | payer MEDICAID, SELFPAY | PROVIDERS: PCP Internal Medicine; Visit Provider Internal Medicine | DX: E11.65 Type 2 diabetes mellitus with hyperglycemia (principal); Z79.4 Long term (current) use of insulin | CPT/HCPCS: 82947; 83036; 99212 ==

== ENCOUNTER 2025-05-23 10:17 | Outpatient (AMB) | payer MEDICARE, MEDICAID, SELFPAY ==
[2025-05-23 10:33] VITALS: BMI 57.9
--- NOTE | 2025-05-23 10:33 | A.OFFVIS_ITS ---
VS Expanded 05/23/25 10:33 Height 4 ft 10 in Weight 277 lb 4 oz BMI 57.9 Intake Visit Reasons: T2DM Allergies No Known Allergies Allergy (Verified 04/14/25 12:54) Nutrition Presentation Details: Pt presents for MNT f/u for t2DM, obesity Pt reports keeping sedentary Has 3 meals per day, working on reducing carbohydrates to less than 45 g. Patient admits to challenges with reducing to 45 g most of the time may have about 60 per meal, 3 meals a day Patient reports working on reducing on carbs as snacks and tries to have less than 20 g Reports sometimes it is challenging to 2 baked goods available in the house. We will discuss options for lower sugar snacks or recipes BS Monitoring Most Recent Diabetes Results: Cholesterol, (<200) 104 mg/dL 04/04/25 HDL Cholesterol, (>40) 38 mg/dL L 04/04/25 Triglycerides, (<150) 162 mg/dL H 04/04/25 AST, (5-31) 27 U/L 02/01/25 ALT, (0-31) 31 U/L 02/01/25 Total Protein, (6.5-8.0) 7.6 g/dL 02/01/25 Albumin, (3.5-5.0) 4.3 g/dL 02/01/25 [facility] Medical History HLD (hyperlipidemia) Metabolic dysfunction-associated fatty liver disease (MAFLD) HTN (hypertension) Obesity Adrenal nodule Diabetes mellitus Hx of hepatic disease History of obstructive sleep apnea Hx of essential hypertension History of hyperthyroidism Hx of hyperlipidemia Hx of aortic valve disorder Hx of type 2 diabetes mellitus Adrenal incidentaloma Surgical History (Updated 04/14/25 @ 13:07 by ARIELLA Mosley) History of cataract surgery Family History Father No problems noted. Mother Thyroid disease Maternal Aunt Thyroid disease Social History Alcohol intake: current Alcohol intake frequency: holidays/special occasions only Patient Tobacco Use Status: Never used Tobacco Assessment & Plan Assessment & Plan (1) Diabetes mellitus: Code(s): E11.9 - Type 2 diabetes mellitus without complications Category: Medical Qualifiers: Diabetes mellitus type: type 2 Diabetes mellitus shelter insulin use: with shelter use Diabetes mellitus complication status: with hyperglycemia Qualified Code(s): E11.65 - Type 2 diabetes mellitus with hyperglycemia; Z79.4 - half-way (current) use of insulin Plan: Wt: 127 Kg ( 08/03 ), 126 kg(08/31), 127 kg (10/31), 126 kg (12/01), 122 (03/03), 125 (06/02) Est kcal needs as per MSJ: 2100 -500= 1600 (40% carb, 30% protein/fat) Est fluid needs as per 25-30 ml/d: 3700 Est prot per day as per 1 g/kg bw: 120 Recommend fiber intake : 8-10 g per day and gradually increase to 25-28 g per day for women and 35-38 g for men or as tolerated Recommend sodium intake per day : less than 2300 mg Educated patient on: ( R = reviewed V = verbalizes understanding N/R = needs review N/A = not applicable * Food sources of carbohydrate, adequate serving sizes and its role in various health conditions: R , V * Differences between complex carbohydrates a simple carbohydrates, role of fiber in diet: R * Lean protein sources of foods: R, V * Differences between types of fats and role in diet (mono on saturated fat fatty acids, saturated fatty acids, trans fats): R * Food sources of sodium in salt and healthy modifications for heart health in kidney health: R V R/V * Vitamins and minerals: R V N/R * Healthy plate method concept: R V * Physical activity: Benefits a precaution: R * Hypoglycemia protocol (rule of 15): R V N/R * Dietary prevention of Hyperglycemia: R Patient Instructions: Jc's slow watching total carbohydrates, work on reducing carbs to 45 g per meal (3 meals per day, and choose snacks with less than 15 g of carbs (no more than 3 snacks per day) see options for low sugar snacks Coding Level of Care Code Nutr Indiv Subseq (41100) Diagnoses Type 2 diabetes mellitus with hyperglycemia, with long-term current use of insulin E11.65; Z79.4 Diabetes mellitus type: type 2 Diabetes mellitus shelter insulin use: with shelter use Diabetes mellitus complication status: with hyperglycemia Time Spent (min) 30
== END 2025-05-23 10:51 | disposition home or self-care (01) ==
LOC: HO.ENCR 10:18
PROVIDERS: PCP Internal Medicine; Visit Provider Dietitian, Registered
DX: E11.65 Type 2 diabetes mellitus with hyperglycemia (principal); Z79.4 Long term (current) use of insulin

== ENCOUNTER → 2025-05-23 10:17 | Outpatient (BNVA) | payer MEDICARE, MEDICAID, SELFPAY | PROVIDERS: PCP Internal Medicine; Visit Provider Dietitian, Registered | DX: E11.65 Type 2 diabetes mellitus with hyperglycemia (principal); Z79.4 Long term (current) use of insulin | CPT/HCPCS: 97803 ==

== ENCOUNTER 2025-05-26 09:20 | Outpatient (AMB) | payer MEDICARE, MEDICAID, SELFPAY ==
--- NOTE | 2025-05-26 09:35 | MHC.AMDMED ---
Intake Intake Visit Reasons: 30 min Grocery Checker Required: No Accompanied by: Self / Same As Patient Allergies No Known Allergies Allergy (Verified 04/14/25 12:54) HPI Comprehensive Diabetes Asmnt Most Recent Diabetes Results: Microalb/Creat Ratio, (<30) 42.4 ug/mg cr H 11/24/24 Cholesterol, (<200) 104 mg/dL 04/04/25 HDL Cholesterol, (>40) 38 mg/dL L 04/04/25 Triglycerides, (<150) 162 mg/dL H 04/04/25 Creatinine, (0.5-1.4) 0.90 mg/dL 11/24/24 BUN, (9-16) 25 mg/dL H 11/24/24 Sodium, (135-145) 140 mmol/L 11/24/24 Potassium, (3.3-5.1) 3.9 mmol/L 11/24/24 Chloride, (96-108) 102 mmol/L 11/24/24 Carbon Dioxide, (22-29) 29 mmol/L 11/24/24 Calcium, (8.4-10.2) 9.8 mg/dL 11/24/24 AST, (5-31) 27 U/L 02/01/25 ALT, (0-31) 31 U/L 02/01/25 Total Protein, (6.5-8.0) 7.6 g/dL 02/01/25 Albumin, (3.5-5.0) 4.3 g/dL 02/01/25 [facility] History HLD (hyperlipidemia) Metabolic dysfunction-associated fatty liver disease (MAFLD) HTN (hypertension) Obesity Adrenal nodule Diabetes mellitus Hx of hepatic disease History of obstructive sleep apnea Hx of essential hypertension History of hyperthyroidism Hx of hyperlipidemia Hx of aortic valve disorder Hx of type 2 diabetes mellitus Adrenal incidentaloma Surgical History (Updated 04/14/25 @ 13:07 by ARIELLA Mosley) History of cataract surgery Family History Father No problems noted. Mother Thyroid disease Maternal Aunt Thyroid disease Social History Alcohol intake: current Alcohol intake frequency: holidays/special occasions only Patient Tobacco Use Status: Never used Tobacco Assessment & Plan Assessment & Plan (1) Diabetes mellitus: Code(s): E11.9 - Type 2 diabetes mellitus without complications Qualifiers: Diabetes mellitus type: type 2 Diabetes mellitus intermediate teacher insulin use: with intermediate teacher use Diabetes mellitus complication status: with hyperglycemia Qualified Code(s): E11.65 - Type 2 diabetes mellitus with hyperglycemia; Z79.4 - intermediate teacher (current) use of insulin Plan: Personal Continuous Glucose Monitor: Patients CGM information reviewed, Pt uses Juancarlos 3+ sensor with reader, patient plans to resume Juancarlos 3+ with cell phone ni at next sensor change Patient's last A1c April 2025 7.5% Patient reports she had recent colonoscopy where she had to hold Trulicity and Jardiance. She will be resuming both medications this week. Patient has reduce carbohydrate portion at breakfast, still has postprandial hyperglycemia in the afternoon and evenings. At today's visit we discussed the following: Exercise Effect of exercise on blood sugar Start slowly and gradually increase pace/duration over time Goal amount of exercise Checking blood glucose/have a source of carbs with you patient agreed to start walking on her treadmill 10 minutes a day, working up to 20 minutes a day by next visit Reviewed how to interpret trend arrows Reminded patient that to check finger sticks if symptoms do not match sensor reading. Discussed lag time between finger stick and sensor data.? Patient able to insert sensor independently at home without issue.? Portions of this note were created using voice recognition software, please excuse any words or phrases that may have been misinterpreted. Coding Level of Care Code Est Pt Level 1 (42236) Diagnoses Type 2 diabetes mellitus with hyperglycemia, with long-term current use of insulin E11.65; Z79.4 Diabetes mellitus type: type 2 Diabetes mellitus intermediate teacher insulin use: with intermediate teacher use Diabetes mellitus complication status: with hyperglycemia
--- OUTSIDE RECORDS SUMMARY | 2025-05-26 10:43 | XMS_ITS | Clinical Summary ---
Author Organization [address] [facility] Address [address] [place] [phone] Phone Care Team Providers Care Bight Maker Name Role Phone MeraridianajesusJennifer williamkari VACA Primary Care Provider Allergies No known active [...] skin 1 (one) time each day. Active atorvastatin (LIPITOR) 20 mg tablet Take 1 tablet (20 mg total) by mouth at bedtime. at bedtime. 2025 Active Lantus Solostar U-100 Insulin 100 unit/mL (3 mL) injection pen Inject 18 Units under the skin 1 (one) time each day in the morning. 03/19/2025 Active Jardiance 10 mg tablet Take 1 tablet (10 mg total) by mouth 1 (one) time each day. 04/04/2025 Active losartan (COZAAR) 50 mg tablet Take 1 tablet (50 mg total) by mouth 1 (one) time each day. 02/17/2025 Active dulaglutide (Trulicity) 4.5 mg/0.5 mL pen injector injection Inject 0.5 mL (4.5 mg total) under the skin every 7 (seven) days. Active Active Problems Problem Noted Date Diagnosed Date Asthma 02/04/2017 Obstructive sleep apnea syndrome 02/04/2017 Hypertension 11/28/2016 Hypothyroidism 11/28/2016 Encounters Date Type Department Care Team Description 04/25/2025 10:40 AM EST Office Visit Gastroenterology - 299 [facility] 299 [facility] [address] [place] [address] Kerri Willson NP Metabolic dysfunction-associate d steatotic liver disease (MASLD) (Primary Dx); Morbid obesity with BMI of 50.0-59.9, adult ([facility] V24, [facility] V28) 04/21/2025 Telephone Pulmonology - [place] [facility] 200 [place] [address] Geronimo Hamilton MD from Last [...] eservative (Fluzone; Afluria) 6mo and older 03/17/2021 Medical History Medical History Date Comments Sleep apnea Asthma Diabetes mellitus ([facility] V24, [facility] V28) Arthritis Social History Tobacco Use Types Packs/Day Years Used Date Smoking Tobacco: Never Smokeless Tobacco: Never Tobacco Cessation:Counseling Given: Not Answered Alcohol Use Standard Drinks/Week Comments Yes 0 (1 standard drink = 0.6 oz pur e alcohol) Comments Unknown Sex and Gender Information Value Date Recorded Sex Assigned at Not on file Legal Sex Female 11:53 AM EST Gender Identity Not on file Sexual Orientation Not on file Last Filed Vital Signs Vital Sign Reading Time Taken Comments Blood Pressure 128/72 04/25/2025 10:31 AM EST Pulse 80 04/25/2025 10:31 AM EST Temperature 36.1 C (97 F) 09/16/2024 11:33 AM EDT Respiratory Rate 16 09/16/2024 11:33 AM EDT Oxygen Saturation 97% 04/25/2025 10:31 AM EST Inhaled Oxygen Concentration - - Weight 127 kg (279 lb 6.4 oz) 04/25/2025 10:31 A M EST Height 147.3 cm (4' 10 ) 04/25/2025 10:31 AM EST Body Mass Index 58.39 04/25/2025 10:31 AM EST Plan of Treatment Upcoming Encounters Date Type Department Care Team (Late st Contact Info) Description 09/16/2025 9:30 AM EDT Office Visit Pulmonology - [place] [facility] [address] [place] [phone] Geronimo Hamilton MD [address] [place] [phone] 04/25/2026 9:00 AM EST Office Visit Gastroenterology - 299 [facility] 299 [facility] [address] [place] [phone] Kerri Willson NP [address] [facility] [address] [place] [address] Health Maintenance Due Date Last Done Comments [...] Screening: Pap Smear 1994 HIV Screening 05/07/2022 Medicare Annual Wellness Visit 05/07/2022 Social Influencers of Health Screening 05/07/2022 RSV Immunization Adult Patients (1 - Risk 50-74 years 1-dose series) 2023 Depression Screening 06/09/2024 Diabetes: Blood Sugar Control Test (HGBA1C) 03/08/2025 08/25/2024, 04/19/2024 Zoster Vaccines (2 of 2) 05/23/2025 03/28/2025 Diabetes: Annual Urine Albumin-Creatinine Ratio (uACR) 08/25/2025 08/25/2024 Diabetes: Annual GFR (Glomerular Filtration Rate) 08/25/2025 08/25/2024, 04/27/2024, 04/19/2024 Hypertension/CHF/CAD Annual BMP Blood Test 08/25/2025 08/25/2024, 04/27/2024, 04/19/2024 Cholesterol Screening (Lipid Panel) 03/08/2030 03/08/2025, 08/25/2024, 04/19/2024 Hepatitis C Screening Completed 04/19/2024 COVID-19 Vaccine Completed 02/18/2025, 01/2024, 03/22/2022, Additional history exists Influenza Vaccine Completed 02/18/2025, , 02/21/2023, Additional [...] EDT Hypothyroid HTN (hypertension) DM (diabetes mellitus) ([facility] V24, [facility] V28) Obesity MUMPS ANTIBODY IGG Routine 03/08/2025 11 :22 AM EDT Hypothyroid HTN (hypertension) DM (diabetes mellitus) ([facility] V24, [facility] V28) Obesity RUBEOLA ANTIBODY IGG Routine 03/08/2025 11:22 AM EDT Hypothyroid HTN (hypertension) DM (diabetes mellitus) ([facility] V24, [facility] V28) Obesity THYROID STIMULATING HORMONE Routine 03/08/2025 11:22 AM EDT Hypothyroid HTN (hypertension) DM (diabetes mellitus) ([facility] V24, [facility] V28) Obesity LIPID PANEL WITH REFLEX TO DIRECT LDL Routine 03/08/2025 11:22 AM EDT Hypothyroid HTN (hypertension) DM (diabetes mellitus) ([facility] V24, [facility] V28) Obesity MICROALBUMIN CREATININE URINE RATIO Routine 08/25/2024 11:31 AM EDT Laboratory tests ordered as part of a complete physical exam (CPE) DM (diabetes mellitus) ([facility] V24, [facility] V28) BMI 45.0-49.9, adult ([facility] V24, [facility] V28) HTN (hypertension) HLD (hyperlipidemia) JOHANN (obstructive sleep apnea) COMPREHENSIVE METABOLIC PANEL Routine 08/25/2024 11:31 AM EDT Laboratory tests ordered as part of a complete physical exam (CPE) DM (diabetes mellitus) ([facility] V24, [facility] V28) BMI 45.0-49.9, adult ([facility] V24, [facility] V28) HTN (hypertension) HLD (hyperlipidemia) JOHANN (obstructive sleep apnea) HEMOGLOBIN A1C Routine 08/25/2024 11:31 AM EDT Laboratory tests ordered as part of a complete physical exam (CPE) DM (diabetes mellitus) ([facility] V24, [facility] V28) BMI 45.0-49.9, adult ([facility] V24, [facility] V28) HTN (hypertension) HLD (hyperlipidemia) JOHANN (obstructive sleep apnea) HEPATITIS C ANTIBODY Routine 04/19/2024 11:08 AM EST Hypothyroid HTN (hypertension) DM (diabetes mellitus) ([facility] V24, [facility] V28) Elevated LFTs from Last 3 Months or Most Recently Relevant to Health Maintenance Results * (ABNORMAL) Lipid panel with reflex to direct LDL (03/08/2025 11:22 AM EDT) Cholesterol 97 0 - 200 mg/dL LAB CHEMISTRY METHOD 03/08/2025 3:[address] [facility] Triglycerides 158(H) 0 - 150 mg/dL LAB CHEMISTRY METHOD 03/08/2025 3:[address] [facility] HDL 46 >=40 mg/dL LAB CHEMISTRY METHOD 03/08/2025 3:[address] [facility] LDL Calculated 19 0 - 100 mg/dL LAB CHEMISTRY METHOD 03/08/2025 3:[address] [facility] Comment:Estimated LDL Calcul ated using equation: Total cholesterol - HDL cholesterol - (Triglycerides/5) VLDL Cholesterol Patrick 31.6 mg/dL LAB CHEMISTRY METHOD 03/08/2025 3:[address] [facility] Non HDL Chol. (LDL+VLDL) 51 <145 mg/dL LAB CHEMISTRY METHOD 03/08/2025 3:[address] [facility] Chol/HDL Ratio 2.1 0.0 - 4.4 LAB CHEMISTRY METHOD 03/08/2025 3:[address] [facility] Blood Venous blood specimen / Unknown Venipuncture / Unknown 03/08/2025 11:22 AM EDT 03/08/2025 11:22 AM EDT [facility] LAB BLOOD ORDERABLES Final Resul t Performing Organization Address [facility]/ZIP Co de Phone Number [facility] [address] [place] [address], [place] [phone] * Rubeola antibody IgG (03/08/2025 11:22 AM EDT) Rubeola IgG Positive Positive LAB CHEMISTRY METHOD 03/08/2025 3:[address] [facility] Rubeola IgG Antibody, measured 24.50 >=16.50 AU/mL LAB CHEMISTRY METHOD 03/08/2025 3:[address] [facility] Blood Venous blood specimen / Unknown Venipuncture / Unknown 03/08/2025 11:22 AM EDT 03/08/2025 11:[address] [facility] - 03/08/2025 3:36 PM EDT Interpretation >=16.5 AU/ml is considered to be consistent with Immunity Abdias [facility] LAB BLOOD ORDERABLES Final Resul t Performing Organization Address [facility] Co de Phone Number [facility] [address] [place] [address], [place] [phone] * (ABNORMAL) Rubella antibody IgG (03/08/2025 11:22 AM EDT) Rubella IgG Quant 1.8(L) >=10.0 I Unit/mL LAB CHEMISTRY METHOD 03/08/2025 4:[address] [facility] Rubella IgG Antibody Interp Negative( A) Positive LAB CHEMISTRY METHOD 03/08/2025 4:[address] [facility] Blood Venous blood specimen / Unknown Venipuncture / Unknown 03/08/2025 11:22 AM EDT 03/08/2025 11:22 AM EDT Abdias [facility] LAB BLOOD ORDERABLES Final Resul t Performing Organization Address City/[facility]/ZIP Co de Phone Number [facility] [address] [place] [address], [place] [phone] * (ABNORMAL) Mumps antibody IgG (03/08/2025 11:22 AM EDT) Pathologist [facility] Mumps IgG Negative( A) Positive LAB CHEMISTRY METHOD 03/08/2025 3:[address] [facility] Mumps IgG Antibody, measured <5.0(L) >=11.0 AU/mL LAB CHEMISTRY METHOD 03/08/2025 3:[address] [facility] Blood Venous blood specimen / Unknown Venipuncture / Unknown 03/08/2025 11:22 AM EDT 03/08/2025 11:[address] [facility] - 03/08/2025 3:36 PM EDT >=11 AU/mL is considered to be consistent with Immunity. [facility] LAB BLOOD ORDERABLES Final Resul t Performing Organization Address [facility]/ZIP Co de Phone Number [facility] [address] [place] [address], [place] [phone] * Thyroid stimulating hormone (03/08/2025 11:22 AM EDT) [facility] TSH 0.86 0.40 - 4.00 mcIU/mL LAB CHEMISTRY METHOD 03/08/2025 5:[address] [facility] Blood Venous blood specimen / Unknown Venipuncture / Unknown 03/08/2025 11:22 AM EDT 03/08/2025 11:22 AM EDT [facility] LAB BLOOD ORDERABLES Final Resul t Performing Organization Address City/[facility]/ZIP Co de Phone Number [facility] [address] [place] [address], [place] [phone] * (ABNORMAL) Microalbumin creatinine urine ratio (08/25/2024 11:31 AM EDT) Creatinine, Urine 85.0 mg/dL LAB CHEMISTRY METHOD 08/25/2024 7:[address] [facility] Microalb, Ur 37.0(H) 0.0 - 29.0 mg/L LAB CHEMISTRY METHOD 08/25/2024 7:[address] [facility] Microalb/Crea t Ratio 44(H) <30 mg/g creat LAB CHEMISTRY METHOD 08/25/2024 7:[address] [facility] Urine Urine specimen obtained by clean catch procedure / Unknown Non-blood Collection / Unknown 08/25/2024 11:31 AM EDT 08/25/2024 11:31 AM EDT [facility] LAB URINE ORDERABLES Final Resul t Performing Organization Address City/[facility]/ZIP Co de Phone Number [facility] [address] [place] [address], * (ABNORMAL) Hemoglobin A1c (08/25/2024 11:31 AM EDT) Hemoglobin A1C 10.2(H) <6.5 % LAB CHEMISTRY METHOD 08/25/2024 9:[address] [facility] Mean Bld Glu Estim. 246 mg/dL LAB CHEMISTRY METHOD 08/25/2024 9:[address] [facility] Blood Venous blood specimen / Unknown Venipuncture / Unknown 08/25/2024 11:31 AM EDT 08/25/2024 11:31 AM EDT [facility] LAB BLOOD ORDERABLES Final Resul t Performing Organization Address City/[facility]/ZIP Co de Phone Number [facility] [address] [place] [address], * (ABNORMAL) Comprehensive metabolic panel (08/25/2024 11:31 AM EDT) Sodium 138 133 - 145 mmol/L LAB CHEMISTRY METHOD 08/25/2024 4:[address] [facility] Potassium 5.0 3.5 - 5.5 mmol/L LAB CHEMISTRY METHOD 08/25/2024 4:[address] [facility] Chloride 104 96 - 110 mmol/L LAB CHEMISTRY METHOD 08/25/2024 4:[address] [facility] CO2 27 21 - 32 mmol/L LAB CHEMISTRY METHOD 08/25/2024 4:[address] [facility] Anion Gap 7 3 - 11 LAB CHEMISTRY METHOD 08/25/2024 4:[address] [facility] Glucose 176(H) 70 - 100 mg/dL LAB CHEMISTRY METHOD 08/25/2024 4:[address] [facility] BUN 43(H) 5 - 25 mg/dL LAB CHEMISTRY METHOD 08/25/2024 4:[address] [facility] Comment:Results verified by repeat testing Creatinine 1.51(H) 0.50 - 1.10 mg/dL LAB CHEMISTRY METHOD 08/25/2024 4:[address] [facility] eGFR 42(L) >=60 mL/min/1. 73m2 LAB CHEMISTRY METHOD 08/25/2024 4:[address] [facility] Comment:Calculation based on the Chronic Kidney Disease Epidemiology Collaboration (CKD-EPI) equation refit without adjustment for race. BUN/Creatinine Ratio 28.5 LAB CHEMISTRY METHOD 08/25/2024 4:[address] [facility] Calcium 9.4 8.5 - 10.5 mg/dL LAB CHEMISTRY METHOD 08/25/2024 4:[address] [facility] AST (SGOT) 22 10 - 42 unit/L LAB CHEMISTRY METHOD 08/25/2024 4:[address] [facility] ALT (SGPT) 35 10 - 60 unit/L LAB CHEMISTRY METHOD 08/25/2024 4:[address] [facility] Alkaline Phosphatase 96 42 - 121 unit/L LAB CHEMISTRY METHOD 08/25/2024 4:[address] [facility] Total Protein 7.1 6.0 - 8.0 g/dL LAB CHEMISTRY METHOD 08/25/2024 4:[address] [facility] Albumin 3.6 3.2 - 5.0 g/dL LAB CHEMISTRY METHOD 08/25/2024 4:[address] [facility] Total Bilirubin 0.4 0.0 - 1.4 mg/dL LAB CHEMISTRY METHOD 08/25/2024 4:[address] [facility] Blood Venous blood specimen / Unknown Venipuncture / Unknown 08/25/2024 11:31 AM EDT 08/25/2024 11:31 AM EDT [facility] LAB BLOOD ORDERABLES Final Resul t Performing Organization Address City/[facility]/ZIP Co de Phone Number [facility] [address] [place] [address], [place] [phone] * Hepatitis C antibody (04/19/2024 11:08 AM EST) Hepatitis C Antibody Negative Negative LAB CHEMISTRY METHOD 04/19/2024 5:[address] [facility] Blood Venous blood specimen / Unknown Venipuncture / Unknown 04/19/2024 11:08 AM EST 04/19/2024 11:08 AM EST [facility] LAB BLOOD ORDERABLES Final Resul t [facility] [address] [place], [place] [address] [phone] from Last 3 Months or Most Recently Relevant to Health Maintenance Insurance MEDICAID - [place] MEDICARE Care Teams Bight Maker Relationship Specialty Start Date End Date Tristin Garcia DO [address] [place] [phone] PCP - General Internal Medicine 05/08/17
--- OUTSIDE RECORDS SUMMARY | 2025-05-26 10:44 | XMS_ITS | Patient Health Record ---
[facility] Address [address] [place] [address] Care Team Providers Care Syrup Maker Cook Name Role Phone Tristin Garcia MD Primary Care Provider Mat Oliveira Unavailable [phone] Allergies No Known Allergies Results Component Value Reference Range Notes HEMOGLOBIN A1C (GLYCOHEMOGLO BIN) Reviewed date:04/18/2025 12:53:07 PM Interpretation: Performing Lab: Notes/Report: HEMOGLOBIN A1C % (HH) 6.4 Reason For Referral No Information Medications Medication SIG (Take, Route, Frequency, Duration) Notes Start Date End Date Status ProAir HFA 90 mcg Ac tive FreeStyle Lancets - TEST SUGAR DAILY DIRECTED; Duration: 30 Not-Taking Victoza 18 MG/3ML INJECT 1.2 MG UNDER THE SKIN ONCE DAILY Subcutaneous; Duration: 30 Days Not-Taking Jardiance 10 MG 1 tablet Orally Once a day Active Norethindrone 0.35 MG TAKE 1 TABLET BY MOUTH EVERY DAY Oral; Duration: 28 Not-Taking Trulicity 3 MG/0.5ML as directed Subcutaneous Active Lisinopril 5 MG TAKE 1 TABLET BY MOUTH EVERY DAY Oral; Duration: 30 Not-Taking Lantus Active Breo Ellipta 100-25 MCG/ACT 1 puff Inhal ation Once a day Active metFORMIN HCl ER 500 MG TAKE 1 TABLET BY MOUTH EVERY DAY Oral; Duration: 30 Not-Taking Flovent HFA 110 mcg Active Extra Depth Orthopedic Shoes (1 Pair) with Customized Heat Molded Multidensity Innersoles (3 Pair) as directed Dx: NIDDM (E11.9), Hammertoe Foot Deformity (M20.41,M20.42), Preulcerative Skin Lesion(s) (L85.1) Not-Taking Levothyroxine Sodium 75 mg Active hydroCHLOROthiazide 25 mg Active Immunizations Vaccine Route Administration Date Status Comme nts Influenza Unknown 04/02/2017 Administered Influenza Unknown 04/02/2018 Administered Social History Tobacco Use: Social History Observation Description Date Details (start date - stop date) Never Smoker NA - NA Tobacco use other than smoking: Question Answer Notes Are you an other tobacco user? Yes Tobacco Control (Standard) Question Answer Notes Tobacco use: Nonsmoker Additional Findings: Tobacco non-user Current no nsmoker AUDIT-C (Standard) Question Answer Notes Did you have a drink contain ing alcohol in the past year? Yes How often did you have a dri nk containing alcohol in the past year? Monthly or less (1 point) How many drinks did you have on a typical day when you were drinking in the past year? 1 or 2 drinks (0 point) How often did you have six o r more drinks on one occasion in the past year? Never (0 point) Points 1 Interpretation Negative Problems Problem Type SNOMED Code ICD Code Onset Dates Problem Status W/U Status Risk Notes Problem Type II diabetes mellitus without complication (569890988) Type 2 diabetes mellitus without complication (E11.9) Active confirmed Vital Signs Blood pressure diastolic 76 mm Hg 04/18/2025 Height 4ft 10in in 04/18/2025 Blood pressure systolic 115 mm Hg 04/18/2025 Weight 273 lbs 04/18/2025 BMI 57.05 kg/m2 04/18/2025 Procedures Procedure Date Ordered Date Performed Result Body Sit e 71461-EPSESHD NAIL, 6 OR MORE 04/18/2025 N/A Encounters Encounter Location Date Provider Diagnosis [facility] [address] [phone] 04/18/2025 Mat Orozco Type 2 diabetes mellitus without complication E11.9 ; Pain in right toe(s) M79.674 ; Tinea unguium B35.1 and Pain in left toe(s) M79.675 Assessments Encounter Date Diagnosis (ICD Code) Assessment Notes Treatment Notes Treatment Clinical Notes Section Notes 04/18/2025 Type 2 diabetes mellitus without complication (ICD-10 - E11.9) 04/18/2025 Pain in right toe(s) (ICD-10 - M79.674) 04/18/2025 Tinea unguium (ICD-10 - B35.1) 04/18/2025 Pain in left toe(s) (ICD-10 - M79.675) 04/18/2025 Other Plan Of Treatment Pending Test Test Name Order Date Hemoglobin A1c 06/24/2017 [id number] NAIL, 6 OR MORE 10/30/2016 [id number] NAIL, 6 OR MORE 11/04/2018 [id number] NAIL, 6 OR MORE 12/02/2019 [id number] NAIL, 6 OR MORE 12/04/2020 [id number] NAIL, 6 OR MORE 02/27/2022 [id number] NAIL, 6 OR MORE 04/21/2023 [id number] NAIL, 6 OR MORE 04/19/2024 [id number] NAIL, 6 OR MORE 04/18/2025 [id number] NAIL, 1-5 04/18/2016 [id number] SKIN LESIONS, OVER 4 09/03/19 12 [id number] NAIL(S) 09/03/2011 Next Appt Details Provider Name:Mat Orozco , 04/24/2026 01:00:00 PM, [address] [facility] [address], [place], [address], Medical (General) History Medical History History ICD Code asthma chicken pox Diabetes Hypertension Thyroid disorder Surgical History Surgery Date(Month/Year) cyst removal 1976 cataract surgery 03/02/25, 03/16/25
--- OUTSIDE RECORDS SUMMARY | 2025-05-26 10:44 | XMS_ITS | Clinical Summary ---
Author Organization [facility] Address [address] [facility] [place] [address] Care Team Providers Care Licensed Embalmer Name Role Phone Tristin Garcia DO Primary Care Provider [phone] Allergies No known active allergies Social History Tobacco Use Types Packs/Day Years Used Date Smoking Tobacco: Never Assessed Comments Unknown Sex and Gender Information Value Date Recorded Sex Assigned at Not on file Legal Sex Female 4:35 PM EST Gender Identity Not on file Sexual Orientation Not on file Plan of Treatment Not on file Medical Devices Not on file Care Teams Licensed Embalmer Relationship Specialty Start Date End Date Tristin Garcia DO PCP - Director Of Marketing And Promotions 06/23/15
== END 2025-05-26 09:41 | disposition home or self-care (01) ==
LOC: HO.ENCR 09:21
PROVIDERS: PCP Internal Medicine; Visit Provider Registered Nurse Diabetes Educator
DX: E11.65 Type 2 diabetes mellitus with hyperglycemia (principal); Z79.4 Long term (current) use of insulin

== ENCOUNTER → 2025-05-26 09:20 | Outpatient (BNVA) | payer MEDICARE, MEDICAID, SELFPAY | PROVIDERS: PCP Internal Medicine; Visit Provider Registered Nurse Diabetes Educator | DX: E11.65 Type 2 diabetes mellitus with hyperglycemia (principal); Z79.4 Long term (current) use of insulin | CPT/HCPCS: 99211 ==